=== PATIENT | male | born 2000 | race Caucasian/White ===

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

== ENCOUNTER 2019-10-01 19:43 | Emergency (ER) | payer OTHER ==
[2019-10-01 19:50] VITALS: TEMP 98.3
[2019-10-01] MEDS ORDERED: DIAZEPAM 5 MG/ML 2 ML INJ IM ONE (20:23)
--- NOTE | 2019-10-01 20:31 | ED ---
SOB HPI - General Chief Complaint: Shortness of Breath Stated Complaint: Chest pain Time Seen by Provider: 10/01/19 20:04 Source: patient Mode of arrival: ambulatory Limitations: no limitations - History of Present Illness Initial Comments: Patient is a 19-year-old male presenting to the emergency Department with complaints of right sided chest pain and shortness of breath 4 days. Patient states he was seen twice at [facility] in the past 2 days and was diagnosed with enlarged lymph nodes as well as anxiety. Patient states his pain has continued so he wanted to be seen here. Patient denies any history of trauma. He denies any drug use. He states he does have history of mild anxiety but nothing to this nature. He denies recent fever, chills, nausea, vomiting, diarrhea, abdominal pain. He has no other complaints at this time. Upon arrival to the ER, his vitals are stable. - Related Data Previous Rx's Medication Instructions Recorded Albuterol Inhaler (Mhu) [Ventolin 2 puff INHALATION RT-QID PRN puff 09/07/17 Hfa Inhaler (Mhu)] Budesonide-Formot 160-4.5 Mcg 2 puff INHALATION RT-BID puff 09/07/17 [Symbicort 160-4.5 Mcg Inhaler] [place] Carbonate 600 mg PO DAILY cap 09/07/17 [place] Carbonate 900 mg PO HS cap 09/07/17 Lurasidone [Latuda] 100 mg PO DAILY tab 09/07/17 Ketorolac [Toradol] 10 mg PO Q8HR #10 tab 10/01/19 Allergies Allergy/AdvReac Type Severity Reaction Status Date / Time No Known Allergies Allergy Verified 10/01/19 19:49 Review of Systems ROS Statement: Those systems with pertinent positive or pertinent negative responses have been documented in the HPI. ROS Other: All systems not noted in ROS Statement are negative. Past Medical History Past Medical History: Asthma History of Any Multi-Drug Resistant Organisms: None Reported Past Surgical History: No Surgical Hx Reported Past Anesthesia/Blood Transfusion Reactions: No Reported Reaction Past Psychological History: Anxiety, Depression Smoking Status: Current every day smoker Past Alcohol Use History: Daily Past Drug Use History: Cocaine, Marijuana General Exam - General Exam Comments Initial Comments: GENERAL: Patient is very anxious, holding the right side of his chest. Painful to take in a deep breath, in mild distress. HEAD: Atraumatic, normocephalic. EYES: Pupils equal round and reactive to light, extraocular movements intact, sclera anicteric, conjunctiva are normal. ENT: TMs normal, nares patent, oropharynx clear without exudates. Moist mucous membranes. NECK: Normal range of motion, supple without lymphadenopathy or JVD. LUNGS: Breath sounds clear to auscultation bilaterally and equal. No wheezes rales or rhonchi. HEART: Regular rate and rhythm without murmurs, rubs or gallops. ABDOMEN: Soft, nontender, normoactive bowel sounds. No guarding, no rebound. No masses appreciated. : Deferred EXTREMITIES: Normal range of motion, no pitting or edema. No clubbing or cyanosis. NEUROLOGICAL: Normal speech, normal gait. PSYCH: Anxious SKIN: Warm, Dry, normal turgor, no rashes or lesions noted. Limitations: no limitations Course Vital Signs 10/01/19 10/01/19 19:47 22:11 Temperature 98.3 F Pulse Rate 87 101 H Respiratory 20 18 Rate Blood Pressure 156/62 128/82 O2 Sat by Pulse 94 L 98 Oximetry Medical Decision Making - Medical Decision Making Patient is a 19-year-old male here for right-sided chest pain 4 days. Patient was seen recently at [facility]. Records were obtained and reviewed. Patient was actually admitted overnight and then came back the same day. Computed tomography scan of the chest was ordered to rule out PE and revealed significant lymph nodes the mediastinal area as as well as calcified spots in the spleen. Patient was started on steroids and was told to follow up with PCP. Patient presents today with continued pain in the right side of the chest. Vitals are stable. Exam is unremarkable. EKG shows no signs of ischemia, chest x-ray shows no acute changes. Patient was given Valium and Toradol in the ER. He states improvement in his symptoms. Patient will follow up with PCP. He is agreement with this plan of care. Return parameters were discussed with the patient, he verbalizes understanding. - EKG Data EKG Comments: Normal sinus rhythm, no signs of acute ischemia. Ventricular rate 96, MD interval 154, QTC 424. Disposition Clinical Impression: Anxiety, Atypical chest pain, Lymph nodes enlarged Disposition: HOME SELF-CARE Condition: Stable Instructions (If sedation given, give patient instructions): Anxiety (ED) Additional Instructions: Please return to the Emergency Department if symptoms worsen or any other concerns. Continue with already prescribed steroids. Follow up with PCP. Prescriptions: Ketorolac [Toradol] 10 mg PO Q8HR #10 tab Is patient prescribed a controlled substance at d/c from ED?: No Referrals: Ivan Whyte MD [Primary Care Provider] - 1-2 days
--- NOTE | 2019-10-01 20:57 | XR ---
EXAMINATION TYPE: XR chest 2V DATE OF EXAM: 10/01/2019 COMPARISON: 10/02/2009 TECHNIQUE: PA and lateral views submitted. HISTORY: Chest pain FINDINGS: Basilar infiltrate on the right with coarsened interstitial markings. Pleural thickening or tiny righ t effusion. Heart size stable. No pneumothorax. Curvature the spine could be positional correlate cli nically. IMPRESSION: 1. Right basilar subsegmental consolidation with coarsened interstitium. Correlate for interstitial o r viral pneumonitis with basilar infiltrate favored over venous congestion.
[2019-10-01] MEDS ORDERED: KETOROLAC 60 MG/2 ML VIAL IM STA (21:47)
[2019-10-01 22:12] VITALS: BP 128/82; PULSE 101; RESP 18
== END 2019-10-01 22:15 | disposition home or self-care (01) ==
LOC: EC 19:43
DX: R07.89 Other chest pain (principal); F41.9 Anxiety disorder, unspecified; R59.0 Localized enlarged lymph nodes; F17.200 Nicotine dependence, unspecified, uncomplicated
CPT/HCPCS: 99285; 96372 ×2; 93005; 71046; J3360; J1885

== ENCOUNTER 2019-10-04 03:20 | Inpatient (IN) | payer OTHER ==
[2019-10-04] MEDS ORDERED: HYDROmorphone 1 MG/ML 1 ML SYRINGE IVP STA (03:35)
[2019-10-04] MEDS ORDERED: LORazepam 2 MG/ML INJ IV STA (03:36)
[2019-10-04] MEDS ORDERED: SODIUM CHLORIDE 0.9% 1,000 ML IV STA ×3 (03:36→05:06)
[2019-10-04] MEDS ORDERED: SODIUM CHLORIDE 0.9% 500 ML 500 ML IV STA ×2 (03:36→05:06)
--- NOTE | 2019-10-04 03:36 | ED ---
Recheck HPI - General Chief Complaint: Chest Pain Stated Complaint: pain all over Time Seen by Provider: 10/04/19 03:30 Source: patient, family, RN notes reviewed, old records reviewed Mode of arrival: ambulatory Limitations: no limitations - History of Present Illness Initial Comments: This is a 19-year-old male DF for evaluation patient has no medical history occasionally does drugs and alcohol both cocaine and alcohol today. Marijuana. Patient is no witnesses she will surgical history recent medical history includes multiple ER visits this with inpatient hospitalization for chest pain. Patient is also admits to fevers over the last week or so. Symptoms of increasingly worse over the last 2 days. Patient has severe chest pain severe distress feels like his heart is racing he cannot breath he is not taking a deep breath he cannot inhale. Patient is also complaining some dull pain that to be worse when he does try to take a deep breath. He is having anterior chest pain began suddenly fever sweating in general does not feel well. Patient's been taking antibiotics as prescribed, he was given some pain medication but that is not helping MD Complaint: other (recheck chest pain) -: week(s) (1) Returns Today for: persistent/worsening pain related to initial visit (severe) Symptoms Since Prior Visit: worsening pain, fever Context: other (worsening pain) Associated Symptoms: fever, chills, chest pain, shortness of breath, abdominal pain Treatments Prior to Arrival: other medications (antibiotics), Given Pain Meds on - Related Data Home Medications Medication Instructions Recorded Confirmed Acetaminophen Tab [Tylenol] 650 mg PO Q6H PRN 10/04/19 10/04/19 Albuterol Inhaler [Ventolin Hfa 2 puff INHALATION RT-Q6H PRN 10/04/19 10/04/19 Inhaler] Albuterol Nebulized [Ventolin 2.5 mg INHALATION RT-Q6H PRN 10/04/19 10/04/19 Nebulized] Azithromycin [Zithromax Z-pack] See Taper PO DAILY 10/04/19 10/04/19 Cetirizine HCl 10 mg PO DAILY PRN 10/04/19 10/04/19 Ketorolac [Toradol] 10 mg PO Q8H PRN 10/04/19 10/04/19 methylPREDNISolone Dose Pack See Taper PO DAILY 10/04/19 10/04/19 [Medrol Dose Pack] Allergies Allergy/AdvReac Type Severity Reaction Status Date / Time No Known Allergies Allergy Verified 10/04/19 14:00 Review of Systems ROS Statement: Those systems with pertinent positive or pertinent negative responses have been documented in the HPI. ROS Other: All systems not noted in ROS Statement are negative. Past Medical History Past Medical History: Asthma History of Any Multi-Drug Resistant Organisms: None Reported Past Surgical History: No Surgical Hx Reported Past Anesthesia/Blood Transfusion Reactions: No Reported Reaction Past Psychological History: Anxiety, Depression Smoking Status: Current every day smoker Past Alcohol Use History: Daily Past Drug Use History: Cocaine, Marijuana - Past Family History Mother Additional Family Medical History / Comment(s): Vertigo Father History Unknown: Yes General Exam Limitations: no limitations General appearance: alert, anxious, in distress Head exam: Present: atraumatic, normocephalic, normal inspection Eye exam: Present: normal appearance, PERRL, EOMI. Absent: scleral icterus, conjunctival injection, periorbital swelling ENT exam: Present: normal exam, mucous membranes dry Neck exam: Present: normal inspection. Absent: tenderness, meningismus, lymphadenopathy Respiratory exam: Present: decreased breath sounds (Right). Absent: wheezes, rales, rhonchi, stridor Cardiovascular Exam: Present: normal rhythm, tachycardia, normal heart sounds. Absent: systolic murmur, diastolic murmur, rubs, gallop, clicks GI/Abdominal exam: Present: soft, normal bowel sounds. Absent: distended, tenderness, guarding, rebound, rigid Extremities exam: Present: normal inspection, full ROM, normal capillary refill. Absent: tenderness, pedal edema, joint swelling, calf tenderness Back exam: Present: normal inspection Neurological exam: Present: alert, oriented X3, CN II-XII intact Psychiatric exam: Present: normal affect, normal mood Skin exam: Present: warm, dry, intact, normal color. Absent: rash Course Vital Signs 10/04/19 10/04/19 10/04/19 03:22 03:40 05:05 Temperature 98.3 F Pulse Rate 133 H 118 H 120 H Respiratory 20 22 23 Rate Blood Pressure 124/70 117/72 104/88 O2 Sat by Pulse 95 96 95 Oximetry 10/04/19 10/04/19 10/04/19 05:36 06:00 06:30 Temperature 98.3 F Pulse Rate 114 H 113 H 116 H Respiratory 23 21 23 Rate Blood Pressure 101/71 112/60 100/63 O2 Sat by Pulse 97 96 96 Oximetry - Reevaluation(s) Reevaluation #1: 10/04/19 05:47 Medical records reviewed Patient's transfer records as well as inpatient hospitalist records from [facility] is reviewed as well as ER visit from earlier in the week Reevaluation #2: 10/04/19 05:48 Patient is having improved pain control still having severe pain feels like his heart is racing no active nausea vomiting and denies any recent history of nausea and vomiting does admit to fever which is taking Tylenol for Patient's blood pressures improved with IV hydration, pain is improved - Consultations Consultation #1: Spoke with Dr. Montalvo CVT does recommend Gastrografin and barium swallow, aware patient Spoke with interventional radiology will be able to do both procedures this morning Spoke with Dr. Whyte who is okay for admission Spoke with Dr. Rosenberg except ICU admission Medical Decision Making - Medical Decision Making 19 male DF for evaluation patient with us today for evaluation of chest pain shortness of breath recheck patient no something is wrong on arrival. Patient does have significant pneumomediastinum right-sided pleural effusion likely empyema with fever. Patient be admitted for interventional radiology drainage and evaluation of possible Boerhaave's esophagus, patient placed on broad- spectrum antibiotics pain control and IV resuscitation will be admitted to the ICU for telemetry and cardiopulmonary monitoring and resuscitation - Lab Data Result diagrams: 10/04/19 03:55 10/04/19 03:55 Lab Results 10/04/19 10/04/19 10/04/19 Range/Units 03:55 03:55 03:55 WBC 34.2 H (3.8-10.6) k/uL RBC 4.99 (4.30-5.90) m/uL Hgb 14.2 (13.0-17.5) gm/dL Hct 43.0 (39.0-53.0) % MCV 86.2 (80.0-100.0) fL MCH 28.4 (25.0-35.0) pg MCHC 32.9 (31.0-37.0) g/dL RDW 13.3 (11.5-15.5) % Plt Count 498 H (150-450) k/uL Neutrophils % (Manual) 88 % Band Neutrophils % 6 % Lymphocytes % (Manual) 3 % Monocytes % (Manual) 3 % Neutrophils # (Manual) 32.10 H (1.3-7.7) k/uL Lymphocytes # (Manual) 1.03 (1.0-4.8) k/uL Monocytes # (Manual) 1.03 H (0-1.0) k/uL Nucleated RBCs 0 (0-0) /100 WBC Manual Slide Review Performed Toxic Granulation Present ESR 80 H (0-15) mm/hr PT 10.5 (9.0-12.0) sec INR 1.0 (<1.2) APTT 26.6 (22.0-30.0) sec D-Dimer 3.17 H (<0.60) mg/L FEU Sodium 130 L (137-145) mmol/L Potassium 4.7 (3.5-5.1) mmol/L Chloride 95 L (98-107) mmol/L Carbon Dioxide 24 (22-30) mmol/L Anion Gap 11 mmol/L BUN 27 H (9-20) mg/dL Creatinine 1.14 (0.66-1.25) mg/dL Est GFR (CKD-EPI)AfAm >90 (>60 ml/min/1.73 sqM) Est GFR (CKD-EPI)NonAf >90 (>60 ml/min/1.73 sqM) Glucose 130 H (74-99) mg/dL Plasma Lactic Acid Rene (0.7-2.0) mmol/L Calcium 8.5 (8.4-10.2) mg/dL Phosphorus 4.8 H (2.5-4.5) mg/dL Magnesium 2.8 H (1.6-2.3) mg/dL Total Bilirubin 1.0 (0.2-1.3) mg/dL AST 32 (17-59) U/L ALT 36 (4-49) U/L Alkaline Phosphatase 92 (38-126) U/L Lactate Dehydrogenase 720 H (313-618) U/L Creatine Kinase 24 L (55-170) U/L CK-MB (CK-2) (0.0-2.4) ng/mL C-Reactive Protein 660.4 H (<10.0) mg/L Total Protein 6.1 L (6.3-8.2) g/dL Albumin 3.0 L (3.5-5.0) g/dL Coronavirus (PCR) (Not Detectd) 10/04/19 10/04/19 10/04/19 Range/Units 03:55 03:55 04:00 WBC (3.8-10.6) k/uL RBC (4.30-5.90) m/uL Hgb (13.0-17.5) gm/dL Hct (39.0-53.0) % MCV (80.0-100.0) fL MCH (25.0-35.0) pg MCHC (31.0-37.0) g/dL RDW (11.5-15.5) % Plt Count (150-450) k/uL Neutrophils % (Manual) % Band Neutrophils % % Lymphocytes % (Manual) % Monocytes % (Manual) % Neutrophils # (Manual) (1.3-7.7) k/uL Lymphocytes # (Manual) (1.0-4.8) k/uL Monocytes # (Manual) (0-1.0) k/uL Nucleated RBCs (0-0) /100 WBC Manual Slide Review Toxic Granulation ESR (0-15) mm/hr PT (9.0-12.0) sec INR (<1.2) APTT (22.0-30.0) sec D-Dimer (<0.60) mg/L FEU Sodium (137-145) mmol/L Potassium (3.5-5.1) mmol/L Chloride (98-107) mmol/L Carbon Dioxide (22-30) mmol/L Anion Gap mmol/L BUN (9-20) mg/dL Creatinine (0.66-1.25) mg/dL Est GFR (CKD-EPI)AfAm (>60 ml/min/1.73 sqM) Est GFR (CKD-EPI)NonAf (>60 ml/min/1.73 sqM) Glucose (74-99) mg/dL Plasma Lactic Acid Rene 1.7 (0.7-2.0) mmol/L Calcium (8.4-10.2) mg/dL Phosphorus (2.5-4.5) mg/dL Magnesium (1.6-2.3) mg/dL Total Bilirubin (0.2-1.3) mg/dL AST (17-59) U/L ALT (4-49) U/L Alkaline Phosphatase (38-126) U/L Lactate Dehydrogenase (313-618) U/L Creatine Kinase (55-170) U/L CK-MB (CK-2) <0.2 (0.0-2.4) ng/mL C-Reactive Protein (<10.0) mg/L Total Protein (6.3-8.2) g/dL Albumin (3.5-5.0) g/dL Coronavirus (PCR) Not Detected (Not Detectd) - EKG Data -: EKG Interpreted by Me (EKG shows sinus tachycardia of 119 NM 112 QRS 80 QTc [address]) - Radiology Data Radiology results: report reviewed (CT of the chest and pelvis does show significant mediastinitis normal mediastinum significant right-sided effusion li sona empyema), image reviewed Critical Care Time Critical Care Time: Yes Total Critical Care Time: 31 Disposition Clinical Impression: Mediastinitis, Pneumomediastinum, Pleural effusion, right, Empyema, right, Fever, Sepsis, Pneumonia Disposition: ADMITTED IP TO THIS HOSP Condition: Critical Is patient prescribed a controlled substance at d/c from ED?: No
[2019-10-04] MEDS ORDERED: KETOROLAC 30 MG/ML 1 ML VIAL IVP STA (03:38)
[2019-10-04 04:08] LABS: HGB 14.2 gm/dL (13.0-17.5); MCH 28.4 pg (25.0-35.0); MCHC 32.9 g/dL (31.0-37.0); MCV 86.2 fL (80.0-100.0); Mean Platelet Volume 7.5; Platelet Count 498 k/uL (150-450); RBC 4.99 m/uL (4.30-5.90); RDW 13.3 % (11.5-15.5); WBC 34.2 k/uL (3.8-10.6)
[2019-10-04 04:20] LABS: ALT 36 U/L (4-49); AST 32 U/L (17-59); African American GFR (CKD) >90 (>60 ml/min/1.73 sqM); Alkaline Phosphatase 92 U/L (38-126); Anion Gap 11 mmol/L; Blood Urea Nitrogen 27 mg/dL (9-20); Calcium 8.5 mg/dL (8.4-10.2); Carbon Dioxide 24 mmol/L (22-30); Chloride 95 mmol/L (98-107); Creatine Kinase 24 U/L (55-170); Glucose 130 mg/dL (74-99); LDH 720 U/L (313-618); Magnesium 2.8 mg/dL (1.6-2.3); Non-African American GFR(CKD) >90 (>60 ml/min/1.73 sqM); Phosphorus 4.8 mg/dL (2.5-4.5); Potassium 4.7 mmol/L (3.5-5.1); Sodium 130 mmol/L (137-145); Total Protein 6.1 g/dL (6.3-8.2)
[2019-10-04 04:26] LABS: Band Neutrophils % 6 %; Lymphocytes # (M) 1.03 k/uL (1.0-4.8); Monocytes # (M) 1.03 k/uL (0-1.0); Neutrophils % (M) 88 %; Nucleated Red Blood Cells 0 /100 WBC (0-0); Partial Thromboplastin Time 26.6 sec (22.0-30.0); Prothrombin Time 10.5 sec (9.0-12.0); Total Cells Counted 100
[2019-10-04 04:27] LABS: Toxic Granulation Present
[2019-10-04 04:28] LABS: D-Dimer 3.17 mg/L FEU (<0.60)
--- NOTE | 2019-10-04 05:00 | CT ---
EXAMINATION TYPE: CT angio chest DATE OF EXAM: 10/04/2019 COMPARISON: None HISTORY: JONES and chest pain CT DLP: 339.6 mGycm Automated exposure control for dose reduction was used. CONTRAST: Performed with IV Contrast, patient injected with 100mL mL of Isovue 370. There are 3-D post processed images. There is a large right pleural effusion. There is significant infiltrate and atelectasis in the right lower lobe and to a lesser extent the right upper lobe. Pleural fluid has low attenuation. There is pericardial effusion. The left lung is clear of consolidation. Thoracic aorta is intact and there is no aneurysm or dissection. I see no filling defects in the pulmonary arteries. There is pneumomediastinum. There is air extending in the retrosternal region and anterior to the hea rt in down to the diaphragm. The bony thorax is intact. Upper abdominal soft tissues are intact. IMPRESSION: No evidence of pulmonary embolism. There is appearance of the large right pleural effusion with right side pneumonic atelectasis and mild infiltrate that is a significant adverse change compared to rece nt chest x-ray 10/01/2019. There is pneumomediastinum and moderate pericardial effusion. I would consider possibilities of perforated esophagus with mediastinitis and empyema. Fluid in the p leural space has low attenuation and I do not suspect hemorrhage. The density is 8. Exam findings were discussed with Dr. Rosas, at 5:00 AM.
[2019-10-04 05:03] LABS: Erythrocyte Sedimentation Rate 80 mm/hr (0-15)
[2019-10-04] MEDS ORDERED: PIPERACILLIN-TAZOBACTAM 3.375 GM in SODIUM CHLORIDE 0.9% 100 ML IVPB STA (05:08)
--- NOTE | 2019-10-04 05:10 | CT ---
EXAMINATION TYPE: CT abdomen pelvis w con DATE OF EXAM: 10/04/2019 COMPARISON: None HISTORY: abdominal pain CT DLP: 778.2 mGycm Automated exposure control for dose reduction was used. CONTRAST: Performed with IV Contrast, patient injected with 100mL mL of Isovue 370. There is large right pleural effusion. There is small left pleural effusion. There is moderate perica rdial effusion. Liver shows no focal defect. There are multiple calcified splenic granulomata. Stomach appears intact . There is no evidence of pancreatic mass. Gallbladder appears normal. There is no adrenal mass. Kidneys show satisfactory contrast opacification. There is no hydronephrosi s. Ureters are not dilated. There is mild free fluid in the pelvis. Bladder distends smoothly. There is no inguinal hernia. There is no evidence of pelvic mass. There is no mesenteric edema. There is no sign of free air. There is no evidence of thickened appendix. There is no bowel obstruction. Lumbar spine is intact. Bony pelvis is intact. IMPRESSION: Large right pleural effusion and small left pleural effusion. Old granulomatous disease. Mild low den sity free fluid in the pelvis.
[2019-10-04 05:13] LABS: C Reactive Protein 660.4 mg/L (<10.0)
[2019-10-04] MEDS ORDERED: NALOXONE 0.4 MG/ML 1 ML VIAL IV PRN (05:34)
[2019-10-04] MEDS ORDERED: LEVOFLOXACIN 750MG-D5W PMX 750 MG in DEXTROSE/WATER 1 150ML.BAG IVPB STA (05:40)
[2019-10-04] MEDS ORDERED: DEXTROSE 5%-0.45% NACL 1,000 ML IV SCH (05:45)
[2019-10-04] MEDS ORDERED: PANTOPRAZOLE 40 MG/10 ML VIAL IVP STA (06:05)
[2019-10-04] MEDS ORDERED: ONDANSETRON 4 MG/2 ML VIAL IVP STA (06:05)
[2019-10-04] MEDS ORDERED: ONDANSETRON 4 MG/2 ML VIAL IVP PRN (06:05)
--- NOTE | 2019-10-04 06:10 | XR ---
EXAMINATION TYPE: XR chest 1V portable DATE OF EXAM: 10/04/2019 COMPARISON: 10/01/2019 HISTORY: Chest pain TECHNIQUE: Single view FINDINGS: There is large right pleural effusion. Left lung is fairly clear. There is no heart failure . Cardiac silhouette is enlarged and consistent with the pericardial effusion evident on the CT scan. There are chest leads. Mediastinum is slightly widened. IMPRESSION: Cardiomegaly consistent with pericardial effusion that is a change compared to recent exa m. Large right pleural effusion is a significant change compared to recent exam. The pneumomediastinu m evident on the CT scan is not demonstrated on this exam. Mediastinum is slightly widened.
[2019-10-04] MEDS: HYDROmorphone 1 MG/ML 1 ML SYRINGE IVP PRN ×5 (06:16→21:48)
[2019-10-04 07:02] LABS: Glucose,Whole Blood 135 mg/dL (75-99)
--- NOTE | 2019-10-04 07:24 | HP ---
HISTORY AND PHYSICAL A 19-year-old white male with chest pain all over, associated with fever, chills, chest pain, abdominal pain, worsening pain since admission. He was found to have a possible empyema on CAT scan of the chest at which time chest surgeon is consulted for possible drain, started on broad-spectrum antibiotics. He is going to be . ALLERGIES: Negative. Current everyday smoker. He does cocaine, marijuana. REVIEW OF SYSTEMS: Fourteen-point review of systems negative except for the diffuse chest pain and some fast heart beats. PHYSICAL EXAMINATION: He is thin, cachectic alert, anxious. Pupils equal, round, reactive. ENT: Normal. LUNGS: Decreased breath sounds on the right. Absent wheezes, rhonchi, stridor. CARDIAC: He is tachycardic. No murmurs, rubs, gallops. GI: Soft, normal bowel sounds. EXTREMITIES: No cyanosis, clubbing, edema. BACK: Within normal limits. NEUROLOGIC: Cranial nerves are intact. PSYCH: Anxious, nervous. SKIN: No rashes. VITAL SIGNS: Pulse rate 114, blood pressure 101/71, pulse was as high as 133 in the ER, respiratory rate 20 to 23. ASSESSMENT: Atypical chest pain for which CT scan of the chest has been ordered. He has severe leukocytosis of 34.2 secondary to empyema. BUN 27, creatinine 1.14 for acute renal insufficiency. He is going to get a Gastrografin barium swallow, Interventional Radiology possible drainage tube for the empyema. High C-reactive protein 660 which goes along with empyema. Mediastinitis, pneumomediastinum, pleural effusion, empyema, fever, sepsis secondary to unclear etiology. He is negative for coronavirus. MMODL / IJN: [id number] /
[2019-10-04] MEDS: IPRATROPIUM-ALBUTEROL 3 ML NEB INHALATION PRN ×3 (07:32→20:03)
[2019-10-04] MEDS: PANTOPRAZOLE 40 MG/10 ML VIAL IV SCH (10:39)
[2019-10-04] MEDS: COLCHICINE 0.6 MG EACH PO SCH ×2 (10:39→20:23)
--- NOTE | 2019-10-04 10:42 | P.CRDCN ---
History of Present Illness History of present illness: This is Shavon Nguyen PA-C dictating a consult on this patient The patient was interviewed and examined by me as well as by Dr. Rose Case discussed with Dr. Rose and he agrees with the plan of care HPI Patient is a 19-year-old male with history of asthma who presented with complaints of chest discomfort and shortness of breath. About a week ago he woke up in the middle of the night with severe sharp chest discomfort which sometimes radiated to the shoulders and sometimes radiated throughout his body, fevers and chills, and shortness of breath. He admits to smoking marijuana and states that sometimes after he smokes he does sometimes cough a few times but d enies any productive cough or severe coughing fits. He denies any nausea, vomiting, or retching. He states he has not been eating as much due to his severe discomfort but denies any difficulty swallowing or any problems with choking. He was apparently seen at [facility] [place] emergency d epartment 3 times for his symptoms. He was treated with antibiotics, pain medications and told he had anxiety. He presented to [facility] ER 3 days ago with the same symptoms and was treated with steroids and pain medications. He returned again for evaluation because his discomfort continued to progressively worsen. On arrival to the emergency department temperature 98.3F pulse 133, respirations 20, blood pressure 124/70, oxygen saturation 95% on room air. EKG shows sinus tachycardia with upsloping ST elevation in lead 1, 2, V2 through V6 with [place] depressions in the lateral leads. Chest CT showed no evidence of pulmonary embolism, large right pleural effusion with right side pneumonic atel ectasis and mild infiltrate, pneumomediastinum and moderate pericardial effusion. He has been started on IV antibiotics and admitted to the ICU. He is awaiting a barium swallow to assess for possible esophageal tear. Patient seen and examined in the ICU. Appears uncomfortable. Continues to have severe chest discomfort. ROS: Positive for fevers and chills no cough, phlegm or expectoration, no nausea, vomiting or diarrhea, no hematuria, dysuria, Positive for shoulder pain no strokes or seizures, no skin lesions. EXAMINATION: Patient is afebrile, pulse in the 110s, respirations 23, blood pressure 121/71, oxygen saturation 97% on 2 L nasal cannula Patient seen and examined in the ICU, sitting up in bed, appears uncomfortable, in mild distress Breath sounds are diminished on the right base posteriorly Heart is tachycardic, friction rub audible No JVD REVIEW OF LABS, ECG & MEDICAL DATA WBC 34.2, hemoglobin 14.2, platelets 498, potassium 4.7, BUN 27, creatinine 1.14 Coronavirus not detected Lactate dehydrogenase 720, creatinine kinase 24, CRP 660 Echocardiogram showed moderate predominantly posterior her cardial effusion without any clear-cut evidence of cardiac tamponade IMPRESSION / ASSESSMENT: #1 chest discomfort, shortness of breath, fevers secondary to empyema, media stinitis, pleural effusion, etiology unclear, awaiting barium swallow and drainage by interventional radiology #2 moderate pericardial effusion, no clear-cut evidence of tamponade on echocardiogram, blood pressure stable #3 history of asthma PLAN: Start colchicine Dr. Rose discussed the case with Fede Snowden NP from CT surgery Awaiting results barium swallow and pleurocentesis by interventional radiology, if the fluid is serous we will proceed with pericardiocentesis, if the fluid is purulent we would recommend a pericardial window Past Medical History Past Medical History: Asthma History of Any Multi-Drug Resistant Organisms: None Reported Past Surgical History: No Surgical Hx Reported Past Anesthesia/Blood Transfusion Reactions: No Reported Reaction Past Psychological History: Anxiety, Depression Smoking Status: Current every day smoker Past Alcohol Use History: Daily Past Drug Use History: Cocaine, Marijuana Medications and Allergies Home Medications Medication Instructions Recorded Confirmed Type Acetaminophen Tab [Tylenol] 650 mg PO Q6H PRN 10/04/19 10/04/19 History Albuterol Inhaler [Ventolin Hfa 2 puff INHALATION RT-Q6H PRN 10/04/19 10/04/19 History Inhaler] Albuterol Nebulized [Ventolin 2.5 mg INHALATION RT-Q6H PRN 10/04/19 10/04/19 History Nebulized] Azithromycin [Zithromax Z-pack] See Taper PO DAILY 10/04/19 10/04/19 History Cetirizine HCl 10 mg PO DAILY PRN 10/04/19 10/04/19 History Ketorolac [Toradol] 10 mg PO Q8H PRN 10/04/19 10/04/19 History methylPREDNISolone Dose Pack See Taper PO DAILY 10/04/19 10/04/19 History [Medrol Dose Pack] Allergies Allergy/AdvReac Type Severity Reaction Status Date / Time No Known Allergies Allergy Verified 10/04/19 08:04 Physical Exam Vitals: Vital Signs Temp Pulse Resp BP Pulse Ox 10/04/19 09:00 120 H 16 128/93 95 10/04/19 08:00 97.8 F 120 H 21 107/78 96 10/04/19 07:47 121 H 10/04/19 07:32 113 H 10/04/19 07:14 122 H 21 106/74 97 10/04/19 06:30 98.3 F 116 H 23 100/63 96 10/04/19 06:00 113 H 21 112/60 96 10/04/19 05:36 114 H 23 101/71 97 10/04/19 05:05 120 H 23 104/88 95 10/04/19 03:40 118 H 22 117/72 96 10/04/19 03:22 98.3 F 133 H 20 124/70 95 Intake and Output 10/03/19 10/04/19 10/04/19 22:59 06:59 14:59 Intake Total 255 Output Total 0 Balance 255 Intake: IV 255 Dextrose 5%-0.45% NaCl 1, 255 000 ml @ 85 mls/hr IV . [id number] [facility] Rx#:[id number] Output: Urine 0 Other: # Voids 0 Weight 75.75 kg Results 10/04/19 03:55 10/04/19 03:55 Cardiac Enzymes 10/04/19 10/04/19 Range/Units 03:55 03:55 AST 32 (17-59) U/L Lactate Dehydrogenase 720 H (313-618) U/L CK-MB (CK-2) <0.2 (0.0-2.4) ng/mL Coagulation 10/04/19 Range/Units 03:55 PT 10.5 (9.0-12.0) sec APTT 26.6 (22.0-30.0) sec CBC 10/04/19 Range/Units 03:55 WBC 34.2 H (3.8-10.6) k/uL RBC 4.99 (4.30-5.90) m/uL Hgb 14.2 (13.0-17.5) gm/dL Hct 43.0 (39.0-53.0) % Plt Count 498 H (150-450) k/uL Comprehensive Metabolic Panel 10/04/19 Range/Units 03:55 Sodium 130 L (137-145) mmol/L Potassium 4.7 (3.5-5.1) mmol/L Chloride 95 L (98-107) mmol/L Carbon Dioxide 24 (22-30) mmol/L BUN 27 H (9-20) mg/dL Creatinine 1.14 (0.66-1.25) mg/dL Glucose 130 H (74-99) mg/dL Calcium 8.5 (8.4-10.2) mg/dL AST 32 (17-59) U/L ALT 36 (4-49) U/L Alkaline Phosphatase 92 (38-126) U/L Total Protein 6.1 L (6.3-8.2) g/dL Albumin 3.0 L (3.5-5.0) g/dL Current Medications Generic Name Dose Route Start Last Admin Trade Name Freq PRN Reason Stop Dose Admin Albuterol/Ipratropium 3 ml 10/04/19 05:40 10/04/19 07:32 Duoneb 0.5 Mg-3 Mg/3 Ml Soln INHALATION 3 ml RT-Q4H PRN Administration Shortness Of Breath Or Wheezing Hydromorphone HCl 1 mg 10/04/19 05:40 10/04/19 06:16 Dilaudid IVP 1 mg Q2HR PRN Administration Pain Scale 6 to 7 Sodium Chloride 1,000 mls @ 130 mls/hr 10/04/19 03:36 10/04/19 05:07 Saline 0.9% IV 10/04/19 11:17 130 mls/hr .[id number] STA Administration Dextrose/Sodium Chloride 1,000 mls @ 85 mls/hr 10/04/19 05:45 10/04/19 06:22 Dextrose 5%-1/2ns Iv Soln IV 85 mls/hr .[id number] THEODORE Administration Piperacillin Sod/Tazobactam 100 mls @ 25 mls/hr 10/04/19 13:00 Sod 3.375 gm/ Sodium Chloride IVPB Q8H THEODORE Levofloxacin 750 mg/ IV 150 mls @ 100 mls/hr 10/05/19 05:45 Solution IVPB Q24H THEODORE Naloxone HCl 0.2 mg 10/04/19 05:34 Narcan IV Q2M PRN Opioid Reversal Ondansetron HCl 4 mg 10/04/19 06:05 Zofran IVP Q6HR PRN Nausea And Vomiting Pantoprazole Sodium 40 mg 10/04/19 09:00 Protonix IV DAILY THEODORE Intake and Output 10/03/19 10/04/19 10/04/19 22:59 06:59 14:59 Intake Total 255 Output Total 0 Balance 255 Intake: IV 255 Dextrose 5%-0.45% NaCl 1, 255 000 ml @ 85 mls/hr IV . [id number] [facility] Rx#:[id number] Output: Urine 0 Other: # Voids 0 Weight 75.75 kg 10/04/19 03:55 10/04/19 03:55
--- NOTE | 2019-10-04 10:51 | ECHOF ---
Referral Reason:pericardialEffusion MEASUREMENTS -------- HEIGHT: 172.7 cm WEIGHT: 75.8 kg BP: 100/63 RVIDd: 2.7 cm (< 3.3) IVSd: 1.2 cm (0.6 - 1.1) LVIDd: 4.2 cm (3.9 - 5.3) LVPWd: 1.3 cm (0.6 - 1.1) IVSs: 1.5 cm LVIDs: 3.0 cm LVPWs: 1.7 cm LAESV Index (A-L): 17.38 ml/m Ao Diam: 2.7 cm (2.0 - 3.7) AV Cusp: 2.2 cm (1.5 - 2.6) MV EXCURSION: 18.742 mm (> 18.000) MV EF SLOPE: 123 mm/s (70 - 150) EPSS: 0.7 cm RAP: 5.00 mmHg RVSP: 36.18 mmHg FINDINGS -------- Sinus rhythm. This was a technically good study. The left ventricular size is normal. There is mild concentric left ventricular hypertrophy. Overa ll left ventricular systolic function is mild-moderately impaired with, an EF between 40 - 45 %. The right ventricle is normal in size. Normal LA size by volume 22+/-6 ml/m2. The right atrial size is normal. Interatrial and interventricular septum intact. The aortic valve is trileaflet and appears structurally normal. There is no evidence of aortic regu rgitation. There is no evidence of aortic stenosis. There is trace mitral regurgitation. Mild tricuspid regurgitation present. There is mild pulmonary hypertension. The right ventricular systolic pressure, as measured by Doppler, is 36.18mmHg. Trace/mild (physiologic) pulmonic regurgitation. The aortic root size is normal. IVC Not well visulized. There is a large, generalized pericardial effusion present. CONCLUSIONS -------- 1. Sinus rhythm. 2. This was a technically good study. 3. The left ventricular size is normal. 4. There is mild concentric left ventricular hypertrophy. 5. Overall left ventricular systolic function is mild-moderately impaired with, an EF between 40 - 45 %. 6. The right ventricle is normal in size. 7. Normal LA size by volume 22+/-6 ml/m2. 8. The right atrial size is normal. 9. Interatrial and interventricular septum intact. 10. The aortic valve is trileaflet and appears structurally normal. 11. There is no evidence of aortic regurgitation. 12. There is no evidence of aortic stenosis. 13. There is trace mitral regurgitation. 14. Mild tricuspid regurgitation present. 15. There is mild pulmonary hypertension. 16. The right ventricular systolic pressure, as measured by Doppler, is 36.18mmHg. 17. Trace/mild (physiologic) pulmonic regurgitation. 18. The aortic root size is normal. 19. IVC Not well visulized. 20. There is a large, generalized pericardial effusion present. BOAT PULLER: Lyla Browne RDCS
--- NOTE | 2019-10-04 11:49 | P.CNPUL ---
History of Present Illness Consult date: 10/04/19 Requesting physician: Ivan Whyte Reason for consult: chest pain, abnormal CXR/CT Chief complaint: Chest pain, shortness of breath History of present illness: This is a very pleasant 19-year-old gentleman who follows with Dr. Whyte as his primary care provider. He has a history of mild intermittent chronic bronchial asthma, chronic and ongoing tobacco dependence, alcohol use, previous history of cocaine use, marijuana use. Previous incarceration secondary to aggravated assault back in he also has a history of depression and previous inpatient psychiatric stay for the same. He has been having increasing shortness of breath than chest discomfort along with fever for the past several days. He had been seen in the emergency room at [facility] discharge from the ER. He was also seen here on 10/01/2019 with similar symptoms was given Toradol and Valium and subsequently discharged. At that time his chest x-ray showed no acute changes. EKG showed no changes. Here he presented here to the emergency room earlier this morning with ongoing shortness of breath, chest pain. He has been having fevers on and off as well. Occasional phlegm mostly clear. No hemoptysis. White count elevated at 34.2. Hemoglobin 14.2. Platelet count 498. Neutrophils 32. ESR 80. D-dimer 3.17. Sodium 1:30. Potassium 4.7. Creatinine 1.14. LDH 720. C-reactive protein 660. Coronavirus not detected. EKG did reveal evidence of ST segment elevation. CT angiogram revealed no evidence of pulmonary embolism. There was however a large right pleural effusion with right-sided pneumonic atelectasis and mild infiltrate that was a significant change compared to chest x-ray on 10/01/2019. There is also pneumomediastinum and moderate pericardial effusion. Within the differential is perforated esophagus with mediastinitis and empyema. Computed tomography scan of the abdomen revealed no significant findings other than presented in the lung windows. Echocardiogram revealed mild to moderately impaired left ventricular systolic function with ejection fraction 40-45%. There is also a large generalized pericardial effusion present. The patient was admitted to the intensive care unit where consulted for the same. He is currently resting fairly comfortable in bed. He is still having ongoing issues with some chest discomfort and shortness of breath. He is afebrile. Maintaining O2 saturations in the mid 90s on 2 L/m per nasal cannula. He is tachycardic in the 120s. Blood pressure stable. Review of Systems REVIEW OF SYSTEMS: CONSTITUTIONAL: Denies any recent significant weight loss or weight gain. EYES: Denies change in vision. EARS, NOSE, MOUTH, THROAT: Denies headaches, denies sore throat. CARDIOVASCULAR: Positive for chest pain, palpitations no syncopal episodes. RESPIRATORY: Positive for shortness of breath, cough, congestion no hemoptysis. GASTROINTESTINAL: Denies change in appetite, denies abdominal pain GENITOURINARY: Denies hematuria, denies infections. MUSKULOSKELETAL: Denies pain, denies swelling. INTEGUMENTARY: Denies rash, denies eczema. NEUROLOGICAL: Denies recent memory loss, no recent seizure activity. PSYCHIATRIC: Positive for anxiety, denies depression. HEMATOLOGIC/LYMPHATIC: Denies anemia, denies enlarged lymph nodes. Past Medical History Past Medical History: Asthma History of Any Multi-Drug Resistant Organisms: None Reported Past Surgical History: No Surgical Hx Reported Past Anesthesia/Blood Transfusion Reactions: No Reported Reaction Past Psychological History: Anxiety, Depression Smoking Status: Current every day smoker Past Alcohol Use History: Daily Past Drug Use History: Cocaine, Marijuana Medications and Allergies Home Medications Medication Instructions Recorded Confirmed Type Acetaminophen Tab [Tylenol] 650 mg PO Q6H PRN 10/04/19 10/04/19 History Albuterol Inhaler [Ventolin Hfa 2 puff INHALATION RT-Q6H PRN 10/04/19 10/04/19 History Inhaler] Albuterol Nebulized [Ventolin 2.5 mg INHALATION RT-Q6H PRN 10/04/19 10/04/19 History Nebulized] Azithromycin [Zithromax Z-pack] See Taper PO DAILY 10/04/19 10/04/19 History Cetirizine HCl 10 mg PO DAILY PRN 10/04/19 10/04/19 History Ketorolac [Toradol] 10 mg PO Q8H PRN 10/04/19 10/04/19 History methylPREDNISolone Dose Pack See Taper PO DAILY 10/04/19 10/04/19 History [Medrol Dose Pack] Allergies Allergy/AdvReac Type Severity Reaction Status Date / Time No Known Allergies Allergy Verified 10/04/19 08:04 Physical Exam Vitals: Vital Signs Temp Pulse Resp BP Pulse Ox 10/04/19 11:00 121 H 22 118/77 96 10/04/19 10:00 113 H 23 121/71 97 10/04/19 09:00 120 H 16 128/93 95 10/04/19 08:00 97.8 F 120 H 21 107/78 96 10/04/19 07:47 121 H 10/04/19 07:32 113 H 10/04/19 07:14 122 H 21 106/74 97 10/04/19 06:30 98.3 F 116 H 23 100/63 96 10/04/19 06:00 113 H 21 112/60 96 10/04/19 05:36 114 H 23 101/71 97 10/04/19 05:05 120 H 23 104/88 95 10/04/19 03:40 118 H 22 117/72 96 10/04/19 03:22 98.3 F 133 H 20 124/70 95 Intake and Output 10/03/19 10/04/19 10/04/19 22:59 06:59 14:59 Intake Total 425 Output Total 0 Balance 425 Intake: IV 425 Dextrose 5%-0.45% NaCl 1, 425 000 ml @ 85 mls/hr IV . [id number] THEODORE Rx#:[id number] Output: Urine 0 Other: # Voids 0 Weight 75.75 kg GENERAL EXAM: Alert, pleasant 19-year-old male patient, on 2 L nasal cannula, fairly comfortable in no apparent distress. HEAD: Normocephalic. EYES: Normal reaction of pupils, equal size. NOSE: Clear with pink turbinates. THROAT: No erythema or exudates. NECK: No masses, no JVD. CHEST: No chest wall deformity. LUNGS: Equal air entry with crackles and diminished in the right lung. CVS: S1 and S2 normal with no audible murmur, positive pericardial rub, regular rhythm, tachycardic. ABDOMEN: No hepatosplenomegaly, normal bowel sounds, no guarding or rigidity. SPINE: No scoliosis or deformity SKIN: No rashes CENTRAL NERVOUS SYSTEM: No focal deficits, tone is normal in all 4 extremities. EXTREMITIES: There is no peripheral edema. No clubbing, no cyanosis. Peripheral pulses are intact. Results - Laboratory Findings CBC and BMP: 10/04/19 03:55 10/04/19 03:55 PT/INR, D-dimer PT 10.5 sec (9.0-12.0) 10/04/19 03:55 INR 1.0 (<1.2) 10/04/19 03:55 D-Dimer 3.17 mg/L FEU (<0.60) H 10/04/19 03:55 Abnormal lab findings: Abnormal Labs 10/04/19 10/04/19 10/04/19 03:55 03:55 03:55 WBC 34.2 H Plt Count 498 H Neutrophils # (Manual) 32.10 H Monocytes # (Manual) 1.03 H ESR 80 H D-Dimer 3.17 H Sodium 130 L Chloride 95 L BUN 27 H Glucose 130 H POC Glucose (mg/dL) Phosphorus 4.8 H Magnesium 2.8 H Lactate Dehydrogenase 720 H Creatine Kinase 24 L C-Reactive Protein 660.4 H Total Protein 6.1 L Albumin 3.0 L 10/04/19 07:00 WBC Plt Count Neutrophils # (Manual) Monocytes # (Manual) ESR D-Dimer Sodium Chloride BUN Glucose POC Glucose (mg/dL) 135 H Phosphorus Magnesium Lactate Dehydrogenase Creatine Kinase C-Reactive Protein Total Protein Albumin - Diagnostic Findings Chest x-ray: image reviewed CT scan - chest: image reviewed Assessment and Plan Assessment: Dyspnea secondary to a large right pleural effusion effusion with pneumomediastinum, suspected empyema, mediastinitis of unclear etiology. Possible perforated esophagus. Moderate pericardial effusion with no evidence of tamponade Leukocytosis secondary to above Elevated inflammatory markers secondary to above History of mild intermittent chronic bronchial asthma Chronic and ongoing tobacco dependence History of marijuana use History of previous cocaine use History of incarceration History of depression with previous inpatient treatment Plan: The patient was seen and evaluated by Dr. Velasco CAT scan and labs reviewed Esophagram pending Thoracentesis with possible pigtail placement pending Cardiology and CT services on the case Possible pericardiocentesis versus window Add Zosyn and Levaquin Continue to monitor closely in the intensive care unit We will continue to follow and make further recommendations based on his clinical status I, the cosigning physician, performed a history & physical examination of the patient. Lungs sounds with crackles and diminished in the right lung. Maintaining good O2 saturations in the 90s on 2 L/m per nasal cannula. I discussed the assessment and plan of care with my nurse practitioner, Pina Israel. I attest to the above consultation as dictated by her. Time with Patient: Greater than 30
[2019-10-04] MEDS ORDERED: COLCHICINE 0.6 MG EACH PO STA (12:40)
--- NOTE | 2019-10-04 12:54 | FL ---
EXAMINATION TYPE: FL barium swallow DATE OF EXAM: 10/04/2019 CLINICAL HISTORY: Recent abnormal CT. Chest pain. New right-sided pleural effusion and pneumomediastinum. Assess for esophageal perforation. TECHNIQUE: A single contrast esophagram is performed utilizing Isovue-370. A total of 47 seconds of fluoroscopic time was utilized during procedure. 58 spot images are saved. COMPARISON: CTA chest earlier today FINDINGS: Exam noted suboptimal as due to patient's pain and instability only semiupright supine and VAZQUEZ imaging can be performed. The esophagus shows satisfactory motility and emptying into the stomach . No evidence of fixed hiatal hernia or stricture noted. Extraluminal spread of contrast or focal di screte tear is not clearly identified. Partial visualization of known moderate to large right pleural fluid collection and associated compressive atelectasis during performance of study. IMPRESSION: Suboptimal study without focal esophageal tear appreciated.
[2019-10-04] MEDS: KETOROLAC 30 MG/ML 1 ML VIAL IVP SCH ×2 (13:14→18:11)
[2019-10-04] MEDS ORDERED: VANCOMYCIN IV PER PHARMACY 1 EACH MISC MISCELLANE PRN (13:15)
[2019-10-04] MEDS: PIPERACILLIN-TAZOBACTAM 3.375 GM in SODIUM CHLORIDE 0.9% 100 ML IVPB SCH ×2 (13:21→13:23)
[2019-10-04] MEDS ORDERED: METOCLOPRAMIDE 5 MG/ML 2 ML VIAL IVP STA (13:25)
--- NOTE | 2019-10-04 13:26 | XR ---
EXAMINATION TYPE: XR chest 1V portable DATE OF EXAM: 10/04/2019 COMPARISON: 10/04/2019 HISTORY: Follow-up for chest tube placement TECHNIQUE: Single frontal view of the chest is obtained. FINDINGS: There is a small right basilar pneumothorax status post insertion of a pigtail right pleur al catheter coiling along the right hemidiaphragm. There is marked improvement of the right pleural e ffusion with only trace residual fluid remaining and scattered areas of right-sided linear atelectasi s. Left lung remains well aerated. Cardiomediastinal silhouette is enlarged. IMPRESSION: Trace right hydropneumothorax, markedly improved degree of fluid status post insertion o f a right-sided pigtail thoracostomy tube.
[2019-10-04] MEDS: DEXTROSE 5%-0.9% NACL 1,000 ML IV SCH (13:34)
[2019-10-04] MEDS: CEFEPIME 2 GM in SODIUM CHLORIDE 0.9% 100 ML IVPB SCH (13:36)
--- NOTE | 2019-10-04 13:42 | CT ---
EXAMINATION TYPE: CT chest tube insertion DATE OF EXAM: 10/04/2019 COMPARISON: 10/04/2019 HISTORY: Right sided Chest Pigtail catheter placement for patient with chest pain and suspected empye ma CT DLP: 383 mGycm The procedure is discussed with the patient, the risks, complications, benefits and alternatives, wer e discussed and any questions were answered. Informed consent was obtained. The patient is placed p thierno on the CT table, prepped and draped in the usual sterile fashion. Utilizing a 22-gauge Chiba needle access into right pleural space was achieved and there is placement of an O.018 guidewire. There is conversion to an O.035 system and placement of an O.035 guidewire. S erial dilation 8 Austrian and placement of an 8 Austrian drainage catheter. Repeat imaging demonstrated i deal placement of the catheter. Approximately 700 cc of purulent material was hand aspirated. Sample sent to pathology for analysis. All elements of maximal barrier and sterile technique were utilized. The patient remained stable throughout the procedure with no immediate postprocedural complication. IMPRESSION: 1. Successful CT guided right chest tube insertion for empyema
--- NOTE | 2019-10-04 14:34 | P.GSCN ---
History of Present Illness Consult date: 10/04/19 Reason for Consult: Pneumomediastinum, right pleural effusion and pericardial effusion. Requesting physician: Korey Rosas History of present illness: This is a 19-year-old gentleman who is followed by Dr. Ivan Whyte on an outpatient basis. He has a past medical history significant for asthma, anxiety, chronic ongoing tobacco abuse and daily marijuana use. In his history, it reports a history of cocaine use although the patient is denying any cocaine use. He reports that he has been having symptoms of progressive shortness of breath with severe chest pain radiating across his upper chest and to his lower chest mainly on his right side for the past couple of weeks. He is sought medical attention at [facility] for the above-mentioned symptoms last week, and reports he was diagnosed with panic attacks and discharged with outpatient treatment of Z-Calos, steroids and pain medication. He also was seen in the emergency department here on Monday10/01/2019 in which he was treated with Valium and Toradol with improvement in his symptoms and was to follow-up with his primary care physician. The patient also reports that he had fever, chills and a productive cough with thick white sputum, frequent episodes of wheezing and occasional coughing fits. He denies any complaints of nausea, vomiting, constipation, diarrhea, difficulty swallowing, hemoptysis, or hematemesis. A chest x-ray was completed during his visit here on 10/01/2019 which demonstrated a right basilar subsegmental consolidation, which showed possible interstitial or viral pneumonitis with basilar infiltrate favored over venous congestion per the report. Subsequently due to the patient's complaints of progressive shortness of breath and chest discomfort he presented to the emergency department here at [facility] early this morning. A CT angio of his chest was completed which demonstrated no evidence of pulmonary embolus, but did show a large right pleural effusion, significant infiltrate and atelectasis in the right lower lobe, a moderate pericardial effusion and pneumomediastinum concerning for possibility of perforated esophagus. For further evaluation a computed tomography scan of his abdomen/pelvis with contrast was completed which redemonstrated a large right pleural effusion, a small left pleural effusion and mild low density free fluid in the pelvis. A 12-lead EKG was completed in the emergency department which showed sinus tachycardia with ST elevation in leads 1, 2, and V2 through V6 with a heart rate of 119 BPM. A 2-D echocardiogram was completed this morning which showed him to have an overall left ventricular systolic function to be mildly to moderately impaired with an ejection fraction between 40 and 45%, trace mitral valve regurgitation, mild tricuspid valve regurgitation, mild pulmonary hypertension, trace to mild to moderate valve regurgitation and a moderate predominantly posterior pericardial effusion. The initial laboratory results in the emergency department showed a WBC count 34.2, hemoglobin 14.2, hematocrit 43.0, platelets 498, began neutrophils 6, neutrophils 32.10, d-dimer 3.17, sodium 130, chloride 95, BUN 27, creatinine 1.14, lactic acid level I.7, C reactive protein 660, and his COVID 19 test showed not detected. Due to the patient's presenting symptoms, and findings on his computed tomography scan of his chest he was ad mitted for further evaluation and treatment. Currently he is sitting up in his bed in the intensive care unit and continues to complain of shortness of breath and some chest discomfort radiating to his upper chest and arms. Oxygen saturations are 96% on 2 L nasal cannula and he is currently hemodynamically stable on no inotropic or pressor support. Subsequently, due to the patient's findings of right pleural effusion, pericardial effusion and pneumomediastinum consult was placed to Dr. Marcelino Martínez from cardiothoracic surgery for further evaluation and treatment recommendations. Review of Systems A 14 point review of systems was negative except as mentioned in the HPI. Past Medical History Past Medical History: Asthma History of Any Multi-Drug Resistant Organisms: None Reported Past Surgical History: No Surgical Hx Reported Past Anesthesia/Blood Transfusion Reactions: No Reported Reaction Past Psychological History: Anxiety, Depression Smoking Status: Current every day smoker Past Alcohol Use History: None Reported Past Drug Use History: Cocaine, Marijuana - Past Family History Mother Additional Family Medical History / Comment(s): Vertigo Medications and Allergies Home Medications Medication Instructions Recorded Confirmed Type Acetaminophen Tab [Tylenol] 650 mg PO Q6H PRN 10/04/19 10/04/19 History Albuterol Inhaler [Ventolin Hfa 2 puff INHALATION RT-Q6H PRN 10/04/19 10/04/19 History Inhaler] Albuterol Nebulized [Ventolin 2.5 mg INHALATION RT-Q6H PRN 10/04/19 10/04/19 History Nebulized] Azithromycin [Zithromax Z-pack] See Taper PO DAILY 10/04/19 10/04/19 History Cetirizine HCl 10 mg PO DAILY PRN 10/04/19 10/04/19 History Ketorolac [Toradol] 10 mg PO Q8H PRN 10/04/19 10/04/19 History methylPREDNISolone Dose Pack See Taper PO DAILY 10/04/19 10/04/19 History [Medrol Dose Pack] Allergies Allergy/AdvReac Type Severity Reaction Status Date / Time No Known Allergies Allergy Verified 10/04/19 08:04 Surgical - Exam Vital Signs Temp Pulse Resp BP Pulse Ox 98.3 F 133 H 20 124/70 95 10/04/19 03:22 10/04/19 03:22 10/04/19 03:22 10/04/19 03:22 10/04/19 03:22 This is a pleasant 19-year-old patient who is currently laying in bed in the intensive care unit. He is alert, and oriented 3. He is in no acute distress. - General well developed, well nourished, moderate pain (To his upper chest) - Eyes PERRL, normal ocular movement - ENT normal pinna, normal nares, normal mucosa, no hearing loss, no congestion - Neck Neck is supple, positive JVD. no masses, no bruits, trachea midline, no lymphadectomy - Respiratory Lung sounds are essentially clear to his left lobes, diminished to his right lobes with few scattered crackles. Respirations are symmetrical and nonlabored. - Cardiovascular Regular rhythm with tachycardic rate. S1 and S2 present, negative for S3, gallop or murmur. Positive pericardial rub. - Abdomen Abdomen is soft, nontender and nondistended. Active bowel sounds present in all 4 abdominal quadrants. No guarding or rigidity. No organomegaly appreciated. - Genitourinary Deferred - Rectum Deferred - Integumentary Multiple tattoos no rash, no growths, no abnormal pigmentation - Neurologic normal coordination, normal sensation - Musculoskeletal Strength equal bilaterally - Psychiatric oriented to time, oriented to person, oriented to place, speech is normal, memory intact Results - Labs 10/04/19 03:55 10/04/19 03:55 Abnormal Lab Results - Last 24 Hours (Table) 10/04/19 10/04/19 10/04/19 Range/Units 03:55 03:55 03:55 WBC 34.2 H (3.8-10.6) k/uL Plt Count 498 H (150-450) k/uL Neutrophils # (Manual) 32.10 H (1.3-7.7) k/uL Monocytes # (Manual) 1.03 H (0-1.0) k/uL ESR 80 H (0-15) mm/hr D-Dimer 3.17 H (<0.60) mg/L FEU Sodium 130 L (137-145) mmol/L Chloride 95 L (98-107) mmol/L BUN 27 H (9-20) mg/dL Glucose 130 H (74-99) mg/dL POC Glucose (mg/dL) (75-99) mg/dL Phosphorus 4.8 H (2.5-4.5) mg/dL Magnesium 2.8 H (1.6-2.3) mg/dL Lactate Dehydrogenase 720 H (313-618) U/L Creatine Kinase 24 L (55-170) U/L C-Reactive Protein 660.4 H (<10.0) mg/L Total Protein 6.1 L (6.3-8.2) g/dL Albumin 3.0 L (3.5-5.0) g/dL 10/04/19 Range/Units 07:00 WBC (3.8-10.6) k/uL Plt Count (150-450) k/uL Neutrophils # (Manual) (1.3-7.7) k/uL Monocytes # (Manual) (0-1.0) k/uL ESR (0-15) mm/hr D-Dimer (<0.60) mg/L FEU Sodium (137-145) mmol/L Chloride (98-107) mmol/L BUN (9-20) mg/dL Glucose (74-99) mg/dL POC Glucose (mg/dL) 135 H (75-99) mg/dL Phosphorus (2.5-4.5) mg/dL Magnesium (1.6-2.3) mg/dL Lactate Dehydrogenase (313-618) U/L Creatine Kinase (55-170) U/L C-Reactive Protein (<10.0) mg/L Total Protein (6.3-8.2) g/dL Albumin (3.5-5.0) g/dL Diabetes panel 10/04/19 Range/Units 03:55 Sodium 130 L (137-145) mmol/L Potassium 4.7 (3.5-5.1) mmol/L Chloride 95 L (98-107) mmol/L Carbon Dioxide 24 (22-30) mmol/L BUN 27 H (9-20) mg/dL Creatinine 1.14 (0.66-1.25) mg/dL Glucose 130 H (74-99) mg/dL Calcium 8.5 (8.4-10.2) mg/dL AST 32 (17-59) U/L ALT 36 (4-49) U/L Alkaline Phosphatase 92 (38-126) U/L Total Protein 6.1 L (6.3-8.2) g/dL Albumin 3.0 L (3.5-5.0) g/dL Calcium panel 10/04/19 Range/Units 03:55 Calcium 8.5 (8.4-10.2) mg/dL Phosphorus 4.8 H (2.5-4.5) mg/dL Albumin 3.0 L (3.5-5.0) g/dL Pituitary panel 10/04/19 Range/Units 03:55 Sodium 130 L (137-145) mmol/L Potassium 4.7 (3.5-5.1) mmol/L Chloride 95 L (98-107) mmol/L Carbon Dioxide 24 (22-30) mmol/L BUN 27 H (9-20) mg/dL Creatinine 1.14 (0.66-1.25) mg/dL Glucose 130 H (74-99) mg/dL Calcium 8.5 (8.4-10.2) mg/dL Adrenal panel 10/04/19 Range/Units 03:55 Sodium 130 L (137-145) mmol/L Potassium 4.7 (3.5-5.1) mmol/L Chloride 95 L (98-107) mmol/L Carbon Dioxide 24 (22-30) mmol/L BUN 27 H (9-20) mg/dL Creatinine 1.14 (0.66-1.25) mg/dL Glucose 130 H (74-99) mg/dL Calcium 8.5 (8.4-10.2) mg/dL Total Bilirubin 1.0 (0.2-1.3) mg/dL AST 32 (17-59) U/L ALT 36 (4-49) U/L Alkaline Phosphatase 92 (38-126) U/L Total Protein 6.1 L (6.3-8.2) g/dL Albumin 3.0 L (3.5-5.0) g/dL - Imaging Chest x-ray: report reviewed, image reviewed CT scan - chest: report reviewed, image reviewed EKG: image reviewed Additional studies: 2-D echo reviewed by Dr. Marcelino Martínez. Assessment and Plan Assessment: 1. Dyspnea and chest discomfort secondary to right pleural effusion and pneumom ediastinum 2. Moderate pericardial effusion with no evidence of tamponade on her 2-D echocardiogram, currently hemodynamically stable 3. Leukocytosis, secondary to above 4. History of asthma 5. Chronic and ongoing tobacco dependence 6. History of daily marijuana use 7. History of cocaine use 8. History of anxiety Plan: The patient was seen and examined at his bedside in the intensive care unit with Dr. Marcelino Martínez. His chart diagnostics were reviewed. The computed tomography scan of his chest from [facility] was reviewed with Dr. Martínez and in conjunction with Dr. Dunlap from radiology. The findings were consistent with a density in the posterior mediastinum possible phlegmon or possible reactive lymph node. Barium swallow completed today was negative for esophageal tear, however can't rule out micro-perforation. He will be started on a clear liquid diet with color and monitor for right chest tube effluent for color change. Continue antibiotics which are being managed by infectious disease. 2-D echocardiogram results were reviewed and findings were discussed with Dr. Rose from cardiology. The 2-D echo demonstrated a moderate to large mostly posterior pericardial effusion. Since the patient's symptoms have improved since the right pigtail catheter was placed, we will hold off on a pericardial drain placement at this time. Continue to manage his pericardial effusion with colchicine and Toradol. We will repeat a 2-D echocardiogram on Monday to reevaluate the pericardial effusion. Encourage use of his incentive s pirometry 10 times every hour while awake. Cytology results of the pleural fluid are pending, we will a triglyceride level to the pleural fluid cytology to rule out infectious chylothorax. Pain control per current when necessary orders. Change IV fluids to D5 normal saline at 100 mL per hour. Give Reglan 10 mg IV 1 now. Keep right pleural pigtail catheter in place to low continuous wall suction -20 cm H2O. More recommendations to follow based on patient's clinical course. Thank you for this consult and we will look for to working with you in the care of this patient. Time with Patient: Greater than 30
[2019-10-04] MEDS: VANCOMYCIN 1,250 MG in SODIUM CHLORIDE 0.9% 250 ML IVPB SCH (16:12)
[2019-10-04 16:42] LABS: Color,BF Yellow
[2019-10-04 16:43] LABS: Appearance,BF Cloudy; Nucleated Cells, Body Fluid 15500 /uL; RBC, Body Fluid 500 /uL
[2019-10-04 17:03] LABS: Mononuclear WBC,Body Fluid 22 %; Polynuclear WBC,Body Fluid 78 %; Total Cells Counted,Body Fluid 100
--- NOTE | 2019-10-04 22:15 | XR ---
EXAMINATION TYPE: XR chest 1V portable DATE OF EXAM: 10/04/2019 COMPARISON: 10/04/2019 HISTORY: Chest pain TECHNIQUE: Single frontal view of the chest is obtained. FINDINGS: Right basilar pleural catheter redemonstrated. Previously noted right basilar pneumothorax is not timothy jennifer visualized. There is increasing right basilar pleural effusion and patchy infiltrate. The left l jamaal is clear. Cardiomediastinal structures are stable. IMPRESSION: 1. Previously noted right basilar pneumothorax is not clearly visualized. There is increasing right basilar pleural effusion/empyema and patchy infiltrate.
--- NOTE | 2019-10-04 22:46 | P.CONS ---
History of Present Illness - Reason for Consult Consult date: 10/04/19 sepsis/empyema Requesting physician: Ivan Whyte - Chief Complaint shortness of breath and cough x weeks - History of Present Illness Patient is a 19 male with a past medical significant for asthma/anxiety smoking presenting to the ER at [facility] with chief complaints of increasing shortness of breath on minimal exertion and chest pain radiating grossly right upper chest the symptom has been going on for a few weeks patient describing the pain to be sharp worse with taking a deep breath with intensity almost on the left and and radiation patient also have a cough with sputum production he is not clear about the color but no hemoptysis denies any URI symptom did have some chills and low-grade fever with the symptom the patient has been previously evaluated in the local area ER and has been treated with a steroid and Z-Calos without any improvement patient with worsening symptoms presented to the ER early this morning around 3 on presentation the hospital the patient was afebrile patient did have white count of 34,000: PCR was negative the patient did have a CT angiogram that did not show PE however did shows evidence of large right side pleural effusion with right-sided pneumonia and concern for pneumonia And moderate pericardial effusion CT of abdominal pelvis done as well as well esophagram did not show any esophageal tear subsequently the patient did have a chest tube placement by interventional radiology with removal of purulent pleural fluid patient was started on Zosyn Levaquin admitted hospital/ICU infectious was consulted for further recommendation about antibiotic therapy. Review of Systems Positive point has been mentioned in HPI rest of the systems are negative Past Medical History Past Medical History: Asthma History of Any Multi-Drug Resistant Organisms: None Reported Past Surgical History: No Surgical Hx Reported Past Anesthesia/Blood Transfusion Reactions: No Reported Reaction Past Psychological History: Anxiety, Depression Smoking Status: Current every day smoker Past Alcohol Use History: Daily Past Drug Use History: Cocaine, Marijuana - Past Family History Mother Additional Family Medical History / Comment(s): Vertigo Father History Unknown: Yes Medications and Allergies Home Medications Medication Instructions Recorded Confirmed Type Acetaminophen Tab [Tylenol] 650 mg PO Q6H PRN 10/04/19 10/04/19 History Albuterol Inhaler [Ventolin Hfa 2 puff INHALATION RT-Q6H PRN 10/04/19 10/04/19 History Inhaler] Albuterol Nebulized [Ventolin 2.5 mg INHALATION RT-Q6H PRN 10/04/19 10/04/19 History Nebulized] Azithromycin [Zithromax Z-pack] See Taper PO DAILY 10/04/19 10/04/19 History Cetirizine HCl 10 mg PO DAILY PRN 10/04/19 10/04/19 History Ketorolac [Toradol] 10 mg PO Q8H PRN 10/04/19 10/04/19 History methylPREDNISolone Dose Pack See Taper PO DAILY 10/04/19 10/04/19 History [Medrol Dose Pack] Allergies Allergy/AdvReac Type Severity Reaction Status Date / Time No Known Allergies Allergy Verified 10/04/19 14:00 Physical Exam Vitals: Vital Signs Temp Pulse Resp BP Pulse Ox 10/04/19 11:00 121 H 22 118/77 96 10/04/19 10:00 113 H 23 121/71 97 10/04/19 09:00 120 H 16 128/93 95 10/04/19 08:00 97.8 F 120 H 21 107/78 96 10/04/19 07:47 121 H 10/04/19 07:32 113 H 10/04/19 07:14 122 H 21 106/74 97 10/04/19 06:30 98.3 F 116 H 23 100/63 96 10/04/19 06:00 113 H 21 112/60 96 10/04/19 05:36 114 H 23 101/71 97 10/04/19 05:05 120 H 23 104/88 95 10/04/19 03:40 118 H 22 117/72 96 10/04/19 03:22 98.3 F 133 H 20 124/70 95 Intake and Output 10/03/19 10/04/19 10/04/19 22:59 06:59 14:59 Intake Total 425 Output Total 0 Balance 425 Intake: IV 425 Dextrose 5%-0.45% NaCl 1, 425 000 ml @ 85 mls/hr IV . [id number] [facility] Rx#:[id number] Output: Urine 0 Other: # Voids 0 Weight 75.75 kg GENERAL DESCRIPTION: Middle-aged male lying in bed, no distress. No tachypnea or accessory muscle of respiration use. HEENT: Shows Pallor , no scleral icterus. Oral mucous membrane is dry. NECK: Trachea central, no thyromegaly. LUNGS: Unlabored breathing. Decreased breath sound on the right side. No wheeze or crackle. HEART: S1, S2, regular rate and rhythm. ABDOMEN: Soft, no tenderness , guarding or rigidity EXTREMITIES: No edema of feet. SKIN: No rash, no masses palpable. NEUROLOGICAL: The patient is awake, alert, oriented x3, mood and affect normal. Results CBC & Chem 7: 10/04/19 03:55 10/04/19 03:55 Labs: Abnormal Lab Results - Last 24 Hours (Table) 10/04/19 10/04/19 10/04/19 Range/Units 03:55 03:55 03:55 WBC 34.2 H (3.8-10.6) k/uL Plt Count 498 H (150-450) k/uL Neutrophils # (Manual) 32.10 H (1.3-7.7) k/uL Monocytes # (Manual) 1.03 H (0-1.0) k/uL ESR 80 H (0-15) mm/hr D-Dimer 3.17 H (<0.60) mg/L FEU Sodium 130 L (137-145) mmol/L Chloride 95 L (98-107) mmol/L BUN 27 H (9-20) mg/dL Glucose 130 H (74-99) mg/dL POC Glucose (mg/dL) (75-99) mg/dL Phosphorus 4.8 H (2.5-4.5) mg/dL Magnesium 2.8 H (1.6-2.3) mg/dL Lactate Dehydrogenase 720 H (313-618) U/L Creatine Kinase 24 L (55-170) U/L C-Reactive Protein 660.4 H (<10.0) mg/L Total Protein 6.1 L (6.3-8.2) g/dL Albumin 3.0 L (3.5-5.0) g/dL 10/04/19 Range/Units 07:00 WBC (3.8-10.6) k/uL Plt Count (150-450) k/uL Neutrophils # (Manual) (1.3-7.7) k/uL Monocytes # (Manual) (0-1.0) k/uL ESR (0-15) mm/hr D-Dimer (<0.60) mg/L FEU Sodium (137-145) mmol/L Chloride (98-107) mmol/L BUN (9-20) mg/dL Glucose (74-99) mg/dL POC Glucose (mg/dL) 135 H (75-99) mg/dL Phosphorus (2.5-4.5) mg/dL Magnesium (1.6-2.3) mg/dL Lactate Dehydrogenase (313-618) U/L Creatine Kinase (55-170) U/L C-Reactive Protein (<10.0) mg/L Total Protein (6.3-8.2) g/dL Albumin (3.5-5.0) g/dL Assessment and Plan Assessment: patient presented to hospital with sepsis in this patient who did have a fever tachycardia elevated white count source is right sided pneumonia and empyema in this patient who is status post chest tube with significant amount of cloudy pleural fluid CT of the abdomen pelvis as well as esophagram did not show any e vidence of esophageal perforation and will need to cover for both community- acquired as well as resistant gram-positive and gram-negative pathogen (1) Pneumonia Current Visit: Yes Status: Acute Code(s): J18.9 - PNEUMONIA, UNSPECIFIED ORGANISM SNOMED Code(s): 400698602 (2) Empyema, right Current Visit: Yes Status: Acute Code(s): J86.9 - PYOTHORAX WITHOUT FISTULA SNOMED Code(s): 13139306 (3) Sepsis Current Visit: Yes Status: Acute Code(s): A41.9 - SEPSIS, UNSPECIFIED ORGANISM SNOMED Code(s): 62095196 Plan: 1-discontinue Zosyn Levaquin 2-cefepime 2 g every 12 hours 3-vancomycin pharmacy to dose her with a target trough of 15 while watching her kidney function and Vanco trough closely. 4-we will wait for the culture to finalize We will follow on clinical condition and cultures to further adjust medication if needed Thank you for this consultation we will follow the patient along with you Time with Patient: Greater than 30
[2019-10-04 23:55] LABS: Total Protein, Body Fluid 610 mg/dL
[2019-10-05 00:47] LABS: Amylase, Fluid Source Thoracentesis
[2019-10-05 01:08] LABS: Glucose, BF Source Pleural Fluid; Glucose, Body Fluid <4 mg/dL; LDH, Body Fluid Source Pleural Fluid
[2019-10-05] MEDS: HYDROmorphone 1 MG/ML 1 ML SYRINGE IVP PRN ×3 (01:21→08:39)
[2019-10-05] MEDS: DEXTROSE 5%-0.9% NACL 1,000 ML IV SCH (02:07)
[2019-10-05] MEDS: KETOROLAC 30 MG/ML 1 ML VIAL IVP SCH ×5 (02:08→23:11)
[2019-10-05] MEDS: CEFEPIME 2 GM in SODIUM CHLORIDE 0.9% 100 ML IVPB SCH ×2 (02:14→13:45)
[2019-10-05] MEDS: VANCOMYCIN 1,250 MG in SODIUM CHLORIDE 0.9% 250 ML IVPB SCH (02:20)
[2019-10-05] MEDS: ACETAMINOPHEN TAB 325 MG TAB PO PRN (03:10)
[2019-10-05 05:16] LABS: ALT 24 U/L (4-49); AST 26 U/L (17-59); African American GFR (CKD) >90 (>60 ml/min/1.73 sqM); Albumin 2.1 g/dL (3.5-5.0); Alkaline Phosphatase 65 U/L (38-126); Anion Gap 7 mmol/L; Blood Urea Nitrogen 20 mg/dL (9-20); Calcium 7.1 mg/dL (8.4-10.2); Carbon Dioxide 17 mmol/L (22-30); Chloride 106 mmol/L (98-107); Glucose 315 mg/dL (74-99); Magnesium 2.2 mg/dL (1.6-2.3); Non-African American GFR(CKD) >90 (>60 ml/min/1.73 sqM); Phosphorus 3.8 mg/dL (2.5-4.5); Potassium 4.1 mmol/L (3.5-5.1); Sodium 130 mmol/L (137-145); Total Bilirubin 0.9 mg/dL (0.2-1.3); Total Protein 4.6 g/dL (6.3-8.2)
[2019-10-05 05:17] LABS: Basophils # (A) 0.1 k/uL (0-0.2); Basophils % (A) 0 %; Eosinophils # (A) 0.2 k/uL (0-0.7); Eosinophils % (A) 1 %; HCT 36.5 % (39.0-53.0); HGB 11.5 gm/dL (13.0-17.5); Lymphocytes # (A) 1.5 k/uL (1.0-4.8); Lymphocytes % (A) 6 %; MCH 28.1 pg (25.0-35.0); MCHC 31.4 g/dL (31.0-37.0); MCV 89.5 fL (80.0-100.0); Mean Platelet Volume 7.5; Monocytes # (A) 1.2 k/uL (0-1.0); Monocytes % (A) 5 %; Neutrophils # (A) 22.7 k/uL (1.3-7.7); Neutrophils % (A) 87 %; Platelet Count 499 k/uL (150-450); RBC 4.08 m/uL (4.30-5.90); RDW 13.5 % (11.5-15.5); WBC 26.2 k/uL (3.8-10.6)
[2019-10-05] MEDS ORDERED: LEVOFLOXACIN 750MG-D5W PMX 750 MG in DEXTROSE/WATER 1 150ML.BAG IVPB SCH (05:45)
--- NOTE | 2019-10-05 06:07 | XR ---
EXAMINATION TYPE: XR chest 1V portable DATE OF EXAM: 10/05/2019 HISTORY: Right empyema. REFERENCE: Previous study dated 10/04/2019. FINDINGS: There is a right pleural drain in place. There is a right-sided effusion. There is right ba silar airspace disease. Left lung is clear. Heart size is partially obscured. IMPRESSION: PERHAPS SLIGHT WORSENING OF THE RIGHT BASILAR OPACITY REPRESENTING A COMBINATION OF PLEURAL FLUID AND AIRSPACE DISEASE.
[2019-10-05] MEDS: PANTOPRAZOLE 40 MG/10 ML VIAL IV SCH (08:32)
[2019-10-05] MEDS: SODIUM CHLORIDE 0.9% 1,000 ML IV SCH ×2 (08:32→18:15)
[2019-10-05] MEDS: COLCHICINE 0.6 MG EACH PO SCH ×3 (08:33→21:29)
[2019-10-05] MEDS ORDERED: ALTEPLASE 10 MG in SODIUM CHLORIDE 0.9% 100 ML IRRIGATION ONE (09:10)
--- NOTE | 2019-10-05 10:05 | PN ---
PROGRESS NOTE Mr. Moulton is a 19-year-old male who presented with symptoms of progressive dyspnea, cough and fever. He was found to have a large empyema on the right side as well as evidence of pericardial effusion. He had placement of a pigtail on the right side that drained large amount of pus looking secretion. The drainage is reduced now and has been evaluated. He had an echocardiogram performed yesterday that showed an ejection fraction of 40% to 45% with generalized pericardial effusion, large in size with no clear evidence of tamponade. His breathing is slightly better today. Hemodynamically, he is stable. His tachycardia is improved. He has chest discomfort, respirophasic. He is in sinus mechanism. There is no evidence of malignant arrhythmia. He is maintained on the antibiotics as well as colchicine. He has been seen by the cardiothoracic surgery team for possible drainage of his pericardium. PHYSICAL EXAMINATION: Blood pressure 101/50 with a heart rate in 90s. Lungs revealed decreased air exchange, more on the right side. HEART: Regular rate and rhythm S1, S2. No S3. No rub appreciated. ABDOMEN: Soft, nontender. Positive bowel sounds. No organomegaly. EXTREMITIES: No edema. LAB DATA: Lab data revealed a hemoglobin of 11.5, white blood cell 26.2, BUN and creatinine of 20 and 0.9. His chest x-ray shows mild worsening in the opacity on the right side. IMPRESSION: 1. Empyema with large right pleural effusion. Source unclear. 2. History of marijuana use. 3. Prior history of cocaine use. RECOMMENDATION: At this time, we will continue to observe him clinically. We will await the input of the cardiothoracic surgery team regarding possible window placement for his pericardial effusion. We will await the cultures of his fluid and depending on his progress, further recommendations will be made. The prognosis remains guarded. MMODL / IJN: [id number] /
--- NOTE | 2019-10-05 10:21 | P.PN ---
Subjective Progress Note Date: 10/05/19 Principal diagnosis: Pneumomediastinum, right pleural effusion and pericardial effusion. This is a 19-year-old gentleman who is followed by Dr. Ivan Whyte on an outpatient basis. He has a past medical history significant for asthma, anxiety, chronic ongoing tobacco abuse and daily marijuana use. In his history, it reports a history of cocaine use although the patient is denying any cocaine use. He reports that he has been having symptoms of progressive shortness of breath with severe chest pain radiating across his upper chest and to his lower chest mainly on his right side for the past couple of weeks. He is sought medical attention at [facility] for the above-mentioned symptoms last week, and reports he was diagnosed with panic attacks and discharged with outpatient treatment of Z-Calos, steroids and pain medication. He also was seen in the emergency department here on Monday10/01/2019 in which he was treated with Valium and Toradol with improvement in his symptoms and was to follow-up with his primary care physician. The patient also reports that he had fever, chills and a productive cough with thick white sputum, frequent episodes of wheezing and occasional coughing fits. He denies any complaints of nausea, vomiting, constipation, diarrhea, difficulty swallowing, hemoptysis, or hematemesis. A chest x-ray was completed during his visit here on 10/01/2019 which demonstrated a right basilar subsegmental consolidation, which showed possible interstitial or viral pneumonitis with basilar infiltrate favored over venous congestion per the report. Subsequently due to the patient's complaints of progressive shortness of breath and chest discomfort he presented to the emergency department here at [facility] early this morning. A CT angio of his chest was completed which demonstrated no evidence of pulmonary embolus, but did show a large right pleural effusion, significant infiltrate and atelectasis in the right lower lobe, a moderate pericardial effusion and pneumomediastinum concerning for possibility of perforated esophagus. For further evaluation a computed tomography scan of his abdomen/pelvis with contrast was completed which redemonstrated a large right pleural effusion, a small left pleural effusion and mild low density free fluid in the pelvis. A 12-lead EKG was completed in the emergency department which showed sinus tachycardia with ST elevation in leads 1, 2, and V2 through V6 with a heart rate of 119 BPM. A 2-D echocardiogram was completed this morning which showed him to have an overall left ventricular systolic function to be mildly to moderately impaired with an ejection fraction between 40 and 45%, trace mitral valve regurgitation, mild tricuspid valve regurgitation, mild pulmonary hypertension, trace to mild to moderate valve regurgitation and a moderate predominantly p osterior pericardial effusion. The initial laboratory results in the emergency department showed a WBC count 34.2, hemoglobin 14.2, hematocrit 43.0, platelets 498, began neutrophils 6, neutrophils 32.10, d-dimer 3.17, sodium 130, chloride 95, BUN 27, creatinine 1.14, lactic acid level I.7, C reactive protein 660, and his COVID 19 test showed not detected. Due to the patient's presenting symptoms , and findings on his computed tomography scan of his chest he was admitted for further evaluation and treatment. Currently he is sitting up in his bed in the intensive care unit and continues to complain of shortness of breath and some chest discomfort radiating to his upper chest and arms. Oxygen saturations are 96% on 2 L nasal cannula and he is currently hemodynamically stable on no inotropic or pressor support. Subsequently, due to the patient's findings of right pleural effusion, pericardial effusion and pneumomediastinum consult was placed to Dr. Marcelino Martínez from cardiothoracic surgery for further evaluation and treatment recommendations. POD #[address] guided right chest pigtail catheter insertion for empyema performed by interventional radiology. The patient was seen on 10/05/2019 in follow-up at his bedside in the intensive care unit. The patient is sitting up to the bedside edge and is alert, oriented 3 and is in no acute distress. He remains hemodynamically stable and is currently on no inotropic or pressor support. He is complaining of some pain to his pigtail insertion site to his right chest, although denies any complaints of shortness of breath at this time. Oxygen saturation are 96% on 2 L nasal cannula and he is achieving 1250 mL on his incentive spirometry. Bedside telemetry showing normal sinus rhythm heart rate 96. A chest x-ray was comp leted this morning which demonstrates a right pleural drain in place, right sided effusion with right basilar airspace disease. Laboratory results this morning show a WBC count 26.2, hemoglobin 11.5, hematocrit 36.5, platelets 499, sodium 1:30, potassium 4.1, CO2 17, BUN 20, and creatinine 0.90. The pleural fluid Gram stain is showing few polymorphonuclear leukocytes, few gram-negative bacilli and few gram-positive cocci. He is on cefepime and vancomycin for antibiotic coverage which is managed by infectious disease. His T-max temperature in the last 24 hours was 100.6F. A right pigtail chest tube remains in place to low continuous wall suction -20 cm H2O. No air leak is present. Draining purulent colored drainage with 1 L of output since the tube was placed yesterday. There is been no recorded output in the last 12 hours and his bedside nurse is reporting that she feels the pigtail catheter may be plugged. Objective - Vital Signs Vital signs: Vital Signs Temp 97.5 F L 10/05/19 08:00 Pulse 100 10/05/19 08:00 Resp 20 10/05/19 08:00 BP 130/75 10/05/19 08:00 Pulse Ox 95 10/05/19 08:00 Intake & Output 10/04/19 10/05/19 10/05/19 18:59 06:59 18:59 Intake Total 1275 2510 100 Output Total 2070 8 Balance -795 2502 100 Weight 75.75 kg 80.5 kg Intake: IV 1275 1550 100 Cefepime 2 gm In Sodium 100 100 Chloride 0.9% 100 ml @ 200 mls/hr IVPB Q12H [facility] Rx#:[id number] Dextrose 5%-0.45% NaCl 1, 425 000 ml @ 85 mls/hr IV . [id number] [facility] Rx#:[id number] Dextrose 5%-0.9% NaCl 1, 500 1200 100 000 ml @ 100 mls/hr IV . Q10H [facility] Rx#:[id number] Vancomycin 1,250 mg In 250 250 Sodium Chloride 0.9% 250 ml @ 125 mls/hr IVPB Q12H [facility] Rx#:[id number] Oral 960 Output: Chest Tube Drainage 1770 Pleural Catheter 1770 Urine 300 0 Stool 8 Other: Voiding Method Toilet Toilet # Voids 0 1 1 # Bowel Movements 1 - Exam This is a pleasant 19-year-old gentleman who is resting comfortably at his be dside edge in the intensive care unit. He is in no acute distress, he is alert and oriented 3. Hemodynamically stable and is currently on no inotropic or pressor support. Oxygen saturations are 96% on 2 L nasal cannula. - Constitutional General appearance: Present: average body habitus, cooperative, no acute distress - EENT Eyes: Present: PERRLA, normal appearance ENT: Present: hearing grossly normal, normal oropharynx - Neck Details: Neck is supple, no JVD. Neck: Absent: lymphadenopathy, thyromegaly - Respiratory Details: Lung sounds essentially clear throughout with some scattered expiratory wheezes. Diminished to his right lower lobe. Respirations are symmetrical and nonla bored. Oxygen saturation 96% on 2 L nasal cannula. Achieving 1250 mL on his incentive spirometry. Right chest pigtail catheter in place to low continuous wall suction -20 cm H2O. No air leak is present. 1 L of purulent drainage in the last 24 hours. - Cardiovascular Details: Regular rhythm and rate. S1 and S2 present, negative for S3, gallop or murmur. No rub present this morning. No edema present. Bedside telemetry showing normal sinus rhythm heart rate 96. - Gastrointestinal Gastrointestinal Comment(s): Abdomen is soft, nontender and nondistended. Active bowel sounds present in all 4 abdominal quadrants. No guarding or rigidity. Tolerating clear liquid diet. - Integumentary Integumentary Comment(s): Skin is warm and dry. No clubbing or cyanosis is present. Multiple tattoos. Dressing is clean, dry and in place to his right pigtail catheter insertion site. - Neurologic Neurologic: Present: CNII-XII intact - Musculoskeletal Musculoskeletal: Present: gait normal, strength equal bilaterally - Psychiatric Psychiatric: Present: A&O x's 3, appropriate affect, intact judgment & insight - Allied health notes Allied health notes reviewed: nursing - Labs CBC & Chem 7: 10/05/19 04:40 10/05/19 04:40 Labs: Abnormal Lab Results - Last 24 Hours (Table) 10/05/19 10/05/19 Range/Units 04:40 04:40 WBC 26.2 H (3.8-10.6) k/uL RBC 4.08 L (4.30-5.90) m/uL Hgb 11.5 L (13.0-17.5) gm/dL Hct 36.5 L (39.0-53.0) % Plt Count 499 H (150-450) k/uL Neutrophils # 22.7 H (1.3-7.7) k/uL Monocytes # 1.2 H (0-1.0) k/uL Sodium 130 L (137-145) mmol/L Carbon Dioxide 17 L (22-30) mmol/L Glucose 315 H (74-99) mg/dL Calcium 7.1 L (8.4-10.2) mg/dL Total Protein 4.6 L (6.3-8.2) g/dL Albumin 2.1 L (3.5-5.0) g/dL Microbiology - Last 24 Hours (Table) 10/04/19 03:55 Blood Culture - Preliminary Blood No Growth after 24 hours 10/04/19 12:51 Gram Stain - Preliminary Pleural Fluid Body Fluid Culture - Preliminary 10/04/19 12:51 Anaerobic Culture - Preliminary Pleural Fluid 10/04/19 12:51 Acid Fast Bacilli Culture - Preliminary Aspirate 10/04/19 12:51 Fungal Culture - Preliminary Aspirate - Imaging and Cardiology Chest x-ray: report reviewed, image reviewed Assessment and Plan Assessment: 1. Dyspnea and chest discomfort secondary to right pleural effusion and pneumomediastinum 2. Moderate pericardial effusion with no evidence of tamponade on her 2-D echocardiogram, currently hemodynamically stable 3. Leukocytosis, secondary to above 4. History of asthma 5. Chronic and ongoing tobacco dependence 6. History of daily marijuana use 7. History of cocaine use 8. History of anxiety Plan: 1. Continue right chest pigtail catheter to low continuous wall suction -20 cm H2O. We will instill pleural instillation of alteplase 10 mg/100 mL of normal saline to his pigtail catheter today. We will keep the pigtail catheter clamped for 1 hour, after the 1 we will unclamp the pigtail catheter and placed back to low continuous wall suction -20 cm H2O. 2. Encourage use of his incentive spirometry 10 times every hour while awake. 3. The importance of smoking cessation was discussed with the patient. 4. Continue colchicine as ordered. 5. Pain control per current when necessary orders. Discontinue Dilaudid and start [place] 5/325 mg by mouth every 6 hours when necessary pain. Continue Toradol. 6. Bronchodilator and oxygen management per pulmonary critical care service. 7. Pleural fluid cytology pending. 8. Antibiotic management per infectious disease recommendations. 9. GI and DVT prophylaxis. 10. Continue to monitor daily labs and chest x-rays. 11. Repeat 2-D echocardiogram to evaluate pericardial effusion on 10/07/2019. 12. More recommendations to follow based on patient's clinical course. Time with Patient: Greater than 30
[2019-10-05] MEDS: VANCOMYCIN 1,500 MG in SODIUM CHLORIDE 0.9% 250 ML IVPB SCH ×2 (10:29→18:43)
--- NOTE | 2019-10-05 11:42 | P.PN ---
Subjective Progress Note Date: 10/05/19 Principal diagnosis: Large right-sided pleural effusion with pneumomediastinum and empyema This is a very pleasant 19-year-old gentleman who follows with Dr. Whyte as his primary care provider. He has a history of mild intermittent chronic bronchial asthma, chronic and ongoing tobacco dependence, alcohol use, previous history of cocaine use, marijuana use. Previous incarceration secondary to aggravated assault back in he also has a history of depression and prev ious inpatient psychiatric stay for the same. He has been having increasing shortness of breath than chest discomfort along with fever for the past several days. He had been seen in the emergency room at [facility] discharge from the ER. He was also seen here on 10/01/2019 with similar symptoms was given Toradol and Valium and subsequently discharged. At that time his chest x-ray showed no acute changes. EKG showed no changes. Here he presented here to the emergency room earlier this morning with ongoing shortness of breath, chest pain. He has been having fevers on and off as well. Occasional phlegm mostly clear. No hemoptysis. White count elevated at 34.2. Hemoglobin 14.2. Platelet count 498. Neutrophils 32. ESR 80. D-dimer 3.17. Sodium 1:30. Potassium 4.7. Creatinine 1.14. LDH 720. C-reactive protein 660. Coronavirus not detected. EKG did reveal evidence of ST segment elevation. CT angiogram revealed no evidence of pulmonary embolism. There was however a large right pleural effusion with right-sided pneumonic atelectasis and mild infiltrate that was a significant change compared to chest x-ray on 10/01/2019. There is also pneumomediastinum and moderate pericardial effusion. Within the differential is perforated esophagus with mediastinitis and empyema. Computed tomography scan of the abdomen revealed no significant findings other than presented in the lung windows. Echocardiogram revealed mild to moderately impaired left ventricular systolic function with ejection fraction 40-45%. There is also a large generalized pericardial effusion present. The patient was admitted to the intensive care unit where consulted for the same. He is currently resting fairly comfortable in bed. He is still having ongoing issues with some chest discomfort and shortness of breath. He is afebrile. Maintaining O2 saturations in the mid 90s on 2 L/m per nasal cannula. He is tachycardic in the 120s. Blood pressure stable. The patient is seen today 10/05/2019 in follow-up in the intensive care unit. He is currently resting more comfortable in bed. Awake and alert in no acute distress. Maintaining O2 saturation in the 90s on 4 L/m per nasal cannula. He is status post right-sided pigtail placement yesterday. He had significant amou nt of pus continues to drain. A bit more serous today. Chest x-ray reveals worsening right-sided pleural effusion. The plan is for possible alteplase flush to clear the catheter. He is currently on vancomycin and cefepime. He remains on bronchodilators. Currently on colchicine. White count 26.2. Hemoglobin 11.5. Sodium 1:30. Potassium 4.1. Creatinine 0.90. Pleural fluid analysis is exudative. Objective - Vital Signs Vital signs: Vital Signs Temp 97.5 F L 10/05/19 08:00 Pulse 101 H 10/05/19 11:00 Resp 24 10/05/19 11:00 BP 126/73 10/05/19 11:00 Pulse Ox 99 10/05/19 11:00 Intake & Output 10/04/19 10/05/19 10/05/19 18:59 06:59 18:59 Intake Total 1275 2510 300 Output Total 2070 8 0 Balance -795 2502 300 Weight 75.75 kg 80.5 kg Intake: IV 1275 1550 300 Cefepime 2 gm In Sodium 100 100 Chloride 0.9% 100 ml @ 200 mls/hr IVPB Q12H [facility] Rx#:[id number] Dextrose 5%-0.45% NaCl 1, 425 000 ml @ 85 mls/hr IV . [id number] [facility] Rx#:[id number] Dextrose 5%-0.9% NaCl 1, 500 1200 100 000 ml @ 100 mls/hr IV . Q10H [facility] Rx#:[id number] Sodium Chloride 0.9% 1, 200 000 ml @ 100 mls/hr IV . Q10H [facility] Rx#:[id number] Vancomycin 1,250 mg In 250 250 Sodium Chloride 0.9% 250 ml @ 125 mls/hr IVPB Q12H [facility] Rx#:[id number] Oral 960 Output: Chest Tube Drainage 1770 Pleural Catheter 1770 Urine 300 0 0 Stool 8 Other: Voiding Method Toilet Toilet Toilet # Voids 0 1 0 # Bowel Movements 1 1 - Exam GENERAL EXAM: Alert, pleasant 19-year-old male patient, on 4 L nasal cannula, fairly comfortable in no apparent distress. HEAD: Normocephalic. EYES: Normal reaction of pupils, equal size. NOSE: Clear with pink turbinates. THROAT: No erythema or exudates. NECK: No masses, no JVD. CHEST: No chest wall deformity. Right-sided pigtail catheter in place. LUNGS: Equal air entry with crackles and diminished in the right lung. CVS: S1 and S2 normal with no audible murmur, positive pericardial rub, regular rhythm, tachycardic. ABDOMEN: No hepatosplenomegaly, normal bowel sounds, no guarding or rigidity. SPINE: No scoliosis or deformity SKIN: No rashes CENTRAL NERVOUS SYSTEM: No focal deficits, tone is normal in all 4 extremities. EXTREMITIES: There is no peripheral edema. No clubbing, no cyanosis. Peripheral pulses are intact. - Labs CBC & Chem 7: 10/05/19 04:40 10/05/19 04:40 Labs: Abnormal Lab Results - Last 24 Hours (Table) 10/05/19 10/05/19 Range/Units 04:40 04:40 WBC 26.2 H (3.8-10.6) k/uL RBC 4.08 L (4.30-5.90) m/uL Hgb 11.5 L (13.0-17.5) gm/dL Hct 36.5 L (39.0-53.0) % Plt Count 499 H (150-450) k/uL Neutrophils # 22.7 H (1.3-7.7) k/uL Monocytes # 1.2 H (0-1.0) k/uL Sodium 130 L (137-145) mmol/L Carbon Dioxide 17 L (22-30) mmol/L Glucose 315 H (74-99) mg/dL Calcium 7.1 L (8.4-10.2) mg/dL Total Protein 4.6 L (6.3-8.2) g/dL Albumin 2.1 L (3.5-5.0) g/dL Microbiology - Last 24 Hours (Table) 10/04/19 03:55 Blood Culture - Preliminary Blood No Growth after 24 hours 10/04/19 12:51 Gram Stain - Preliminary Pleural Fluid Body Fluid Culture - Preliminary 10/04/19 12:51 Anaerobic Culture - Preliminary Pleural Fluid 10/04/19 12:51 Acid Fast Bacilli Culture - Preliminary Aspirate 10/04/19 12:51 Fungal Culture - Preliminary Aspirate Assessment and Plan Assessment: Acute hypoxic respiratory failure secondary to a large right pleural effusion with pneumomediastinum, suspected empyema, mediastinitis of unclear etiology. Possible perforated esophagus. Moderate pericardial effusion with no evidence of tamponade Leukocytosis secondary to above Elevated inflammatory markers secondary to above History of mild intermittent chronic bronchial asthma Chronic and ongoing tobacco dependence History of marijuana use History of previous cocaine use History of incarceration History of depression with previous inpatient treatment Plan: The patient was seen and evaluated by Dr. Velasco Chest x-ray and labs reviewed To receive alteplase to the right pigtail catheter Cardiology and CT services having discussion regarding possible pericardial window Follow-up echocardiogram on 10/07/2019 Currently on vancomycin and cefepime. ID is on the case. Cultures pending Continue to monitor closely in the intensive care unit We will continue to follow and make further recommendations based on his clinical status I, the cosigning physician, performed a history & physical examination of the pa yue. Lungs sounds with crackles and diminished in the right lung. Maintaining good O2 saturations in the 90s on 4 L/m per nasal cannula. I discussed the assessment and plan of care with my nurse practitioner, Pina Israel. I attest to the above note as dictated by her.
[2019-10-05] MEDS: HYDROcodone/APAP 5-325MG 1 EACH TAB PO PRN ×2 (11:59→18:17)
[2019-10-05 12:07] LABS: Glucose,Whole Blood 85 mg/dL (75-99)
--- NOTE | 2019-10-05 17:14 | PN ---
PROGRESS NOTE DATE OF SERVICE: 10/05/2019 REASON FOR FOLLOWUP: Right-sided pneumonia and empyema. INTERVAL HISTORY: The patient did have a low-grade fever of 100.6 last night. The patient afebrile since then. The patient's pain is currently controlled. O2 is down to 2 L. Cough but no significant sputum or hemoptysis. No abdominal pain or any diarrhea reported. PHYSICAL EXAMINATION: Blood pressure 107/87 with a pulse of 108. Temperature 98.5. He is 95% on 2 L nasal cannula. General description is a young male up in the bed in no distress. Respiratory system: Unlabored breathing, decreased breath sounds at the right base. No wheeze. Heart S1, S2. Regular rate and rhythm. ABDOMEN: Soft, no tenderness. LABS: Hemoglobin 11.5, white count 6.2 with a BUN of 20, creatinine 0.90. Pleural fluid culture currently pending. Blood culture so far negative. DIAGNOSTIC IMPRESSION AND PLAN: Patient with right-sided pneumonia and empyema, status post chest tube placement. We will wait for the culture to finalize. Patient is covered with vancomycin and Cefepime to continue. Adjust antibiotic further based on culture report. Monitor clinical course closely. MMODL / IJN: [id number] /
--- NOTE | 2019-10-05 17:44 | PN ---
PROGRESS NOTE ICU NOTE: A 19-year-old white male with empyema. Remains on cefepime, Colcrys, vancomycin, Protonix. States he is feeling better. Does not want to move due to pain. Heart rate is 90 to 108, respiratory 17-23, blood pressure 107 to 114/60s to 70s. He is 95% on 2 L. He had an EGD which upper GI swallow, which showed no rupture of the esophagus from vomiting as well as CT scan of the abdomen showed similar findings. White count has diminished from 30s into the 20s. States he is feeling better than yesterday. He is in ICU, he is resting comfortably. He has pus draining from his tube. Chest x-ray shows worsening right pleural effusion. He is on vancomycin, cefepime, bronchodilators and colchicine. White count 26.2, hemoglobin 11.5, potassium 4.1, creatinine 0.9. Pleural effusion, exudative. EYES: Pupils equal, round, reactive. PSYCH: Fair mood and affect. NEUROLOGIC: Alert and oriented x3. Hemoglobin 11.5, platelets 499. Sodium 130, potassium 4.1, BUN 20, creatinine 0.9. ASSESSMENT: 1. Acute hypoxemic respiratory failure secondary to large right pleural effusion with secondary to empyema. 2. Moderate pericardial effusion. No tamponade, on Colcrys. 3. Leukocytosis secondary to above. 4. Inflammatory markers. 5. Nicotine addiction. 6. History of cocaine use. 7. History of incarceration. 8. Depression. Continue with IV antibiotics x2, vanco and cefepime, Colcrys and possible pericardial window if he does not improve. To continue current treatment. MMODL / IJN: [id number] /
[2019-10-05 18:26] LABS: Glucose,Whole Blood 105 mg/dL (75-99)
[2019-10-05] MEDS: IPRATROPIUM-ALBUTEROL 3 ML NEB INHALATION PRN (20:27)
[2019-10-05 21:47] LABS: Glucose,Whole Blood 96 mg/dL (75-99)
[2019-10-06] MEDS: HYDROcodone/APAP 5-325MG 1 EACH TAB PO PRN ×3 (00:20→16:34)
[2019-10-06] MEDS: CEFEPIME 2 GM in SODIUM CHLORIDE 0.9% 100 ML IVPB SCH ×2 (01:24→15:13)
[2019-10-06] MEDS: VANCOMYCIN 1,500 MG in SODIUM CHLORIDE 0.9% 250 ML IVPB SCH ×3 (02:02→18:30)
[2019-10-06] MEDS: SODIUM CHLORIDE 0.9% 1,000 ML IV SCH ×2 (05:05→15:18)
[2019-10-06 05:11] LABS: Basophils # (A) 0.2 k/uL (0-0.2); Basophils % (A) 1 %; Eosinophils # (A) 0.4 k/uL (0-0.7); Eosinophils % (A) 2 %; HCT 37.4 % (39.0-53.0); HGB 11.6 gm/dL (13.0-17.5); Lymphocytes # (A) 1.8 k/uL (1.0-4.8); Lymphocytes % (A) 7 %; MCH 28.1 pg (25.0-35.0); MCV 90.6 fL (80.0-100.0); Mean Platelet Volume 7.3; Monocytes # (A) 1.6 k/uL (0-1.0); Monocytes % (A) 6 %; Neutrophils # (A) 20.6 k/uL (1.3-7.7); Neutrophils % (A) 83 %; Platelet Count 478 k/uL (150-450); RBC 4.13 m/uL (4.30-5.90); RDW 13.6 % (11.5-15.5)
[2019-10-06 05:24] LABS: ALT 30 U/L (4-49); AST 38 U/L (17-59); African American GFR (CKD) >90 (>60 ml/min/1.73 sqM); Albumin 2.3 g/dL (3.5-5.0); Alkaline Phosphatase 80 U/L (38-126); Anion Gap 8 mmol/L; Blood Urea Nitrogen 21 mg/dL (9-20); Calcium 7.8 mg/dL (8.4-10.2); Carbon Dioxide 17 mmol/L (22-30); Chloride 104 mmol/L (98-107); Glucose 96 mg/dL (74-99); Non-African American GFR(CKD) >90 (>60 ml/min/1.73 sqM); Sodium 129 mmol/L (137-145); Total Bilirubin 1.3 mg/dL (0.2-1.3); Total Protein 5.2 g/dL (6.3-8.2)
--- NOTE | 2019-10-06 05:44 | XR ---
EXAMINATION TYPE: XR chest 1V portable DATE OF EXAM: 10/06/2019 HISTORY: Right empyema. REFERENCE: Previous study dated 10/05/2019. FINDINGS: Right pleural drain remains in place. There continues to be a right-sided effusion. Part of this is loculated. There is underlying airspace disease. The heart is enlarged. The left lung is clear. IMPRESSION: NO SIGNIFICANT CHANGE IN THE APPEARANCE OF THE CHEST.
[2019-10-06] MEDS: KETOROLAC 30 MG/ML 1 ML VIAL IVP SCH ×4 (06:07→23:51)
[2019-10-06 06:57] LABS: Glucose,Whole Blood 95 mg/dL (75-99)
[2019-10-06] MEDS ORDERED: ALTEPLASE 10 MG in SODIUM CHLORIDE 0.9% 100 ML IRRIGATION ONE (08:00)
--- NOTE | 2019-10-06 08:21 | PN ---
PROGRESS NOTE Mr. Moulton is a 19-year-old male who presented with progressive dyspnea and chest discomfort, was found to have large empyema on the right chest and evidence of pericardial effusion. He had a drainage catheter placed in the right chest. He is feeling better overall. He still has some dyspnea on exertion. His heart rate is stable at rest. He has mild discomfort in the chest. He denies any dizziness or palpitation. His blood pressure is stable. He denies any nausea. He continues to be on his antibiotics and Protonix. PHYSICAL EXAMINATION: Blood pressure running in the 100s with a heart rate in the 90s. Lungs with decreased breath sounds at the right base. Heart irregular rate and rhythm, S1, S2. No S3. No clear rub. ABDOMEN: Soft. Mild tenderness. Positive bowel sounds. EXTREMITIES: No edema. LAB DATA: [place] [address], hemoglobin of 11.6, BUN and creatinine 21 and 0.85. IMPRESSION: 1. Empyema on the right chest, could be related to a perforated esophagus. The drainage has slowed down. 2. Moderate pericardial effusion with no clear evidence of tamponade. 3. Prior history of smoking and marijuana use. RECOMMENDATIONS: From the cardiac standpoint, I will obtain a repeat echocardiogram tomorrow to re- evaluate the pericardial effusion. If this is an infectious pericardial effusion with empyema, most likely he would require drainage to reduce the risk of adhesive pericarditis. In the meantime, we will continue present therapy and depending on his progress, further recommendations will be made. MMODL / IJN: [id number] /
[2019-10-06] MEDS ORDERED: VANCOMYCIN TROUGH DUE 1 EACH MISC MISCELLANE ONE (09:00)
--- NOTE | 2019-10-06 09:30 | P.PN ---
Subjective Progress Note Date: 10/06/19 Principal diagnosis: Pneumomediastinum, right pleural effusion and pericardial effusion. This is a 19-year-old gentleman who is followed by Dr. Ivan Whyte on an outpatient basis. He has a past medical history significant for asthma, anxiety, chronic ongoing tobacco abuse and daily marijuana use. In his history, it reports a history of cocaine use although the patient is denying any cocaine use. He reports that he has been having symptoms of progressive shortness of breath with severe chest pain radiating across his upper chest and to his lower chest mainly on his right side for the past couple of weeks. He is sought medical attention at [facility] for the above-mentioned symptoms last week, and reports he was diagnosed with panic attacks and discharged with outpatient treatment of Z-Calos, steroids and pain medication. He also was seen in the emergency department here on Monday10/01/2019 in which he was treated with Valium and Toradol with improvement in his symptoms and was to follow-up with his primary care physician. The patient also reports that he had fever, chills and a productive cough with thick white sputum, frequent episodes of wheezing and occasional coughing fits. He denies any complaints of nausea, vomiting, constipation, diarrhea, difficulty swallowing, hemoptysis, or hematemesis. A chest x-ray was completed during his visit here on 10/01/2019 which demonstrated a right basilar subsegmental consolidation, which showed possible interstitial or viral pneumonitis with basilar infiltrate favored over venous congestion per the report. Subsequently due to the patient's complaints of progressive shortness of breath and chest discomfort he presented to the emergency department here at [facility] early this morning. A CT angio of his chest was completed which demonstrated no evidence of pulmonary embolus, but did show a large right pleural effusion, significant infiltrate and atelectasis in the right lower lobe, a moderate pericardial effusion and pneumomediastinum concerning for possibility of perforated esophagus. For further evaluation a computed tomography scan of his abdomen/pelvis with contrast was completed which redemonstrated a large right pleural effusion, a small left pleural effusion and mild low density free fluid in the pelvis. A 12-lead EKG was completed in the emergency department which showed sinus tachycardia with ST elevation in leads 1, 2, and V2 through V6 with a heart rate of 119 BPM. A 2-D echocardiogram was completed this morning which showed him to have an overall left ventricular systolic function to be mildly to moderately impaired with an ejection fraction between 40 and 45%, trace mitral valve regurgitation, mild tricuspid valve regurgitation, mild pulmonary hypertension, trace to mild to moderate valve regurgitation and a moderate predominantly p osterior pericardial effusion. The initial laboratory results in the emergency department showed a WBC count 34.2, hemoglobin 14.2, hematocrit 43.0, platelets 498, began neutrophils 6, neutrophils 32.10, d-dimer 3.17, sodium 130, chloride 95, BUN 27, creatinine 1.14, lactic acid level I.7, C reactive protein 660, and his COVID 19 test showed not detected. Due to the patient's presenting symptoms , and findings on his computed tomography scan of his chest he was admitted for further evaluation and treatment. Currently he is sitting up in his bed in the intensive care unit and continues to complain of shortness of breath and some chest discomfort radiating to his upper chest and arms. Oxygen saturations are 96% on 2 L nasal cannula and he is currently hemodynamically stable on no inotropic or pressor support. Subsequently, due to the patient's findings of right pleural effusion, pericardial effusion and pneumomediastinum consult was placed to Dr. Mracelino Martínez from cardiothoracic surgery for further evaluation and treatment recommendations. POD #[address] guided right chest pigtail catheter insertion for empyema performed by interventional radiology. The patient was seen on 10/06/2019 in follow-up at his bedside in the intensive care unit. The patient is resting comfortably in the his bed, is alert and oriented 3. He is in no acute distress, is hemodynamically stable and is on no inotropic or pressor support. At this time he denies any complaints of pain or shortness of breath while resting in bed. He reports once he ambulates he does get a little short winded and he also reports that he has been having episodes of diarrhea. A stool for C. diff was sent yesterday and resulted negative. Oxygen saturation are 96% on 2 L nasal cannula and he is achieving 1000 mL on his incentive spirometry. Bedside telemetry showing normal sinus rhythm heart rate 86. Pleural fluid Gram stain is showing a few polymorphonuclear leukocytes, few gram-negative bacilli and few gram-positive cocci. The pleural fluid culture results remain pending and he remains on vancomycin and cefepime for antibiotic coverage. Right pleural pigtail catheter remains in place to low continuous wall suction -20 cm H2O. No air leak is present. He did receive a dose of alteplase 10 mg/100 mL of normal saline for pleural instillation yesterday with 1.3 L of purulent serosanguineous drainage recorded. He has been tolerating a clear liquid diet with blue and purple coloring with no blue or purple coloring noted to the pleural drainage. The patient does report after eating he does feel a little bit of abdominal discomfort but denies any complaints of nausea or vomiting. Objective - Vital Signs Vital signs: Vital Signs Temp 97.8 F 10/06/19 04:00 Pulse 98 10/06/19 07:00 Resp 18 10/06/19 07:00 BP 95/78 10/06/19 07:00 Pulse Ox 96 10/06/19 07:00 Intake & Output 10/05/19 10/06/19 10/06/19 18:59 06:59 18:59 Intake Total 2350 1450 100 Output Total 1790 463 Balance 560 987 100 Weight 81.2 kg Intake: IV 1350 1450 100 Cefepime 2 gm In Sodium 100 Chloride 0.9% 100 ml @ 200 mls/hr IVPB Q12H [facility] Rx#:[id number] Dextrose 5%-0.9% NaCl 1, 100 000 ml @ 100 mls/hr IV . Q10H [facility] Rx#:[id number] Sodium Chloride 0.9% 1, 900 1200 100 000 ml @ 100 mls/hr IV . Q10H [facility] Rx#:[id number] Vancomycin 1,250 mg In 250 250 Sodium Chloride 0.9% 250 ml @ 125 mls/hr IVPB Q12H [facility] Rx#:[id number] Other 1000 Output: Chest Tube Drainage 1190 10 Pleural Catheter 1190 10 Urine 600 450 Stool 3 Other: Voiding Method Toilet Toilet # Voids 0 1 # Bowel Movements 1 1 - Exam This is a pleasant 19-year-old gentleman who is resting comfortably at his bedside edge in the intensive care unit. He is in no acute distress, he is alert and oriented 3. Hemodynamically stable and is currently on no inotropic or pressor support. Oxygen saturations are 96% on 2 L nasal cannula. - Constitutional General appearance: Present: average body habitus, cooperative, no acute distress - EENT Eyes: Present: PERRLA, normal appearance. Absent: scleral icterus ENT: Present: hearing grossly normal, normal oropharynx - Neck Details: Neck is supple, positive JVD. Neck: Absent: lymphadenopathy, stridor - Respiratory Details: Lungs sounds essentially clear throughout, diminished to his right lower lobe. Respirations are symmetrical and nonlabored. Oxygen saturation is 96% on 2 L nasal cannula. Achieving 1000 mL on his incentive spirometry. Right pleural detail catheter remains in place to low continuous wall suction -20 cm H2O. No air leak is present. Draining thin purulent serosanguineous drainage. - Cardiovascular Details: Regular rhythm and rate. S1 and S2 present, negative for S3, gallop or murmur. Positive intermittent pericardial rub - Gastrointestinal Gastrointestinal Comment(s): Abdomen is soft, nontender and nondistended. Active bowel sounds present in all 4 abdominal quadrants. No guarding or rigidity. No organomegaly appreciated. Tolerating oral intake. - Integumentary Integumentary Comment(s): Skin is warm and dry. No clubbing or cyanosis is present. No edema. Multiple tattoos. Dressing to his right pleural pigtail catheter site is clean, dry and in place. - Neurologic Neurologic: Present: CNII-XII intact - Musculoskeletal Musculoskeletal: Present: gait normal, strength equal bilaterally - Psychiatric Psychiatric: Present: A&O x's 3, appropriate affect, intact judgment & insight - Allied health notes Allied health notes reviewed: nursing - Labs CBC & Chem 7: 10/06/19 04:54 10/06/19 04:54 Labs: Abnormal Lab Results - Last 24 Hours (Table) 10/05/19 10/06/19 10/06/19 Range/Units 18:23 04:54 04:54 WBC 25.0 H (3.8-10.6) k/uL RBC 4.13 L (4.30-5.90) m/uL Hgb 11.6 L (13.0-17.5) gm/dL Hct 37.4 L (39.0-53.0) % Plt Count 478 H (150-450) k/uL Neutrophils # 20.6 H (1.3-7.7) k/uL Monocytes # 1.6 H (0-1.0) k/uL Sodium 129 L (137-145) mmol/L Carbon Dioxide 17 L (22-30) mmol/L BUN 21 H (9-20) mg/dL POC Glucose (mg/dL) 105 H (75-99) mg/dL Calcium 7.8 L (8.4-10.2) mg/dL Total Protein 5.2 L (6.3-8.2) g/dL Albumin 2.3 L (3.5-5.0) g/dL Microbiology - Last 24 Hours (Table) 10/04/19 03:55 Blood Culture - Preliminary Blood No Growth after 48 hours 10/04/19 12:51 Acid Fast Bacilli Smear - Final Aspirate Acid Fast Bacilli Culture - Preliminary - Imaging and Cardiology Chest x-ray: report reviewed, image reviewed Assessment and Plan Assessment: 1. Dyspnea and chest discomfort secondary to right pleural effusion and pneumomediastinum 2. Moderate pericardial effusion with no evidence of tamponade on her 2-D echocardiogram, currently hemodynamically stable 3. Leukocytosis, secondary to above 4. History of asthma 5. Chronic and ongoing tobacco dependence 6. History of daily marijuana use 7. History of cocaine use 8. History of anxiety Plan: 1. Continue right chest pigtail catheter to low continuous wall suction -20 cm H2O. We will instill pleural instillation of alteplase 10 mg/100 mL of normal saline to his pigtail catheter today. We will keep the pigtail catheter clamped for 1 hour, after the 1 we will unclamp the pigtail catheter and placed back to low continuous wall suction -20 cm H2O. This will be his second dose of altep lase. 2. Encourage use of his incentive spirometry 10 times every hour while awake. 3. The importance of smoking cessation was discussed with the patient. 4. Continue colchicine as ordered. 5. Pain control per current when necessary orders. 6. Bronchodilator and oxygen management per pulmonary critical care service. 7. Pleural fluid cytology pending. Pleural fluid culture results remain pe nding. 8. Antibiotic management per infectious disease recommendations. Currently on vancomycin and cefepime. Stool for C. diff was negative. 9. GI and DVT prophylaxis. 10. Continue to monitor daily labs and chest x-rays. 11. Repeat 2-D echocardiogram to evaluate pericardial effusion tomorrow 10/07/2019. 12. More recommendations to follow based on patient's clinical course. Time with Patient: Greater than 30
[2019-10-06] MEDS: COLCHICINE 0.6 MG EACH PO SCH (10:21)
[2019-10-06] MEDS: PANTOPRAZOLE 40 MG/10 ML VIAL IV SCH (10:24)
[2019-10-06] MEDS: IPRATROPIUM-ALBUTEROL 3 ML NEB INHALATION PRN (10:55)
--- NOTE | 2019-10-06 11:10 | P.PN ---
Subjective Progress Note Date: 10/06/19 Principal diagnosis: Large right-sided pleural effusion with pneumomediastinum and empyema This is a very pleasant 19-year-old gentleman who follows with Dr. Whyte as his primary care provider. He has a history of mild intermittent chronic bronchial asthma, chronic and ongoing tobacco dependence, alcohol use, previous history of cocaine use, marijuana use. Previous incarceration secondary to aggravated assault back in he also has a history of depression and prev ious inpatient psychiatric stay for the same. He has been having increasing shortness of breath than chest discomfort along with fever for the past several days. He had been seen in the emergency room at [facility] discharge from the ER. He was also seen here on 10/01/2019 with similar symptoms was given Toradol and Valium and subsequently discharged. At that time his chest x-ray showed no acute changes. EKG showed no changes. Here he presented here to the emergency room earlier this morning with ongoing shortness of breath, chest pain. He has been having fevers on and off as well. Occasional phlegm mostly clear. No hemoptysis. White count elevated at 34.2. Hemoglobin 14.2. Platelet count 498. Neutrophils 32. ESR 80. D-dimer 3.17. Sodium 1:30. Potassium 4.7. Creatinine 1.14. LDH 720. C-reactive protein 660. Coronavirus not detected. EKG did reveal evidence of ST segment elevation. CT angiogram revealed no evidence of pulmonary embolism. There was however a large right pleural effusion with right-sided pneumonic atelectasis and mild infiltrate that was a significant change compared to chest x-ray on 10/01/2019. There is also pneumomediastinum and moderate pericardial effusion. Within the differential is perforated esophagus with mediastinitis and empyema. Computed tomography scan of the abdomen revealed no significant findings other than presented in the lung windows. Echocardiogram revealed mild to moderately impaired left ventricular systolic function with ejection fraction 40-45%. There is also a large generalized pericardial effusion present. The patient was admitted to the intensive care unit where consulted for the same. He is currently resting fairly comfortable in bed. He is still having ongoing issues with some chest discomfort and shortness of breath. He is afebrile. Maintaining O2 saturations in the mid 90s on 2 L/m per nasal cannula. He is tachycardic in the 120s. Blood pressure stable. The patient is seen today 10/05/2019 in follow-up in the intensive care unit. He is currently resting more comfortable in bed. Awake and alert in no acute distress. Maintaining O2 saturation in the 90s on 4 L/m per nasal cannula. He is status post right-sided pigtail placement yesterday. He had significant amou nt of pus continues to drain. A bit more serous today. Chest x-ray reveals worsening right-sided pleural effusion. The plan is for possible alteplase flush to clear the catheter. He is currently on vancomycin and cefepime. He remains on bronchodilators. Currently on colchicine. White count 26.2. Hemoglobin 11.5. Sodium 1:30. Potassium 4.1. Creatinine 0.90. Pleural fluid analysis is exudative. The patient is seen today 10/06/2019 in follow-up in the intensive care unit. He is currently awake and alert. Still having some midsternal chest discomfort. Chest x-ray continues to show right-sided effusion some of which is loculated with underlying airspace disease. The heart is enlarged. Left lung is clear. Right-sided pigtail catheter remains in place. He is maintaining good O2 saturations in the 90s on 2 L/m per nasal cannula. He is currently afebrile. Hemodynamically stable. Pleural fluid cultures are pending. Blood culture reveals no growth. White count 25.0. Hemoglobin 11.6. Sodium 129. Potassium 5.0. Bicarb 17. Creatinine 0.85. Vancomycin trough 17.2. He remains on vancomycin and cefepime. He has been having issues with diarrhea. C. difficile screen was negative. Colchicine is on hold. Objective - Vital Signs Vital signs: Vital Signs Temp 98.7 F 10/06/19 08:00 Pulse 98 10/06/19 10:56 Resp 18 10/06/19 10:00 BP 117/87 10/06/19 10:00 Pulse Ox 96 10/06/19 10:00 Intake & Output 10/05/19 10/06/19 10/06/19 18:59 06:59 18:59 Intake Total 2350 1450 400 Output Total 1790 463 Balance 560 987 400 Weight 81.2 kg Intake: IV 1350 1450 400 Cefepime 2 gm In Sodium 100 Chloride 0.9% 100 ml @ 200 mls/hr IVPB Q12H COUNT INCLUDES [facility] Rx#:[id number] Dextrose 5%-0.9% NaCl 1, 100 000 ml @ 100 mls/hr IV . Q10H [facility] Rx#:[id number] Sodium Chloride 0.9% 1, 900 1200 400 000 ml @ 100 mls/hr IV . Q10H [facility] Rx#:[id number] Vancomycin 1,250 mg In 250 250 Sodium Chloride 0.9% 250 ml @ 125 mls/hr IVPB Q12H [facility] Rx#:[id number] Other 1000 Output: Chest Tube Drainage 1190 10 Pleural Catheter 1190 10 Urine 600 450 Stool 3 Other: Voiding Method Toilet Toilet # Voids 0 1 # Bowel Movements 1 1 - Exam GENERAL EXAM: Alert, pleasant 19-year-old male patient, on 2 L nasal cannula, fairly comfortable in no apparent distress. HEAD: Normocephalic. EYES: Normal reaction of pupils, equal size. NOSE: Clear with pink turbinates. THROAT: No erythema or exudates. NECK: No masses, no JVD. CHEST: No chest wall deformity. Right-sided pigtail catheter in place to continuous wall suction -20 cm of water.. LUNGS: Equal air entry with crackles and diminished in the right lung. CVS: S1 and S2 normal with no audible murmur, positive pericardial rub, regular rhythm, tachycardic. ABDOMEN: No hepatosplenomegaly, normal bowel sounds, no guarding or rigidity. SPINE: No scoliosis or deformity SKIN: No rashes CENTRAL NERVOUS SYSTEM: No focal deficits, tone is normal in all 4 extremities. EXTREMITIES: There is no peripheral edema. No clubbing, no cyanosis. Peripheral pulses are intact. - Labs CBC & Chem 7: 10/06/19 04:54 10/06/19 04:54 Labs: Abnormal Lab Results - Last 24 Hours (Table) 10/05/19 10/06/19 10/06/19 Range/Units 18:23 04:54 04:54 WBC 25.0 H (3.8-10.6) k/uL RBC 4.13 L (4.30-5.90) m/uL Hgb 11.6 L (13.0-17.5) gm/dL Hct 37.4 L (39.0-53.0) % Plt Count 478 H (150-450) k/uL Neutrophils # 20.6 H (1.3-7.7) k/uL Monocytes # 1.6 H (0-1.0) k/uL Sodium 129 L (137-145) mmol/L Carbon Dioxide 17 L (22-30) mmol/L BUN 21 H (9-20) mg/dL POC Glucose (mg/dL) 105 H (75-99) mg/dL Calcium 7.8 L (8.4-10.2) mg/dL Total Protein 5.2 L (6.3-8.2) g/dL Albumin 2.3 L (3.5-5.0) g/dL Microbiology - Last 24 Hours (Table) 10/04/19 03:55 Blood Culture - Preliminary Blood No Growth after 48 hours 10/04/19 12:51 Acid Fast Bacilli Smear - Final Aspirate Acid Fast Bacilli Culture - Preliminary Assessment and Plan Assessment: Acute hypoxic respiratory failure secondary to a large right pleural effusion with pneumomediastinum, suspected empyema, mediastinitis of unclear etiology. Possible perforated esophagus. Status post right-sided pigtail catheter in place to low continuous wall suction at -20 cm of water. He has received alte plase. Moderate pericardial effusion with no evidence of tamponade Leukocytosis secondary to above Elevated inflammatory markers secondary to above History of mild intermittent chronic bronchial asthma Chronic and ongoing tobacco dependence History of marijuana use History of previous cocaine use History of incarceration History of depression with previous inpatient treatment Plan: The patient was seen and evaluated by Dr. Velasco Chest x-ray and labs reviewed To receive alteplase again today to the right pigtail catheter CT services are planning surgical intervention today Currently on vancomycin and cefepime. ID is on the case. Cultures pending Continue to monitor closely in the intensive care unit Continue to encourage increased use the incentive spirometer and cough and deep breathing We will continue to follow and make further recommendations based on his clinical status I, the cosigning physician, performed a history & physical examination of the patient. Lungs sounds with crackles and diminished in the right lung. Maintaining good O2 saturations in the 90s on 2 L/m per nasal cannula. I discussed the assessment and plan of care with my nurse practitioner, Pina Israel. I attest to the above note as dictated by her.
[2019-10-06] MEDS ORDERED: ROCURONIUM BROMIDE 10 MG/ML 5 ML VIAL IV ONE (11:53)
[2019-10-06] MEDS ORDERED: LIDOCAINE 1% INJ 10MG/ML (20 ML MDV) ONE (11:53)
[2019-10-06] MEDS ORDERED: MIDAZOLAM 2 MG/2 ML VIAL ONE (11:53)
[2019-10-06] MEDS ORDERED: PROPOFOL 10 MG/ML 20 ML VIAL IV ONE (11:53)
[2019-10-06] MEDS ORDERED: NEOSTIGMINE 1 MG/ML 10 ML VIAL ONE (11:53)
[2019-10-06] MEDS ORDERED: fentaNYL (PF) 50 MCG/ML 2 ML AMP ONE (11:53)
[2019-10-06] MEDS ORDERED: GLYCOPYRROLATE 0.2 MG/ML 2 ML VIAL ONE (11:53)
[2019-10-06] MEDS ORDERED: ETOMIDATE 2 MG/ML 10 ML VIAL ONE (11:53)
[2019-10-06] MEDS ORDERED: SUCCINYLCHOLINE CHLORIDE VIAL 200 MG/10 ML VIAL IV ONE (11:53)
[2019-10-06] MEDS ORDERED: KETOROLAC 30 MG/ML 1 ML VIAL ONE (11:53)
[2019-10-06 12:27] LABS: ABG Base Excess -7.5 mmol/L; ABG Glucose Whole Blood 97 mg/dL (75-99); ABG HCO3 18 mmol/L (21-25); ABG Hematocrit 33 % (34.0-46.0); ABG Ionized Calcium 4.5 mg/dL (4.5-5.3); ABG Lactic Acid Whole Blood 1.5 mmol/L (0.5-1.6); ABG Oxygen Saturation 99.1 % (94-97); ABG PCO2 35 mmHg (35-45); ABG PH 7.31 (7.35-7.45); ABG PO2 196 mmHg (83-108); ABG Potassium Whole Blood 4.3 mmol/L (3.4-4.5); ABG Sodium Whole Blood 130 mmol/L (135-146); ABG TCO2 19 mmol/L (19-24)
[2019-10-06] MEDS ORDERED: LACTATED RINGERS 1,000 ML IV ONE ×2 (12:46→13:40)
--- NOTE | 2019-10-06 13:36 | PN ---
PROGRESS NOTE This white male states he is a little bit improved. He has had 1200 mL out of his chest tube over the last day. Remains on DuoNeb for shortness of breath, cefepime and vancomycin per Infectious Disease for empyema. He was taken off his pericardial effusion medications due to diarrhea. Methotrexate is negative for C diff. Discussed with nurse practitioner for the cardiac surgeon. Pulse rate is 74-98, respiratory rate is 14 to 20, blood pressure 102 to 119 over 82 to 90, O2 is 99% on 1 L. CARDIOVASCULAR S1-S2. LUNGS rales at the bases. HEMATOLOGY negative Homans. PSYCH: Poor mood and affect. NEUROLOGIC: Alert, oriented times three. He went to surgery today with a right VATS and pericardial window this morning due to positive pericardial rub, he still has on physical exam. Continue with broad-spectrum antibiotics. Prognosis guarded. His white count continues to improve slowly. The patient feels better. Prognosis extremely guarded. ICU time 20 minutes. MMODL / IJN: [id number] /
--- NOTE | 2019-10-06 13:51 | OP ---
OPERATIVE REPORT DATE OF THE OPERATION: 10/06/2019. ATTENDING SURGEON: Dr. Kishan Lombardo. ASSIST: Fede Snowden NP. PREOPERATIVE DIAGNOSES: Large parapneumonic empyema/effusion, large pericardial effusion, pericardial tamponade. POSTOPERATIVE DIAGNOSES: Large parapneumonic empyema/effusion, large pericardial effusion, pericardial tamponade. PROCEDURE PERFORMED: Subxiphoid pericardial window and the right video-assisted thoracoscopy with decortication and drainage of fluid. ANESTHESIA: General. BLOOD LOSS: 50 mL. SUMMARY: Patient brought to the operating room, placed in supine position. From insertion of a general endotracheal anesthetic, placement of arterial line adequate IV access. The chest was prepped and draped in normal sterile fashion using chlorhexidine paint and sterile towels. A 3 cm incision was made just over the xiphoid vertically. The linea alba was divided. The subxiphoid region was then carefully dissected free. The pericardium was identified and opened. The pericardium was entered, there was a serous to murky type serous fluid that drained out of the of the pericardial space. Approximately almost 600 mL of fluid was removed. Fluid was sent to pathology for culture, cell count, and cytology. At this point, a piece of pericardium was also excised and sent to pathology for full studies. At this point, a right anterior lateral 2 cm incision was made. An entrance was then made into the right pleural space. There was some purulent fluid removed. At this point, the video-assisted torque thoracoscope was placed through a 10 mm port intrapleural. This was used to break up some of the loculated collections. Next, the laparoscopic suction workers compensation legal secretary was used to instill approximately 1300 mL of fluid was instilled and then suctioned out until it was serousang. At this point, the 32-[place] chest tube was placed near the apex and brought out through the same incision and secured to the skin. A #36-[place] chest tube was placed intrapericardial and brought out through a separate stab incision and the pericardial incision of the window incision was closed in 3 layers. There were no complications. Patient tolerated procedure well and was extubated in the operating room and taken to the recovery room in stable condition. MMODL / IJN: [id number] /
[2019-10-06] MEDS ORDERED: CLEVIDIPINE BUTYRATE 25 MG in EMPTY BAG 1 BAG IV SCH (13:54)
[2019-10-06 14:54] LABS: Basophils % (A) 0 %; Eosinophils # (A) 0.2 k/uL (0-0.7); Eosinophils % (A) 1 %; HCT 34.9 % (39.0-53.0); HGB 11.2 gm/dL (13.0-17.5); Lymphocytes # (A) 1.1 k/uL (1.0-4.8); Lymphocytes % (A) 5 %; MCH 28.4 pg (25.0-35.0); MCHC 32.1 g/dL (31.0-37.0); MCV 88.5 fL (80.0-100.0); Mean Platelet Volume 7.5; Monocytes # (A) 1.4 k/uL (0-1.0); Monocytes % (A) 6 %; Neutrophils # (A) 18.6 k/uL (1.3-7.7); Neutrophils % (A) 86 %; Platelet Count 537 k/uL (150-450); RBC 3.94 m/uL (4.30-5.90); RDW 13.6 % (11.5-15.5); WBC 21.6 k/uL (3.8-10.6)
--- NOTE | 2019-10-06 14:56 | XR ---
EXAMINATION TYPE: XR chest 1V portable DATE OF EXAM: 10/06/2019 COMPARISON: Prior chest 10/06/2019 HISTORY: Status post pericardial window, VATS TECHNIQUE: Single frontal view of the chest is obtained. FINDINGS: There has been interval placement of a right-sided chest tube, midline drain. There is no pneumothorax. Heart remains enlarged. There are overlying cardiac leads. There is some subcutaneous e mphysema at the chest tube insertion site on the right. Pigtail catheter is again noted overlying the lower right chest. Pleural thickening persists, some interval improved aeration present in the right lung base laterally. IMPRESSION: Satisfactory postoperative chest x-ray findings as described.
[2019-10-06 15:03] LABS: ALT 24 U/L (4-49); AST 27 U/L (17-59); African American GFR (CKD) >90 (>60 ml/min/1.73 sqM); Albumin 1.9 g/dL (3.5-5.0); Alkaline Phosphatase 68 U/L (38-126); Anion Gap 8 mmol/L; Blood Urea Nitrogen 20 mg/dL (9-20); Calcium 7.3 mg/dL (8.4-10.2); Carbon Dioxide 17 mmol/L (22-30); Chloride 105 mmol/L (98-107); Glucose 97 mg/dL (74-99); Magnesium 2.3 mg/dL (1.6-2.3); Non-African American GFR(CKD) >90 (>60 ml/min/1.73 sqM); Potassium 4.7 mmol/L (3.5-5.1); Sodium 130 mmol/L (137-145); Total Bilirubin 1.3 mg/dL (0.2-1.3); Total Protein 4.4 g/dL (6.3-8.2)
[2019-10-06] MEDS: LACTATED RINGERS 1,000 ML IV SCH (15:17)
[2019-10-06] MEDS: HEPARIN SODIUM,PORCINE 5,000 UNIT/ML 1 ML VIAL SQ SCH ×2 (20:11→23:51)
[2019-10-06 21:38] LABS: Glucose,Whole Blood 80 mg/dL (75-99)
--- NOTE | 2019-10-06 23:20 | PN ---
PROGRESS NOTE DATE OF SERVICE: 10/06/2019 REASON FOR FOLLOWUP: Right-sided empyema and pericardial effusion. INTERVAL HISTORY: The patient was taken to the OR this morning. The patient is status post pericardial window and right video-assisted thoracoscopy with decortication and drainage of the fluid. The patient is currently in the ICU. He is hemodynamically stable. Pain is currently controlled. No nausea, no vomiting. No abdominal pain or diarrhea. PHYSICAL EXAMINATION: Blood pressure 137/59 with pulse of 87, temperature 98.7. He is 98% on 6 L nasal cannula. General description is a young male lying in bed in no distress. RESPIRATORY SYSTEM: Unlabored breathing, decreased breath sounds. No wheeze. HEART: S1, S2. Regular rate and rhythm. ABDOMEN: Soft, no tenderness. EXTREMITIES: No edema of feet. LABS: Hemoglobin 11.2, white count 21.6, BUN of 20, creatinine 0.85. Culture so far pending. DIAGNOSTIC IMPRESSION AND PLAN: Patient with right-sided empyema, now with evidence of pericardial effusion. The patient is status post initial chest tube and now is status post right-sided thoracotomy and pericardial window. Cultures are currently pending. Patient is broadly covered with cefepime and vancomycin to continue. Adjusting it further based on culture report and monitor his clinical course closely. MMODL / IJN: [id number] /
[2019-10-07] MEDS: HYDROcodone/APAP 5-325MG 1 EACH TAB PO PRN ×4 (00:22→21:47)
[2019-10-07] MEDS: IPRATROPIUM-ALBUTEROL 3 ML NEB INHALATION PRN ×3 (00:30→20:29)
[2019-10-07] MEDS: CEFEPIME 2 GM in SODIUM CHLORIDE 0.9% 100 ML IVPB SCH (01:09)
[2019-10-07] MEDS: VANCOMYCIN 1,500 MG in SODIUM CHLORIDE 0.9% 250 ML IVPB SCH ×2 (03:24→08:52)
[2019-10-07 04:56] LABS: Basophils % (A) 0 %; Eosinophils # (A) 0.3 k/uL (0-0.7); Eosinophils % (A) 2 %; HCT 33.6 % (39.0-53.0); HGB 10.6 gm/dL (13.0-17.5); Lymphocytes # (A) 1.3 k/uL (1.0-4.8); Lymphocytes % (A) 6 %; MCH 27.9 pg (25.0-35.0); MCHC 31.5 g/dL (31.0-37.0); MCV 88.5 fL (80.0-100.0); Monocytes # (A) 1.5 k/uL (0-1.0); Monocytes % (A) 7 %; Neutrophils # (A) 17.2 k/uL (1.3-7.7); Neutrophils % (A) 84 %; Platelet Count 478 k/uL (150-450); RDW 13.5 % (11.5-15.5); WBC 20.4 k/uL (3.8-10.6)
[2019-10-07 05:05] LABS: ALT 45 U/L (4-49); AST 57 U/L (17-59); African American GFR (CKD) >90 (>60 ml/min/1.73 sqM); Alkaline Phosphatase 92 U/L (38-126); Anion Gap 7 mmol/L; Blood Urea Nitrogen 17 mg/dL (9-20); Calcium 7.5 mg/dL (8.4-10.2); Carbon Dioxide 19 mmol/L (22-30); Chloride 104 mmol/L (98-107); Glucose 94 mg/dL (74-99); Magnesium 2.3 mg/dL (1.6-2.3); Non-African American GFR(CKD) >90 (>60 ml/min/1.73 sqM); Potassium 4.7 mmol/L (3.5-5.1); Sodium 130 mmol/L (137-145); Total Bilirubin 2.7 mg/dL (0.2-1.3); Total Protein 4.8 g/dL (6.3-8.2)
[2019-10-07] MEDS: KETOROLAC 30 MG/ML 1 ML VIAL IVP SCH ×4 (05:58→23:31)
--- NOTE | 2019-10-07 07:30 | XR ---
EXAMINATION TYPE: XR chest 1V portable DATE OF EXAM: 10/07/2019 COMPARISON: 10/06/2019 HISTORY: Post Operative Pericardial window/VATS TECHNIQUE: Single frontal view of the chest is obtained. FINDINGS: Right-sided chest tube unchanged in position. Right basilar pleural catheter also noted. Small amount of subcutaneous emphysema seen. Right midlung zone and right lower lobe infiltrate with underlying e ffusion. IMPRESSION: 1. Stable chest.
[2019-10-07] MEDS: PANTOPRAZOLE 40 MG/10 ML VIAL IV SCH (08:51)
[2019-10-07] MEDS: HEPARIN SODIUM,PORCINE 5,000 UNIT/ML 1 ML VIAL SQ SCH ×3 (08:51→23:31)
[2019-10-07] MEDS ORDERED: ALTEPLASE 10 MG in SODIUM CHLORIDE 0.9% 100 ML IRRIGATION ONE (08:58)
--- NOTE | 2019-10-07 09:27 | P.PN ---
Subjective Progress Note Date: 10/07/19 Principal diagnosis: Pneumomediastinum, right pleural effusion and pericardial effusion. This is a 19-year-old gentleman who is followed by Dr. Ivan Whyte on an outpatient basis. He has a past medical history significant for asthma, anxiety, chronic ongoing tobacco abuse and daily marijuana use. In his history, it reports a history of cocaine use although the patient is denying any cocaine use. He reports that he has been having symptoms of progressive shortness of breath with severe chest pain radiating across his upper chest and to his lower chest mainly on his right side for the past couple of weeks. He is sought medical attention at [facility] for the above-mentioned symptoms last week, and reports he was diagnosed with panic attacks and discharged with outpatient treatment of Z-Calos, steroids and pain medication. He also was seen in the emergency department here on Monday10/01/2019 in which he was treated with Valium and Toradol with improvement in his symptoms and was to follow-up with his primary care physician. The patient also reports that he had fever, chills and a productive cough with thick white sputum, frequent episodes of wheezing and occasional coughing fits. He denies any complaints of nausea, vomiting, constipation, diarrhea, difficulty swallowing, hemoptysis, or hematemesis. A chest x-ray was completed during his visit here on 10/01/2019 which demonstrated a right basilar subsegmental consolidation, which showed possible interstitial or viral pneumonitis with basilar infiltrate favored over venous congestion per the report. Subsequently due to the patient's complaints of progressive shortness of breath and chest discomfort he presented to the emergency department here at [facility] early this morning. A CT angio of his chest was completed which demonstrated no evidence of pulmonary embolus, but did show a large right pleural effusion, significant infiltrate and atelectasis in the right lower lobe, a moderate pericardial effusion and pneumomediastinum concerning for possibility of perforated esophagus. For further evaluation a computed tomography scan of his abdomen/pelvis with contrast was completed which redemonstrated a large right pleural effusion, a small left pleural effusion and mild low density free fluid in the pelvis. A 12-lead EKG was completed in the emergency department which showed sinus tachycardia with ST elevation in leads 1, 2, and V2 through V6 with a heart rate of 119 BPM. A 2-D echocardiogram was completed this morning which showed him to have an overall left ventricular systolic function to be mildly to moderately impaired with an ejection fraction between 40 and 45%, trace mitral valve regurgitation, mild tricuspid valve regurgitation, mild pulmonary hypertension, trace to mild to moderate valve regurgitation and a moderate predominantly p osterior pericardial effusion. The initial laboratory results in the emergency department showed a WBC count 34.2, hemoglobin 14.2, hematocrit 43.0, platelets 498, began neutrophils 6, neutrophils 32.10, d-dimer 3.17, sodium 130, chloride 95, BUN 27, creatinine 1.14, lactic acid level I.7, C reactive protein 660, and his COVID 19 test showed not detected. Due to the patient's presenting symptoms , and findings on his computed tomography scan of his chest he was admitted for further evaluation and treatment. Currently he is sitting up in his bed in the intensive care unit and continues to complain of shortness of breath and some chest discomfort radiating to his upper chest and arms. Oxygen saturations are 96% on 2 L nasal cannula and he is currently hemodynamically stable on no inotropic or pressor support. Subsequently, due to the patient's findings of right pleural effusion, pericardial effusion and pneumomediastinum consult was placed to Dr. Marcelino Martínez from cardiothoracic surgery for further evaluation and treatment recommendations. POD #[address] guided right chest pigtail catheter insertion for empyema performed by interventional radiology. POD #1 subxiphoid pericardial window and right video-assisted thoracoscopic with decortication and drainage of fluid. The patient was seen on 10/07/2019 in follow-up at his bedside in the intensive care unit. The patient is sitting up to the bedside chair and he is in no acute distress. He is awake, alert and oriented 3. He is hemodynamically stable and is currently on no inotropic or pressor support and has been afebrile the last 24 hours. IV fluids infusing lactated Ringer's at 50 mL per hour. Oxygen saturation are 97% on 2 L nasal cannula and he is achieving 1000 mL on his incentive spirometry. He reports his pain is well controlled on his current pain medication regimen and denies any complaints of shortness of breath. He does report he is a little short winded when ambulating up to the bathroom and some complaints of generalized postoperative weakness. Right pleural pigtail catheter, right pleural chest tube and mediastinal chest tube remain in place to low continuous wall suction at -20 cm H2O. No air leak is present. Draining thin serosanguineous drainage. The right pigtail catheter drained 40 mL output in the last 24 hours, mediastinal chest tube drained 80 mL output in the last 8 hours and 150 mL output since surgery and his right pleural chest tube drained 700 mL output in the last 24 hours and 260 mL output in the last 8 hours. Bedside telemetry showing normal sinus rhythm heart rate 89 and his blood pressure is currently 95/48 mmHg. A chest x-ray was completed this morning which demonstrates a right mid lung and right lower lobe infiltrate with underlying effusion. Laboratory results this morning show WBC count 20.4, hemoglobin 10.6, hematocrit 33.6, platelets 478, sodium 130, CO2 19, BUN 17, creatinine 0.71, total bilirubin 2.7 and calcium 7.5. Pleural fluid culture results show alpha hemolytic streptococcus, he is currently on cefepime and vancomycin for antibiotic coverage which is followed closely and managed by infectious disease. Objective - Vital Signs Vital signs: Vital Signs Temp 98.3 F 10/07/19 03:30 Pulse 96 10/07/19 08:56 Resp 16 10/07/19 07:00 BP 99/58 10/07/19 07:00 Pulse Ox 96 10/07/19 07:00 Intake & Output 10/06/19 10/07/19 10/07/19 18:59 06:59 18:59 Intake Total 2665 933 53 Output Total 1226 833 50 Balance 1439 100 3 Weight 85.1 kg Intake: IV 2665 933 53 Cefepime 2 gm In Sodium 100 100 Chloride 0.9% 100 ml @ 200 mls/hr IVPB Q12H [facility] Rx#:[id number] LR 250 550 50 Sodium Chloride 0.9% 1, 500 000 ml @ 100 mls/hr IV . Q10H [facility] Rx#:[id number] pressure bag 15 33 3 vancomycin 500 250 Output: Chest Tube Drainage 475 353 50 Pleural Catheter 40 0 Right Pleural 380 230 40 mediastinal 55 123 10 Urine 700 480 Stool 1 Estimated Blood Loss 50 Other: Voiding Method Toilet Urinal ABP, PAP, CO, CI - Last Documented Arterial Blood Pressure 116/46 - Exam This is a pleasant 19-year-old gentleman who is resting comfortably in the bedside chair in the intensive care unit. He is in no acute distress, he is alert and oriented 3. Hemodynamically stable and is currently on no inotropic or pressor support. Oxygen saturations are 97% on 2 L nasal cannula. - Constitutional General appearance: Present: average body habitus, cooperative, no acute distress - EENT Eyes: Present: PERRLA, normal appearance. Absent: scleral icterus ENT: Present: hearing grossly normal, normal oropharynx. Absent: thrush - Neck Details: Neck is supple, no JVD. Neck: Absent: lymphadenopathy, thyromegaly - Respiratory Details: Lung sounds are essentially clear throughout, diminished to his right lower lobe. Respirations are symmetrical and nonlabored. Oxygen saturation is 97% on 2 L nasal cannula and he is achieving 1000 L on his incentive spirometry. Right pleural pigtail catheter, right pleural chest tube and mediastinal chest tube in place to low continuous wall suction -20 cm H2O. No air leak is present. Draining thin serosanguineous drainage. - Cardiovascular Details: Regular rhythm and rate. S1 and S2 present, negative for S3, gallop or murmur. Bedside telemetry showing normal sinus rhythm heart rate 89. Sequential compression devices in place to his bilateral lower extremities. - Gastrointestinal Gastrointestinal Comment(s): Abdomen is soft, nontender and nondistended. Active bowel sounds present in all 4 abdominal quadrants. No guarding or rigidity. No organomegaly appreciated. Tolerating a clear liquid diet. - Genitourinary Genitourinary Comment(s): Voiding clear Larissa urine. - Integumentary Integumentary Comment(s): Skin is warm and dry. No clubbing or cyanosis is present. No rash or abnormal pigmentation is present. Multiple tattoos. Subxiphoid incision is clean, dry with a silver impregnated dressing in place. - Neurologic Neurologic: Present: CNII-XII intact - Musculoskeletal Musculoskeletal: Present: gait normal, generalized weakness, strength equal bilaterally - Psychiatric Psychiatric: Present: A&O x's 3, appropriate affect, intact judgment & insight - Allied health notes Allied health notes reviewed: nursing - Labs CBC & Chem 7: 10/07/19 04:50 10/07/19 04:50 Labs: Abnormal Lab Results - Last 24 Hours (Table) 10/06/19 10/06/19 10/06/19 Range/Units 11:04 12:29 14:43 WBC 21.6 H (3.8-10.6) k/uL RBC 3.94 L (4.30-5.90) m/uL Hgb 11.2 L (13.0-17.5) gm/dL Hct 34.9 L (39.0-53.0) % Plt Count 537 H (150-450) k/uL Neutrophils # 18.6 H (1.3-7.7) k/uL Monocytes # 1.4 H (0-1.0) k/uL ABG pH 7.31 L (7.35-7.45) ABG pO2 196 H (83-108) mmHg ABG HCO3 18 L (21-25) mmol/L ABG O2 Saturation 99.1 H (94-97) % ABG Hematocrit 33 L (34.0-46.0) % ABG Sodium 130 L (135-146) mmol/L Hemoglobin 10.7 L (13.0-17.5) gm/dL Sodium (137-145) mmol/L Carbon Dioxide (22-30) mmol/L Calcium (8.4-10.2) mg/dL Total Bilirubin (0.2-1.3) mg/dL Total Protein (6.3-8.2) g/dL Albumin (3.5-5.0) g/dL Crossmatch See Detail 10/06/19 10/07/19 10/07/19 Range/Units 14:43 04:50 04:50 WBC 20.4 H (3.8-10.6) k/uL RBC 3.80 L (4.30-5.90) m/uL Hgb 10.6 L (13.0-17.5) gm/dL Hct 33.6 L (39.0-53.0) % Plt Count 478 H (150-450) k/uL Neutrophils # 17.2 H (1.3-7.7) k/uL Monocytes # 1.5 H (0-1.0) k/uL ABG pH (7.35-7.45) ABG pO2 (83-108) mmHg ABG HCO3 (21-25) mmol/L ABG O2 Saturation (94-97) % ABG Hematocrit (34.0-46.0) % ABG Sodium (135-146) mmol/L Hemoglobin (13.0-17.5) gm/dL Sodium 130 L 130 L (137-145) mmol/L Carbon Dioxide 17 L 19 L (22-30) mmol/L Calcium 7.3 L 7.5 L (8.4-10.2) mg/dL Total Bilirubin 2.7 H (0.2-1.3) mg/dL Total Protein 4.4 L 4.8 L (6.3-8.2) g/dL Albumin 1.9 L 2.0 L (3.5-5.0) g/dL Crossmatch Microbiology - Last 24 Hours (Table) 10/06/19 13:26 Gram Stain - Preliminary Other - Other Wound Culture - Preliminary 10/04/19 03:55 Blood Culture - Preliminary Blood No Growth after 72 hours 10/06/19 13:26 Gram Stain - Preliminary Other - Other Tissue Culture - Preliminary 10/06/19 13:26 Anaerobic Culture - Preliminary Other - Other 10/06/19 13:26 Anaerobic Culture - Preliminary Other - Other 10/06/19 13:26 Fungal Culture - Preliminary Other - Other 10/06/19 13:26 Fungal Culture - Preliminary Other - Other 10/04/19 12:51 Gram Stain - Preliminary Pleural Fluid Body Fluid Culture - Preliminary Alpha Hemolytic Streptococcus - Imaging and Cardiology Chest x-ray: report reviewed, image reviewed Assessment and Plan Assessment: 1. Dyspnea and chest discomfort secondary to right pleural effusion and pneumomediastinum, status post right video-assisted thoracoscopic with decortication and drainage of fluid 2. Moderate pericardial effusion, currently hemodynamically stable, status post subxiphoid pericardial window 3. Leukocytosis, secondary to above, pleural fluid culture positive for alpha hemolytic streptococcus 4. History of asthma 5. Chronic and ongoing tobacco dependence 6. History of daily marijuana use 7. History of cocaine use 8. History of anxiety Plan: 1. Continue right chest pigtail catheter, right pleural and mediastinal chest tubes to low continuous wall suction -20 cm H2O. We will instill pleural instillation of alteplase 10 mg/100 mL of normal saline to his pigtail catheter today. We will keep the pigtail catheter and his right pleural chest tube clamped for 1 hour, after the 1 hour we will unclamp the pigtail catheter, right pleural chest tube and placed back to low continuous wall suction -20 cm H2O. This will be his second dose of alteplase. The chest tubes may be taken off suction for the patient to ambulate in the intensive care unit. 2. Encourage use of his incentive spirometry 10 times every hour while awake. 3. The importance of smoking cessation was discussed and reinforced with the patient. 4. Colchicine has been discontinued due bouts of diarrhea. Stool for C. diff was negative. 5. Pain control per current when necessary orders. 6. Bronchodilator and oxygen management per pulmonary critical care service. 7. Pleural fluid cytology pending. Pleural fluid culture showed alpha hemolytic streptococcus, he is currently on vancomycin and cefepime managed by infectious disease. The vancomycin will be discontinued per Dr. Lama from infectious disease and another antibiotic will be initiated for coverage. 8. GI and DVT prophylaxis. 9. Continue to monitor daily labs and chest x-rays. 10. Discontinue right radial arterial line. 11. Increase activity as tolerated, physical and occupational therapy consulted. 12. More recommendations to follow based on patient's clinical course. Time with Patient: Greater than 30
--- NOTE | 2019-10-07 11:35 | P.PN ---
Subjective Progress Note Date: 10/07/19 This is a very pleasant 19-year-old gentleman who follows with Dr. Whyte as his primary care provider. He has a history of mild intermittent chronic bronchial asthma, chronic and ongoing tobacco dependence, alcohol use, previous history of cocaine use, marijuana use. Previous incarceration secondary to aggravated assault back in he also has a history of depression and previous inpatient psychiatric stay for the same. He has been having increasing shortness of breath than chest discomfort along with fever for the past several days. He had been seen in the emergency room at [facility] discharge from the ER. He was also seen here on 10/01/2019 with similar symptoms was given Toradol and Valium and subsequently discharged. At that time his chest x-ray showed no acute changes. EKG showed no changes. Here he presented here to the emergency room earlier this morning with ongoing shortness of breath, chest pain. He has been having fevers on and off as well. Occas ional phlegm mostly clear. No hemoptysis. White count elevated at 34.2. Hemoglobin 14.2. Platelet count 498. Neutrophils 32. ESR 80. D-dimer 3.17. Sodium 130. Potassium 4.7. Creatinine 1.14. LDH 720. C-reactive protein 660. Coronavirus not detected. EKG did reveal evidence of ST segment elevation. CT angiogram revealed no evidence of pulmonary embolism. There was however a large right pleural effusion with right-sided pneumonic atelectasis and mild infiltrate that was a significant change compared to chest x-ray on 10/01/2019. There is also pneumomediastinum and moderate pericardial effusion. Within the differential is perforated esophagus with mediastinitis and empyema. Computed tomography scan of the abdomen revealed no significant findings other than presented in the lung windows. Echocardiogram revealed mild to moderately impaired left ventricular systolic function with ejection fraction 40-45%. There is also a large generalized pericardial effusion present. The patient was admitted to the intensive care unit , treated with broad-spectrum antibiotics including a combination of vancomycin and cefepime. He was also given on colchicine. was given a pigtail catheter by interventional radiology and the patient had a total of 700 mL of purulent material drained and aspirated from the right lung. The cultures are still pending for now. Nevertheless, the f luid is consistent with pus based on the data noted with a white cell count of 15,500. A barium swallow was done and there was no evidence of any focal esophageal tear. Surgery was consulted and the patient was taken to the operating room yesterday on 10/06/2019 and the patient underwent a pericardial window drainage nd the fluid in the pericardium was in the order of 600 mL and it was serous rather than purulent and analysis was sent from the pericardial fluid and right video-assisted thoracoscopy with decortication and placement of a drainage tube. At 32-[place] chest tube was inserted into the right hemithorax. All of the cultures are still pending for now. The patient was brought back to the intensive care unit. The white cell count is gradually improving. He remains on same antibiotic coverage for now. He is postop chest x-ray shows that the right-sided chest tube is in a good location. There is no evidence of any pneumothorax. There was some subcutaneous emphysema along the right chest area. The patient still has a right-sided pigtail catheter in place. istory volume loss along theright lung along with persistent right lung infiltration. On today's evaluation of 10/07/2019, the patient is awake and alert and has no specific complaints. The chest tube on the right has drained approximately 700 mL over the past 24 hours, the pigtail catheter on the right has drained approximately 40 mL over the past 24 hours and furthermore he was given TPA into the right pleural space and the subxiphoid chest tube has drained 150 mL over the past 24 hours and this is the pericardial tube. The patient is afebrile. The patient is currently on IV cefepime. Vancomycin will be discontinued. Following the alteplase administration, the patient produce approximately 400 to cc of pleural fluid. The chest x-ray still showing significant opacification of the right lung. All of the chest tubes are in place. The microbiology has shown Alphahemolytic except for colchicine the body fluid from the pleural space that was obtained on 10/04/2019. The pericardial fluid shows no growth thus far. Objective - Vital Signs Vital signs: Vital Signs Temp 98.4 F 10/07/19 08:00 Pulse 95 10/07/19 09:07 Resp 18 10/07/19 09:00 BP 110/54 10/07/19 09:00 Pulse Ox 96 10/07/19 09:00 Intake & Output 10/06/19 10/07/19 10/07/19 18:59 06:59 18:59 Intake Total 2665 933 769 Output Total 1226 833 850 Balance 1439 100 -81 Weight 85.1 kg 85.1 kg Intake: IV 2665 933 409 Cefepime 2 gm In Sodium 100 100 Chloride 0.9% 100 ml @ 200 mls/hr IVPB Q12H [facility] Rx#:[id number] LR 250 550 150 Sodium Chloride 0.9% 1, 500 000 ml @ 100 mls/hr IV . Q10H [facility] Rx#:[id number] pressure bag 15 33 9 vancomycin 500 250 250 Oral 360 Output: Chest Tube Drainage 475 353 50 Pleural Catheter 40 0 Right Pleural 380 230 40 mediastinal 55 123 10 Urine 700 480 800 Stool 1 Estimated Blood Loss 50 Other: Voiding Method Toilet Urinal Urinal ABP, PAP, CO, CI - Last Documented Arterial Blood Pressure 102/46 - Exam GENERAL EXAM: Alert, pleasant 19-year-old male patient, on 2 L nasal cannula, fairly comfortable in no apparent distress. HEAD: Normocephalic. EYES: Normal reaction of pupils, equal size. NOSE: Clear with pink turbinates. THROAT: No erythema or exudates. NECK: No masses, no JVD. CHEST: No chest wall deformity. Right-sided pigtail catheter in place to continuous wall suction -20 cm of water..the patient also has a right-sided chest tube and a pericardial tube in place LUNGS: Equal air entry with crackles and diminished in the right lung. CVS: S1 and S2 normal with no audible murmur, positive pericardial rub, regular rhythm, tachycardic. ABDOMEN: No hepatosplenomegaly, normal bowel sounds, no guarding or rigidity. SPINE: No scoliosis or deformity SKIN: No rashes CENTRAL NERVOUS SYSTEM: No focal deficits, tone is normal in all 4 extremities. EXTREMITIES: There is no peripheral edema. No clubbing, no cyanosis. Peripheral pulses are intact. - Labs CBC & Chem 7: 10/07/19 04:50 10/07/19 04:50 Labs: Abnormal Lab Results - Last 24 Hours (Table) 10/06/19 10/06/19 10/06/19 Range/Units 11:04 12:29 14:43 WBC 21.6 H (3.8-10.6) k/uL RBC 3.94 L (4.30-5.90) m/uL Hgb 11.2 L (13.0-17.5) gm/dL Hct 34.9 L (39.0-53.0) % Plt Count 537 H (150-450) k/uL Neutrophils # 18.6 H (1.3-7.7) k/uL Monocytes # 1.4 H (0-1.0) k/uL ABG pH 7.31 L (7.35-7.45) ABG pO2 196 H (83-108) mmHg ABG HCO3 18 L (21-25) mmol/L ABG O2 Saturation 99.1 H (94-97) % ABG Hematocrit 33 L (34.0-46.0) % ABG Sodium 130 L (135-146) mmol/L Hemoglobin 10.7 L (13.0-17.5) gm/dL Sodium (137-145) mmol/L Carbon Dioxide (22-30) mmol/L Calcium (8.4-10.2) mg/dL Total Bilirubin (0.2-1.3) mg/dL Total Protein (6.3-8.2) g/dL Albumin (3.5-5.0) g/dL Crossmatch See Detail 10/06/19 10/07/19 10/07/19 Range/Units 14:43 04:50 04:50 WBC 20.4 H (3.8-10.6) k/uL RBC 3.80 L (4.30-5.90) m/uL Hgb 10.6 L (13.0-17.5) gm/dL Hct 33.6 L (39.0-53.0) % Plt Count 478 H (150-450) k/uL Neutrophils # 17.2 H (1.3-7.7) k/uL Monocytes # 1.5 H (0-1.0) k/uL ABG pH (7.35-7.45) ABG pO2 (83-108) mmHg ABG HCO3 (21-25) mmol/L ABG O2 Saturation (94-97) % ABG Hematocrit (34.0-46.0) % ABG Sodium (135-146) mmol/L Hemoglobin (13.0-17.5) gm/dL Sodium 130 L 130 L (137-145) mmol/L Carbon Dioxide 17 L 19 L (22-30) mmol/L Calcium 7.3 L 7.5 L (8.4-10.2) mg/dL Total Bilirubin 2.7 H (0.2-1.3) mg/dL Total Protein 4.4 L 4.8 L (6.3-8.2) g/dL Albumin 1.9 L 2.0 L (3.5-5.0) g/dL Crossmatch Microbiology - Last 24 Hours (Table) 10/06/19 13:26 Gram Stain - Preliminary Other - Other Wound Culture - Preliminary 10/04/19 03:55 Blood Culture - Preliminary Blood No Growth after 72 hours 10/06/19 13:26 Gram Stain - Preliminary Other - Other Tissue Culture - Preliminary 10/06/19 13:26 Anaerobic Culture - Preliminary Other - Other 10/06/19 13:26 Anaerobic Culture - Preliminary Other - Other 10/06/19 13:26 Fungal Culture - Preliminary Other - Other 10/06/19 13:26 Fungal Culture - Preliminary Other - Other 10/04/19 12:51 Gram Stain - Preliminary Pleural Fluid Body Fluid Culture - Preliminary Alpha Hemolytic Streptococcus Assessment and Plan Plan: 1 Acute hypoxic respiratory failure secondary to a large right lung empyema, post pigtail catheter drainage of purulent material, post video-assisted thoracoscopy and limited decortication of the right lung and the patient is postop day #1 and the patient has a chest tube in place and addition to the pigtail catheter in place. The patient also had a TPA administration through the pigtail catheter on the right with another 400 mL the pleural fluid draining successfully. Chest x-ray are being monitored. All of the chest tube will be kept in place including the right-sided chest tube, right-sided pigtail catheter and the pericardial tube. The cultures are showing of hemolytic strep from the pleural space on the right. 2 right lung pneumonia with right lung empyema formation 3 Moderate pericardial effusion with no evidence of tamponade, post pericardial window and the fluid was essentially serious, post pericardial window and the pericardial tube is in place 4 Leukocytosis secondary to above 5 History of mild intermittent chronic bronchial asthma 6 Chronic and ongoing tobacco dependence 7 History of marijuana use 8 History of previous cocaine use 9 History of incarceration 10 History of depression with previous inpatient treatment plan Monitor the output from the chest tube Monitor the output from the pericardial tube Keep the cefepime and consider the addition of clindamycin and discontinue the vancomycin pending cultures from the pleural fluid in the pericardial fluid incentive spirometer monitor white count CT surgery is to follow Check HIV status Check total IgG level Incentive spirometer Daily chest x-ray TPA was already administered to the right chest pigtail we'll continue to follow , this is a critical care evaluation was done more than 30 minutes. Time with Patient: Greater than 30
--- NOTE | 2019-10-07 11:57 | ECHOF ---
Referral Reason:pericardial effusion MEASUREMENTS -------- HEIGHT: 172.7 cm WEIGHT: 84.8 kg BP: 111/51 RVIDd: 2.2 cm (< 3.3) IVSd: 0.9 cm (0.6 - 1.1) LVIDd: 4.4 cm (3.9 - 5.3) LVPWd: 1.1 cm (0.6 - 1.1) IVSs: 1.3 cm LVIDs: 2.8 cm LVPWs: 1.6 cm FINDINGS -------- Sinus rhythm. Limited Study for pericardial effusion. The left ventricular size is normal. Left ventricular wall thickness is normal. Overall left vent ricular systolic function is normal with, an EF between 55 - 60 %. There is a small to moderate, generalized pericardial effusion present. There is no evidence of card iac tamponade. CONCLUSIONS -------- 1. Sinus rhythm. 2. Limited Study for pericardial effusion. 3. The left ventricular size is normal. 4. Left ventricular wall thickness is normal. 5. Overall left ventricular systolic function is normal with, an EF between 55 - 60 %. 6. There is no evidence of cardiac tamponade. GARAGE DOOR SERVICE TECHNICIAN: Shannon Tiwari, [facility]
[2019-10-07 12:01] LABS: Glucose,Whole Blood 98 mg/dL (75-99)
[2019-10-07 13:07] LABS: Appearance,BF Cloudy; Nucleated Cells, Body Fluid 705 /uL; RBC, Body Fluid 2610 /uL
[2019-10-07 13:20] LABS: Mononuclear WBC,Body Fluid 14 %; Polynuclear WBC,Body Fluid 86 %; Total Cells Counted,Body Fluid 100
--- NOTE | 2019-10-07 15:44 | PN ---
PROGRESS NOTE This is a 19-year-old gentleman who is admitted to hospital with pneumothorax and empyema, underwent pericardial window and chest tube placement. This morning he is feeling much better, ambulating and does not seem particularly short of breath. Patient had an echo done today and we are awaiting results at this time. PHYSICAL EXAM: Heart rate is 90 beats per minute, blood pressure is 110/54, respiratory rate is 18, O2 saturation is 96%. There is no jugular venous distention. Chest exam reveals diminished air entry at the bases. Heart exam reveals first and second heart sounds. No gallop. No murmur. No rub. Abdomen is soft, nontender. Extremities did not reveal any edema. Peripheral pulses are felt. LABS: Show that the white cell count is 20. Platelet count is 478, potassium is 4.7, creatinine is 0.7. ASSESSMENT: Pneumomediastinum with right pleural effusion and pericardial effusion. Patient is status post thoracoscopy with decortication and subxiphoid pericardial window. PLAN: I will follow the echo results. Patient is hemodynamically stable and does not clinically look to be in tamponade. MMODL / IJN: [id number] /
[2019-10-07] MEDS: CLINDAMYCIN 600 MG in DEXTROSE 5% IN WATER 50 ML IVPB SCH ×4 (16:18→23:31)
[2019-10-07 17:14] LABS: Glucose,Whole Blood 78 mg/dL (75-99)
--- NOTE | 2019-10-07 18:03 | PN ---
PROGRESS NOTE DATE OF SERVICE: 10/07/2019 REASON FOR FOLLOWUP: Empyema and pericardial effusion. INTERVAL HISTORY: The patient is currently afebrile. The patient is breathing comfortably. The patient's chest pain is currently controlled with pain medication. Minimal cough. No sputum. No abdominal pain or diarrhea. PHYSICAL EXAMINATION: Blood pressure 98/51 with a pulse of 98, temperature 97.4. He is 94% on room air. General description is a middle-aged male lying in bed in no distress. RESPIRATORY SYSTEM: Unlabored breathing. Clear to auscultation anteriorly. HEART: S1, S2. Regular rate and rhythm. ABDOMEN: Soft. No tenderness. LABS: Hemoglobin is 10.6, white count 20,000. BUN of 17, creatinine 0.71. Pleural fluid culture with alpha-hemolytic Streptococcus. DIAGNOSTIC IMPRESSION AND PLAN: Patient with right-sided empyema and pericardial effusion, status post chest tube and pericardial window. The patient's antibiotic was adjusted to cefazolin and clindamycin. With his diarrhea, will add Questran for symptomatic relief and monitor his clinical course closely. MMODL / IJN: [id number] /
[2019-10-07] MEDS: CHOLESTYRAMINE (WITH SUGAR) 4 GM PACKET PO SCH (18:05)
[2019-10-07] MEDS: ACETAMINOPHEN TAB 325 MG TAB PO PRN (18:22)
[2019-10-07] MEDS: LACTATED RINGERS 1,000 ML IV SCH (18:45)
[2019-10-07 20:20] LABS: Glucose,Whole Blood 108 mg/dL (75-99)
[2019-10-07] MEDS: ZOLPIDEM 5 MG TAB PO PRN (21:48)
[2019-10-08 04:35] LABS: Basophils # (A) 0.1 k/uL (0-0.2); Basophils % (A) 0 %; Eosinophils # (A) 0.3 k/uL (0-0.7); Eosinophils % (A) 1 %; HCT 36.1 % (39.0-53.0); HGB 11.2 gm/dL (13.0-17.5); Hypochromasia Marked; Lymphocytes # (A) 1.4 k/uL (1.0-4.8); Lymphocytes % (A) 7 %; MCHC 31.2 g/dL (31.0-37.0); Mean Platelet Volume 7.1; Monocytes # (A) 0.9 k/uL (0-1.0); Monocytes % (A) 4 %; Neutrophils # (A) 18.3 k/uL (1.3-7.7); Neutrophils % (A) 86 %; Platelet Count 576 k/uL (150-450); RBC 3.88 m/uL (4.30-5.90); RDW 13.5 % (11.5-15.5); WBC 21.2 k/uL (3.8-10.6)
[2019-10-08 04:37] LABS: ALT 52 U/L (4-49); AST 47 U/L (17-59); African American GFR (CKD) >90 (>60 ml/min/1.73 sqM); Albumin 2.2 g/dL (3.5-5.0); Alkaline Phosphatase 118 U/L (38-126); Anion Gap 8 mmol/L; Blood Urea Nitrogen 12 mg/dL (9-20); Calcium 7.7 mg/dL (8.4-10.2); Carbon Dioxide 19 mmol/L (22-30); Chloride 103 mmol/L (98-107); Glucose 100 mg/dL (74-99); Non-African American GFR(CKD) >90 (>60 ml/min/1.73 sqM); Potassium 4.6 mmol/L (3.5-5.1); Sodium 130 mmol/L (137-145); Total Bilirubin 1.7 mg/dL (0.2-1.3); Total Protein 5.3 g/dL (6.3-8.2)
[2019-10-08 05:05] LABS: Toxic Granulation Present
[2019-10-08] MEDS: ACETAMINOPHEN TAB 325 MG TAB PO PRN ×2 (06:16→20:18)
[2019-10-08] MEDS: KETOROLAC 30 MG/ML 1 ML VIAL IVP SCH ×3 (06:16→22:26)
[2019-10-08] MEDS: LACTATED RINGERS 1,000 ML IV SCH ×2 (06:26→23:53)
--- NOTE | 2019-10-08 07:35 | XR ---
EXAMINATION TYPE: XR chest 1V portable DATE OF EXAM: 10/08/2019 COMPARISON: 10/07/2019 INDICATION: Postoperative pericardial window, right VATS TECHNIQUE: Single frontal view of the chest is obtained. FINDINGS: The heart size is normal. The pulmonary vasculature is normal. Infiltrate is scattered through the right mid and lower lung field may be some underlying atelectasis . Small amount fluid may be present. There is a right basilar chest tube and a right-sided chest tube present. Minimal fluid may be along the pleural margin near the apex on the right. Mediastinal tube is present in the midline. IMPRESSION: 1. Lines and catheters discussed above. 2. No air-filled pneumothorax evident. Some minimal fluid may be near the right pleural margin near t he apex, present previously and stable. 3. Improving right mid and lower lung field infiltrate.
[2019-10-08] MEDS: HYDROcodone/APAP 5-325MG 1 EACH TAB PO PRN ×5 (08:29→23:35)
[2019-10-08] MEDS: HEPARIN SODIUM,PORCINE 5,000 UNIT/ML 1 ML VIAL SQ SCH ×3 (08:33→23:52)
[2019-10-08] MEDS: PANTOPRAZOLE 40 MG/10 ML VIAL IV SCH (08:33)
[2019-10-08] MEDS: CLINDAMYCIN 600 MG in DEXTROSE 5% IN WATER 50 ML IVPB SCH ×4 (08:34→16:02)
[2019-10-08] MEDS: CHOLESTYRAMINE (WITH SUGAR) 4 GM PACKET PO SCH ×2 (08:34→17:02)
[2019-10-08] MEDS ORDERED: ALTEPLASE 10 MG in SODIUM CHLORIDE 0.9% 100 ML IRRIGATION ONE (09:00)
--- NOTE | 2019-10-08 09:49 | PN ---
PROGRESS NOTE DATE OF SERVICE: 10/07/2019 A 19-year-old who was admitted with pneumothorax, empyema, pericardial window and chest tube placement this morning, feels much better. Echo is pending. Remains in ICU. Heart rates are 90s, blood pressure 110/54, respiratory 16 to 18, O2 saturation 96. CHEST: Diminished air entry at the lung bases. HEART: S1, S2. No murmurs, rubs, gallops. ABDOMEN: Soft, nontender. EXTREMITIES: No edema. Peripheral pulses are felt. White count is 20, platelets 478, potassium 4 7, creatinine 0.7. ASSESSMENT: Pneumomediastinum, right pleural effusion, pericardial effusion status post thoracostomy decortication, subxiphoid pericardial window. Patient's echo is pending from today. He has does not look to be in cardiac tamponade. His white count is decreasing, remains on broad-spectrum antibiotics. Patient is progressively improving. ICU TIME: 20 minutes. MMODL / IJN: [id number] /
[2019-10-08 10:13] LABS: Appearance,Urine Clear (Clear); Bilirubin,Urine Negative (Negative); Blood,Urine Negative (Negative); Color,Urine Yellow; Glucose,Urine (UA) Negative (Negative); Ketones,Urine Negative (Negative); Leukocyte Esterase,Urine Negative (Negative); Nitrite,Urine Negative (Negative); PH, Urine 6.5 (5.0-8.0); Protein,Urine Negative (Negative); Specific Gravity,Urine 1.005 (1.001-1.035); Urobilinogen,Urine <2.0 mg/dL (<2.0)
--- NOTE | 2019-10-08 10:25 | P.PN ---
Subjective Progress Note Date: 10/08/19 Principal diagnosis: Pneumomediastinum, right pleural effusion and pericardial effusion. This is a 19-year-old gentleman who is followed by Dr. Ivan Whyte on an outpatient basis. He has a past medical history significant for asthma, anxiety, chronic ongoing tobacco abuse and daily marijuana use. In his history, it reports a history of cocaine use although the patient is denying any cocaine use. He reports that he has been having symptoms of progressive shortness of breath with severe chest pain radiating across his upper chest and to his lower chest mainly on his right side for the past couple of weeks. He is sought medical attention at [facility] for the above-mentioned symptoms last week, and reports he was diagnosed with panic attacks and discharged with outpatient treatment of Z-Calos, steroids and pain medication. He also was seen in the emergency department here on Monday10/01/2019 in which he was treated with Valium and Toradol with improvement in his symptoms and was to follow-up with his primary care physician. The patient also reports that he had fever, chills and a productive cough with thick white sputum, frequent episodes of wheezing and occasional coughing fits. He denies any complaints of nausea, vomiting, constipation, diarrhea, difficulty swallowing, hemoptysis, or hematemesis. A chest x-ray was completed during his visit here on 10/01/2019 which demonstrated a right basilar subsegmental consolidation, which showed possible interstitial or viral pneumonitis with basilar infiltrate favored over venous congestion per the report. Subsequently due to the patient's complaints of progressive shortness of breath and chest discomfort he presented to the emergency department here at [facility] early this morning. A CT angio of his chest was completed which demonstrated no evidence of pulmonary embolus, but did show a large right pleural effusion, significant infiltrate and atelectasis in the right lower lobe, a moderate pericardial effusion and pneumomediastinum concerning for possibility of perforated esophagus. For further evaluation a computed tomography scan of his abdomen/pelvis with contrast was completed which redemonstrated a large right pleural effusion, a small left pleural effusion and mild low density free fluid in the pelvis. A 12-lead EKG was completed in the emergency department which showed sinus tachycardia with ST elevation in leads 1, 2, and V2 through V6 with a heart rate of 119 BPM. A 2-D echocardiogram was completed this morning which showed him to have an overall left ventricular systolic function to be mildly to moderately impaired with an ejection fraction between 40 and 45%, trace mitral valve regurgitation, mild tricuspid valve regurgitation, mild pulmonary hypertension, trace to mild to moderate valve regurgitation and a moderate predominantly p osterior pericardial effusion. The initial laboratory results in the emergency department showed a WBC count 34.2, hemoglobin 14.2, hematocrit 43.0, platelets 498, began neutrophils 6, neutrophils 32.10, d-dimer 3.17, sodium 130, chloride 95, BUN 27, creatinine 1.14, lactic acid level I.7, C reactive protein 660, and his COVID 19 test showed not detected. Due to the patient's presenting symptoms , and findings on his computed tomography scan of his chest he was admitted for further evaluation and treatment. Currently he is sitting up in his bed in the intensive care unit and continues to complain of shortness of breath and some chest discomfort radiating to his upper chest and arms. Oxygen saturations are 96% on 2 L nasal cannula and he is currently hemodynamically stable on no inotropic or pressor support. Subsequently, due to the patient's findings of right pleural effusion, pericardial effusion and pneumomediastinum consult was placed to Dr. Marcelino Martínez from cardiothoracic surgery for further evaluation and treatment recommendations. POD #[address] guided right chest pigtail catheter insertion for empyema performed by interventional radiology. POD #2 subxiphoid pericardial window and right video-assisted thoracoscopic with decortication and drainage of fluid. The patient was seen on 10/08/2019 in follow-up at his bedside in the intensive care unit. The patient is sitting up to the bedside chair and is in no acute distress. He is awake, alert and oriented 3, remains hemodynamically stable and is not on any inotropic or pressor support. Oxygen saturations are 95% on room air, he is achieving 1500 mL on his incentive spirometry with encouragement and his T-max temperature was 103F in the last 24 hours. He denies any complaints of pain or shortness of breath at this time, although reports that he does continue to be slightly short winded with activity. He does have a productive cough today with tenacious white sputum. The patient also reports t hat he is still having some occasional episodes of diarrhea, although he reported yesterday morning that his diarrhea had resolved. Right pleural, subxiphoid and right pigtail catheter remain in place to low continuous wall suction -20 cm H2O. No air leak is present. Right pleural chest tube draining purulent/serosanguineous drainage with 900 mL output in the last 24 hours, 70 mL output in the last 8 hours, subxiphoid chest tube drained 150 mL output in the last 24 hours of thin serous drainage and 70 mL output in the last 8 hours, and his right pleural pigtail catheter drained 130 mL output in the last 24 hours of purulent/serosanguineous drainage. A dose of alteplase 10 mg/100 mL of normal saline was instilled through his right chest pigtail catheter yesterday, clamped for an hour and placed back to low continuous wall suction. He remains on cefepime and clindamycin for antibiotic coverage as his pleural fluid from 10/04/2019 showed alpha hemolytic streptococcus, his antibiotic management recommendations are per infectious disease. The pleural fluid anaerobic culture from 10/04/2019 shows a preliminary report of anaerobic gram-negative bacilli. The patient was ambulating in the intensive care unit hallway yesterday 10/07/2019 with minimal assistance from nursing staff, physical and occupational therapy. He reports he tolerated walking the area of the intensive care unit around 4 or 5 times chest today. A chest x-ray was completed this morning which demonstrates improvements to his right and mid lung lower lung field infiltrates. Laboratory results today show a WBC count 21.2, hemoglobin 11.2, hematocrit 36.1, platelets 576, sodium 130, CO2 19, BUN 12, creatinine 0.76, total bilirubin on 0.7, ALT 52 and glucose 100. A limited 2-D echocardiogram was completed yesterday which shows him to have an overall left ventricular systolic function to be normal with an ejection fraction between 55 and 60%, a small to moderate generalized pericardial effusion and no evidence of cardiac tamponade. Objective - Vital Signs Vital signs: Vital Signs Temp 99.3 F 10/08/19 00:00 Pulse 131 H 10/08/19 07:00 Resp 13 10/08/19 07:00 BP 117/78 10/08/19 07:00 Pulse Ox 90 L 10/08/19 06:00 Intake & Output 10/07/19 10/08/19 10/08/19 18:59 06:59 18:59 Intake Total 2107 1030 50 Output Total 1652 1647 600 Balance 455 618 -550 Weight 85.1 kg Intake: IV 927 550 50 LR 650 550 50 pressure bag 27 vancomycin 250 Intake, IV Titration 100 Amount Clindamycin 600 mg In 50 Dextrose 5% in Water 50 ml @ 50 mls/hr IVPB Q8HR [facility] Rx#:[id number] ceFAZolin 2 gm In Sodium 50 Chloride 0.9% 50 ml @ 100 mls/hr IVPB Q8HR [facility] Rx# :[id number] Oral 1080 480 Output: Chest Tube Drainage 850 220 50 Pleural Catheter 100 20 Right Pleural 740 170 50 mediastinal 10 30 Urine 800 1425 550 Stool 2 2 Other: Voiding Method Urinal Urinal # Voids 1 # Bowel Movements 1 1 ABP, PAP, CO, CI - Last Documented Arterial Blood Pressure 112/44 - Exam This is a pleasant 19-year-old gentleman who is resting comfortably in the bedside chair in the intensive care unit. He is in no acute distress, he is alert and oriented 3. Hemodynamically stable and is currently on no inotropic or pressor support. Oxygen saturations are 95% on room air. - Constitutional General appearance: Present: average body habitus, cooperative, no acute distress - EENT Eyes: Present: PERRLA, normal appearance. Absent: scleral icterus ENT: Present: hearing grossly normal, normal oropharynx - Neck Details: Neck supple, no JVD. Neck: Absent: lymphadenopathy, thyromegaly - Respiratory Details: Lungs sounds essentially clear to his bilateral upper lobes, diminished to his bilateral bases with few scattered crackles to his right lower lobe. Respirations are symmetrical and nonlabored. Oxygen saturation is 95% on room air and he is achieving 1500 mL on his incentive spirometry. Right pleural, subxiphoid chest tubes and right pigtail catheter remain in place to low continuous wall suction -20 cm H2O. No air leak is present. Right pleural and right pigtail catheter chest tubes draining purulent/serosanguineous drainage. Subxiphoid chest tube draining thin serous drainage. - Cardiovascular Details: Regular rhythm and tachycardic rate. S1 and S2 present, negative for S3, gallop or murmur. No friction rub. Bedside telemetry showing sinus tachycardia heart rate 106. Knee-high sequential compression devices in place to his bilateral lower extremities. - Gastrointestinal Gastrointestinal Comment(s): Abdomen is soft, nontender and nondistended. Active bowel sounds present in all 4 abdominal quadrants. No guarding or rigidity. No organomegaly appreciated. - Genitourinary Genitourinary Comment(s): Voiding clear [place] urine. - Integumentary Integumentary Comment(s): Skin is warm and dry. No clubbing or cyanosis is present. No rash or abnormal pigmentation is present. Subxiphoid incision with silver impregnated dressing clean dry and intact. - Neurologic Neurologic: Present: CNII-XII intact - Musculoskeletal Musculoskeletal: Present: gait normal, generalized weakness, strength equal bilaterally - Psychiatric Psychiatric: Present: A&O x's 3, appropriate affect, intact judgment & insight - Allied health notes Allied health notes reviewed: nursing - Labs CBC & Chem 7: 10/08/19 04:13 10/08/19 04:13 Labs: Abnormal Lab Results - Last 24 Hours (Table) 10/06/19 10/07/19 10/08/19 Range/Units 11:04 20:19 04:13 WBC 21.2 H (3.8-10.6) k/uL RBC 3.88 L (4.30-5.90) m/uL Hgb 11.2 L (13.0-17.5) gm/dL Hct 36.1 L (39.0-53.0) % Plt Count 576 H (150-450) k/uL Neutrophils # 18.3 H (1.3-7.7) k/uL Sodium (137-145) mmol/L Carbon Dioxide (22-30) mmol/L Glucose (74-99) mg/dL POC Glucose (mg/dL) 108 H (75-99) mg/dL Calcium (8.4-10.2) mg/dL Total Bilirubin (0.2-1.3) mg/dL ALT (4-49) U/L Total Protein (6.3-8.2) g/dL Albumin (3.5-5.0) g/dL Crossmatch See Detail 10/08/19 Range/Units 04:13 WBC (3.8-10.6) k/uL RBC (4.30-5.90) m/uL Hgb (13.0-17.5) gm/dL Hct (39.0-53.0) % Plt Count (150-450) k/uL Neutrophils # (1.3-7.7) k/uL Sodium 130 L (137-145) mmol/L Carbon Dioxide 19 L (22-30) mmol/L Glucose 100 H (74-99) mg/dL POC Glucose (mg/dL) (75-99) mg/dL Calcium 7.7 L (8.4-10.2) mg/dL Total Bilirubin 1.7 H (0.2-1.3) mg/dL ALT 52 H (4-49) U/L Total Protein 5.3 L (6.3-8.2) g/dL Albumin 2.2 L (3.5-5.0) g/dL Crossmatch Microbiology - Last 24 Hours (Table) 10/04/19 03:55 Blood Culture - Preliminary Blood No Growth after 96 hours 10/06/19 13:26 Anaerobic Culture - Preliminary Other - Other 10/06/19 13:26 Anaerobic Culture - Preliminary Other - Other 10/04/19 12:51 Anaerobic Culture - Final Pleural Fluid Anaerobic Gm Negative Bacilli 10/06/19 13:26 Gram Stain - Preliminary Other - Other Tissue Culture - Preliminary 10/06/19 13:26 Gram Stain - Preliminary Other - Other Wound Culture - Preliminary 10/04/19 12:51 Gram Stain - Final Pleural Fluid Body Fluid Culture - Final Alpha Hemolytic Streptococcus - Imaging and Cardiology Chest x-ray: report reviewed, image reviewed 2-D echocardiogram results reviewed. Assessment and Plan Assessment: 1. Dyspnea and chest discomfort secondary to right pleural effusion and pneumomediastinum, status post right video-assisted thoracoscopic with decortication and drainage of fluid 2. Moderate pericardial effusion, currently hemodynamically stable, status post subxiphoid pericardial window 3. Right lung pneumonia with right lung empyema formation, status post right video-assisted thoracoscopic surgery with decortication and drainage of fluid. 4. Leukocytosis, secondary to above, pleural fluid culture positive for alpha hemolytic streptococcus 5. History of asthma 6. Chronic and ongoing tobacco dependence 7. History of daily marijuana use 8. History of cocaine use 9. History of anxiety Plan: 1. Continue right chest pigtail catheter, right pleural and mediastinal chest tubes to low continuous wall suction -20 cm H2O. We will instill pleural instillation of alteplase 10 mg/100 mL of normal saline to his pigtail catheter today. We will keep the pigtail catheter and his right pleural chest tube clamped for 1 hour, after the 1 hour we will unclamp the pigtail catheter, right pleural chest tube and placed back to low continuous wall suction -20 cm H2O. This will be his third dose of alteplase. The chest tubes may be taken off suction for the patient to ambulate in the intensive care unit. 2. Encourage use of his incentive spirometry 10 times every hour while awake. 3. The importance of smoking cessation was discussed and reinforced with the patient. 4. Continue Questran for continued complaints of episodes of diarrhea. Stool for C. diff was negative. 5. Pain control per current when necessary orders. 6. Bronchodilator and oxygen management per pulmonary critical care service. 7. Pleural fluid/pericardial cytology results pending. Pleural fluid culture showed alpha hemolytic streptococcus, he is currently on clindamycin and cefepime managed by infectious disease. 8. GI and DVT prophylaxis. 9. Continue to monitor daily labs and chest x-rays. 10. Due to the patient's fever of 103F we will panculture him today with blood cultures, sputum culture, urine culture and reculture of his pleural fluid from his right chest tube. 11. Increase activity as tolerated, physical and occupational therapy following. 12. Increased to full liquid diet. Continue no red colored foods. 13. More recommendations to follow based on patient's clinical course. Time with Patient: Greater than 30
[2019-10-08 11:48] LABS: Glucose,Whole Blood 106 mg/dL (75-99)
--- NOTE | 2019-10-08 13:43 | P.PN ---
Subjective Progress Note Date: 10/08/19 This is a very pleasant 19-year-old gentleman who follows with Dr. Whyte as his primary care provider. He has a history of mild intermittent chronic bronchial asthma, chronic and ongoing tobacco dependence, alcohol use, previous history of cocaine use, marijuana use. Previous incarceration secondary to aggravated assault back in he also has a history of depression and previous inpatient psychiatric stay for the same. He has been having increasing shortness of breath than chest discomfort along with fever for the past several days. He had been seen in the emergency room at [facility] discharge from the ER. He was also seen here on 10/01/2019 with similar symptoms was given Toradol and Valium and subsequently discharged. At that time his chest x-ray showed no acute changes. EKG showed no changes. Here he presented here to the emergency room earlier this morning with ongoing shortness of breath, chest pain. He has been having fevers on and off as well. Occas ional phlegm mostly clear. No hemoptysis. White count elevated at 34.2. Hemoglobin 14.2. Platelet count 498. Neutrophils 32. ESR 80. D-dimer 3.17. Sodium 130. Potassium 4.7. Creatinine 1.14. LDH 720. C-reactive protein 660. Coronavirus not detected. EKG did reveal evidence of ST segment elevation. CT angiogram revealed no evidence of pulmonary embolism. There was however a large right pleural effusion with right-sided pneumonic atelectasis and mild infiltrate that was a significant change compared to chest x-ray on 10/01/2019. There is also pneumomediastinum and moderate pericardial effusion. Within the differential is perforated esophagus with mediastinitis and empyema. Computed tomography scan of the abdomen revealed no significant findings other than presented in the lung windows. Echocardiogram revealed mild to moderately impaired left ventricular systolic function with ejection fraction 40-45%. There is also a large generalized pericardial effusion present. The patient was admitted to the intensive care unit , treated with broad-spectrum antibiotics including a combination of vancomycin and cefepime. He was also given on colchicine. was given a pigtail catheter by interventional radiology and the patient had a total of 700 mL of purulent material drained and aspirated from the right lung. The cultures are still pending for now. Nevertheless, the f luid is consistent with pus based on the data noted with a white cell count of 15,500. A barium swallow was done and there was no evidence of any focal esophageal tear. Surgery was consulted and the patient was taken to the operating room yesterday on 10/06/2019 and the patient underwent a pericardial window drainage nd the fluid in the pericardium was in the order of 600 mL and it was serous rather than purulent and analysis was sent from the pericardial fluid and right video-assisted thoracoscopy with decortication and placement of a drainage tube. At 32-Burmese chest tube was inserted into the right hemithorax. All of the cultures are still pending for now. The patient was brought back to the intensive care unit. The white cell count is gradually improving. He remains on same antibiotic coverage for now. He is postop chest x-ray shows that the right-sided chest tube is in a good location. There is no evidence of any pneumothorax. There was some subcutaneous emphysema along the right chest area. The patient still has a right-sided pigtail catheter in place. istory volume loss along theright lung along with persistent right lung infiltration. On today's evaluation of 10/07/2019, the patient is awake and alert and has no specific complaints. The chest tube on the right has drained approximately 700 mL over the past 24 hours, the pigtail catheter on the right has drained approximately 40 mL over the past 24 hours and furthermore he was given TPA into the right pleural space and the subxiphoid chest tube has drained 150 mL over the past 24 hours and this is the pericardial tube. The patient is afebrile. The patient is currently on IV cefepime. Vancomycin will be discontinued. Following the alteplase administration, the patient produce approximately 400 to cc of pleural fluid. The chest x-ray still showing significant opacification of the right lung. All of the chest tubes are in place. The microbiology has shown Alphahemolytic except for colchicine the body fluid from the pleural space that was obtained on 10/04/2019. The pericardial fluid shows no growth thus far. On today's evaluation of 10/08/2019, the patient is doing well and his awake and alert and is postop day #2. Noted the patient has a pigtail catheter the chest tube on the right side and a pericardial tube in the sub-xiphoid location. Note that he also received a TPA administration to the right hemithorax with a pigtail catheter yesterday. This resulted in to improvement in the right-sided drainage and there was a total of 150 mL of drainage via his PEG tube catheter and another 700 mL from his chest tube. The subxiphoid chest tube has drained approximately 70 mL over the past 8 hours. Note that the pleural fluid is showing alphahemolytic streptococcus and the pericardial fluid cultures still negative for now. Nevertheless, the pericardial fluid analysis showed an inflammatory fluid then and empyema. He is having a low-grade fever. He is hemodynamically stable. White cell count remains elevated at 21.2. The patient on 3 L of oxygen by nasal cannula. His emanating. No significant cough sputum production chest that is so wheezing. Surgical wound sites are all dry clean and intact. No altered mentation. I also noted that there is a gram-negative bacillus growth in the pleural fluid anaerobic culture that was taken on 10/04/2019. Infectious disease on the case and the patient was given examination of cefazolin and clindamycin for now. He is on DuoNeb nebulized treatments around the clock. He is tolerating his diet. He is producing adequate amount of urine output. Objective - Vital Signs Vital signs: Vital Signs Temp 98.1 F 10/08/19 09:00 Pulse 96 10/08/19 12:00 Resp 19 10/08/19 12:00 BP 96/50 10/08/19 12:00 Pulse Ox 98 10/08/19 12:00 Intake & Output 10/07/19 10/08/19 10/08/19 18:59 06:59 18:59 Intake Total 2107 1030 650 Output Total 1652 1647 1550 Balance 455 -617 -900 Weight 85.1 kg Intake: IV 927 550 450 Cefepime 2 gm In Sodium 100 Chloride 0.9% 100 ml @ 200 mls/hr IVPB Q12H [facility] Rx#:[id number] LR 650 550 350 pressure bag 27 vancomycin 250 Intake, IV Titration 100 Amount Clindamycin 600 mg In 50 Dextrose 5% in Water 50 ml @ 50 mls/hr IVPB Q8HR [facility] Rx#:[id number] ceFAZolin 2 gm In Sodium 50 Chloride 0.9% 50 ml @ 100 mls/hr IVPB Q8HR [facility] Rx# :[id number] Oral 1080 480 200 Output: Chest Tube Drainage 850 220 400 Pleural Catheter 100 20 50 Right Pleural 740 170 350 mediastinal 10 30 Urine 800 1425 1150 Stool 2 2 Other: Voiding Method Urinal Urinal Urinal # Voids 1 # Bowel Movements 1 1 ABP, PAP, CO, CI - Last Documented Arterial Blood Pressure 112/44 - Exam This is a pleasant 19-year-old gentleman who is resting comfortably in the bedside chair in the intensive care unit. He is in no acute distress, he is alert and oriented 3. Hemodynamically stable and is currently on no inotropic or pressor support. Oxygen saturations are 95% on room air. - Constitutional General appearance: Present: average body habitus, cooperative, no acute distress - EENT Eyes: Present: PERRLA, normal appearance. Absent: scleral icterus ENT: Present: hearing grossly normal, normal oropharynx - Neck Details: Neck supple, no JVD. Neck: Absent: lymphadenopathy, thyromegaly - Respiratory Details: Lungs sounds essentially clear to his bilateral upper lobes, diminished to his bilateral bases with few scattered crackles to his right lower lobe. Respirations are symmetrical and nonlabored. Oxygen saturation is 95% on room air and he is achieving 1500 mL on his incentive spirometry. Right pleural, s ubxiphoid chest tubes and right pigtail catheter remain in place to low continuous wall suction -20 cm H2O. No air leak is present. Right pleural and right pigtail catheter chest tubes draining purulent/serosanguineous drainage. Subxiphoid chest tube draining thin serous drainage. - Cardiovascular Details: Regular rhythm and tachycardic rate. S1 and S2 present, negative for S3, gallop or murmur. No friction rub. Bedside telemetry showing sinus tachycardia heart rate 106. Knee-high sequential compression devices in place to his bilateral lower extremities. - Gastrointestinal Gastrointestinal Comment(s): Abdomen is soft, nontender and nondistended. Active bowel sounds present in all 4 abdominal quadrants. No guarding or rigidity. No organomegaly appreciated. - Genitourinary Genitourinary Comment(s): Voiding clear [place] urine. - Integumentary Integumentary Comment(s): Skin is warm and dry. No clubbing or cyanosis is present. No rash or abnormal pigmentation is present. Subxiphoid incision with silver impregnated dressing clean dry and intact. - Neurologic Neurologic: Present: CNII-XII intact - Musculoskeletal Musculoskeletal: Present: gait normal, generalized weakness, strength equal bilaterally - Psychiatric Psychiatric: Present: A&O x's 3, appropriate affect, intact judgment & insight - Labs CBC & Chem 7: 10/08/19 04:13 10/08/19 04:13 Labs: Abnormal Lab Results - Last 24 Hours (Table) 10/06/19 10/07/19 10/08/19 Range/Units 11:04 20:19 04:13 WBC 21.2 H (3.8-10.6) k/uL RBC 3.88 L (4.30-5.90) m/uL Hgb 11.2 L (13.0-17.5) gm/dL Hct 36.1 L (39.0-53.0) % Plt Count 576 H (150-450) k/uL Neutrophils # 18.3 H (1.3-7.7) k/uL Sodium (137-145) mmol/L Carbon Dioxide (22-30) mmol/L Glucose (74-99) mg/dL POC Glucose (mg/dL) 108 H (75-99) mg/dL Calcium (8.4-10.2) mg/dL Total Bilirubin (0.2-1.3) mg/dL ALT (4-49) U/L Total Protein (6.3-8.2) g/dL Albumin (3.5-5.0) g/dL Crossmatch See Detail 10/08/19 10/08/19 Range/Units 04:13 11:46 WBC (3.8-10.6) k/uL RBC (4.30-5.90) m/uL Hgb (13.0-17.5) gm/dL Hct (39.0-53.0) % Plt Count (150-450) k/uL Neutrophils # (1.3-7.7) k/uL Sodium 130 L (137-145) mmol/L Carbon Dioxide 19 L (22-30) mmol/L Glucose 100 H (74-99) mg/dL POC Glucose (mg/dL) 106 H (75-99) mg/dL Calcium 7.7 L (8.4-10.2) mg/dL Total Bilirubin 1.7 H (0.2-1.3) mg/dL ALT 52 H (4-49) U/L Total Protein 5.3 L (6.3-8.2) g/dL Albumin 2.2 L (3.5-5.0) g/dL Crossmatch Microbiology - Last 24 Hours (Table) 10/04/19 03:55 Blood Culture - Preliminary Blood No Growth after 96 hours 10/06/19 13:26 Anaerobic Culture - Preliminary Other - Other 10/06/19 13:26 Anaerobic Culture - Preliminary Other - Other 10/04/19 12:51 Anaerobic Culture - Final Pleural Fluid Anaerobic Gm Negative Bacilli 10/06/19 13:26 Gram Stain - Preliminary Other - Other Tissue Culture - Preliminary 10/06/19 13:26 Gram Stain - Preliminary Other - Other Wound Culture - Preliminary 10/04/19 12:51 Gram Stain - Final Pleural Fluid Body Fluid Culture - Final Alpha Hemolytic Streptococcus Assessment and Plan Plan: 1 Acute hypoxic respiratory failure secondary to a large right lung empyema, post pigtail catheter drainage of purulent material, post video-assisted thoracoscopy and limited decortication of the right lung and the patient is postop day #2 and the patient has a chest tube in place and addition to the pigtail catheter in place. The patient also had a TPA administration through the pigtail catheter yesterday and a second dose was given today. This improved output from the chest tubes on the right. The fluid from the pleural cultures have shown gram-negative bacillus and alphahemolytic strep. The pericardial fluid is inflammatory and noninfected at this point in time and the cultures are negative. The patient currently has the chest tubes in place. The patient is on a combination of cefazolin and clindamycin. White cell count remains elevated at 21. The patient is still running a low-grade fever. Chest x-ray shows improvement in the volume status and aeration of the right lung. All of the chest tube and the foreign catheter in place. 2 right lung pneumonia with right lung empyema formation 3 Moderate pericardial effusion with no evidence of tamponade, post pericardial window and the fluid was essentially serious, post pericardial window and the pericardial tube is in place 4 Leukocytosis secondary to above 5 History of mild intermittent chronic bronchial asthma 6 Chronic and ongoing tobacco dependence 7 History of marijuana use 8 History of previous cocaine use 9 History of incarceration 10 History of depression with previous inpatient treatment Plan Monitor fever pattern monitor white cell count Continue using incentive spirometer Pain control Awaiting final cultures from the pleural fluid analysis that showed alphahemolytic strep and gram-negative bacillus and the patient is currently on a combination of cefazolin and clindamycin Give a second dose of TPA through the pigtail catheter and monitor the output. Alteplase was given for a second dose. The pigtail catheter into the right hemithorax and that she was comfortable total of 1 hour and after that the she will be unclamped and output will be monitored. Encourage ambulation and activity The patient will be kept in ICU for another 24 hours. There is a critically care evaluation that was done more than 30 minutes. Time with Patient: Greater than 30
--- NOTE | 2019-10-08 13:54 | CDI ---
Documentation Clarification Form Date: 10/08/2019 01:44:34 PM From: Kristine Hernandes RN, CCDS Admit Date: 10/04/2019 05:34:00 AM Patient Name: Torsten Moulton Visit Number: [id number] ATTENTION: The Clinical Documentation Specialists (CDI) and [facility] Coding Staff appreciate your assistance in clarifying documentation. Please respond to the clarification below the line at the bottom and electronically sign. The CDI & [facility] Coding staff will review the response and follow-up if needed. Please note: Queries are made part of the Legal Health Record. If you have any questions, please contact the author of this message via ITS. Dr. Ivan Whyte Please render your opinion on the clinical significance of the patients declining hemoglobin/hematocrit levels. History/Risk Factors: Empyema, large pericardial effusion with tamponade, Hx of cocaine, marijuana use, tobacco dependence Clinical indicators: 10/03-10/07 Hgb: 14.2/11.5/11.6/11.2/10.6/11.2 10/03-10/07 Hct: 43/36.5/37.4/34.9/33.6/36.1 10/05 Op Note: 50 ml blood loss Treatment: CBC Q 12 hrs 10/03 3L 0.9% NS IVF Bolus In order to capture the severity of condition, please clarify if the labs/clinical indicators signify: Acute blood loss anemia Acute on chronic blood loss anemia Iron deficiency anemia Drug induced anemia Nutritional anemia Anemia of chronic disease Unable to determine Other, please specify (Last Form Revision: July 2019) MTDD
--- NOTE | 2019-10-08 15:01 | PN ---
PROGRESS NOTE This is a 19-year-old gentleman who is admitted to hospital with empyema and pneumothorax pericardial effusion. He underwent chest tube placement and pericardial window. He is doing much better, ambulating without any problems. Echocardiogram yesterday showed [id number] generalized pericardial effusion without any tamponade. PHYSICAL EXAM: Comfortable at rest, heart rate is 67, blood pressure is 96/50, respiratory rate is 18, O2 saturation is 98% on room air. Chest exam reveals good air entry. Heart exam reveals first and second, no gallop. Exam of the extremities showing no swelling or edema. LABS: Show a hemoglobin of 11.2, potassium is 4.6, creatinine 0.76. ASSESSMENT: 1. Pericardial effusion. 2. Empyema. PLAN: The pericardial effusion has improved. He is on IV antibiotic, which will be continued. ION / ÁNGELN: [id number] /
--- NOTE | 2019-10-08 16:36 | PN ---
PROGRESS NOTE DATE OF SERVICE: 10/08/2019 REASON FOR FOLLOWUP: Empyema and pericarditis purulent. INTERVAL HISTORY: The patient is currently afebrile. Patient is breathing slightly comfortably. Chest pain is currently controlled. Minimal cough. No nausea, vomiting. No abdominal pain. Some diarrhea. PHYSICAL EXAMINATION: Blood pressure is 109/63 with a pulse of 111, temperature is 98.1, she is 94% on room air. General description is a middle-aged young male up in the chair, in no distress. RESPIRATORY SYSTEM: Unlabored breathing, coarse breath sounds. No wheeze. HEART: S1, S2. Regular rate and rhythm. ABDOMEN: Soft, no tenderness. LABS: Hemoglobin is 9.1, white count is 1.2 with a BUN of 12, creatinine 0.76. UA has been negative. Also showing anaerobic Gram-negative bacilli. DIAGNOSTIC IMPRESSION AND PLAN: Patient with empyema with evidence of pericarditis pericardial effusion, status post chest tube as well as pericardial window. Culture now showing strep and anaerobes. Antibiotic adjusted to Unasyn 3 grams q.6 hours and will monitor clinical course closely. Continue supportive care. MMODL / IJN: [id number] /
[2019-10-08] MEDS: AMPICILLIN-SULBACTAM 3 GM in SODIUM CHLORIDE 0.9% 100 ML IVPB SCH ×2 (17:04→23:53)
--- NOTE | 2019-10-08 23:13 | XR ---
EXAMINATION TYPE: XR chest 1V portable DATE OF EXAM: 10/08/2019 COMPARISON: Today HISTORY: Chest pain TECHNIQUE: FINDINGS: There is a right-sided chest tube. Heart is enlarged. There is infiltrate and atelectasis i n the right lung with elevated right diaphragm. There is no heart failure. Left lung is fairly clear. IMPRESSION: Infiltrate and atelectasis in the right lung unchanged. There is clearing of some atelect asis left lower lobe compared to exam this morning. No pneumothorax.
[2019-10-08] MEDS: ZOLPIDEM 5 MG TAB PO PRN (23:35)
[2019-10-08] MEDS: IPRATROPIUM-ALBUTEROL 3 ML NEB INHALATION PRN (23:56)
[2019-10-09] MEDS: ACETAMINOPHEN TAB 325 MG TAB PO PRN ×3 (04:24→21:03)
[2019-10-09] MEDS: KETOROLAC 30 MG/ML 1 ML VIAL IVP SCH ×3 (04:49→17:15)
[2019-10-09 04:54] LABS: HCT 27.3 % (39.0-53.0); MCHC 32.8 g/dL (31.0-37.0); MCV 88.3 fL (80.0-100.0); Platelet Count 526 k/uL (150-450); RBC 3.09 m/uL (4.30-5.90); RDW 14.1 % (11.5-15.5); WBC 15.2 k/uL (3.8-10.6)
[2019-10-09 05:12] LABS: Band Neutrophils % 6 %; Lymphocytes # (M) 1.67 k/uL (1.0-4.8); Monocytes # (M) 0.91 k/uL (0-1.0); Neutrophils % (M) 75 %; Nucleated Red Blood Cells 0 /100 WBC (0-0); Total Cells Counted 100
[2019-10-09 05:13] LABS: ALT 25 U/L (4-49); AST 28 U/L (17-59); African American GFR (CKD) >90 (>60 ml/min/1.73 sqM); Albumin 1.9 g/dL (3.5-5.0); Alkaline Phosphatase 87 U/L (38-126); Anion Gap 5 mmol/L; Blood Urea Nitrogen 8 mg/dL (9-20); Calcium 7.4 mg/dL (8.4-10.2); Carbon Dioxide 24 mmol/L (22-30); Chloride 103 mmol/L (98-107); Glucose 102 mg/dL (74-99); Non-African American GFR(CKD) >90 (>60 ml/min/1.73 sqM); Potassium 4.8 mmol/L (3.5-5.1); Sodium 132 mmol/L (137-145); Total Bilirubin 1.1 mg/dL (0.2-1.3); Total Protein 4.6 g/dL (6.3-8.2)
[2019-10-09] MEDS: AMPICILLIN-SULBACTAM 3 GM in SODIUM CHLORIDE 0.9% 100 ML IVPB SCH ×3 (06:27→17:15)
--- NOTE | 2019-10-09 07:08 | XR ---
EXAMINATION TYPE: XR chest 1V portable DATE OF EXAM: 10/09/2019 COMPARISON: 10/08/2019 HISTORY: Chest pain TECHNIQUE: Single frontal view of the chest is obtained. FINDINGS: Persistent right-sided chest tube and right basilar pleural catheter. No sizable pneumothorax. Persis tent airspace disease right lower lobe perihilar region. The left lung is clear. The cardiac silhouette size is within normal limits. The osseous structures are intact. IMPRESSION: Stable chest.
[2019-10-09] MEDS: HEPARIN SODIUM,PORCINE 5,000 UNIT/ML 1 ML VIAL SQ SCH ×2 (07:59→17:16)
[2019-10-09] MEDS: PANTOPRAZOLE 40 MG/10 ML VIAL IV SCH (08:00)
[2019-10-09] MEDS ORDERED: ALBUMIN HUMAN 5% 500 ML in EMPTY BAG 1 BAG IVPB STA (09:19)
--- NOTE | 2019-10-09 09:54 | P.PN ---
Subjective Progress Note Date: 10/09/19 Principal diagnosis: Pneumomediastinum, right pleural effusion and pericardial effusion. This is a 19-year-old gentleman who is followed by Dr. Ivan Whyte on an outpatient basis. He has a past medical history significant for asthma, anxiety, chronic ongoing tobacco abuse and daily marijuana use. In his history, it reports a history of cocaine use although the patient is denying any cocaine use. He reports that he has been having symptoms of progressive shortness of breath with severe chest pain radiating across his upper chest and to his lower chest mainly on his right side for the past couple of weeks. He is sought medical attention at [facility] for the above-mentioned symptoms last week, and reports he was diagnosed with panic attacks and discharged with outpatient treatment of Z-Calos, steroids and pain medication. He also was seen in the emergency department here on Monday10/01/2019 in which he was treated with Valium and Toradol with improvement in his symptoms and was to follow-up with his primary care physician. The patient also reports that he had fever, chills and a productive cough with thick white sputum, frequent episodes of wheezing and occasional coughing fits. He denies any complaints of nausea, vomiting, constipation, diarrhea, difficulty swallowing, hemoptysis, or hematemesis. A chest x-ray was completed during his visit here on 10/01/2019 which demonstrated a right basilar subsegmental consolidation, which showed possible interstitial or viral pneumonitis with basilar infiltrate favored over venous congestion per the report. Subsequently due to the patient's complaints of progressive shortness of breath and chest discomfort he presented to the emergency department here at [facility] early this morning. A CT angio of his chest was completed which demonstrated no evidence of pulmonary embolus, but did show a large right pleural effusion, significant infiltrate and atelectasis in the right lower lobe, a moderate pericardial effusion and pneumomediastinum concerning for possibility of perforated esophagus. For further evaluation a computed tomography scan of his abdomen/pelvis with contrast was completed which redemonstrated a large right pleural effusion, a small left pleural effusion and mild low density free fluid in the pelvis. A 12-lead EKG was completed in the emergency department which showed sinus tachycardia with ST elevation in leads 1, 2, and V2 through V6 with a heart rate of 119 BPM. A 2-D echocardiogram was completed this morning which showed him to have an overall left ventricular systolic function to be mildly to moderately impaired with an ejection fraction between 40 and 45%, trace mitral valve regurgitation, mild tricuspid valve regurgitation, mild pulmonary hypertension, trace to mild to moderate valve regurgitation and a moderate predominantly p osterior pericardial effusion. The initial laboratory results in the emergency department showed a WBC count 34.2, hemoglobin 14.2, hematocrit 43.0, platelets 498, began neutrophils 6, neutrophils 32.10, d-dimer 3.17, sodium 130, chloride 95, BUN 27, creatinine 1.14, lactic acid level I.7, C reactive protein 660, and his COVID 19 test showed not detected. Due to the patient's presenting symptoms , and findings on his computed tomography scan of his chest he was admitted for further evaluation and treatment. Currently he is sitting up in his bed in the intensive care unit and continues to complain of shortness of breath and some chest discomfort radiating to his upper chest and arms. Oxygen saturations are 96% on 2 L nasal cannula and he is currently hemodynamically stable on no inotropic or pressor support. Subsequently, due to the patient's findings of right pleural effusion, pericardial effusion and pneumomediastinum consult was placed to Dr. Marcelino Martínez from cardiothoracic surgery for further evaluation and treatment recommendations. POD #[address] guided right chest pigtail catheter insertion for empyema performed by interventional radiology. POD #3 subxiphoid pericardial window and right video-assisted thoracoscopic with decortication and drainage of fluid. The patient was seen on 10/08/2019 in follow-up at his bedside in the intensive care unit. The patient is sitting up to the bedside chair, he is in no acute distress. He is awake, alert and oriented 3. Denies any complaints of pain or shortness of breath at this time, although reports that he does get some shortness of breath with activity. He remains hemodynamically stable and is currently on no inotropic or pressor support and his T-max temperature in the last 24 hours has been 102.3F. Bedside telemetry showing sinus tachycardia heart rate 115 BPM. He just returned from the bathroom and reports he has had 2 episodes of loose bowel movements this morning. Oxygen saturations are 95% on room air and he is achieving 1252 1500 mL on his incentive spirometry. Right pigtail pleural catheter, right pleural and subxiphoid chest tube remained in place to low continuous wall suction -20 cm H2O. No air leak is present. Subxiphoid chest tube drained 10 mL of thin serous drainage in the last 8 hours and 130 mL output in the last 24 hours. He did receive a dose of alteplase 10 mg/100 mL normal saline pleural instillation yesterday with his right pleural chest tube draining 2 L of serosanguineous/purulent drainage in the last 24 hours and 20 mL output in the last 8 hours. This morning the right pleural chest tube drainage is more thick and purulent in color. The right pleural pi gtail catheter drained 70 mL of thin serosanguineous drainage in the last 24 hours. The patient has been up ambulating in the intensive care unit in all way yesterday 3-4 times with minimal assistance from nursing staff and physical/occupational therapy. Culture results from the pleural fluid show alphahemolytic streptococcus and the anaerobic pleural fluid culture showed gram-negative bacilli. He has been switched to Unasyn for antibiotic coverage which is managed by infectious disease. The cytology results from the pleural fluid showed polymicrobial serous exudate with only scattered inflammatory cells and the pericardial fluid/tissue specimen cytology showed supprative pericarditis. His WBC count is trending down today at 15.2. A chest x-ray was completed this morning which demonstrated no sizable pneumothorax and persistent airspace disease right lower lobe perihilar region. Due to the patient's fever yesterday of 103F he was pancultured with sputum Gram stain results showing few polymorphonuclear leukocytes, rare epithelial cells, moderate gram positive cocci, rare gram-negative bacilli and few yeast. Objective - Vital Signs Vital signs: Vital Signs Temp 98.7 F 10/09/19 08:00 Pulse 101 H 10/09/19 08:00 Resp 22 10/09/19 08:00 BP 106/40 10/09/19 08:00 Pulse Ox 93 L 10/09/19 06:00 Intake & Output 10/08/19 10/09/19 10/09/19 18:59 06:59 18:59 Intake Total 800 1350 100 Output Total 3700 3006 251 Balance -2900 -1656 -151 Intake: IV 600 550 100 Cefepime 2 gm In Sodium 100 Chloride 0.9% 100 ml @ 200 mls/hr IVPB Q12H [facility] Rx#:[id number] LR 500 550 100 Oral 200 800 Output: Chest Tube Drainage 1000 405 Pleural Catheter 50 50 Right Pleural 950 320 mediastinal 35 Urine 2700 2600 250 Stool 1 1 Other: Voiding Method Urinal Urinal # Voids 1 ABP, PAP, CO, CI - Last Documented Arterial Blood Pressure 112/44 - Exam This is a pleasant 19-year-old gentleman who is resting comfortably in the bedside chair in the intensive care unit. He is in no acute distress, he is alert and oriented 3. Hemodynamically stable and is currently on no inotropic or pressor support. Oxygen saturations are 95% on room air. - Constitutional General appearance: Present: average body habitus, cooperative, no acute distress - EENT Eyes: Present: PERRLA, normal appearance. Absent: scleral icterus ENT: Present: hearing grossly normal (Dr. Martínez), normal oropharynx. Absent: thrush - Neck Details: Neck is supple, no JVD. Neck: Absent: lymphadenopathy, thyromegaly - Respiratory Details: Lung sounds essentially clear to his bilateral upper lobes, diminished to his bilateral bases right greater than left, few scattered crackles to his right lower lobe. Respirations are symmetrical and nonlabored. Oxygen saturation 95% on room air. Achieving 1250 mL to 1500 mL on his incentive spirometry. - Cardiovascular Details: Regular rhythm and rate. S1 and S2 present, negative for S3, gallop or murmur. Positive friction rub. Bedside telemetry showing normal sinus tachycardia heart rate 115 BPM. No edema present. Knee-high sequential compression devices in place was bilateral lower extremities. - Gastrointestinal Gastrointestinal Comment(s): Abdomen is soft, nontender and nondistended. Active bowel sounds present in all 4 abdominal quadrants. No guarding or rigidity. No organomegaly appreciated. Tolerating oral intake. - Genitourinary Genitourinary Comment(s): Voiding clear [place] urine. - Integumentary Integumentary Comment(s): Skin is warm and dry. No clubbing or cyanosis is present. Subxiphoid incision with silver impregnated dressing clean, dry and in place. - Neurologic Neurologic: Present: CNII-XII intact - Musculoskeletal Musculoskeletal: Present: gait normal, strength equal bilaterally - Psychiatric Psychiatric: Present: A&O x's 3, appropriate affect, intact judgment & insight - Allied health notes Allied health notes reviewed: nursing - Labs CBC & Chem 7: 10/09/19 04:22 10/09/19 04:25 Labs: Abnormal Lab Results - Last 24 Hours (Table) 10/08/19 10/09/19 10/09/19 Range/Units 11:46 04:22 04:25 WBC 15.2 H (3.8-10.6) k/uL RBC 3.09 L (4.30-5.90) m/uL Hgb 9.0 L D (13.0-17.5) gm/dL Hct 27.3 L (39.0-53.0) % Plt Count 526 H (150-450) k/uL Neutrophils # (Manual) 12.30 H (1.3-7.7) k/uL Sodium 132 L (137-145) mmol/L BUN 8 L (9-20) mg/dL Glucose 102 H (74-99) mg/dL POC Glucose (mg/dL) 106 H (75-99) mg/dL Calcium 7.4 L (8.4-10.2) mg/dL Total Protein 4.6 L (6.3-8.2) g/dL Albumin 1.9 L (3.5-5.0) g/dL Microbiology - Last 24 Hours (Table) 10/08/19 16:00 Gram Stain - Preliminary Sputum Sputum Culture - Preliminary 10/04/19 03:55 Blood Culture - Preliminary Blood No Growth after 120 hours 10/08/19 09:25 Gram Stain - Preliminary Pleural Fluid Body Fluid Culture - Preliminary 10/06/19 13:26 Gram Stain - Final Other - Other Tissue Culture - Final 10/06/19 13:26 Gram Stain - Final Other - Other Wound Culture - Final - Imaging and Cardiology Chest x-ray: report reviewed, image reviewed Assessment and Plan Assessment: 1. Dyspnea and chest discomfort secondary to right pleural effusion and pneumomediastinum, status post right video-assisted thoracoscopic with decortication and drainage of fluid 2. Moderate pericardial effusion, currently hemodynamically stable, status post subxiphoid pericardial window, pericardial fluid/tissue specimen cytology showed supprative pericarditis 3. Right lung pneumonia with right lung empyema formation, status post right video-assisted thoracoscopic surgery with decortication and drainage of fluid. 4. Leukocytosis, secondary to above, pleural fluid culture positive for alpha hemolytic streptococcus 5. History of asthma 6. Chronic and ongoing tobacco dependence 7. History of daily marijuana use 8. History of cocaine use 9. History of anxiety 10. History of depression with previous inpatient treatment Plan: 1. Continue right chest pigtail catheter, right pleural and mediastinal chest tubes to low continuous wall suction -20 cm H2O. We will instill pleural instillation of alteplase 10 mg/100 mL of normal saline to his pigtail catheter today. We will keep the pigtail catheter and his right pleural chest tube clamped for 1 hour, after the 1 hour we will unclamp the pigtail catheter, right pleural chest tube and placed back to low continuous wall suction -20 cm H2O. This will be his fourth dose of alteplase. The chest tubes may be taken off suction for the patient to ambulate in the intensive care unit. 2. Encourage use of his incentive spirometry 10 times every hour while awake. 3. The importance of smoking cessation was discussed and reinforced with the patient. 4. Continue Questran for continued complaints of episodes of diarrhea. Stool for C. diff was negative. 5. Pain control per current when necessary orders. 6. Bronchodilator and oxygen management per pulmonary critical care service. 7. Pleural fluid culture showed alpha hemolytic streptococcus, and his pleural fluid anaerobic culture showed anaerobic gram-negative bacilli, he is currently on Unasyn for antibiotic coverage managed by infectious disease. 8. GI and DVT prophylaxis. 9. Continue to monitor daily labs and chest x-rays. 10. We will increase his diet to a soft diet. Discontinue his IV fluids at 4 PM today. 11. Increase activity as tolerated, physical and occupational therapy following. 12. Albumin 5% 500 mL IV piggyback 1 now. 13. Pleural fluid triglyceride level to rule out infectious chylothorax remains pending. We will continue to follow result. 14. More recommendations to follow based on patient's clinical course. Time with Patient: Greater than 30
[2019-10-09] MEDS: CHOLESTYRAMINE (WITH SUGAR) 4 GM PACKET PO SCH ×2 (09:58→17:16)
[2019-10-09] MEDS ORDERED: ALTEPLASE 10 MG in SODIUM CHLORIDE 0.9% 100 ML IRRIGATION ONE (10:00)
--- NOTE | 2019-10-09 12:53 | P.PN ---
Subjective This is a pleasant 19-year-old male being treated for empyema and pneumothorax pericardial effusion. He underwent pericardial window and chest tube placement. He is seen and examined sitting up in the chair. He has been coughing and is complaining of pain at the chest tube site. His breathing is stable. No significant shortness of breath, dizziness or palpitations. Blood pressure 113/66 heart rate 97 afebrile and maintaining oxygen saturation on room air. Laboratory data reviewed, to be VC 15.2, hemoglobin 9, platelets 526, sodium 132, potassium 4.8, creatinine 0.7 to and albumin 1.9. Chest x-ray this morning reveals persistent right-sided chest tube and right basilar pleural catheter with no sizable pneumothorax, persistent air space disease of the right lower lobe, left lung is clear. Chest tube drainage amounts remain stable with a slight increase in the right pleural drainage. GENERAL: Well-appearing, well-nourished and in no acute distress. NECK: Supple without JVD or thyromegaly. LUNGS: Faint fine rales. Scattered rhonchi no wheezes. Respiration equal and unlabored. HEART: Regular rate and rhythm, tachycardic without murmurs or gallops, friction rub auscultated most prominent at the base. S1 and S2 heard. EXTREMITIES: Normal range of motion, trace bilateral lower extremity nonpitting edema. No clubbing or cyanosis. Peripheral pulses intact. ASSESSMENT Pericardial effusion Empyema Leukocytosis Chronic nicotine dependence PLAN Continue current medical regimen. Encouraged incentive spirometer use regularly. Advised splinting his abdomen and chest with a pillow for coughing. Nurse Practitioner note has been reviewed, I agree with a documented findings and plan of care. Patient was seen and examined. Objective - Vital Signs Vital signs: Vital Signs Temp 98.7 F 10/09/19 08:00 Pulse 97 10/09/19 09:00 Resp 26 H 10/09/19 09:00 BP 113/66 10/09/19 09:00 Pulse Ox 94 L 10/09/19 09:00 Intake & Output 10/08/19 10/09/19 10/09/19 18:59 06:59 18:59 Intake Total 800 1350 150 Output Total 3700 3006 502 Balance -2900 -1656 -352 Intake: IV 600 550 150 Cefepime 2 gm In Sodium 100 Chloride 0.9% 100 ml @ 200 mls/hr IVPB Q12H [facility] Rx#:[id number] LR 500 550 150 Oral 200 800 Output: Chest Tube Drainage 1000 405 Pleural Catheter 50 50 Right Pleural 950 320 mediastinal 35 Urine 2700 2600 500 Stool 1 2 Other: Voiding Method Urinal Urinal # Voids 1 ABP, PAP, CO, CI - Last Documented Arterial Blood Pressure 112/44 - Labs CBC & Chem 7: 10/09/19 04:22 10/09/19 04:25 Labs: Abnormal Lab Results - Last 24 Hours (Table) 10/09/19 10/09/19 Range/Units 04:22 04:25 WBC 15.2 H (3.8-10.6) k/uL RBC 3.09 L (4.30-5.90) m/uL Hgb 9.0 L D (13.0-17.5) gm/dL Hct 27.3 L (39.0-53.0) % Plt Count 526 H (150-450) k/uL Neutrophils # (Manual) 12.30 H (1.3-7.7) k/uL Sodium 132 L (137-145) mmol/L BUN 8 L (9-20) mg/dL Glucose 102 H (74-99) mg/dL Calcium 7.4 L (8.4-10.2) mg/dL Total Protein 4.6 L (6.3-8.2) g/dL Albumin 1.9 L (3.5-5.0) g/dL Microbiology - Last 24 Hours (Table) 10/08/19 08:40 Blood Culture - Preliminary Blood No Growth after 24 hours 10/08/19 16:00 Gram Stain - Preliminary Sputum Sputum Culture - Preliminary 10/04/19 03:55 Blood Culture - Preliminary Blood No Growth after 120 hours 10/08/19 09:25 Gram Stain - Preliminary Pleural Fluid Body Fluid Culture - Preliminary 10/06/19 13:26 Gram Stain - Final Other - Other Tissue Culture - Final 10/06/19 13:26 Gram Stain - Final Other - Other Wound Culture - Final
--- NOTE | 2019-10-09 12:59 | P.PN ---
Subjective Progress Note Date: 10/09/19 This is a very pleasant 19-year-old gentleman who follows with Dr. Whyte as his primary care provider. He has a history of mild intermittent chronic bronchial asthma, chronic and ongoing tobacco dependence, alcohol use, previous history of cocaine use, marijuana use. Previous incarceration secondary to aggravated assault back in he also has a history of depression and previous inpatient psychiatric stay for the same. He has been having increasing shortness of breath than chest discomfort along with fever for the past several days. He had been seen in the emergency room at [facility] discharge from the ER. He was also seen here on 10/01/2019 with similar symptoms was given Toradol and Valium and subsequently discharged. At that time his chest x-ray showed no acute changes. EKG showed no changes. Here he presented here to the emergency room earlier this morning with ongoing shortness of breath, chest pain. He has been having fevers on and off as well. Occas ional phlegm mostly clear. No hemoptysis. White count elevated at 34.2. Hemoglobin 14.2. Platelet count 498. Neutrophils 32. ESR 80. D-dimer 3.17. Sodium 130. Potassium 4.7. Creatinine 1.14. LDH 720. C-reactive protein 660. Coronavirus not detected. EKG did reveal evidence of ST segment elevation. CT angiogram revealed no evidence of pulmonary embolism. There was however a large right pleural effusion with right-sided pneumonic atelectasis and mild infiltrate that was a significant change compared to chest x-ray on 10/01/2019. There is also pneumomediastinum and moderate pericardial effusion. Within the differential is perforated esophagus with mediastinitis and empyema. Computed tomography scan of the abdomen revealed no significant findings other than presented in the lung windows. Echocardiogram revealed mild to moderately impaired left ventricular systolic function with ejection fraction 40-45%. There is also a large generalized pericardial effusion present. The patient was admitted to the intensive care unit , treated with broad-spectrum antibiotics including a combination of vancomycin and cefepime. He was also given on colchicine. was given a pigtail catheter by interventional radiology and the patient had a total of 700 mL of purulent material drained and aspirated from the right lung. The cultures are still pending for now. Nevertheless, the f luid is consistent with pus based on the data noted with a white cell count of 15,500. A barium swallow was done and there was no evidence of any focal esophageal tear. Surgery was consulted and the patient was taken to the operating room yesterday on 10/06/2019 and the patient underwent a pericardial window drainage nd the fluid in the pericardium was in the order of 600 mL and it was serous rather than purulent and analysis was sent from the pericardial fluid and right video-assisted thoracoscopy with decortication and placement of a drainage tube. At 32-Anguillan chest tube was inserted into the right hemithorax. All of the cultures are still pending for now. The patient was brought back to the intensive care unit. The white cell count is gradually improving. He remains on same antibiotic coverage for now. He is postop chest x-ray shows that the right-sided chest tube is in a good location. There is no evidence of any pneumothorax. There was some subcutaneous emphysema along the right chest area. The patient still has a right-sided pigtail catheter in place. istory volume loss along theright lung along with persistent right lung infiltration. On today's evaluation of 10/07/2019, the patient is awake and alert and has no specific complaints. The chest tube on the right has drained approximately 700 mL over the past 24 hours, the pigtail catheter on the right has drained approximately 40 mL over the past 24 hours and furthermore he was given TPA into the right pleural space and the subxiphoid chest tube has drained 150 mL over the past 24 hours and this is the pericardial tube. The patient is afebrile. The patient is currently on IV cefepime. Vancomycin will be discontinued. Following the alteplase administration, the patient produce approximately 400 to cc of pleural fluid. The chest x-ray still showing significant opacification of the right lung. All of the chest tubes are in place. The microbiology has shown Alphahemolytic except for colchicine the body fluid from the pleural space that was obtained on 10/04/2019. The pericardial fluid shows no growth thus far. On today's evaluation of 10/08/2019, the patient is doing well and his awake and alert and is postop day #2. Noted the patient has a pigtail catheter the chest tube on the right side and a pericardial tube in the sub-xiphoid location. Note that he also received a TPA administration to the right hemithorax with a pigtail catheter yesterday. This resulted in to improvement in the right-sided drainage and there was a total of 150 mL of drainage via his PEG tube catheter and another 700 mL from his chest tube. The subxiphoid chest tube has drained approximately 70 mL over the past 8 hours. Note that the pleural fluid is showing alphahemolytic streptococcus and the pericardial fluid cultures still negative for now. Nevertheless, the pericardial fluid analysis showed an inflammatory fluid then and empyema. He is having a low-grade fever. He is hemodynamically stable. White cell count remains elevated at 21.2. The patient on 3 L of oxygen by nasal cannula. His emanating. No significant cough sputum production chest that is so wheezing. Surgical wound sites are all dry clean and intact. No altered mentation. I also noted that there is a gram-negative bacillus growth in the pleural fluid anaerobic culture that was taken on 10/04/2019. Infectious disease on the case and the patient was given examination of cefazolin and clindamycin for now. He is on DuoNeb nebulized treatments around the clock. He is tolerating his diet. He is producing adequate amount of urine output. On 10/09/2019, the patient is postop day #3. The patient is hemodynamically stable. The white cell count is improving. He has improved in terms of his fever pattern is improved. The patient received his third dose of alteplase today. Overall he produce around 2000 mL of purulent material from the right lung yesterday and the pigtail catheter is also in place although the output from the particulars been more limited. As for the pericardial tube, the this is draining around 30 sees over the past 24 hours and this is essentially serous liquid. The patient is using incentive spirometer. He is pulling up to 1500. His cultures are resulted in to alphahemolytic streptococcus and anaerobic cultures also positive with gram-negative bacillus and the patient was switched to Unasyn per infectious disease. The patient has no difficulties in swallowing. No nausea. No vomiting. No emesis. His cardiac rhythm is sinus and he is less tachycardic compared to yesterday. The patient has no others complaints otherwise for now. A repeat chest x-ray was done today and the patient has persistent right-sided chest tubes and right basilar pleural catheter which is a pigtail catheter. There is no evidence of any pneumothorax. There is persistent airspace disease in the right lung and perihilar area although improved compared to yesterday. The left lung essentially clear. Objective - Vital Signs Vital signs: Vital Signs Temp 98.7 F 10/09/19 08:00 Pulse 97 10/09/19 09:00 Resp 26 H 10/09/19 09:00 BP 113/66 10/09/19 09:00 Pulse Ox 94 L 10/09/19 09:00 Intake & Output 10/08/19 10/09/19 10/09/19 18:59 06:59 18:59 Intake Total 800 1350 150 Output Total 3700 3006 502 Balance -6542 -1656 -070 Weight 85.1 kg Intake: IV 600 550 150 Cefepime 2 gm In Sodium 100 Chloride 0.9% 100 ml @ 200 mls/hr IVPB Q12H [facility] Rx#:[id number] LR 500 550 150 Oral 200 800 Output: Chest Tube Drainage 1000 405 Pleural Catheter 50 50 Right Pleural 950 320 mediastinal 35 Urine 2700 2600 500 Stool 1 2 Other: Voiding Method Urinal Urinal # Voids 1 ABP, PAP, CO, CI - Last Documented Arterial Blood Pressure 112/44 - Exam - Constitutional General appearance: Present: average body habitus, cooperative, no acute distre ss - EENT Eyes: Present: PERRLA, normal appearance. Absent: scleral icterus ENT: Present: hearing grossly normal normal oropharynx. Absent: thrush - Neck Details: Neck is supple, no JVD. Neck: Absent: lymphadenopathy, thyromegaly - Respiratory Details: Lung sounds essentially clear to his bilateral upper lobes, diminished to his bilateral bases right greater than left, few scattered crackles to his right lower lobe. Respirations are symmetrical and nonlabored. Oxygen saturation 95% on room air. Achieving 1250 mL to 1500 mL on his incentive spirometry. - Cardiovascular Details: Regular rhythm and rate. S1 and S2 present, negative for S3, gallop or murmur. Positive friction rub. Bedside telemetry showing normal sinus tachycardia heart rate 115 BPM. No edema present. Knee-high sequential compression devices in place was bilateral lower extremities. - Gastrointestinal Gastrointestinal Comment(s): Abdomen is soft, nontender and nondistended. Active bowel sounds present in all 4 abdominal quadrants. No guarding or rigidity. No organomegaly appreciated. Tolerating oral intake. - Genitourinary Genitourinary Comment(s): Voiding clear [place] urine. - Integumentary Integumentary Comment(s): Skin is warm and dry. No clubbing or cyanosis is present. Subxiphoid incision with silver impregnated dressing clean, dry and in place. - Neurologic Neurologic: Present: CNII-XII intact - Musculoskeletal Musculoskeletal: Present: gait normal, strength equal bilaterally - Labs CBC & Chem 7: 10/09/19 04:22 10/09/19 04:25 Labs: Abnormal Lab Results - Last 24 Hours (Table) 10/09/19 10/09/19 Range/Units 04:22 04:25 WBC 15.2 H (3.8-10.6) k/uL RBC 3.09 L (4.30-5.90) m/uL Hgb 9.0 L D (13.0-17.5) gm/dL Hct 27.3 L (39.0-53.0) % Plt Count 526 H (150-450) k/uL Neutrophils # (Manual) 12.30 H (1.3-7.7) k/uL Sodium 132 L (137-145) mmol/L BUN 8 L (9-20) mg/dL Glucose 102 H (74-99) mg/dL Calcium 7.4 L (8.4-10.2) mg/dL Total Protein 4.6 L (6.3-8.2) g/dL Albumin 1.9 L (3.5-5.0) g/dL Microbiology - Last 24 Hours (Table) 10/08/19 08:40 Blood Culture - Preliminary Blood No Growth after 24 hours 10/08/19 16:00 Gram Stain - Preliminary Sputum Sputum Culture - Preliminary 10/04/19 03:55 Blood Culture - Preliminary Blood No Growth after 120 hours 10/08/19 09:25 Gram Stain - Preliminary Pleural Fluid Body Fluid Culture - Preliminary 10/06/19 13:26 Gram Stain - Final Other - Other Tissue Culture - Final 10/06/19 13:26 Gram Stain - Final Other - Other Wound Culture - Final Assessment and Plan Plan: 1 Acute hypoxic respiratory failure secondary to a large right lung empyema, post pigtail catheter drainage of purulent material, post video-assisted thoracoscopy and limited decortication of the right lung and the patient is postop day #3 and the patient has a chest tube in place and addition to the pigtail catheter in place. The patient is also has received 3 alteplase treatments to his right lung through the pigtail catheter. Output is considerably high from the right-sided chest tube. As such, the right-sided chest will be kept in place and it'll be attached to wall suction and so is the pigtail catheter. The third alteplase treatment was given to him today. The cultures are positive for alphahemolytic strep and gram-negative bacillus, and it'll and the patient is being covered with broad-spectrum antibiotics and is currently on IV Unasyn. 2 right lung pneumonia with right lung empyema formation 3 Moderate pericardial effusion with no evidence of tamponade, post pericardial window and the fluid was essentially serious, post pericardial window and the pericardial tube is in place, output is diminished and the cultures from the pericardial tube is negative thus far. 4 Leukocytosis secondary to above, improving 5 History of mild intermittent chronic bronchial asthma 6 Chronic and ongoing tobacco dependence 7 History of marijuana use 8 History of previous cocaine use 9 History of incarceration 10 History of depression with previous inpatient treatment Plan Monitor fever pattern , this has already improved monitor white cell count, improving Continue using incentive spirometer Pain control Agree on IV Unasyn Continue alteplase treatment to the right chest and monitor the output Repeat chest x-ray in the morning IV fluids to KVO Monitor electrolytes Infectious disease on the case Stool for C. diff has been negative and the patient was given Questran for diarrhea Encourage ambulation and activity The patient will be kept in ICU for another 24 hours. There is a critically care evaluation that was done more than 30 minutes. Time with Patient: Greater than 30
[2019-10-09] MEDS: HYDROcodone/APAP 5-325MG 1 EACH TAB PO PRN ×2 (13:43→19:40)
--- NOTE | 2019-10-09 16:18 | PN ---
PROGRESS NOTE DATE OF SERVICE: 10/09/2019 REASON FOR FOLLOWUP: Empyema, pericardial effusion, infected. INTERVAL HISTORY: The patient is currently afebrile. The patient is breathing comfortably. The patient's chest pain is currently controlled. Minimal cough, occasional sputum. No nausea, vomiting. No abdominal pain or any worsening diarrhea. PHYSICAL EXAMINATION: Blood pressure 106/40 with a pulse of 101, temperature 98.7, 94% on room air. General description is a young male, up in the chair in no distress. RESPIRATORY SYSTEM: Unlabored breathing, clear to auscultation anteriorly. HEART: S1, S2. Regular rate and rhythm. ABDOMEN: Soft, no tenderness. LABS: Hemoglobin is 9, white count 15.2 with a BUN of 8, creatinine 0.74. DIAGNOSTIC IMPRESSION AND PLAN: Patient with empyema and pericardial effusion. Status post thoracotomy and pericardial window. Cultures with alpha and Streptococcus and anaerobic Gram-negative bacilli. Patient covered with Unasyn. White count showing a downward trend of 15 and monitor clinical course closely. Continue supportive care. MMODL / IJN: [id number] /
[2019-10-09] MEDS: ZOLPIDEM 5 MG TAB PO PRN (21:03)
[2019-10-09 21:21] LABS: HIV-1 RNA Not detected (Not detected)
--- NOTE | 2019-10-09 22:15 | PN ---
PROGRESS NOTE This patient remains on ampicillin sulbactam antibiotics, Questran, pain medications. He has chest tubes x2 placed as well as a pericardial tube. He is on broad-spectrum antibiotics. He is breathing better, sitting up in the chair. Vital signs are reviewed. CARDIOVASCULAR: S1, S2. LUNGS: Clear. HEMATOLOGY: Negative Homans. PSYCH: Fair mood and affect. ASSESSMENT: 1. Pericardial effusion, empyema. 2. Pericardial window. He is covered with Unasyn. Monitor. Chest tubes removed per Pulmonology and cardiac surgeon. MMODL / IJN: [id number] /
[2019-10-10] MEDS: IPRATROPIUM-ALBUTEROL 3 ML NEB INHALATION PRN ×2 (00:24→20:35)
[2019-10-10] MEDS: HYDROcodone/APAP 5-325MG 1 EACH TAB PO PRN ×4 (02:31→21:37)
[2019-10-10 05:37] LABS: Basophils % (A) 0 %; Eosinophils # (A) 0.3 k/uL (0-0.7); Eosinophils % (A) 2 %; Lymphocytes # (A) 1.3 k/uL (1.0-4.8); Lymphocytes % (A) 11 %; MCH 29.7 pg (25.0-35.0); MCHC 33.3 g/dL (31.0-37.0); MCV 89.1 fL (80.0-100.0); Mean Platelet Volume 7.1; Monocytes # (A) 0.5 k/uL (0-1.0); Monocytes % (A) 4 %; Neutrophils % (A) 81 %; Platelet Count 660 k/uL (150-450); RBC 2.69 m/uL (4.30-5.90); RDW 13.8 % (11.5-15.5); WBC 12.3 k/uL (3.8-10.6)
[2019-10-10] MEDS: AMPICILLIN-SULBACTAM 3 GM in SODIUM CHLORIDE 0.9% 100 ML IVPB SCH ×5 (05:47→18:02)
[2019-10-10] MEDS: KETOROLAC 30 MG/ML 1 ML VIAL IVP SCH ×4 (05:47→18:02)
[2019-10-10 06:25] LABS: ALT 24 U/L (4-49); AST 30 U/L (17-59); African American GFR (CKD) >90 (>60 ml/min/1.73 sqM); Albumin 2.1 g/dL (3.5-5.0); Alkaline Phosphatase 94 U/L (38-126); Anion Gap 7 mmol/L; Blood Urea Nitrogen 9 mg/dL (9-20); Calcium 7.4 mg/dL (8.4-10.2); Carbon Dioxide 24 mmol/L (22-30); Chloride 102 mmol/L (98-107); Glucose 99 mg/dL (74-99); Non-African American GFR(CKD) >90 (>60 ml/min/1.73 sqM); Potassium 4.6 mmol/L (3.5-5.1); Sodium 133 mmol/L (137-145); Total Bilirubin 0.8 mg/dL (0.2-1.3); Total Protein 4.8 g/dL (6.3-8.2)
--- NOTE | 2019-10-10 07:35 | XR ---
EXAMINATION TYPE: XR chest 1V portable DATE OF EXAM: 10/10/2019 COMPARISON: Prior chest x-ray 10/09/2019 HISTORY: Chest tubes TECHNIQUE: Single frontal view of the chest is obtained. FINDINGS: Right-sided chest tube, right-sided pigtail catheter, median sternal drain are all present and show similar appearance to prior exam. Pleural-parenchymal changes in the right hemithorax, subc utaneous emphysema again noted. No evident pneumothorax. Heart size is stable. IMPRESSION: There is no significant interval change in the appearance of the chest. Postprocedural c hanges, findings compatible with patient's history of VATS and pericardial window.
[2019-10-10] MEDS: HEPARIN SODIUM,PORCINE 5,000 UNIT/ML 1 ML VIAL SQ SCH ×3 (08:20→15:51)
[2019-10-10] MEDS: PANTOPRAZOLE 40 MG/10 ML VIAL IV SCH (09:49)
--- NOTE | 2019-10-10 10:12 | P.PN ---
Subjective Progress Note Date: 10/10/19 Principal diagnosis: Pneumomediastinum, right pleural effusion and pericardial effusion. This is a 19-year-old gentleman who is followed by Dr. Ivan Whyte on an outpatient basis. He has a past medical history significant for asthma, anxiety, chronic ongoing tobacco abuse and daily marijuana use. In his history, it reports a history of cocaine use although the patient is denying any cocaine use. He reports that he has been having symptoms of progressive shortness of breath with severe chest pain radiating across his upper chest and to his lower chest mainly on his right side for the past couple of weeks. He is sought medical attention at [facility] for the above-mentioned symptoms last week, and reports he was diagnosed with panic attacks and discharged with outpatient treatment of Z-Calos, steroids and pain medication. He also was seen in the emergency department here on Monday10/01/2019 in which he was treated with Valium and Toradol with improvement in his symptoms and was to follow-up with his primary care physician. The patient also reports that he had fever, chills and a productive cough with thick white sputum, frequent episodes of wheezing and occasional coughing fits. He denies any complaints of nausea, vomiting, constipation, diarrhea, difficulty swallowing, hemoptysis, or hematemesis. A chest x-ray was completed during his visit here on 10/01/2019 which demonstrated a right basilar subsegmental consolidation, which showed possible interstitial or viral pneumonitis with basilar infiltrate favored over venous congestion per the report. Subsequently due to the patient's complaints of progressive shortness of breath and chest discomfort he presented to the emergency department here at [facility] early this morning. A CT angio of his chest was completed which demonstrated no evidence of pulmonary embolus, but did show a large right pleural effusion, significant infiltrate and atelectasis in the right lower lobe, a moderate pericardial effusion and pneumomediastinum concerning for possibility of perforated esophagus. For further evaluation a computed tomography scan of his abdomen/pelvis with contrast was completed which redemonstrated a large right pleural effusion, a small left pleural effusion and mild low density free fluid in the pelvis. A 12-lead EKG was completed in the emergency department which showed sinus tachycardia with ST elevation in leads 1, 2, and V2 through V6 with a heart rate of 119 BPM. A 2-D echocardiogram was completed this morning which showed him to have an overall left ventricular systolic function to be mildly to moderately impaired with an ejection fraction between 40 and 45%, trace mitral valve regurgitation, mild tricuspid valve regurgitation, mild pulmonary hypertension, trace to mild to moderate valve regurgitation and a moderate predominantly p osterior pericardial effusion. The initial laboratory results in the emergency department showed a WBC count 34.2, hemoglobin 14.2, hematocrit 43.0, platelets 498, began neutrophils 6, neutrophils 32.10, d-dimer 3.17, sodium 130, chloride 95, BUN 27, creatinine 1.14, lactic acid level I.7, C reactive protein 660, and his COVID 19 test showed not detected. Due to the patient's presenting symptoms , and findings on his computed tomography scan of his chest he was admitted for further evaluation and treatment. Currently he is sitting up in his bed in the intensive care unit and continues to complain of shortness of breath and some chest discomfort radiating to his upper chest and arms. Oxygen saturations are 96% on 2 L nasal cannula and he is currently hemodynamically stable on no inotropic or pressor support. Subsequently, due to the patient's findings of right pleural effusion, pericardial effusion and pneumomediastinum consult was placed to Dr. Marcelino Martínez from cardiothoracic surgery for further evaluation and treatment recommendations. POD #[address] guided right chest pigtail catheter insertion for empyema performed by interventional radiology. POD #4 subxiphoid pericardial window and right video-assisted thoracoscopic with decortication and drainage of fluid. The patient was seen today 10/10/2019 and follow-up at his bedside in the intensive care unit. The patient is up to the bathroom cleaning himself up and is in no acute distress. He is awake, alert and oriented 3. He reports that he feels much improved today compared to the last couple of days. Currently denies any complaints of pain or shortness of breath. He continues to have episodes of hemoptysis. Laboratory results today show a WBC count trending down 12.3, hemoglobin 8.0, platelets 660, sodium 133, BUN 9 and creatinine 0.66. He remains hemodynamically stable and his T-max temperature in the last 24 hours was 101F. Oxygen saturation are 94% on room air and he is achieving 8495-3502 mL on his incentive spirometry. Right chest roll pigtail catheter, right pleural chest tube and subxiphoid chest tube remained in place to low continuous wall suction -20 cm H2O. No air leak is present. Subxiphoid chest tube draining thin serous drainage with 100 mL output in the last 24 hours. Right pleural chest tube draining serosanguineous drainage with 165 mL output the last 8 hours, and 415 mL output in the last 24 hours. The right pleural pigtail catheter drained 50 mL output of serosanguineous drainage in the last 24 hours. Bedside telemetry showing sinus tachycardia heart rate 106. Cultures showed alpha hemolytic streptococcal coccus and anaerobic gram-negative bacilli and is currently on Unasyn which is being managed by infectious disease. Denies any further episodes of diarrhea this morning. Objective - Vital Signs Vital signs: Vital Signs Temp 99.8 F H 10/10/19 04:00 Pulse 82 10/10/19 07:00 Resp 12 10/10/19 07:00 BP 98/44 10/10/19 07:00 Pulse Ox 94 L 10/10/19 07:00 Intake & Output 10/09/19 10/10/19 10/10/19 18:59 06:59 18:59 Intake Total 1000 1300 Output Total 1416 1865 0 Balance -416 -565 0 Weight 85.1 kg 85.4 kg Intake: IV 760 100 Ampicillin-Sulbactam 3 gm 200 100 In Sodium Chloride 0.9% 100 ml @ 200 mls/hr IVPB Q6HR COUNT INCLUDES THE [facility] Rx#:[id number] LR 560 Oral 240 1200 Output: Chest Tube Drainage 160 540 Pleural Catheter 20 100 Right Pleural 100 415 mediastinal 40 25 Urine 1250 1325 0 Stool 6 Other: Voiding Method Urinal # Voids 1 ABP, PAP, CO, CI - Last Documented Arterial Blood Pressure 112/44 - Exam This is a pleasant 19-year-old gentleman who is up to the bathroom washing himself up. He is in no acute distress, he is alert and oriented 3. Hemodynamically stable and is currently on no inotropic or pressor support. O xygen saturations are 94% on room air. - Constitutional General appearance: Present: average body habitus, cooperative, no acute distress - EENT Eyes: Present: PERRLA, normal appearance. Absent: scleral icterus ENT: Present: hearing grossly normal, normal oropharynx - Neck Details: Neck is supple, no JVD. Neck: Absent: lymphadenopathy, thyromegaly - Respiratory Details: Lung sounds are essentially clear to his bilateral upper lobes, diminished to his right lower lobe with few scattered crackles. Respirations are symmetrical and nonlabored. Oxygen saturation 94% on room air. Achieving 1250 mL to 1500 mL on his incentive spirometry. Right pleural pigtail, right pleural and subxi phoid chest tubes remain in place to low continuous wall suction -20 cm H2O. No air leak is present. Right pleural pigtail and right pleural chest tube draining thin serosanguineous drainage. Subxiphoid chest tube with thin serous drainage. - Cardiovascular Details: Regular rhythm and tachycardic rate. S1 and S2 present, negative for S3, gallop or murmur. No edema present. Knee-high sequential compression devices in place to his bilateral lower extremities. - Gastrointestinal Gastrointestinal Comment(s): Abdomen soft, nontender and nondistended. Active bowel sounds present all 4 abdominal quadrants. No guarding or rigidity. No organomegaly appreciated. - Genitourinary Genitourinary Comment(s): Voiding clear [place] urine. - Integumentary Integumentary Comment(s): Skin is warm and dry. No clubbing or cyanosis is present. Subxiphoid incision is clean, dry and approximated. No drainage or redness is present. - Neurologic Neurologic: Present: CNII-XII intact - Musculoskeletal Musculoskeletal: Present: gait normal, strength equal bilaterally - Psychiatric Psychiatric: Present: A&O x's 3, appropriate affect, intact judgment & insight - Allied health notes Allied health notes reviewed: nursing - Labs CBC & Chem 7: 10/10/19 04:39 10/10/19 04:39 Labs: Abnormal Lab Results - Last 24 Hours (Table) 10/10/19 10/10/19 Range/Units 04:39 04:39 WBC 12.3 H (3.8-10.6) k/uL RBC 2.69 L (4.30-5.90) m/uL Hgb 8.0 L (13.0-17.5) gm/dL Hct 24.0 L (39.0-53.0) % Plt Count 660 H (150-450) k/uL Neutrophils # 10.0 H (1.3-7.7) k/uL Sodium 133 L (137-145) mmol/L Calcium 7.4 L (8.4-10.2) mg/dL Total Protein 4.8 L (6.3-8.2) g/dL Albumin 2.1 L (3.5-5.0) g/dL Microbiology - Last 24 Hours (Table) 10/04/19 03:55 Blood Culture - Final Blood No Growth after 144 hours 10/06/19 13:26 Gram Stain - Final Other - Other Tissue Culture - Preliminary 10/08/19 08:40 Blood Culture - Preliminary Blood No Growth after 24 hours 10/08/19 16:00 Gram Stain - Preliminary Sputum Sputum Culture - Preliminary - Imaging and Cardiology Chest x-ray: report reviewed, image reviewed Assessment and Plan Assessment: 1. Dyspnea and chest discomfort secondary to right pleural effusion and pneumomediastinum, status post right video-assisted thoracoscopic with decortication and drainage of fluid 2. Moderate pericardial effusion, currently hemodynamically stable, status post subxiphoid pericardial window, pericardial fluid/tissue specimen cytology showed supprative pericarditis 3. Right lung pneumonia with right lung empyema formation, status post right video-assisted thoracoscopic surgery with decortication and drainage of fluid. 4. Leukocytosis, secondary to above, pleural fluid culture positive for alpha hemolytic streptococcus 5. History of asthma 6. Chronic and ongoing tobacco dependence 7. History of daily marijuana use 8. History of cocaine use 9. History of anxiety 10. History of depression with previous inpatient treatment Plan: 1. Keep right pleural chest tube in place and disconnected from wall suction. May keep to waterseal. His right pigtail catheter and subxiphoid chest tube were removed without incident. 4 x 4 gauze with Vaseline impregnated gauze to c over and secured with tape. 2. Encourage use of his incentive spirometry 10 times every hour while awake. 3. The importance of smoking cessation was discussed and reinforced with the patient. 4. Pain control per current when necessary orders. 5. Bronchodilator and oxygen management per pulmonary critical care service. 6. May transfer to the third floor cardiac stepdown unit when okay by primary care service and other consultants. 7. Pleural fluid culture showed alpha hemolytic streptococcus, and his pleural fluid anaerobic culture showed anaerobic gram-negative bacilli, he is currently on Unasyn for antibiotic coverage managed by infectious disease. 8. GI and DVT prophylaxis. 9. Continue to monitor daily labs and chest x-rays. 10. Continue soft diet. 11. Increase activity as tolerated, physical and occupational therapy following. 12. Pleural fluid triglyceride level to rule out infectious chylothorax remains pending. We will continue to follow result. 13. More recommendations to follow based on patient's clinical course. Time with Patient: Greater than 30
[2019-10-10] MEDS: CHOLESTYRAMINE (WITH SUGAR) 4 GM PACKET PO SCH ×2 (10:23→18:03)
--- NOTE | 2019-10-10 11:57 | P.PN ---
Subjective Progress Note Date: 10/10/19 This is a very pleasant 19-year-old gentleman who follows with Dr. Whyte as his primary care provider. He has a history of mild intermittent chronic bronchial asthma, chronic and ongoing tobacco dependence, alcohol use, previous history of cocaine use, marijuana use. Previous incarceration secondary to aggravated assault back in he also has a history of depression and previous inpatient psychiatric stay for the same. He has been having increasing shortness of breath than chest discomfort along with fever for the past several days. He had been seen in the emergency room at [facility] discharge from the ER. He was also seen here on 10/01/2019 with similar symptoms was given Toradol and Valium and subsequently discharged. At that time his chest x-ray showed no acute changes. EKG showed no changes. Here he presented here to the emergency room earlier this morning with ongoing shortness of breath, chest pain. He has been having fevers on and off as well. Occas ional phlegm mostly clear. No hemoptysis. White count elevated at 34.2. Hemoglobin 14.2. Platelet count 498. Neutrophils 32. ESR 80. D-dimer 3.17. Sodium 130. Potassium 4.7. Creatinine 1.14. LDH 720. C-reactive protein 660. Coronavirus not detected. EKG did reveal evidence of ST segment elevation. CT angiogram revealed no evidence of pulmonary embolism. There was however a large right pleural effusion with right-sided pneumonic atelectasis and mild infiltrate that was a significant change compared to chest x-ray on 10/01/2019. There is also pneumomediastinum and moderate pericardial effusion. Within the differential is perforated esophagus with mediastinitis and empyema. Computed tomography scan of the abdomen revealed no significant findings other than presented in the lung windows. Echocardiogram revealed mild to moderately impaired left ventricular systolic function with ejection fraction 40-45%. There is also a large generalized pericardial effusion present. The patient was admitted to the intensive care unit , treated with broad-spectrum antibiotics including a combination of vancomycin and cefepime. He was also given on colchicine. was given a pigtail catheter by interventional radiology and the patient had a total of 700 mL of purulent material drained and aspirated from the right lung. The cultures are still pending for now. Nevertheless, the f luid is consistent with pus based on the data noted with a white cell count of 15,500. A barium swallow was done and there was no evidence of any focal esophageal tear. Surgery was consulted and the patient was taken to the operating room yesterday on 10/06/2019 and the patient underwent a pericardial window drainage nd the fluid in the pericardium was in the order of 600 mL and it was serous rather than purulent and analysis was sent from the pericardial fluid and right video-assisted thoracoscopy with decortication and placement of a drainage tube. At 32-[place] chest tube was inserted into the right hemithorax. All of the cultures are still pending for now. The patient was brought back to the intensive care unit. The white cell count is gradually improving. He remains on same antibiotic coverage for now. He is postop chest x-ray shows that the right-sided chest tube is in a good location. There is no evidence of any pneumothorax. There was some subcutaneous emphysema along the right chest area. The patient still has a right-sided pigtail catheter in place. istory volume loss along theright lung along with persistent right lung infiltration. On today's evaluation of 10/07/2019, the patient is awake and alert and has no specific complaints. The chest tube on the right has drained approximately 700 mL over the past 24 hours, the pigtail catheter on the right has drained approximately 40 mL over the past 24 hours and furthermore he was given TPA into the right pleural space and the subxiphoid chest tube has drained 150 mL over the past 24 hours and this is the pericardial tube. The patient is afebrile. The patient is currently on IV cefepime. Vancomycin will be discontinued. Following the alteplase administration, the patient produce approximately 400 to cc of pleural fluid. The chest x-ray still showing significant opacification of the right lung. All of the chest tubes are in place. The microbiology has shown Alphahemolytic except for colchicine the body fluid from the pleural space that was obtained on 10/04/2019. The pericardial fluid shows no growth thus far. On today's evaluation of 10/08/2019, the patient is doing well and his awake and alert and is postop day #2. Noted the patient has a pigtail catheter the chest tube on the right side and a pericardial tube in the sub-xiphoid location. Note that he also received a TPA administration to the right hemithorax with a pigtail catheter yesterday. This resulted in to improvement in the right-sided drainage and there was a total of 150 mL of drainage via his PEG tube catheter and another 700 mL from his chest tube. The subxiphoid chest tube has drained approximately 70 mL over the past 8 hours. Note that the pleural fluid is showing alphahemolytic streptococcus and the pericardial fluid cultures still negative for now. Nevertheless, the pericardial fluid analysis showed an inflammatory fluid then and empyema. He is having a low-grade fever. He is hemodynamically stable. White cell count remains elevated at 21.2. The patient on 3 L of oxygen by nasal cannula. His emanating. No significant cough sputum production chest that is so wheezing. Surgical wound sites are all dry clean and intact. No altered mentation. I also noted that there is a gram-negative bacillus growth in the pleural fluid anaerobic culture that was taken on 10/04/2019. Infectious disease on the case and the patient was given examination of cefazolin and clindamycin for now. He is on DuoNeb nebulized treatments around the clock. He is tolerating his diet. He is producing adequate amount of urine output. On 10/09/2019, the patient is postop day #3. The patient is hemodynamically stable. The white cell count is improving. He has improved in terms of his fever pattern is improved. The patient received his third dose of alteplase today. Overall he produce around 2000 mL of purulent material from the right lung yesterday and the pigtail catheter is also in place although the output from the particulars been more limited. As for the pericardial tube, the this is draining around 30 sees over the past 24 hours and this is essentially serous liquid. The patient is using incentive spirometer. He is pulling up to 1500. His cultures are resulted in to alphahemolytic streptococcus and anaerobic cultures also positive with gram-negative bacillus and the patient was switched to Unasyn per infectious disease. The patient has no difficulties in swallowing. No nausea. No vomiting. No emesis. His cardiac rhythm is sinus and he is less tachycardic compared to yesterday. The patient has no others complaints otherwise for now. A repeat chest x-ray was done today and the patient has persistent right-sided chest tubes and right basilar pleural catheter which is a pigtail catheter. There is no evidence of any pneumothorax. There is persistent airspace disease in the right lung and perihilar area although improved compared to yesterday. The left lung essentially clear. On 10/10/2019 the patient is postop day #4. Doing well. He is currently on room air oxygen. Chest x-ray still showing consolidation of the right lung. All of the right-sided chest tubes are in place. The patient is pulse oxing 94% on room air oxygen. He is pulling approximately 1500 on incentive spirometer. Right-sided pigtail catheter and the right-sided chest tube and the subxiphoid pericardial tube are all in place for now. No evidence of any air leak. The sulci 4 chest tube has drained approximately 100 mL over the past 24 hours, the right-sided chest tube is draining serosanguineous fluid and it has drained approximately 1 50 mL over the past 24 hours. As for the pancreas, it has drained approximately 50 mL over the past 24 hours. The patient's white cell count is improving. Cultures are essentially the same. The patient remains on IV Unasyn. No hemoptysis. No further episodes of diarrhea for now. No other significant events. Altered mentation. No fever this morning and the patient has Been having episodic fever throughout the day yesterday. No other new complaints otherwise for now. Objective - Vital Signs Vital signs: Vital Signs Temp 98.7 F 10/10/19 08:00 Pulse 97 10/10/19 11:00 Resp 22 10/10/19 11:23 BP 120/59 10/10/19 11:00 Pulse Ox 94 L 10/10/19 11:00 Intake & Output 10/09/19 10/10/19 10/10/19 18:59 06:59 18:59 Intake Total 1000 1300 520 Output Total 1416 1865 840 Balance -416 -565 -320 Weight 85.1 kg 85.4 kg Intake: IV 760 100 40 Ampicillin-Sulbactam 3 gm 200 100 In Sodium Chloride 0.9% 100 ml @ 200 mls/hr IVPB Q6HR [facility] Rx#:[id number] LR 560 40 Oral 240 1200 480 Output: Chest Tube Drainage 160 540 90 Pleural Catheter 20 100 50 Right Pleural 100 415 35 mediastinal 40 25 5 Urine 1250 1325 750 Stool 6 Other: Voiding Method Urinal # Voids 1 ABP, PAP, CO, CI - Last Documented Arterial Blood Pressure 112/44 - Exam This is a pleasant 19-year-old gentleman who is up to the bathroom washing himself up. He is in no acute distress, he is alert and oriented 3. Hemodynamically stable and is currently on no inotropic or pressor support. Oxygen saturations are 94% on room air. - Constitutional General appearance: Present: average body habitus, cooperative, no acute distress - EENT Eyes: Present: PERRLA, normal appearance. Absent: scleral icterus ENT: Present: hearing grossly normal, normal oropharynx - Neck Details: Neck is supple, no JVD. Neck: Absent: lymphadenopathy, thyromegaly - Respiratory Details: Lung sounds are essentially clear to his bilateral upper lobes, diminished to his right lower lobe with few scattered crackles. Respirations are symmetrical and nonlabored. Oxygen saturation 94% on room air. Achieving 1250 mL to 1500 mL on his incentive spirometry. Right pleural pigtail, right pleural and subxiphoid chest tubes remain in place to low continuous wall suction -20 cm H2O. No air leak is present. Right pleural pigtail and right pleural chest tube draining thin serosanguineous drainage. Subxiphoid chest tube with thin serous drainage. - Cardiovascular Details: Regular rhythm and tachycardic rate. S1 and S2 present, negative for S3, gallop or murmur. No edema present. Knee-high sequential compression devices in place to his bilateral lower extremities. - Gastrointestinal Gastrointestinal Comment(s): Abdomen soft, nontender and nondistended. Active bowel sounds present all 4 abdominal quadrants. No guarding or rigidity. No organomegaly appreciated. - Genitourinary Genitourinary Comment(s): Voiding clear [place] urine. - Integumentary Integumentary Comment(s): Skin is warm and dry. No clubbing or cyanosis is present. Subxiphoid incision is clean, dry and approximated. No drainage or redness is present. - Neurologic Neurologic: Present: CNII-XII intact - Musculoskeletal Musculoskeletal: Present: gait normal, strength equal bilaterally - Psychiatric Psychiatric: Present: A&O x's 3, appropriate affect, intact judgment & insight - Labs CBC & Chem 7: 10/10/19 04:39 10/10/19 04:39 Labs: Abnormal Lab Results - Last 24 Hours (Table) 10/10/19 10/10/19 Range/Units 04:39 04:39 WBC 12.3 H (3.8-10.6) k/uL RBC 2.69 L (4.30-5.90) m/uL Hgb 8.0 L (13.0-17.5) gm/dL Hct 24.0 L (39.0-53.0) % Plt Count 660 H (150-450) k/uL Neutrophils # 10.0 H (1.3-7.7) k/uL Sodium 133 L (137-145) mmol/L Calcium 7.4 L (8.4-10.2) mg/dL Total Protein 4.8 L (6.3-8.2) g/dL Albumin 2.1 L (3.5-5.0) g/dL Microbiology - Last 24 Hours (Table) 10/08/19 08:40 Blood Culture - Preliminary Blood No Growth after 48 hours 10/04/19 03:55 Blood Culture - Final Blood No Growth after 144 hours 10/06/19 13:26 Gram Stain - Final Other - Other Tissue Culture - Preliminary 10/08/19 16:00 Gram Stain - Preliminary Sputum Sputum Culture - Preliminary Assessment and Plan Plan: 1 Acute hypoxic respiratory failure secondary to a large right lung empyema, post pigtail catheter drainage of purulent material, post video-assisted thoracoscopy and limited decortication of the right lung and the patient is postop day #4 and the patient has a chest tube in place and addition to the pigtail catheter in place. The patient is also has received 3 alteplase treatme nts to his right lung through the pigtail catheter. Output is considerably high from the right-sided chest tube. As such, the right-sided chest will be kept in place and it'll be attached to wall suction and so is the pigtail catheter. The third alteplase treatment was given yesterday. The cultures are positive for alpha hemolytic strep and gram-negative bacillus, and it'll and the patient is being covered with broad-spectrum antibiotics and is currently on IV Unasyn. The white cell count is improving. The chest x-ray still showing opacification of the right lung with some volume loss and some residual thickening along the pleural lining. All of the chest tubes are still in place and we are monitoring the drainage. Meanwhile, the patient is receiving IV antibiotics. Fever pattern is improving. White cell count is improving. 2 right lung pneumonia with right lung empyema formation 3 Moderate pericardial effusion with no evidence of tamponade, post pericardial window and the fluid was essentially serious, post pericardial window and the pericardial tube is in place, output is diminished and the cultures from the pericardial tube is negative thus far. 4 Leukocytosis secondary to above, improving 5 History of mild intermittent chronic bronchial asthma 6 Chronic and ongoing tobacco dependence 7 History of marijuana use 8 History of previous cocaine use 9 History of incarceration 10 History of depression with previous inpatient treatment Plan Monitor fever pattern , this has already improved monitor white cell count, improving Continue using incentive spirometer Pain control is improved Agree on IV Unasyn Encourage ambulation and activity The patient will be kept in ICU for another 24 hours.
--- NOTE | 2019-10-10 13:27 | PN ---
PROGRESS NOTE Torsten is a 19-year-old gentleman who was admitted to hospital with empyema and pericardial effusion and pneumomediastinum. He is feeling much better today. Heart rate is better controlled. His hemoptysis has improved. The pericardial drainage tube has been removed. Chest tube is still in place. Mediastinal tube had also been removed. On exam, patient is comfortable at rest. Vital signs are stable. Chest exam reveals diminished air entry at the bases. Heart exam reveals first and second heart sounds. No gallop. Exam of extremities did not reveal any edema. Peripheral pulses are palpable. LABS: Show a hemoglobin of 8, potassium is 4.6 creatinine is 0.6. ASSESSMENT: 1. Empyema of the thorax. 2. Pericardial effusion. PLAN: Patient will continue with current medications. I will repeat a 2D echo on him tomorrow to assess the pericardial effusion. MMLISAL / ÁNGELN: [id number] /
[2019-10-10] MEDS: NYSTATIN 100,000 UNIT/ML SUSP 500,000 UNIT/5 ML CUP PO SCH ×3 (14:05→20:54)
--- NOTE | 2019-10-10 17:03 | P.PN ---
Subjective Progress Note Date: 10/10/19 This is a 19-year-old gentleman admitted with pericardial effusion, empyema, status post pericardial window. Patient is status post 3 rounds of alteplase. Chest x-ray reporting no significant interval change in the appearance of the chest; pleural parenchymal changes in the right hemothorax, subcutaneous emphysema with no evident pneumothorax. Mediastinal and patient tell chest tubes discontinued this morning. Right pleural chest tube remains. Continues spitting up bloody sputum. Hemoglobin decreased to 8. Borderline hypotension. No tachycardia. T-max 101, WBC down to 12.3. Prior cultures reporting alpha and streptococcus with anaerobic gram-negative bacilli. Sputum, repeat pleural fluid cultures pending. Maintained on Unasyn as per infectious disease.Sodium 133. Incentive spirometer ranging from [id number]. Maintaining O2 sats in the 90s on room air. Telemetry sinus rhythm. Objective - Vital Signs Vital signs: Vital Signs Temp 99.8 F H 10/10/19 04:00 Pulse 82 10/10/19 07:00 Resp 12 10/10/19 07:00 BP 98/44 10/10/19 07:00 Pulse Ox 94 L 10/10/19 07:00 Intake & Output 10/09/19 10/10/19 10/10/19 18:59 06:59 18:59 Intake Total 1000 1300 Output Total 1416 1865 0 Balance -416 -565 0 Weight 85.1 kg 85.4 kg Intake: IV 760 100 Ampicillin-Sulbactam 3 gm 200 100 In Sodium Chloride 0.9% 100 ml @ 200 mls/hr IVPB Q6HR [facility] Rx#:[id number] LR 560 Oral 240 1200 Output: Chest Tube Drainage 160 540 Pleural Catheter 20 100 Right Pleural 100 415 mediastinal 40 25 Urine 1250 1325 0 Stool 6 Other: Voiding Method Urinal # Voids 1 ABP, PAP, CO, CI - Last Documented Arterial Blood Pressure 112/44 - Exam PHYSICAL EXAM: VITAL SIGNS: As above GENERAL: Sitting up in bed, no acute distress HEENT: Conjunctivae normal. eyes normal. NECK: No JVD. No thyroid enlargement. No LNs CARDIOVASCULAR: S1, S2 regular.. No murmur, positive rub RESPIRATION: Breath sounds diminished in the bases. Right pleural chest tube with purulent drainage. ABDOMEN: Soft, nontender . No guarding. no masses palpable. Bowel sounds heard. LEGS: No edema. no swelling PSYCHIATRY: Alert and oriented X3, mood and affect normal. NERVOUS SYSTEM: Cranial N 2-12 grossly normal. Moves all 4 limbs. No focal deficits. Strength and sensation grossly intact.. Skin: no rash - Labs CBC & Chem 7: 10/10/19 04:39 10/10/19 04:39 Labs: Abnormal Lab Results - Last 24 Hours (Table) 10/10/19 10/10/19 Range/Units 04:39 04:39 WBC 12.3 H (3.8-10.6) k/uL RBC 2.69 L (4.30-5.90) m/uL Hgb 8.0 L (13.0-17.5) gm/dL Hct 24.0 L (39.0-53.0) % Plt Count 660 H (150-450) k/uL Neutrophils # 10.0 H (1.3-7.7) k/uL Sodium 133 L (137-145) mmol/L Calcium 7.4 L (8.4-10.2) mg/dL Total Protein 4.8 L (6.3-8.2) g/dL Albumin 2.1 L (3.5-5.0) g/dL Microbiology - Last 24 Hours (Table) 10/04/19 03:55 Blood Culture - Final Blood No Growth after 144 hours 10/06/19 13:26 Gram Stain - Final Other - Other Tissue Culture - Preliminary 10/08/19 08:40 Blood Culture - Preliminary Blood No Growth after 24 hours 10/08/19 16:00 Gram Stain - Preliminary Sputum Sputum Culture - Preliminary Assessment and Plan Assessment: Moderate Pericardial effusion, empyema, status post thoracotomy and pericardial window. Cultures and Streptococcus , anaerobic gram-negative bacilli. Right lung pneumonia Leukocytosis secondary to the above Ongoing nicotine dependence Chronic bronchial asthma, intermittent History of marijuana use Prior cocaine use History of depression Plan: Continue on current medication regime ,monitoring and symptomatic treatment. Maintain IV antibiotics of Unasyn, aggressive pulmonary toileting with incentive sprout or reinforced. Increase ambulation as tolerated. Close monitoring in the ICU for another 24 hours as per net washer. Further recommendations to follow. The impression and plan of care has been dictated as directed. : I performed a history and examination of this patient, discussed the same with the dictator. I agree with the dictator's note ,documented as a scribe. Any additional findings or plans will be noted.
[2019-10-10] MEDS: ACETAMINOPHEN TAB 325 MG TAB PO PRN (20:53)
[2019-10-10] MEDS: ZOLPIDEM 5 MG TAB PO PRN (21:37)
--- NOTE | 2019-10-10 22:16 | PN ---
PROGRESS NOTE DATE OF SERVICE: 10/10/2019 REASON FOR FOLLOWUP: Empyema and purulent pericarditis. INTERVAL HISTORY: The patient did spike a fever of 101 degrees Fahrenheit around midnight. The patient has been afebrile since then. The patient has been breathing comfortably. Denies having any shortness of breath. His chest pain is currently controlled. He did have some cough with occasional blood-stained sputum. No nausea, no vomiting. No abdominal pain. Diarrhea has slowed down. PHYSICAL EXAMINATION: Blood pressure is 115/47 with a pulse of 101. T-max is 101. He is 93% on room air. General description is a young male up in the chair in no distress. RESPIRATORY SYSTEM: Unlabored breathing with decreased breath sounds at the base. No wheeze. HEART: S1, S2. Regular rate and rhythm. ABDOMEN: Soft. No tenderness. LABS: Hemoglobin is 8, white count 12.3, BUN of 9, creatinine 0.66. Cultures with alpha- hemolytic Streptococcus and anaerobic Gram-negative bacilli. DIAGNOSTIC IMPRESSION AND PLAN: Patient with empyema and purulent pericarditis, status post thoracotomy and a pericardial window. Cultures with Streptococcus and anaerobic Gram . Patient is covered with Unasyn. White count has shown a downward trend; it is down to 12,000. With a new fever, blood cultures will be repeated and clinical course will be monitored closely. Continue with supportive care. MMODL / IJN: [id number] /
[2019-10-11] MEDS: HEPARIN SODIUM,PORCINE 5,000 UNIT/ML 1 ML VIAL SQ SCH ×4 (00:14→23:09)
[2019-10-11] MEDS: KETOROLAC 30 MG/ML 1 ML VIAL IVP SCH ×5 (00:14→23:07)
[2019-10-11] MEDS: AMPICILLIN-SULBACTAM 3 GM in SODIUM CHLORIDE 0.9% 100 ML IVPB SCH ×5 (00:15→23:06)
[2019-10-11] MEDS: IPRATROPIUM-ALBUTEROL 3 ML NEB INHALATION PRN ×3 (05:54→19:29)
[2019-10-11 06:03] LABS: Basophils % (A) 0 %; Eosinophils # (A) 0.3 k/uL (0-0.7); Eosinophils % (A) 2 %; HCT 24.5 % (39.0-53.0); HGB 7.4 gm/dL (13.0-17.5); Hypochromasia Slight; Lymphocytes # (A) 1.4 k/uL (1.0-4.8); Lymphocytes % (A) 10 %; Mean Platelet Volume 7.1; Monocytes # (A) 0.6 k/uL (0-1.0); Monocytes % (A) 5 %; Neutrophils # (A) 10.7 k/uL (1.3-7.7); Neutrophils % (A) 81 %; Platelet Count 743 k/uL (150-450); RBC 2.73 m/uL (4.30-5.90); RDW 13.9 % (11.5-15.5); WBC 13.2 k/uL (3.8-10.6)
[2019-10-11 06:26] LABS: ALT 25 U/L (4-49); AST 32 U/L (17-59); African American GFR (CKD) >90 (>60 ml/min/1.73 sqM); Albumin 2.2 g/dL (3.5-5.0); Alkaline Phosphatase 130 U/L (38-126); Anion Gap 6 mmol/L; Blood Urea Nitrogen 7 mg/dL (9-20); Calcium 7.8 mg/dL (8.4-10.2); Carbon Dioxide 26 mmol/L (22-30); Chloride 103 mmol/L (98-107); Glucose 85 mg/dL (74-99); Non-African American GFR(CKD) >90 (>60 ml/min/1.73 sqM); Sodium 135 mmol/L (137-145); Total Bilirubin 0.8 mg/dL (0.2-1.3); Total Protein 5.2 g/dL (6.3-8.2)
--- NOTE | 2019-10-11 07:10 | XR ---
EXAMINATION TYPE: XR chest 1V portable DATE OF EXAM: 10/11/2019 COMPARISON: 10/10/2019 HISTORY: Right empyema TECHNIQUE: Single frontal view of the chest is obtained. FINDINGS: Right-sided chest tube, right-sided pigtail catheter appears to been removed, median neil al drain are all present and show similar appearance to prior exam. Pleural- parenchymal changes in t he right hemithorax, subcutaneous emphysema again noted. No evident pneumothorax. Heart size is stabl e. Small amount of pneumomediastinum stable. IMPRESSION: Stable right-sided consolidation and pleural effusion.
--- NOTE | 2019-10-11 07:42 | P.PN ---
Subjective Progress Note Date: 10/11/19 Principal diagnosis: Pneumomediastinum, right pleural effusion and pericardial effusion. This is a 19-year-old gentleman who is followed by Dr. Ivan Whyte on an outpatient basis. He has a past medical history significant for asthma, anxiety, chronic ongoing tobacco abuse and daily marijuana use. In his history, it reports a history of cocaine use although the patient is denying any cocaine use. He reports that he has been having symptoms of progressive shortness of breath with severe chest pain radiating across his upper chest and to his lower chest mainly on his right side for the past couple of weeks. He is sought medical attention at [facility] for the above-mentioned symptoms last week, and reports he was diagnosed with panic attacks and discharged with outpatient treatment of Z-Calos, steroids and pain medication. He also was seen in the emergency department here on Monday10/01/2019 in which he was treated with Valium and Toradol with improvement in his symptoms and was to follow-up with his primary care physician. The patient also reports that he had fever, chills and a productive cough with thick white sputum, frequent episodes of wheezing and occasional coughing fits. He denies any complaints of nausea, vomiting, constipation, diarrhea, difficulty swallowing, hemoptysis, or hematemesis. A chest x-ray was completed during his visit here on 10/01/2019 which demonstrated a right basilar subsegmental consolidation, which showed possible interstitial or viral pneumonitis with basilar infiltrate favored over venous congestion per the report. Subsequently due to the patient's complaints of progressive shortness of breath and chest discomfort he presented to the emergency department here at [facility] early this morning. A CT angio of his chest was completed which demonstrated no evidence of pulmonary embolus, but did show a large right pleural effusion, significant infiltrate and atelectasis in the right lower lobe, a moderate pericardial effusion and pneumomediastinum concerning for possibility of perforated esophagus. For further evaluation a computed tomography scan of his abdomen/pelvis with contrast was completed which redemonstrated a large right pleural effusion, a small left pleural effusion and mild low density free fluid in the pelvis. A 12-lead EKG was completed in the emergency department which showed sinus tachycardia with ST elevation in leads 1, 2, and V2 through V6 with a heart rate of 119 BPM. A 2-D echocardiogram was completed this morning which showed him to have an overall left ventricular systolic function to be mildly to moderately impaired with an ejection fraction between 40 and 45%, trace mitral valve regurgitation, mild tricuspid valve regurgitation, mild pulmonary hypertension, trace to mild to moderate valve regurgitation and a moderate predominantly p osterior pericardial effusion. The initial laboratory results in the emergency department showed a WBC count 34.2, hemoglobin 14.2, hematocrit 43.0, platelets 498, began neutrophils 6, neutrophils 32.10, d-dimer 3.17, sodium 130, chloride 95, BUN 27, creatinine 1.14, lactic acid level I.7, C reactive protein 660, and his COVID 19 test showed not detected. Due to the patient's presenting symptoms , and findings on his computed tomography scan of his chest he was admitted for further evaluation and treatment. Currently he is sitting up in his bed in the intensive care unit and continues to complain of shortness of breath and some chest discomfort radiating to his upper chest and arms. Oxygen saturations are 96% on 2 L nasal cannula and he is currently hemodynamically stable on no inotropic or pressor support. Subsequently, due to the patient's findings of right pleural effusion, pericardial effusion and pneumomediastinum consult was placed to Dr. Marcelino Martínez from cardiothoracic surgery for further evaluation and treatment recommendations. POD #[address] guided right chest pigtail catheter insertion for empyema performed by interventional radiology. POD #5 subxiphoid pericardial window and right video-assisted thoracoscopic with decortication and drainage of fluid. The patient was seen today 10/11/2019 and follow-up at his bedside in the intensive care unit. Patient is sitting up to the bedside chair and is in no acute distress. He is awake, alert and oriented 3. He is hemodynamically stable on no inotropic or pressor support, his T-max temperature in the last 24 hours is 101F. Since the subxiphoid chest tube in the right pleural pigtail catheter were removed yesterday, he reports his pain is much more controlled. Currently he denies any complaints of pain or shortness of breath, although reports he continues to have some blood-tinged sputum. Right pleural chest tube remains in place and is to waterseal. No air leak is present. Draining thin pu rulent/serosanguineous drainage with 250 mL output in the last 24 hours. Oxygen saturation is 94% on room air and he is achieving 1500 mL on his incentive spirometry. He is tolerating a soft diet, and reports that he is having some difficulty swallowing some of the food due to pain in his mouth from some thrush. He is receiving nystatin swish and swallows. He is on Unasyn for antibiotic coverage for positive alpha hemolytic streptococcus to his pleural fluid and an anaerobic gram-negative bacilli to his pleural anaerobic fluid. Blood culture showed no growth after 48 hours. The sputum culture sent from 10/08/2019 shows few polymorphonuclear leukocytes, rare epithelial cells, moderate gram-positive cocci, rare gram-negative bacilli and few yeast. Physical and occupational therapy are following the patient and she has been ambulating in the intensive care unit hallway with minimal assistance. Denies any further episodes of diarrhea. Objective - Vital Signs Vital signs: Vital Signs Temp 99.3 F 10/11/19 04:00 Pulse 93 10/11/19 07:00 Resp 13 10/11/19 07:00 BP 106/58 10/11/19 07:00 Pulse Ox 94 L 10/11/19 07:00 Intake & Output 10/10/19 10/11/19 10/11/19 18:59 06:59 18:59 Intake Total 1610 830 Output Total 2395 1260 Balance -785 -430 Weight 85.4 kg 84.096 kg Intake: IV 410 230 Ampicillin-Sulbactam 3 gm 300 100 In Sodium Chloride 0.9% 100 ml @ 200 mls/hr IVPB Q6HR [facility] Rx#:[id number] LR 110 130 Oral 1200 600 Output: Chest Tube Drainage 145 110 Pleural Catheter 50 Right Pleural 90 110 mediastinal 5 Urine 2250 1150 Other: Voiding Method Urinal # Voids 1 ABP, PAP, CO, CI - Last Documented Arterial Blood Pressure 112/44 - Exam This is a pleasant 19-year-old gentleman who is up to the bedside chair in the intensive care unit. He is in no acute distress, he is alert and oriented 3. Hemodynamically stable and is currently on no inotropic or pressor support. Oxygen saturations are 94% on room air. - Constitutional General appearance: Present: average body habitus, cooperative, no acute distress - EENT Eyes: Present: PERRLA, normal appearance. Absent: scleral icterus ENT: Present: hearing grossly normal, thrush - Neck Details: Neck is supple, no JVD. Neck: Absent: lymphadenopathy, thyromegaly - Respiratory Details: Lung sounds essentially clear to his bilateral upper lobes, diminished to his bilateral bases right greater than left. Few scattered crackles to his right lower lobe. Respirations are symmetrical and nonlabored. Oxygen saturation is 94% on room air and he is achieving 1500 mL on his incentive spirometry.right pleural chest tube remains in place to water seal. No air leak is present. Draining thin purulent/serosanguineous drainage with 250 mL output in the last 24 hours. - Cardiovascular Details: Regular rhythm and rate. S1 and S2 present, negative for S3, gallop or murmur. Intermittent friction rub. Bedside telemetry showing normal sinus rhythm heart rate 97. Knee-high sequential compression devices in place to his bilateral lower extremities. Trace pedal edema. - Gastrointestinal Gastrointestinal Comment(s): Abdomen soft, nontender and nondistended. Active bowel sounds present in all 4 abdominal quadrants. No guarding or rigidity. No organomegaly. Tolerating a soft diet. - Genitourinary Genitourinary Comment(s): Voiding clear [place] urine. - Integumentary Integumentary Comment(s): Skin is warm and dry. No clubbing or cyanosis is present. No rash or abnormal pigmentation is present. Subxiphoid incision is clean, dry and approximated. No drainage or redness is present. - Neurologic Neurologic: Present: CNII-XII intact - Musculoskeletal Musculoskeletal: Present: gait normal, strength equal bilaterally - Psychiatric Psychiatric: Present: A&O x's 3, appropriate affect, intact judgment & insight - Allied health notes Allied health notes reviewed: nursing - Labs CBC & Chem 7: 10/11/19 05:00 10/11/19 05:00 Labs: Abnormal Lab Results - Last 24 Hours (Table) 10/11/19 10/11/19 Range/Units 05:00 05:00 WBC 13.2 H (3.8-10.6) k/uL RBC 2.73 L (4.30-5.90) m/uL Hgb 7.4 L (13.0-17.5) gm/dL Hct 24.5 L (39.0-53.0) % MCHC 30.0 L (31.0-37.0) g/dL Plt Count 743 H (150-450) k/uL Neutrophils # 10.7 H (1.3-7.7) k/uL Sodium 135 L (137-145) mmol/L BUN 7 L (9-20) mg/dL Calcium 7.8 L (8.4-10.2) mg/dL Alkaline Phosphatase 130 H (38-126) U/L Total Protein 5.2 L (6.3-8.2) g/dL Albumin 2.2 L (3.5-5.0) g/dL Microbiology - Last 24 Hours (Table) 10/06/19 13:26 Anaerobic Culture - Final Other - Other 10/06/19 13:26 Anaerobic Culture - Final Other - Other 10/06/19 13:26 Gram Stain - Final Other - Other Tissue Culture - Final 10/08/19 09:25 Gram Stain - Preliminary Pleural Fluid Body Fluid Culture - Preliminary Alpha Hemolytic Streptococcus 10/08/19 08:40 Blood Culture - Preliminary Blood No Growth after 48 hours 10/04/19 03:55 Blood Culture - Final Blood No Growth after 144 hours - Imaging and Cardiology Chest x-ray: report reviewed, image reviewed Assessment and Plan Assessment: 1. Dyspnea and chest discomfort secondary to right pleural effusion and pneumomediastinum, status post right video-assisted thoracoscopic with decortication and drainage of fluid 2. Moderate pericardial effusion, currently hemodynamically stable, status post subxiphoid pericardial window, pericardial fluid/tissue specimen cytology showed supprative pericarditis, subxiphoid chest tube has been discontinued on 10/10/2019. 3. Right lung pneumonia with right lung empyema formation, status post right video-assisted thoracoscopic surgery with decortication and drainage of fluid. Right pericardial pigtail catheter has been removed on 10/10/2019. 4. Leukocytosis, secondary to above, pleural fluid culture positive for alpha hemolytic streptococcus, anaerobic culture showing gram negative bacilli. 5. History of asthma 6. Chronic and ongoing tobacco dependence 7. History of daily marijuana use 8. History of cocaine use 9. History of anxiety 10. History of depression with previous inpatient treatment 11. Oral thrush Plan: 1. Keep right pleural chest tube in place to water seal. Continue to record accurate I's and O's. 2. Encourage use of his incentive spirometry 10 times every hour while awake. 3. The importance of smoking cessation was discussed and reinforced with the patient. 4. Pain control per current when necessary orders. 5. Bronchodilator and oxygen management per pulmonary critical care service. 6. May transfer to the third floor cardiac stepdown unit when okay by primary care service and other consultants. 7. Pleural fluid culture showed alpha hemolytic streptococcus, and his pleural fluid anaerobic culture showed anaerobic gram-negative bacilli, continue on Unasyn for antibiotic coverage managed by infectious disease. 8. GI and DVT prophylaxis. 9. Continue to monitor daily labs and chest x-rays. 10. Continue soft diet. Continue nystatin swish and swallow for thrush. 11. Increase activity as tolerated, physical and occupational therapy following. 12. More recommendations to follow based on patient's clinical course. Time with Patient: Greater than 30
[2019-10-11] MEDS: PANTOPRAZOLE 40 MG/10 ML VIAL IV SCH (08:46)
[2019-10-11] MEDS: NYSTATIN 100,000 UNIT/ML SUSP 500,000 UNIT/5 ML CUP PO SCH ×4 (08:46→20:23)
[2019-10-11] MEDS: CHOLESTYRAMINE (WITH SUGAR) 4 GM PACKET PO SCH ×3 (08:48→18:30)
[2019-10-11] MEDS: HYDROcodone/APAP 5-325MG 1 EACH TAB PO PRN ×3 (09:04→21:47)
--- NOTE | 2019-10-11 10:19 | CT ---
EXAMINATION TYPE: CT chest wo con DATE OF EXAM: 10/11/2019 COMPARISON: 10/04/2019 HISTORY: Empyema CT DLP: 383.3 mGycm. Automated Exposure Control for Dose Reduction was Utilized. TECHNIQUE: CT scan of the thorax is performed without IV contrast. FINDINGS: Chest tube is seen and there is small hydropneumothorax. There is groundglass attenuation i n the left upper lobe and nodular density right lung apex measuring 1 cm. In amount pleural fluid rem ains markedly reduced relative the prior exam. Subcutaneous emphysema noted. More localized area of c onsolidation seen in the right midlung which may represent a component of fluid and empyema extending in the minor fissure with air-fluid level seen. There remains a small pericardial effusion with cardiomegaly and evidence of pneumopericardium. Pneum omediastinum again noted. No pneumothorax. Splenic granuloma are noted in the liver is enlarged. Calcified hilar and any sentinel lymph nodes no josef. Fullness are persistent within the posterior mediastinum particularly on the right adjacent to t he esophagus. Subcutaneous edema suggestive of anasarca. IMPRESSION: 1. There is interval reduction in amount of empyema with a small hydropneumothorax and small amount o f remaining air and fluid within the pleural space. Additionally there is a more masslike area of con solidation now seen in the right midlung which may represent a combination of consolidation and fluid and air within the minor fissure rather than pulmonary phlegmon, correlate clinically. 2. There is interval development of groundglass changes in both upper lobes correlate for pneumonitis . Nodular density in the right upper lobe measures 1 cm and could be followed with short-term basis b ut appears to be new from the prior exam. 3. Cardiomegaly with small pericardial effusion reduced in size from prior exam. Pneumopericardium an d pneumomediastinum persist. 4. Posterior mediastinal soft tissue mass or fullness persists to the right of the esophagus.
--- NOTE | 2019-10-11 11:26 | DS ---
DISCHARGE SUMMARY ADDENDUM: Acute blood loss anemia. MMODL / IJN: [id number] /
--- NOTE | 2019-10-11 11:31 | P.PN ---
Subjective Progress Note Date: 10/11/19 This is a very pleasant 19-year-old gentleman who follows with Dr. Whyte as his primary care provider. He has a history of mild intermittent chronic bronchial asthma, chronic and ongoing tobacco dependence, alcohol use, previous history of cocaine use, marijuana use. Previous incarceration secondary to aggravated assault back in he also has a history of depression and previous inpatient psychiatric stay for the same. He has been having increasing shortness of breath than chest discomfort along with fever for the past several days. He had been seen in the emergency room at [facility] discharge from the ER. He was also seen here on 10/01/2019 with similar symptoms was given Toradol and Valium and subsequently discharged. At that time his chest x-ray showed no acute changes. EKG showed no changes. Here he presented here to the emergency room earlier this morning with ongoing shortness of breath, chest pain. He has been having fevers on and off as well. Occas ional phlegm mostly clear. No hemoptysis. White count elevated at 34.2. Hemoglobin 14.2. Platelet count 498. Neutrophils 32. ESR 80. D-dimer 3.17. Sodium 130. Potassium 4.7. Creatinine 1.14. LDH 720. C-reactive protein 660. Coronavirus not detected. EKG did reveal evidence of ST segment elevation. CT angiogram revealed no evidence of pulmonary embolism. There was however a large right pleural effusion with right-sided pneumonic atelectasis and mild infiltrate that was a significant change compared to chest x-ray on 10/01/2019. There is also pneumomediastinum and moderate pericardial effusion. Within the differential is perforated esophagus with mediastinitis and empyema. Computed tomography scan of the abdomen revealed no significant findings other than presented in the lung windows. Echocardiogram revealed mild to moderately impaired left ventricular systolic function with ejection fraction 40-45%. There is also a large generalized pericardial effusion present. The patient was admitted to the intensive care unit , treated with broad-spectrum antibiotics including a combination of vancomycin and cefepime. He was also given on colchicine. was given a pigtail catheter by interventional radiology and the patient had a total of 700 mL of purulent material drained and aspirated from the right lung. The cultures are still pending for now. Nevertheless, the f luid is consistent with pus based on the data noted with a white cell count of 15,500. A barium swallow was done and there was no evidence of any focal esophageal tear. Surgery was consulted and the patient was taken to the operating room yesterday on 10/06/2019 and the patient underwent a pericardial window drainage nd the fluid in the pericardium was in the order of 600 mL and it was serous rather than purulent and analysis was sent from the pericardial fluid and right video-assisted thoracoscopy with decortication and placement of a drainage tube. At 32-Dominican chest tube was inserted into the right hemithorax. All of the cultures are still pending for now. The patient was brought back to the intensive care unit. The white cell count is gradually improving. He remains on same antibiotic coverage for now. He is postop chest x-ray shows that the right-sided chest tube is in a good location. There is no evidence of any pneumothorax. There was some subcutaneous emphysema along the right chest area. The patient still has a right-sided pigtail catheter in place. istory volume loss along theright lung along with persistent right lung infiltration. On today's evaluation of 10/07/2019, the patient is awake and alert and has no specific complaints. The chest tube on the right has drained approximately 700 mL over the past 24 hours, the pigtail catheter on the right has drained approximately 40 mL over the past 24 hours and furthermore he was given TPA into the right pleural space and the subxiphoid chest tube has drained 150 mL over the past 24 hours and this is the pericardial tube. The patient is afebrile. The patient is currently on IV cefepime. Vancomycin will be discontinued. Following the alteplase administration, the patient produce approximately 400 to cc of pleural fluid. The chest x-ray still showing significant opacification of the right lung. All of the chest tubes are in place. The microbiology has shown Alphahemolytic except for colchicine the body fluid from the pleural space that was obtained on 10/04/2019. The pericardial fluid shows no growth thus far. On today's evaluation of 10/08/2019, the patient is doing well and his awake and alert and is postop day #2. Noted the patient has a pigtail catheter the chest tube on the right side and a pericardial tube in the sub-xiphoid location. Note that he also received a TPA administration to the right hemithorax with a pigtail catheter yesterday. This resulted in to improvement in the right-sided drainage and there was a total of 150 mL of drainage via his PEG tube catheter and another 700 mL from his chest tube. The subxiphoid chest tube has drained approximately 70 mL over the past 8 hours. Note that the pleural fluid is showing alphahemolytic streptococcus and the pericardial fluid cultures still negative for now. Nevertheless, the pericardial fluid analysis showed an inflammatory fluid then and empyema. He is having a low-grade fever. He is hemodynamically stable. White cell count remains elevated at 21.2. The patient on 3 L of oxygen by nasal cannula. His emanating. No significant cough sputum production chest that is so wheezing. Surgical wound sites are all dry clean and intact. No altered mentation. I also noted that there is a gram-negative bacillus growth in the pleural fluid anaerobic culture that was taken on 10/04/2019. Infectious disease on the case and the patient was given examination of cefazolin and clindamycin for now. He is on DuoNeb nebulized treatments around the clock. He is tolerating his diet. He is producing adequate amount of urine output. On 10/09/2019, the patient is postop day #3. The patient is hemodynamically stable. The white cell count is improving. He has improved in terms of his fever pattern is improved. The patient received his third dose of alteplase today. Overall he produce around 2000 mL of purulent material from the right lung yesterday and the pigtail catheter is also in place although the output from the particulars been more limited. As for the pericardial tube, the this is draining around 30 sees over the past 24 hours and this is essentially serous liquid. The patient is using incentive spirometer. He is pulling up to 1500. His cultures are resulted in to alphahemolytic streptococcus and anaerobic cultures also positive with gram-negative bacillus and the patient was switched to Unasyn per infectious disease. The patient has no difficulties in swallowing. No nausea. No vomiting. No emesis. His cardiac rhythm is sinus and he is less tachycardic compared to yesterday. The patient has no others complaints otherwise for now. A repeat chest x-ray was done today and the patient has persistent right-sided chest tubes and right basilar pleural catheter which is a pigtail catheter. There is no evidence of any pneumothorax. There is persistent airspace disease in the right lung and perihilar area although improved compared to yesterday. The left lung essentially clear. On 10/10/2019 the patient is postop day #4. Doing well. He is currently on room air oxygen. Chest x-ray still showing consolidation of the right lung. All of the right-sided chest tubes are in place. The patient is pulse oxing 94% on room air oxygen. He is pulling approximately 1500 on incentive spirometer. Right-sided pigtail catheter and the right-sided chest tube and the subxiphoid pericardial tube are all in place for now. No evidence of any air leak. The sulci 4 chest tube has drained approximately 100 mL over the past 24 hours, the right-sided chest tube is draining serosanguineous fluid and it has drained approximately 1 50 mL over the past 24 hours. As for the pancreas, it has drained approximately 50 mL over the past 24 hours. The patient's white cell count is improving. Cultures are essentially the same. The patient remains on IV Unasyn. No hemoptysis. No further episodes of diarrhea for now. No other significant events. Altered mentation. No fever this morning and the patient has Been having episodic fever throughout the day yesterday. No other new complaints otherwise for now. On 10/11/2019 on seeing the patient for a follow-up. The patient is postop day #5. He does have some limited amount of hemoptysis and ice on this is related to his alteplase administration as the patient received a total of 4 doses of alteplase, 3 after the surgery. His output from the right-sided chest tube is in the order of 2 50 mL over the past 24 hours. The mediastinal chest tube/pericardial chest tube has been removed. History of the pigtail catheter in his right chest. The repeat fluid analysis came back negative for alphahemolytic strep. And the patient remains on IV Unasyn. The chest x-ray still showing volume loss and consolidation of the right lower lobe with possible right-sided pleural effusion. For that reason, a noncontrast CAT scan of the chest was ordered and the CAT scan showed interval reduction in the amount of empyema with a small hydropneumothorax and a small amount of remaining air and fluid within the right pleural space. Additionally, there was a masslike area of consolidation in the right midlung which represents a combination of consolidation/fluid and this is within the minor fissure. There is also interval development of groundglass changes in the upper lobes bilaterally possibly related to some pneumonitis. In any rate, the right-sided chest tube is still in a good location. The patient is having no fever today. His last temperature spike was 101 and this was yesterday evening. His white cell count is down to 13.2. He was stable at 7.4 slightly lower compared to yesterday. Platelet count remains elevated and this is related to reactive thrombocytosis in the setting of an underlying infection. Objective - Vital Signs Vital signs: Vital Signs Temp 98.9 F 10/11/19 08:00 Pulse 101 H 10/11/19 10:00 Resp 21 10/11/19 10:00 BP 127/75 10/11/19 10:00 Pulse Ox 94 L 10/11/19 09:00 Intake & Output 10/10/19 10/11/19 10/11/19 18:59 06:59 18:59 Intake Total 1610 830 Output Total 2395 1260 1 Balance -785 -430 -1 Weight 85.4 kg 84.096 kg Intake: IV 410 230 Ampicillin-Sulbactam 3 gm 300 100 In Sodium Chloride 0.9% 100 ml @ 200 mls/hr IVPB Q6HR [facility] Rx#:[id number] LR 110 130 Oral 1200 600 Output: Chest Tube Drainage 145 110 Pleural Catheter 50 Right Pleural 90 110 mediastinal 5 Urine 2250 1150 Stool 1 Other: Voiding Method Urinal # Voids 1 1 ABP, PAP, CO, CI - Last Documented Arterial Blood Pressure 112/44 - Exam This is a pleasant 19-year-old gentleman who is up to the bedside chair in the intensive care unit. He is in no acute distress, he is alert and oriented 3. Hemodynamically stable and is currently on no inotropic or pressor support. Oxygen saturations are 94% on room air. - Constitutional General appearance: Present: average body habitus, cooperative, no acute distress - EENT Eyes: Present: PERRLA, normal appearance. Absent: scleral icterus ENT: Present: hearing grossly normal, thrush - Neck Details: Neck is supple, no JVD. Neck: Absent: lymphadenopathy, thyromegaly - Respiratory Details: Lung sounds essentially clear to his bilateral upper lobes, diminished to his bilateral bases right greater than left. Few scattered crackles to his right lower lobe. Respirations are symmetrical and nonlabored. Oxygen saturation is 94% on room air and he is achieving 1500 mL on his incentive spirometry.right pleural chest tube remains in place to water seal. No air leak is present. Draining thin purulent/serosanguineous drainage with 250 mL output in the last 24 hours. - Cardiovascular Details: Regular rhythm and rate. S1 and S2 present, negative for S3, gallop or murmur. Intermittent friction rub. Bedside telemetry showing normal sinus rhythm heart rate 97. Knee-high sequential compression devices in place to his bilateral lower extremities. Trace pedal edema. - Gastrointestinal Gastrointestinal Comment(s): Abdomen soft, nontender and nondistended. Active bowel sounds present in all 4 abdominal quadrants. No guarding or rigidity. No organomegaly. Tolerating a soft diet. - Genitourinary Genitourinary Comment(s): Voiding clear [place] urine. - Integumentary Integumentary Comment(s): Skin is warm and dry. No clubbing or cyanosis is present. No rash or abnormal pigmentation is present. Subxiphoid incision is clean, dry and approximated. No drainage or redness is present. - Neurologic Neurologic: Present: CNII-XII intact - Labs CBC & Chem 7: 10/11/19 05:00 10/11/19 05:00 Labs: Abnormal Lab Results - Last 24 Hours (Table) 10/11/19 10/11/19 Range/Units 05:00 05:00 WBC 13.2 H (3.8-10.6) k/uL RBC 2.73 L (4.30-5.90) m/uL Hgb 7.4 L (13.0-17.5) gm/dL Hct 24.5 L (39.0-53.0) % MCHC 30.0 L (31.0-37.0) g/dL Plt Count 743 H (150-450) k/uL Neutrophils # 10.7 H (1.3-7.7) k/uL Sodium 135 L (137-145) mmol/L BUN 7 L (9-20) mg/dL Calcium 7.8 L (8.4-10.2) mg/dL Alkaline Phosphatase 130 H (38-126) U/L Total Protein 5.2 L (6.3-8.2) g/dL Albumin 2.2 L (3.5-5.0) g/dL Microbiology - Last 24 Hours (Table) 10/08/19 08:40 Blood Culture - Preliminary Blood No Growth after 72 hours 10/08/19 16:00 Gram Stain - Final Sputum Sputum Culture - Final 10/06/19 13:26 Anaerobic Culture - Final Other - Other 10/06/19 13:26 Anaerobic Culture - Final Other - Other 10/06/19 13:26 Gram Stain - Final Other - Other Tissue Culture - Final 10/08/19 09:25 Gram Stain - Preliminary Pleural Fluid Body Fluid Culture - Preliminary Alpha Hemolytic Streptococcus Assessment and Plan Plan: 1 Acute hypoxic respiratory failure secondary to a large right lung empyema, post pigtail catheter drainage of purulent material, post video-assisted thoracoscopy and limited decortication of the right lung and the patient is postop day #5 and the patient has a chest tube in place and addition to the pigtail catheter in place. The patient is also has received 3 alteplase treatments to his right lung through the pigtail catheter. The cultures of Streptococcus and the patient remains on IV Unasyn. Output is gradually improving from the right lung. The CAT scan of the chest was repeated and it shows improvement in the right-sided pleural effusion/empyema. There is a tiny hydropneumothorax on the right. There is also an area of consolidation in the minor fissure. Chest tube remains in a good location. Some scattered areas of pneumonitis bilaterally. 2 right lung pneumonia with right lung empyema formation, secondary to Streptococcus currently on Unasyn postsurgical drainage. 3 Moderate pericardial effusion with no evidence of tamponade, post pericardial window and the fluid was essentially serious, post pericardial window and the pericardial tube is in place, output is diminished and the cultures from the pericardial tube is negative thus far. 4 Leukocytosis secondary to above, improving 5 History of mild intermittent chronic bronchial asthma 6 Chronic and ongoing tobacco dependence 7 History of marijuana use 8 History of previous cocaine use 9 History of incarceration 10 History of depression with previous inpatient treatment 11 episodic hemoptysis is related to alteplase treatment Plan Monitor fever pattern , this has already improved monitor white cell count, improving Continue using incentive spirometer Pain control is improved Agree on IV Unasyn Encourage ambulation and activity CAT scan of the chest was noted. I do not see the need for another alteplase treatment. Continued antibiotic coverage. He will need long-term antibiotics and I'm hoping the right lung consolidation was gradually improved. No oral for any further drainage at this point in time as the area that's in the right midlung is consolidated insulin the minor fissure and the treatment is going to be aggressive pulmonary toileting and antibiotics. The patient will be kept in ICU for another 24 hours.
--- NOTE | 2019-10-11 11:55 | ECHOF ---
Referral Reason:post surgical MEASUREMENTS -------- HEIGHT: 172.7 cm WEIGHT: 85.7 kg BP: RVIDd: 2.7 cm (< 3.3) IVSd: 0.8 cm (0.6 - 1.1) LVIDd: 5.3 cm (3.9 - 5.3) LVPWd: 0.9 cm (0.6 - 1.1) IVSs: 1.4 cm LVIDs: 2.9 cm LVPWs: 1.8 cm FINDINGS -------- Sinus rhythm. Limited Study for pericardial effusion. The left ventricular size is normal. Left ventricular wall thickness is normal. Overall left vent ricular systolic function is normal with, an EF between 55 - 60 %. There is a small, generalized pericardial effusion present. Less effusion compared to last study. CONCLUSIONS -------- 1. Sinus rhythm. 2. Limited Study for pericardial effusion 3. The left ventricular size is normal. 4. Left ventricular wall thickness is normal. 5. Overall left ventricular systolic function is normal with, an EF between 55 - 60 %. 6. There is a small, generalized pericardial effusion present. Less compared to last study. 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
--- NOTE | 2019-10-11 14:56 | PN ---
PROGRESS NOTE 19-year-old patient admitted to ICU with empyema, pericardial effusion, pneumomediastinum that is doing much better now. His chest discomfort has improved. I am waiting for an echocardiogram this morning to reassess the pericardial effusion. On exam, afebrile. Heart rate is 68 beats a minute. Blood pressure is 101/50. Respirations 18. O2 sat is 98% on room air. There is no jugular venous distention. Chest exam reveals good air entry bilaterally. Heart exam reveals first and second heart sounds and a pericardial rub. Abdomen is soft. Exam pf the extremities did not reveal any edema. ASSESSMENT: 1. Empyema. 2. Pericardial effusion status post pericardial window. Patient is doing much better. Chest tube will come out. We should be able to take the chest tube out very soon. I will follow the echo results. BHANUL / ÁNGELN: [id number] /
--- NOTE | 2019-10-11 15:15 | P.PN ---
Subjective Progress Note Date: 10/11/19 This is a 19-year-old gentleman admitted with pericardial effusion, empyema, status post pericardial window. Patient is status post 3 rounds of alteplase. Chest x-ray reporting no significant interval change in the appearance of the chest; pleural parenchymal changes in the right hemothorax, subcutaneous emphysema with no evident pneumothorax. Mediastinal and patient tell chest tubes discontinued this morning. Right pleural chest tube remains. Continues spitting up bloody sputum. Hemoglobin decreased to 8. Borderline hypotension. No tachycardia. T-max 101, WBC down to 12.3. Prior cultures reporting alpha and streptococcus with anaerobic gram-negative bacilli. Sputum, repeat pleural fluid cultures pending. Maintained on Unasyn as per infectious disease.Sodium 133. Incentive spirometer ranging from [id number]. Maintaining O2 sats in the 90s on room air. Telemetry sinus rhythm. 10/11/2019 T-max 101, WBC up to 13.2. Repeat anaerobic pleural fluid reporting alpha hemolytic streptococcus,. Maintained on Unasyn. Hemoglobin trending down and currently 7.4, platelets 743. Alk phos up to 130. Scheduled for follow-up CT, echo this morning. Feeling better, reports pain better controlled. incentive spirometer up to 1999. Chest x-ray reporting stable right-sided consolidation and pleural effusion. Maintaining O2 sats in the 90s on room air. Telemetry sinus rhythm. Objective - Vital Signs Vital signs: Vital Signs Temp 98.9 F 10/11/19 13:00 Pulse 98 10/11/19 13:00 Resp 24 10/11/19 13:00 BP 110/51 10/11/19 13:00 Pulse Ox 94 L 10/11/19 13:00 Intake & Output 10/10/19 10/11/19 10/11/19 18:59 06:59 18:59 Intake Total 1610 830 100 Output Total 2395 1260 Balance -785 -430 100 Weight 85.4 kg 84.096 kg Intake: IV 410 230 100 Ampicillin-Sulbactam 3 gm 300 100 100 In Sodium Chloride 0.9% 100 ml @ 200 mls/hr IVPB Q6HR [facility] Rx#:[id number] LR 110 130 Oral 1200 600 Output: Chest Tube Drainage 145 110 Pleural Catheter 50 Right Pleural 90 110 mediastinal 5 Urine 2250 1150 Other: Voiding Method Urinal # Voids 1 1 # Bowel Movements 1 ABP, PAP, CO, CI - Last Documented Arterial Blood Pressure 112/44 - Exam PHYSICAL EXAM: VITAL SIGNS: As above GENERAL: Sitting up in chair, no acute distress HEENT: Conjunctivae normal. eyes normal. Oral thrush. NECK: No JVD. No thyroid enlargement. No LNs CARDIOVASCULAR: S1, S2 regular.. No murmur, positive rub RESPIRATION: Breath sounds diminished in the bases. Right pleural chest tube with purulent, serosanguineous drainage. ABDOMEN: Soft, nontender . No guarding. no masses palpable. Bowel sounds hea rd. LEGS: No edema. no swelling PSYCHIATRY: Alert and oriented X3, mood and affect normal. NERVOUS SYSTEM: Cranial N 2-12 grossly normal. Moves all 4 limbs. No focal deficits. Strength and sensation grossly intact.. Skin: no rash Microbiology 10/08/19 09:25 Pleural Fluid Gram Stain - Preliminary 10/08/19 09:25 Pleural Fluid Body Fluid Culture - Preliminary Alpha Hemolytic Streptococcus Yeast species 10/08/19 08:40 Blood Blood Culture - Preliminary No Growth after 72 hours 10/08/19 16:00 Sputum Gram Stain - Final 10/08/19 16:00 Sputum Sputum Culture - Final 10/06/19 13:26 Other - Other Anaerobic Culture - Final 10/06/19 13:26 Other - Other Anaerobic Culture - Final 10/06/19 13:26 Other - Other Gram Stain - Final 10/06/19 13:26 Other - Other Tissue Culture - Final 10/04/19 03:55 Blood Blood Culture - Final No Growth after 144 hours 10/06/19 13:26 Other - Other Gram Stain - Final 10/06/19 13:26 Other - Other Wound Culture - Final 10/04/19 12:51 Pleural Fluid Anaerobic Culture - Final Anaerobic Gm Negative Bacilli 10/04/19 12:51 Pleural Fluid Gram Stain - Final 10/04/19 12:51 Pleural Fluid Body Fluid Culture - Final Alpha Hemolytic Streptococcus 10/06/19 13:26 Other - Other Fungal Culture - Preliminary 10/06/19 13:26 Other - Other Fungal Culture - Preliminary 10/04/19 12:51 Aspirate Acid Fast Bacilli Smear - Final 10/04/19 12:51 Aspirate Acid Fast Bacilli Culture - Preliminary 10/04/19 12:51 Aspirate Fungal Culture - Preliminary - Labs CBC & Chem 7: 10/11/19 05:00 10/11/19 05:00 Labs: Abnormal Lab Results - Last 24 Hours (Table) 10/11/19 10/11/19 Range/Units 05:00 05:00 WBC 13.2 H (3.8-10.6) k/uL RBC 2.73 L (4.30-5.90) m/uL Hgb 7.4 L (13.0-17.5) gm/dL Hct 24.5 L (39.0-53.0) % MCHC 30.0 L (31.0-37.0) g/dL Plt Count 743 H (150-450) k/uL Neutrophils # 10.7 H (1.3-7.7) k/uL Sodium 135 L (137-145) mmol/L BUN 7 L (9-20) mg/dL Calcium 7.8 L (8.4-10.2) mg/dL Alkaline Phosphatase 130 H (38-126) U/L Total Protein 5.2 L (6.3-8.2) g/dL Albumin 2.2 L (3.5-5.0) g/dL Microbiology - Last 24 Hours (Table) 10/08/19 09:25 Gram Stain - Preliminary Pleural Fluid Body Fluid Culture - Preliminary Alpha Hemolytic Streptococcus Yeast species 10/08/19 08:40 Blood Culture - Preliminary Blood No Growth after 72 hours 10/08/19 16:00 Gram Stain - Final Sputum Sputum Culture - Final 10/06/19 13:26 Anaerobic Culture - Final Other - Other 10/06/19 13:26 Anaerobic Culture - Final Other - Other 10/06/19 13:26 Gram Stain - Final Other - Other Tissue Culture - Final Assessment and Plan Assessment: Moderate Pericardial effusion, empyema, status post thoracotomy and pericardial window. Repeat anaerobic pleural fluid reporting alpha hemolytic streptococcus Right lung pneumonia Leukocytosis secondary to the above Acute blood loss anemia Ongoing nicotine dependence Chronic bronchial asthma, intermittent History of marijuana use Prior cocaine use History of depression Oral candidasis Plan: Continue on current medication regime ,monitoring and symptomatic treatment. Follow-up CT/echo. Maintain IV antibiotics of Unasyn, aggressive pulmonary toileting with incentive sprout or reinforced. Increase ambulation as tolerated. Further recommendations to follow. The impression and plan of care has been dictated as directed. : I performed a history and examination of this patient, discussed the same with the dictator. I agree with the dictator's note ,documented as a scribe. Any additional findings or plans will be noted.
[2019-10-11] MEDS ORDERED: ANIDULAFUNGIN 200 MG in SODIUM CHLORIDE 0.9% 200 ML IVPB ONE (16:36)
--- NOTE | 2019-10-11 17:11 | PN ---
PROGRESS NOTE DATE OF SERVICE: 10/11/2019 REASON FOR FOLLOWUP: Empyema, pericarditis. INTERVAL HISTORY: The patient is currently afebrile. The patient is breathing comfortably on room air. Denies having any chest pain. Breathing has improved. Minimal cough. No nausea, vomiting, abdominal pain or diarrhea. PHYSICAL EXAMINATION: Blood pressure 121/54 with a pulse of 102, temperature 99.4. He is 99% on room air. General description is a young male up in the chair in no distress. RESPIRATORY SYSTEM: Unlabored breathing with decreased breath sounds at the base. HEART: S1, S2. Regular rate and rhythm. NAUSEA ABDOMEN: Soft. No tenderness. LABS/IMAGING: Hemoglobin is 7.4, white count 13.2 with a creatinine 0.69. CT did show overall improvement. The fluid culture is also showing yeast. DIAGNOSTIC IMPRESSION AND PLAN: Patient with empyema and pericarditis. Cultures with strep; now also showing yeast. We will add Eraxis, continue with Unasyn. Monitor his clinical course closely. MMODL / IJN: [id number] /
[2019-10-11] MEDS ORDERED: methylPREDNISolone SOD SUCCI 125 MG/2 ML VIAL IV STA (18:12)
--- NOTE | 2019-10-11 18:37 | XR ---
EXAMINATION TYPE: XR chest 1V portable DATE OF EXAM: 10/11/2019 COMPARISON: 10/11/2019 INDICATION: Shortness of breath TECHNIQUE: Single frontal view of the chest is obtained. FINDINGS: The heart size is normal. The pulmonary vasculature is normal. There is a consolidation within the right lower lobe. Right-sided chest tube is present. No pneumotho rax is evident. Findings are similar to prior exam. IMPRESSION: 1. Stable right lower lobe consolidation and right-sided chest tube. 2. No pneumothorax
[2019-10-11] MEDS: ZOLPIDEM 5 MG TAB PO PRN (21:48)
[2019-10-12] MEDS: AMPICILLIN-SULBACTAM 3 GM in SODIUM CHLORIDE 0.9% 100 ML IVPB SCH ×4 (05:29→23:52)
[2019-10-12] MEDS: KETOROLAC 30 MG/ML 1 ML VIAL IVP SCH ×3 (05:30→17:31)
[2019-10-12] MEDS: IPRATROPIUM-ALBUTEROL 3 ML NEB INHALATION PRN ×3 (05:55→21:54)
--- NOTE | 2019-10-12 06:25 | XR ---
EXAMINATION TYPE: XR chest 1V portable DATE OF EXAM: 10/12/2019 HISTORY: Postop pericardial window and right VATS. REFERENCE: Previous study dated 10/11/2019. FINDINGS: The right pleural drain remains in place. There continues to be airspace disease at the rig ht lung base as well as a right-sided pleural effusion. Heart size is mildly prominent. IMPRESSION: SLIGHTLY IMPROVED AERATION OF THE RIGHT LUNG.
[2019-10-12 06:36] LABS: Basophils % (A) 0 %; Eosinophils # (A) 0.1 k/uL (0-0.7); Eosinophils % (A) 1 %; HCT 28.1 % (39.0-53.0); HGB 8.7 gm/dL (13.0-17.5); Hypochromasia Slight; Lymphocytes # (A) 0.7 k/uL (1.0-4.8); Lymphocytes % (A) 6 %; MCH 27.9 pg (25.0-35.0); MCHC 30.8 g/dL (31.0-37.0); MCV 90.3 fL (80.0-100.0); Mean Platelet Volume 7.2; Monocytes # (A) 0.3 k/uL (0-1.0); Monocytes % (A) 2 %; Neutrophils # (A) 11.3 k/uL (1.3-7.7); Neutrophils % (A) 91 %; Platelet Count 871 k/uL (150-450); RBC 3.11 m/uL (4.30-5.90); RDW 13.9 % (11.5-15.5); WBC 12.5 k/uL (3.8-10.6)
[2019-10-12 06:42] LABS: ALT 39 U/L (4-49); AST 46 U/L (17-59); African American GFR (CKD) >90 (>60 ml/min/1.73 sqM); Albumin 2.5 g/dL (3.5-5.0); Alkaline Phosphatase 156 U/L (38-126); Anion Gap 10 mmol/L; Blood Urea Nitrogen 8 mg/dL (9-20); Calcium 8.2 mg/dL (8.4-10.2); Carbon Dioxide 22 mmol/L (22-30); Chloride 105 mmol/L (98-107); Glucose 153 mg/dL (74-99); Non-African American GFR(CKD) >90 (>60 ml/min/1.73 sqM); Potassium 4.7 mmol/L (3.5-5.1); Sodium 137 mmol/L (137-145); Total Bilirubin 0.8 mg/dL (0.2-1.3)
[2019-10-12] MEDS ORDERED: ANIDULAFUNGIN 100 MG in SODIUM CHLORIDE 0.9% 100 ML IVPB SCH (09:00)
--- NOTE | 2019-10-12 09:17 | P.PN ---
Subjective Progress Note Date: 10/12/19 Principal diagnosis: Pneumomediastinum, right pleural effusion and pericardial effusion. This is a 19-year-old gentleman who is followed by Dr. Ivan Whyte on an outpatient basis. He has a past medical history significant for asthma, anxiety, chronic ongoing tobacco abuse and daily marijuana use. In his history, it reports a history of cocaine use although the patient is denying any cocaine use. He reports that he has been having symptoms of progressive shortness of breath with severe chest pain radiating across his upper chest and to his lower chest mainly on his right side for the past couple of weeks. He is sought medical attention at [facility] for the above-mentioned symptoms last week, and reports he was diagnosed with panic attacks and discharged with outpatient treatment of Z-Calos, steroids and pain medication. He also was seen in the emergency department here on Monday10/01/2019 in which he was treated with Valium and Toradol with improvement in his symptoms and was to follow-up with his primary care physician. The patient also reports that he had fever, chills and a productive cough with thick white sputum, frequent episodes of wheezing and occasional coughing fits. He denies any complaints of nausea, vomiting, constipation, diarrhea, difficulty swallowing, hemoptysis, or hematemesis. A chest x-ray was completed during his visit here on 10/01/2019 which demonstrated a right basilar subsegmental consolidation, which showed possible interstitial or viral pneumonitis with basilar infiltrate favored over venous congestion per the report. Subsequently due to the patient's complaints of progressive shortness of breath and chest discomfort he presented to the emergency department here at [facility] early this morning. A CT angio of his chest was completed which demonstrated no evidence of pulmonary embolus, but did show a large right pleural effusion, significant infiltrate and atelectasis in the right lower lobe, a moderate pericardial effusion and pneumomediastinum concerning for possibility of perforated esophagus. For further evaluation a computed tomography scan of his abdomen/pelvis with contrast was completed which redemonstrated a large right pleural effusion, a small left pleural effusion and mild low density free fluid in the pelvis. A 12-lead EKG was completed in the emergency department which showed sinus tachycardia with ST elevation in leads 1, 2, and V2 through V6 with a heart rate of 119 BPM. A 2-D echocardiogram was completed this morning which showed him to have an overall left ventricular systolic function to be mildly to moderately impaired with an ejection fraction between 40 and 45%, trace mitral valve regurgitation, mild tricuspid valve regurgitation, mild pulmonary hypertension, trace to mild to moderate valve regurgitation and a moderate predominantly p osterior pericardial effusion. The initial laboratory results in the emergency department showed a WBC count 34.2, hemoglobin 14.2, hematocrit 43.0, platelets 498, began neutrophils 6, neutrophils 32.10, d-dimer 3.17, sodium 130, chloride 95, BUN 27, creatinine 1.14, lactic acid level I.7, C reactive protein 660, and his COVID 19 test showed not detected. Due to the patient's presenting symptoms , and findings on his computed tomography scan of his chest he was admitted for further evaluation and treatment. Currently he is sitting up in his bed in the intensive care unit and continues to complain of shortness of breath and some chest discomfort radiating to his upper chest and arms. Oxygen saturations are 96% on 2 L nasal cannula and he is currently hemodynamically stable on no inotropic or pressor support. Subsequently, due to the patient's findings of right pleural effusion, pericardial effusion and pneumomediastinum consult was placed to Dr. Marcelino Martínez from cardiothoracic surgery for further evaluation and treatment recommendations. POD #[address] guided right chest pigtail catheter insertion for empyema performed by interventional radiology. POD #6 subxiphoid pericardial window and right video-assisted thoracoscopic with decortication and drainage of fluid. On 10/12/2019 the patient was seen in follow-up at his bedside in the intensive care unit. Currently the patient is standing at his bedside walking in motion and is in no acute distress. He reports he feels much improved today, denies any complaints of shortness of breath or pain at this time. He is awake, alert and oriented 3, hemodynamically stable, currently on no inotropic or pressor support and has been afebrile the last 24 hours. The patient reports that yesterday he was receiving a new antibiotic treatment and once the treatment was starting to infuse he felt this had started to throb, and reports that it felt like his throat was closing off. Subsequently, he was given 1 dose of IV Solu- Medrol and the medication was stopped and discontinued. Once the medication was stopped and given the Solu-Medrol he reports that he felt much improved. Oxygen saturations are 94% on room air and he is achieving 2250 mL on his incentive spirometry. Right pleural chest tube remains in place to water seal. No air leak is present. Draining thin purulent serosanguineous drainage with 230 mL output in the last 24 hours. A computed tomography scan of his chest was completed yesterday which demonstrated a reduction in the amount of empyema with a small hydropneumothorax and a small amount of remaining air and fluid within the pleural space. It also showed a more masklike area of consolidation in the right mid lung which was thought to represent a combination of consolidation and fluid and air within the minor fissure rather than pulmonary phlegmon. It also demonstrated development of groundglass changes in the upper lobes bilaterally. He remains on Unasyn for antibiotic coverage managed by infectious disease. Objective - Vital Signs Vital signs: Vital Signs Temp 98.3 F 10/12/19 04:00 Pulse 89 10/12/19 07:00 Resp 16 10/12/19 07:00 BP 123/57 10/12/19 07:00 Pulse Ox 94 L 10/12/19 07:00 Intake & Output 10/11/19 10/12/19 10/12/19 18:59 06:59 18:59 Intake Total 200 1230 220 Output Total 50 2240 10 Balance 150 -1010 210 Weight 81.057 kg Intake: IV 200 200 Ampicillin-Sulbactam 3 gm 200 200 In Sodium Chloride 0.9% 100 ml @ 200 mls/hr IVPB Q6HR [facility] Rx#:[id number] Oral 1030 220 Output: Chest Tube Drainage 50 140 10 Right Pleural 50 140 10 Urine 2100 0 Other: Voiding Method Urinal # Voids 1 1 # Bowel Movements 1 ABP, PAP, CO, CI - Last Documented Arterial Blood Pressure 112/44 - Exam This is a pleasant 19-year-old gentleman who is standing up to his bedside, do ing bedside exercises. He is in no acute distress, he is alert and oriented 3. Hemodynamically stable and is currently on no inotropic or pressor support. Oxygen saturations are 94% on room air. - Constitutional General appearance: Present: average body habitus, cooperative, no acute distress - EENT Eyes: Present: PERRLA, normal appearance. Absent: scleral icterus ENT: Present: hearing grossly normal, normal oropharynx. Absent: thrush (No thrush seen today) - Neck Details: Neck is supple, no JVD. Neck: Absent: lymphadenopathy, thyromegaly - Respiratory Details: Lung sounds are essentially clear to his bilateral upper lobes, diminished to his right lower lobe. Respirations are symmetrical and nonlabored. No wheezes, rhonchi or crackles. Oxygen saturation is 94% on room air. Achieving 2250 mL on his incentive spirometry. Right pleural chest tube remains in place to rohit erseal. No air leak is present. Draining thin purulent/serosanguineous drainage. - Cardiovascular Details: Regular rhythm and tachycardic rate. S1 and S2 present, negative for S3, gallop or murmur. No edema present. Knee-high sequential compression devices in place was bilateral lower extremities. - Gastrointestinal Gastrointestinal Comment(s): Abdomen is soft, nontender and nondistended. Active bowel sounds present in all 4 abdominal quadrants. No guarding or rigidity. No organomegaly. Tolerating a soft diet. - Genitourinary Genitourinary Comment(s): Following clear [place] urine. - Integumentary Integumentary Comment(s): Skin is warm and dry. No clubbing or cyanosis is present. No rash. Subxiphoid incision is clean, dry and approximated. No drainage or redness is present. - Neurologic Neurologic: Present: CNII-XII intact - Musculoskeletal Musculoskeletal: Present: gait normal, strength equal bilaterally - Psychiatric Psychiatric: Present: A&O x's 3, appropriate affect, intact judgment & insight - Allied health notes Allied health notes reviewed: nursing - Labs CBC & Chem 7: 10/12/19 06:03 10/12/19 06:03 Labs: Abnormal Lab Results - Last 24 Hours (Table) 10/12/19 10/12/19 Range/Units 06:03 06:03 WBC 12.5 H (3.8-10.6) k/uL RBC 3.11 L (4.30-5.90) m/uL Hgb 8.7 L (13.0-17.5) gm/dL Hct 28.1 L (39.0-53.0) % MCHC 30.8 L (31.0-37.0) g/dL Plt Count 871 H (150-450) k/uL Neutrophils # 11.3 H (1.3-7.7) k/uL Lymphocytes # 0.7 L (1.0-4.8) k/uL BUN 8 L (9-20) mg/dL Creatinine 0.49 L (0.66-1.25) mg/dL Glucose 153 H (74-99) mg/dL Calcium 8.2 L (8.4-10.2) mg/dL Alkaline Phosphatase 156 H (38-126) U/L Total Protein 6.0 L (6.3-8.2) g/dL Albumin 2.5 L (3.5-5.0) g/dL Microbiology - Last 24 Hours (Table) 10/10/19 22:22 Blood Culture - Preliminary Blood No Growth after 24 hours 10/08/19 09:25 Gram Stain - Final Pleural Fluid Body Fluid Culture - Final Alpha Hemolytic Streptococcus Jerica albicans 10/08/19 08:40 Blood Culture - Preliminary Blood No Growth after 72 hours 10/08/19 16:00 Gram Stain - Final Sputum Sputum Culture - Final - Imaging and Cardiology Chest x-ray: report reviewed, image reviewed CT scan - chest: report reviewed, image reviewed Assessment and Plan Assessment: 1. Dyspnea and chest discomfort secondary to right pleural effusion and pneumomediastinum, status post right video-assisted thoracoscopic with decortication and drainage of fluid 2. Moderate pericardial effusion, currently hemodynamically stable, status post subxiphoid pericardial window, pericardial fluid/tissue specimen cytology showed supprative pericarditis, subxiphoid chest tube has been discontinued on 10/10/2019. 3. Right lung pneumonia with right lung empyema formation, status post right video-assisted thoracoscopic surgery with decortication and drainage of fluid. Right pericardial pigtail catheter has been removed on 10/10/2019. 4. Leukocytosis, secondary to above, pleural fluid culture positive for alpha hemolytic streptococcus, anaerobic culture showing gram negative bacilli. 5. History of asthma 6. Chronic and ongoing tobacco dependence 7. History of daily marijuana use 8. History of cocaine use 9. History of anxiety 10. History of depression with previous inpatient treatment 11. Oral thrush, resolved Plan: 1. Keep right pleural chest tube in place to water seal. Continue to record accurate I's and O's. 2. Encourage use of his incentive spirometry 10 times every hour while awake. 3. The importance of smoking cessation was discussed and reinforced with the patient. 4. Pain control per current when necessary orders. 5. Bronchodilator and oxygen management per pulmonary critical care service. 6. May transfer to the third floor cardiac stepdown unit when okay by primary care service and other consultants. 7. Pleural fluid culture showed alpha hemolytic streptococcus, and his pleural fluid anaerobic culture showed anaerobic gram-negative bacilli, continue on Unasyn for antibiotic coverage managed by infectious disease. 8. GI and DVT prophylaxis. 9. Continue to monitor daily labs and chest x-rays. 10. Continue soft diet. 11. Increase activity as tolerated, physical and occupational therapy following. 12. No further alteplase treatment at this time. 13. More recommendations to follow based on patient's clinical course. Time with Patient: Less than 30
[2019-10-12] MEDS: HEPARIN SODIUM,PORCINE 5,000 UNIT/ML 1 ML VIAL SQ SCH ×2 (09:42→16:50)
[2019-10-12] MEDS: PANTOPRAZOLE 40 MG/10 ML VIAL IV SCH (09:42)
[2019-10-12] MEDS: NYSTATIN 100,000 UNIT/ML SUSP 500,000 UNIT/5 ML CUP PO SCH ×4 (09:42→20:25)
[2019-10-12] MEDS: CHOLESTYRAMINE (WITH SUGAR) 4 GM PACKET PO SCH ×2 (09:43→17:32)
--- NOTE | 2019-10-12 10:41 | P.PN ---
Subjective Progress Note Date: 10/12/19 This is a very pleasant 19-year-old gentleman who follows with Dr. Whyte as his primary care provider. He has a history of mild intermittent chronic bronchial asthma, chronic and ongoing tobacco dependence, alcohol use, previous history of cocaine use, marijuana use. Previous incarceration secondary to aggravated assault back in he also has a history of depression and previous inpatient psychiatric stay for the same. He has been having increasing shortness of breath than chest discomfort along with fever for the past several days. He had been seen in the emergency room at [facility] discharge from the ER. He was also seen here on 10/01/2019 with similar symptoms was given Toradol and Valium and subsequently discharged. At that time his chest x-ray showed no acute changes. EKG showed no changes. Here he presented here to the emergency room earlier this morning with ongoing shortness of breath, chest pain. He has been having fevers on and off as well. Occas ional phlegm mostly clear. No hemoptysis. White count elevated at 34.2. Hemoglobin 14.2. Platelet count 498. Neutrophils 32. ESR 80. D-dimer 3.17. Sodium 130. Potassium 4.7. Creatinine 1.14. LDH 720. C-reactive protein 660. Coronavirus not detected. EKG did reveal evidence of ST segment elevation. CT angiogram revealed no evidence of pulmonary embolism. There was however a large right pleural effusion with right-sided pneumonic atelectasis and mild infiltrate that was a significant change compared to chest x-ray on 10/01/2019. There is also pneumomediastinum and moderate pericardial effusion. Within the differential is perforated esophagus with mediastinitis and empyema. Computed tomography scan of the abdomen revealed no significant findings other than presented in the lung windows. Echocardiogram revealed mild to moderately impaired left ventricular systolic function with ejection fraction 40-45%. There is also a large generalized pericardial effusion present. The patient was admitted to the intensive care unit , treated with broad-spectrum antibiotics including a combination of vancomycin and cefepime. He was also given on colchicine. was given a pigtail catheter by interventional radiology and the patient had a total of 700 mL of purulent material drained and aspirated from the right lung. The cultures are still pending for now. Nevertheless, the f luid is consistent with pus based on the data noted with a white cell count of 15,500. A barium swallow was done and there was no evidence of any focal esophageal tear. Surgery was consulted and the patient was taken to the operating room yesterday on 10/06/2019 and the patient underwent a pericardial window drainage nd the fluid in the pericardium was in the order of 600 mL and it was serous rather than purulent and analysis was sent from the pericardial fluid and right video-assisted thoracoscopy with decortication and placement of a drainage tube. At 32-Italian chest tube was inserted into the right hemithorax. All of the cultures are still pending for now. The patient was brought back to the intensive care unit. The white cell count is gradually improving. He remains on same antibiotic coverage for now. He is postop chest x-ray shows that the right-sided chest tube is in a good location. There is no evidence of any pneumothorax. There was some subcutaneous emphysema along the right chest area. The patient still has a right-sided pigtail catheter in place. istory volume loss along theright lung along with persistent right lung infiltration. On today's evaluation of 10/07/2019, the patient is awake and alert and has no specific complaints. The chest tube on the right has drained approximately 700 mL over the past 24 hours, the pigtail catheter on the right has drained approximately 40 mL over the past 24 hours and furthermore he was given TPA into the right pleural space and the subxiphoid chest tube has drained 150 mL over the past 24 hours and this is the pericardial tube. The patient is afebrile. The patient is currently on IV cefepime. Vancomycin will be discontinued. Following the alteplase administration, the patient produce approximately 400 to cc of pleural fluid. The chest x-ray still showing significant opacification of the right lung. All of the chest tubes are in place. The microbiology has shown Alphahemolytic except for colchicine the body fluid from the pleural space that was obtained on 10/04/2019. The pericardial fluid shows no growth thus far. On today's evaluation of 10/08/2019, the patient is doing well and his awake and alert and is postop day #2. Noted the patient has a pigtail catheter the chest tube on the right side and a pericardial tube in the sub-xiphoid location. Note that he also received a TPA administration to the right hemithorax with a pigtail catheter yesterday. This resulted in to improvement in the right-sided drainage and there was a total of 150 mL of drainage via his PEG tube catheter and another 700 mL from his chest tube. The subxiphoid chest tube has drained approximately 70 mL over the past 8 hours. Note that the pleural fluid is showing alphahemolytic streptococcus and the pericardial fluid cultures still negative for now. Nevertheless, the pericardial fluid analysis showed an inflammatory fluid then and empyema. He is having a low-grade fever. He is hemodynamically stable. White cell count remains elevated at 21.2. The patient on 3 L of oxygen by nasal cannula. His emanating. No significant cough sputum production chest that is so wheezing. Surgical wound sites are all dry clean and intact. No altered mentation. I also noted that there is a gram-negative bacillus growth in the pleural fluid anaerobic culture that was taken on 10/04/2019. Infectious disease on the case and the patient was given examination of cefazolin and clindamycin for now. He is on DuoNeb nebulized treatments around the clock. He is tolerating his diet. He is producing adequate amount of urine output. On 10/09/2019, the patient is postop day #3. The patient is hemodynamically stable. The white cell count is improving. He has improved in terms of his fever pattern is improved. The patient received his third dose of alteplase today. Overall he produce around 2000 mL of purulent material from the right lung yesterday and the pigtail catheter is also in place although the output from the particulars been more limited. As for the pericardial tube, the this is draining around 30 sees over the past 24 hours and this is essentially serous liquid. The patient is using incentive spirometer. He is pulling up to 1500. His cultures are resulted in to alphahemolytic streptococcus and anaerobic cultures also positive with gram-negative bacillus and the patient was switched to Unasyn per infectious disease. The patient has no difficulties in swallowing. No nausea. No vomiting. No emesis. His cardiac rhythm is sinus and he is less tachycardic compared to yesterday. The patient has no others complaints otherwise for now. A repeat chest x-ray was done today and the patient has persistent right-sided chest tubes and right basilar pleural catheter which is a pigtail catheter. There is no evidence of any pneumothorax. There is persistent airspace disease in the right lung and perihilar area although improved compared to yesterday. The left lung essentially clear. On 10/10/2019 the patient is postop day #4. Doing well. He is currently on room air oxygen. Chest x-ray still showing consolidation of the right lung. All of the right-sided chest tubes are in place. The patient is pulse oxing 94% on room air oxygen. He is pulling approximately 1500 on incentive spirometer. Right-sided pigtail catheter and the right-sided chest tube and the subxiphoid pericardial tube are all in place for now. No evidence of any air leak. The sulci 4 chest tube has drained approximately 100 mL over the past 24 hours, the right-sided chest tube is draining serosanguineous fluid and it has drained approximately 1 50 mL over the past 24 hours. As for the pancreas, it has drained approximately 50 mL over the past 24 hours. The patient's white cell count is improving. Cultures are essentially the same. The patient remains on IV Unasyn. No hemoptysis. No further episodes of diarrhea for now. No other significant events. Altered mentation. No fever this morning and the patient has Been having episodic fever throughout the day yesterday. No other new complaints otherwise for now. On 10/11/2019 on seeing the patient for a follow-up. The patient is postop day #5. He does have some limited amount of hemoptysis and ice on this is related to his alteplase administration as the patient received a total of 4 doses of alteplase, 3 after the surgery. His output from the right-sided chest tube is in the order of 2 50 mL over the past 24 hours. The mediastinal chest tube/pericardial chest tube has been removed. History of the pigtail catheter in his right chest. The repeat fluid analysis came back negative for alphahemolytic strep. And the patient remains on IV Unasyn. The chest x-ray still showing volume loss and consolidation of the right lower lobe with possible right-sided pleural effusion. For that reason, a noncontrast CAT scan of the chest was ordered and the CAT scan showed interval reduction in the amount of empyema with a small hydropneumothorax and a small amount of remaining air and fluid within the right pleural space. Additionally, there was a masslike area of consolidation in the right midlung which represents a combination of consolidation/fluid and this is within the minor fissure. There is also interval development of groundglass changes in the upper lobes bilaterally possibly related to some pneumonitis. In any rate, the right-sided chest tube is still in a good location. The patient is having no fever today. His last temperature spike was 101 and this was yesterday evening. His white cell count is down to 13.2. He was stable at 7.4 slightly lower compared to yesterday. Platelet count remains elevated and this is related to reactive thrombocytosis in the setting of an underlying infection. On today's evaluation of 10/12/2019, the patient is postop day #6. The patient had an initial yesterday with he was given Eraxis was given as the patient was suspected to have a co-infection with Jerica, and this was upon IDs recommendation the medication was given immediately the patient developed an acute reaction where he had a headache, became diaphoretic short of breath and had to be placed on high flow oxygen. Following that, he was given IV Solu- Medrol and the medication was discontinued. He gradually improved and is currently back to room air oxygen. On today's evaluation he is draining some purulent material from his right-sided chest tube. This is a change compared to yesterday. Overall, he has drained approximately 230 mL of output from the right-sided chest tube in the past 24 hours. The pigtail catheter has been removed. The pericardial tube was also removed. The patient has no fever for now. A repeat chest x-ray was doneand the chest x-ray shows that the right- sided chest tube in place. The airspace disease on the right is improved and the patient's pleural effusion also improved compared to yesterday's finding. I reviewed the CAT scan of the chest and I think the patient is diabetic consolidation noted loculated pseudotumor type of fluid in the right major fissure that needs to be monitored. On today's chest x-ray, this is improved. No nausea. No vomiting. No diarrhea. No abdominal pain. No altered mentation. The white cell count is at 4.5. Hemoglobin is at 8.7. He is ambulating. He is using incentive spirometer. Objective - Vital Signs Vital signs: Vital Signs Temp 98.9 F 10/12/19 08:00 Pulse 87 10/12/19 10:00 Resp 21 10/12/19 10:00 BP 121/60 10/12/19 10:00 Pulse Ox 94 L 10/12/19 10:00 Intake & Output 10/11/19 10/12/19 10/12/19 18:59 06:59 18:59 Intake Total 200 1230 460 Output Total 50 2240 490 Balance 150 -1010 -30 Weight 81.057 kg Intake: IV 200 200 Ampicillin-Sulbactam 3 gm 200 200 In Sodium Chloride 0.9% 100 ml @ 200 mls/hr IVPB Q6HR [facility] Rx#:[id number] Oral 1030 460 Output: Chest Tube Drainage 50 140 40 Right Pleural 50 140 40 Urine 2100 450 Other: Voiding Method Urinal # Voids 1 1 # Bowel Movements 1 ABP, PAP, CO, CI - Last Documented Arterial Blood Pressure 112/44 - Exam - Constitutional General appearance: Present: average body habitus, cooperative, no acute distress - EENT Eyes: Present: PERRLA, normal appearance. Absent: scleral icterus ENT: Present: hearing grossly normal, normal oropharynx. Absent: thrush (No thrush seen today) - Neck Details: Neck is supple, no JVD. Neck: Absent: lymphadenopathy, thyromegaly - Respiratory Details: Lung sounds are essentially clear to his bilateral upper lobes, diminished to his right lower lobe. Respirations are symmetrical and nonlabored. No wheezes, rhonchi or crackles. Oxygen saturation is 94% on room air. Achieving 2250 mL o n his incentive spirometry. Right pleural chest tube remains in place to waterseal. No air leak is present. Draining thin purulent/serosanguineous drainage. - Cardiovascular Details: Regular rhythm and tachycardic rate. S1 and S2 present, negative for S3, gallop or murmur. No edema present. Knee-high sequential compression devices in place was bilateral lower extremities. - Gastrointestinal Gastrointestinal Comment(s): Abdomen is soft, nontender and nondistended. Active bowel sounds present in all 4 abdominal quadrants. No guarding or rigidity. No organomegaly. Tolerating a soft diet. - Genitourinary Genitourinary Comment(s): Following clear [place] urine. - Integumentary Integumentary Comment(s): Skin is warm and dry. No clubbing or cyanosis is present. No rash. Subxiphoid incision is clean, dry and approximated. No drainage or redness is present. - Neurologic Neurologic: Present: CNII-XII intact - Musculoskeletal Musculoskeletal: Present: gait normal, strength equal bilaterally - Psychiatric Psychiatric: Present: A&O x's 3, appropriate affect, intact judgment & insight - Labs CBC & Chem 7: 10/12/19 06:03 10/12/19 06:03 Labs: Abnormal Lab Results - Last 24 Hours (Table) 10/12/19 10/12/19 Range/Units 06:03 06:03 WBC 12.5 H (3.8-10.6) k/uL RBC 3.11 L (4.30-5.90) m/uL Hgb 8.7 L (13.0-17.5) gm/dL Hct 28.1 L (39.0-53.0) % MCHC 30.8 L (31.0-37.0) g/dL Plt Count 871 H (150-450) k/uL Neutrophils # 11.3 H (1.3-7.7) k/uL Lymphocytes # 0.7 L (1.0-4.8) k/uL BUN 8 L (9-20) mg/dL Creatinine 0.49 L (0.66-1.25) mg/dL Glucose 153 H (74-99) mg/dL Calcium 8.2 L (8.4-10.2) mg/dL Alkaline Phosphatase 156 H (38-126) U/L Total Protein 6.0 L (6.3-8.2) g/dL Albumin 2.5 L (3.5-5.0) g/dL Microbiology - Last 24 Hours (Table) 10/10/19 22:22 Blood Culture - Preliminary Blood No Growth after 24 hours 10/08/19 09:25 Gram Stain - Final Pleural Fluid Body Fluid Culture - Final Alpha Hemolytic Streptococcus Jerica albicans 10/08/19 08:40 Blood Culture - Preliminary Blood No Growth after 72 hours 10/08/19 16:00 Gram Stain - Final Sputum Sputum Culture - Final Assessment and Plan Plan: 1 Acute hypoxic respiratory failure secondary to a large right lung empyema, post pigtail catheter drainage of purulent material, post video-assisted thoracoscopy and limited decortication of the right lung and the patient is postop day #6 and the patient has a chest tube in place. The cultures of Streptococcus and the patient remains on IV Unasyn. The Jerica the toes cultured is probably not it showed infection or corneal infection. This is likely a colonizer. The patient developed a reaction to Eraxis and the acute reaction was treated and the patient was taken off the antibiotic for now. For now the patient is drained around 230 sees upper material from the right chest. Chest x-ray shows improvement and I do not see this O2 medicine the right major fissure for now. 2 right lung pneumonia with right lung empyema formation, secondary to Streptococcus currently on Unasyn post-surgical drainage. 3 Moderate pericardial effusion with no evidence of tamponade, post pericardial window and the fluid was essentially serious, post pericardial window and the pericardial tube is in place, output is diminished and the cultures from the pericardial tube is negative thus far. 4 Leukocytosis secondary to above, improving 5 History of mild intermittent chronic bronchial asthma 6 Chronic and ongoing tobacco dependence 7 History of marijuana use 8 History of previous cocaine use 9 History of incarceration 10 History of depression with previous inpatient treatment 11 episodic hemoptysis is related to alteplase treatment Plan Monitor fever pattern , this has already improved monitor white cell count, improving Continue using incentive spirometer Pain control is improved Agree on IV Unasyn No need for Eraxis specially the patient had a significant reaction to that Encourage ambulation and activity Electrodes and a follow-up CAT scan in few days' time. Meanwhile, we'll related a chest x-ray. Continue using incentive spirometer. Continue the Unasyn. Monitor the output from the right-sided chest tube. The patient will be kept in ICU for another 24 hours.
--- NOTE | 2019-10-12 14:28 | PN ---
PROGRESS NOTE Mr. Torsten Moulton is admitted to the hospital with evidence of empyema, pericardial effusion, pneumomediastinum. The patient had a pericardial window. Repeat echocardiogram showed only minimal pericardial effusion. The patient had some reaction to the medication yesterday, but today seemed to be doing well. He is sitting up in a chair. Denies any chest pain or shortness of breath. His vital signs showed a blood pressure of 120/60. Pulse is 80, heart rate is 87, saturation 94%. Lab evaluation showed a white count of 12.4, hemoglobin is 8.7. Electrolytes are within normal limits. FINAL IMPRESSION: 1. Empyema. 2. Pericardial effusion status post pericardial. PLAN: We will continue current medical therapy. Increase his activity. May transfer to telemetry unit. ION / PALOMO: [id number] /
--- NOTE | 2019-10-12 15:51 | PN ---
PROGRESS NOTE DATE OF SERVICE: 10/12/2019 REASON FOR FOLLOWUP: Empyema and purulent pericarditis. INTERVAL HISTORY: The patient is currently afebrile. The patient is breathing comfortably. Denies having any chest pain or shortness of breath. Minimal cough. No abdominal pain and diarrhea has improved. The patient did have a problem with shortness of breath lasting after receiving Eraxis yesterday. Denies having any rash. PHYSICAL EXAMINATION: Blood pressure 115/54 with a pulse of 96, temperature 98.9. He is 94% on room air. General description is a young male up in the chair in no distress. Respiratory system: Unlabored breathing, clear to auscultation anteriorly. Heart S1, S2. Regular rate and rhythm. Abdomen soft, no tenderness. Extremities, no edema of the feet. LABS: Hemoglobin 8.7, white count 12.5, BUN of 8, creatinine 0.49. 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 Culture with alpha hemolytic Streptococcus, anaerobic gram-negative and Jerica albicans. He will continue with Unasyn. Diflucan will be added to cover for the Jerica. I will monitor clinical course closely. MMODL / IJN: [id number] /
[2019-10-12] MEDS: FLUCONAZOLE 100 MG TAB PO SCH (17:33)
[2019-10-12] MEDS: ACETAMINOPHEN TAB 325 MG TAB PO PRN (20:37)
[2019-10-13] MEDS: AMPICILLIN-SULBACTAM 3 GM in SODIUM CHLORIDE 0.9% 100 ML IVPB SCH ×4 (00:07→23:02)
[2019-10-13] MEDS: HYDROcodone/APAP 5-325MG 1 EACH TAB PO PRN ×4 (00:13→23:08)
[2019-10-13] MEDS: ZOLPIDEM 5 MG TAB PO PRN ×2 (00:13→23:08)
[2019-10-13] MEDS: HEPARIN SODIUM,PORCINE 5,000 UNIT/ML 1 ML VIAL SQ SCH ×4 (00:13→23:02)
[2019-10-13 05:24] LABS: Basophils % (A) 0 %; Eosinophils # (A) 0.1 k/uL (0-0.7); Eosinophils % (A) 1 %; HCT 23.7 % (39.0-53.0); Hypochromasia Moderate; Lymphocytes # (A) 1.9 k/uL (1.0-4.8); Lymphocytes % (A) 15 %; MCH 27.7 pg (25.0-35.0); MCHC 30.3 g/dL (31.0-37.0); MCV 91.3 fL (80.0-100.0); Monocytes # (A) 0.6 k/uL (0-1.0); Monocytes % (A) 5 %; Neutrophils # (A) 9.6 k/uL (1.3-7.7); Neutrophils % (A) 78 %; Platelet Count 866 k/uL (150-450); RBC 2.59 m/uL (4.30-5.90); RDW 13.5 % (11.5-15.5); WBC 12.4 k/uL (3.8-10.6)
[2019-10-13 05:57] LABS: HGB 7.2 gm/dL (13.0-17.5)
[2019-10-13 05:58] LABS: ALT 37 U/L (4-49); AST 41 U/L (17-59); African American GFR (CKD) >90 (>60 ml/min/1.73 sqM); Albumin 2.2 g/dL (3.5-5.0); Alkaline Phosphatase 126 U/L (38-126); Anion Gap 6 mmol/L; Blood Urea Nitrogen 17 mg/dL (9-20); Calcium 8.1 mg/dL (8.4-10.2); Carbon Dioxide 22 mmol/L (22-30); Chloride 107 mmol/L (98-107); Glucose 95 mg/dL (74-99); Non-African American GFR(CKD) >90 (>60 ml/min/1.73 sqM); Potassium 4.5 mmol/L (3.5-5.1); Sodium 135 mmol/L (137-145); Total Bilirubin 0.4 mg/dL (0.2-1.3); Total Protein 5.1 g/dL (6.3-8.2)
--- NOTE | 2019-10-13 06:33 | XR ---
EXAMINATION TYPE: XR chest 1V portable DATE OF EXAM: 10/13/2019 HISTORY: Postop pericardial window and right VATS. REFERENCE: Previous study dated 10/12/2019. FINDINGS: The heart is mildly enlarged. There continues to be right-sided airspace disease. There is a right-sided effusion. The overall appearance is very similar to previous. IMPRESSION: NO SIGNIFICANT INTERVAL CHANGE IN THE APPEARANCE OF THE CHEST.
--- NOTE | 2019-10-13 07:10 | PN ---
PROGRESS NOTE White male status empyema, pericardial effusion, pneumomediastinum. Repeat echo shows minimal pericardial effusion. Reaction to antifungal medicine with anaphylaxis. He has been in the ICU. He is going to probably be sent out of ICU today. His blood pressure is 120s/60s, pulse is 80, O2 93-94%. Cardiovascular S1-S2. Lungs are clear. GI soft. Hematology negative Homans. ASSESSMENT: 1. Empyema. 2. Pericardial effusion status post pericardial window. Chest tube in place. Continue medical therapy. IV antibiotics. Prognosis guarded, but improved. MMODL / IJN: [id number] /
--- NOTE | 2019-10-13 07:10 | PN ---
PROGRESS NOTE ( ) window. Normal pericardial effusion. He had reaction to antifungal medicine with anaphylactic shock. Sitting up in a chair. Denies any chest pain or shortness of breath. ( ) MMODL / IJN: [id number] /
[2019-10-13] MEDS: IPRATROPIUM-ALBUTEROL 3 ML NEB INHALATION PRN ×3 (07:16→18:50)
[2019-10-13] MEDS ORDERED: FUROSEMIDE 10 MG/ML 2 ML VIAL IV ONE (08:06)
[2019-10-13] MEDS: NYSTATIN 100,000 UNIT/ML SUSP 500,000 UNIT/5 ML CUP PO SCH ×4 (08:40→20:30)
[2019-10-13] MEDS: FLUCONAZOLE 100 MG TAB PO SCH (08:41)
[2019-10-13] MEDS: PANTOPRAZOLE 40 MG TABLET PO SCH (08:42)
[2019-10-13] MEDS: CHOLESTYRAMINE (WITH SUGAR) 4 GM PACKET PO SCH ×2 (08:43→18:47)
--- NOTE | 2019-10-13 08:46 | P.PN ---
Subjective Progress Note Date: 10/13/19 Principal diagnosis: Pneumomediastinum, right pleural effusion and pericardial effusion. This is a 19-year-old gentleman who is followed by Dr. Ivan Whyte on an outpatient basis. He has a past medical history significant for asthma, anxiety, chronic ongoing tobacco abuse and daily marijuana use. In his history, it reports a history of cocaine use although the patient is denying any cocaine use. He reports that he has been having symptoms of progressive shortness of breath with severe chest pain radiating across his upper chest and to his lower chest mainly on his right side for the past couple of weeks. He is sought medical attention at [facility] for the above-mentioned symptoms last week, and reports he was diagnosed with panic attacks and discharged with outpatient treatment of Z-Calos, steroids and pain medication. He also was seen in the emergency department here on Monday10/01/2019 in which he was treated with Valium and Toradol with improvement in his symptoms and was to follow-up with his primary care physician. The patient also reports that he had fever, chills and a productive cough with thick white sputum, frequent episodes of wheezing and occasional coughing fits. He denies any complaints of nausea, vomiting, constipation, diarrhea, difficulty swallowing, hemoptysis, or hematemesis. A chest x-ray was completed during his visit here on 10/01/2019 which demonstrated a right basilar subsegmental consolidation, which showed possible interstitial or viral pneumonitis with basilar infiltrate favored over venous congestion per the report. Subsequently due to the patient's complaints of progressive shortness of breath and chest discomfort he presented to the emergency department here at [facility] early this morning. A CT angio of his chest was completed which demonstrated no evidence of pulmonary embolus, but did show a large right pleural effusion, significant infiltrate and atelectasis in the right lower lobe, a moderate pericardial effusion and pneumomediastinum concerning for possibility of perforated esophagus. For further evaluation a computed tomography scan of his abdomen/pelvis with contrast was completed which redemonstrated a large right pleural effusion, a small left pleural effusion and mild low density free fluid in the pelvis. A 12-lead EKG was completed in the emergency department which showed sinus tachycardia with ST elevation in leads 1, 2, and V2 through V6 with a heart rate of 119 BPM. A 2-D echocardiogram was completed this morning which showed him to have an overall left ventricular systolic function to be mildly to moderately impaired with an ejection fraction between 40 and 45%, trace mitral valve regurgitation, mild tricuspid valve regurgitation, mild pulmonary hypertension, trace to mild to moderate valve regurgitation and a moderate predominantly p osterior pericardial effusion. The initial laboratory results in the emergency department showed a WBC count 34.2, hemoglobin 14.2, hematocrit 43.0, platelets 498, began neutrophils 6, neutrophils 32.10, d-dimer 3.17, sodium 130, chloride 95, BUN 27, creatinine 1.14, lactic acid level I.7, C reactive protein 660, and his COVID 19 test showed not detected. Due to the patient's presenting symptoms , and findings on his computed tomography scan of his chest he was admitted for further evaluation and treatment. Currently he is sitting up in his bed in the intensive care unit and continues to complain of shortness of breath and some chest discomfort radiating to his upper chest and arms. Oxygen saturations are 96% on 2 L nasal cannula and he is currently hemodynamically stable on no inotropic or pressor support. Subsequently, due to the patient's findings of right pleural effusion, pericardial effusion and pneumomediastinum consult was placed to Dr. Marcelino Martínez from cardiothoracic surgery for further evaluation and treatment recommendations. POD #[address] guided right chest pigtail catheter insertion for empyema performed by interventional radiology. POD #7 subxiphoid pericardial window and right video-assisted thoracoscopic with decortication and drainage of fluid. Patient was seen in follow-up today 10/13/2019 at his bedside in the intensive care unit. He is sitting up to the bedside chair eating his breakfast and is in no acute distress. He is awake, alert and oriented 3, he is hemodynamically stable and has been afebrile the last 24 hours. Today he reports he is feeling the best he has felt since being admitted, denies any complaints of pain although is complaining of some wheezing this morning. He reports that his diarrhea is pre-much resolved although he he is having occasional soft stool. Oxygen saturation are 97% on room air and he is achieving 2000 mL on his incentive spirometry. Right pleural chest tube remains in place to water seal. No air leak is present. Draining thin serosanguineous drainage with 50 mL output in the last 24 hours. He remains on Unasyn for antibiotic coverage and has been started on Diflucan 400 mg by mouth daily which is being managed by infectious disease. Laboratory results today show a WBC count 12.4, hemoglobin 7.2, hematocrit 23.7, platelets 866, BUN 17, and creatinine 0.64. Blood culture results continue to show no growth after 48 hours. The patient reports that he has been up ambulating in the intensive care unit hallway yesterday and did about 12 laps throughout the day. Objective - Vital Signs Vital signs: Vital Signs Temp 97.9 F 10/13/19 04:00 Pulse 93 10/13/19 07:28 Resp 19 10/13/19 07:00 BP 105/46 10/13/19 07:00 Pulse Ox 97 10/13/19 07:00 Intake & Output 10/12/19 10/13/19 10/13/19 18:59 06:59 18:59 Intake Total 1165 920 Output Total 2060 1070 Balance -895 -150 Weight 81 kg Intake: IV 225 120 Ampicillin-Sulbactam 3 gm 200 100 In Sodium Chloride 0.9% 100 ml @ 200 mls/hr IVPB Q6HR [facility] Rx#:[id number] LR 25 20 Oral 940 800 Output: Chest Tube Drainage 60 10 Right Pleural 60 10 Urine 2000 1060 Other: Voiding Method Urinal # Voids 1 # Bowel Movements 1 ABP, PAP, CO, CI - Last Documented Arterial Blood Pressure 112/44 - Exam This is a pleasant 19-year-old gentleman who is sitting up to the bedside chair and is eating his breakfast. He is in no acute distress, he is alert and oriented 3. Hemodynamically stable and is currently on no inotropic or pressor support. Oxygen saturations are 97% on room air. - Constitutional General appearance: Present: average body habitus, cooperative, no acute distress - EENT Eyes: Present: PERRLA, normal appearance. Absent: scleral icterus ENT: Present: hearing grossly normal, normal oropharynx - Neck Details: Neck is supple, no JVD. Neck: Absent: lymphadenopathy, stridor, thyromegaly - Respiratory Details: Lung sounds are essentially clear to his upper lobes with few scattered expiratory wheezes. Diminished to his right lower lobe. Respirations are symmetrical and nonlabored. Oxygen saturation 97% on room air. Achieving 2001 L on his incentive spirometry. Right pleural chest tube remains in place to water seal. No air leak is present. Draining thin serosanguineous drainage with 50 mL output in the last 24 hours. - Cardiovascular Details: Regular rhythm and rate. S1 and S2 present, negative for S3, gallop or murmur. Trace bilateral edema. - Gastrointestinal Gastrointestinal Comment(s): Abdomen is soft, nontender and nondistended. Active bowel sounds present in all 4 abdominal quadrants. No guarding or rigidity. No organomegaly appreciated. Tolerating oral intake. - Genitourinary Genitourinary Comment(s): Voiding clear [place] urine. - Integumentary Integumentary Comment(s): Skin is warm and dry. No clubbing or cyanosis is present. Subxiphoid incision is clean, dry and approximated. No drainage or redness is present. - Neurologic Neurologic: Present: CNII-XII intact - Musculoskeletal Musculoskeletal: Present: gait normal, strength equal bilaterally - Psychiatric Psychiatric: Present: A&O x's 3, appropriate affect, intact judgment & insight - Allied health notes Allied health notes reviewed: nursing - Labs CBC & Chem 7: 10/13/19 04:35 10/13/19 04:35 Labs: Abnormal Lab Results - Last 24 Hours (Table) 10/13/19 10/13/19 Range/Units 04:35 04:35 WBC 12.4 H (3.8-10.6) k/uL RBC 2.59 L (4.30-5.90) m/uL Hgb 7.2 L D (13.0-17.5) gm/dL Hct 23.7 L (39.0-53.0) % MCHC 30.3 L (31.0-37.0) g/dL Plt Count 866 H (150-450) k/uL Neutrophils # 9.6 H (1.3-7.7) k/uL Sodium 135 L (137-145) mmol/L Creatinine 0.64 L (0.66-1.25) mg/dL Calcium 8.1 L (8.4-10.2) mg/dL Total Protein 5.1 L (6.3-8.2) g/dL Albumin 2.2 L (3.5-5.0) g/dL Microbiology - Last 24 Hours (Table) 05/14/20 22:22 Blood Culture - Preliminary Blood No Growth after 48 hours 10/08/19 08:40 Blood Culture - Preliminary Blood No Growth after 96 hours - Imaging and Cardiology Chest x-ray: report reviewed, image reviewed Assessment and Plan Assessment: 1. Dyspnea and chest discomfort secondary to right pleural effusion and pneumomediastinum, status post right video-assisted thoracoscopic with decortication and drainage of fluid 2. Moderate pericardial effusion, currently hemodynamically stable, status post subxiphoid pericardial window, pericardial fluid/tissue specimen cytology showed supprative pericarditis, subxiphoid chest tube has been discontinued on 10/10/2019. 3. Right lung pneumonia with right lung empyema formation, status post right video-assisted thoracoscopic surgery with decortication and drainage of fluid. Right pericardial pigtail catheter has been removed on 10/10/2019. 4. Leukocytosis, secondary to above, pleural fluid culture positive for alpha hemolytic streptococcus, anaerobic culture showing gram negative bacilli. 5. History of asthma 6. Chronic and ongoing tobacco dependence 7. History of daily marijuana use 8. History of cocaine use 9. History of anxiety 10. History of depression with previous inpatient treatment 11. Oral thrush, resolved Plan: 1. Keep right pleural chest tube in place to water seal. Continue to record accurate I's and O's. 2. Encourage use of his incentive spirometry 10 times every hour while awake. 3. The importance of smoking cessation was discussed and reinforced with the patient. 4. Pain control per current when necessary orders. 5. Bronchodilator and oxygen management per pulmonary critical care service. 6. May transfer to the third floor cardiac stepdown unit when okay by primary care service and other consultants. 7. Pleural fluid culture showed alpha hemolytic streptococcus, and his pleural fluid anaerobic culture showed anaerobic gram-negative bacilli, continue on Unasyn for antibiotic coverage managed by infectious disease. He was started on Diflucan 4 mg by mouth daily yesterday per infectious disease. 8. GI and DVT prophylaxis. 9. Continue to monitor daily labs and chest x-rays. 10. Continue soft diet. 11. Increase activity as tolerated, physical and occupational therapy following. 12. More recommendations to follow based on patient's clinical course. Time with Patient: Less than 30
--- NOTE | 2019-10-13 11:21 | P.PN ---
Subjective Progress Note Date: 10/13/19 This is a very pleasant 19-year-old gentleman who follows with Dr. Whyte as his primary care provider. He has a history of mild intermittent chronic bronchial asthma, chronic and ongoing tobacco dependence, alcohol use, previous history of cocaine use, marijuana use. Previous incarceration secondary to aggravated assault back in he also has a history of depression and previous inpatient psychiatric stay for the same. He has been having increasing shortness of breath than chest discomfort along with fever for the past several days. He had been seen in the emergency room at [facility] discharge from the ER. He was also seen here on 10/01/2019 with similar symptoms was given Toradol and Valium and subsequently discharged. At that time his chest x-ray showed no acute changes. EKG showed no changes. Here he presented here to the emergency room earlier this morning with ongoing shortness of breath, chest pain. He has been having fevers on and off as well. Occas ional phlegm mostly clear. No hemoptysis. White count elevated at 34.2. Hemoglobin 14.2. Platelet count 498. Neutrophils 32. ESR 80. D-dimer 3.17. Sodium 130. Potassium 4.7. Creatinine 1.14. LDH 720. C-reactive protein 660. Coronavirus not detected. EKG did reveal evidence of ST segment elevation. CT angiogram revealed no evidence of pulmonary embolism. There was however a large right pleural effusion with right-sided pneumonic atelectasis and mild infiltrate that was a significant change compared to chest x-ray on 10/01/2019. There is also pneumomediastinum and moderate pericardial effusion. Within the differential is perforated esophagus with mediastinitis and empyema. Computed tomography scan of the abdomen revealed no significant findings other than presented in the lung windows. Echocardiogram revealed mild to moderately impaired left ventricular systolic function with ejection fraction 40-45%. There is also a large generalized pericardial effusion present. The patient was admitted to the intensive care unit , treated with broad-spectrum antibiotics including a combination of vancomycin and cefepime. He was also given on colchicine. was given a pigtail catheter by interventional radiology and the patient had a total of 700 mL of purulent material drained and aspirated from the right lung. The cultures are still pending for now. Nevertheless, the f luid is consistent with pus based on the data noted with a white cell count of 15,500. A barium swallow was done and there was no evidence of any focal esophageal tear. Surgery was consulted and the patient was taken to the operating room yesterday on 10/06/2019 and the patient underwent a pericardial window drainage nd the fluid in the pericardium was in the order of 600 mL and it was serous rather than purulent and analysis was sent from the pericardial fluid and right video-assisted thoracoscopy with decortication and placement of a drainage tube. At 32-Stateless chest tube was inserted into the right hemithorax. All of the cultures are still pending for now. The patient was brought back to the intensive care unit. The white cell count is gradually improving. He remains on same antibiotic coverage for now. He is postop chest x-ray shows that the right-sided chest tube is in a good location. There is no evidence of any pneumothorax. There was some subcutaneous emphysema along the right chest area. The patient still has a right-sided pigtail catheter in place. istory volume loss along theright lung along with persistent right lung infiltration. On today's evaluation of 10/07/2019, the patient is awake and alert and has no specific complaints. The chest tube on the right has drained approximately 700 mL over the past 24 hours, the pigtail catheter on the right has drained approximately 40 mL over the past 24 hours and furthermore he was given TPA into the right pleural space and the subxiphoid chest tube has drained 150 mL over the past 24 hours and this is the pericardial tube. The patient is afebrile. The patient is currently on IV cefepime. Vancomycin will be discontinued. Following the alteplase administration, the patient produce approximately 400 to cc of pleural fluid. The chest x-ray still showing significant opacification of the right lung. All of the chest tubes are in place. The microbiology has shown Alphahemolytic except for colchicine the body fluid from the pleural space that was obtained on 10/04/2019. The pericardial fluid shows no growth thus far. On today's evaluation of 10/08/2019, the patient is doing well and his awake and alert and is postop day #2. Noted the patient has a pigtail catheter the chest tube on the right side and a pericardial tube in the sub-xiphoid location. Note that he also received a TPA administration to the right hemithorax with a pigtail catheter yesterday. This resulted in to improvement in the right-sided drainage and there was a total of 150 mL of drainage via his PEG tube catheter and another 700 mL from his chest tube. The subxiphoid chest tube has drained approximately 70 mL over the past 8 hours. Note that the pleural fluid is showing alphahemolytic streptococcus and the pericardial fluid cultures still negative for now. Nevertheless, the pericardial fluid analysis showed an inflammatory fluid then and empyema. He is having a low-grade fever. He is hemodynamically stable. White cell count remains elevated at 21.2. The patient on 3 L of oxygen by nasal cannula. His emanating. No significant cough sputum production chest that is so wheezing. Surgical wound sites are all dry clean and intact. No altered mentation. I also noted that there is a gram-negative bacillus growth in the pleural fluid anaerobic culture that was taken on 10/04/2019. Infectious disease on the case and the patient was given examination of cefazolin and clindamycin for now. He is on DuoNeb nebulized treatments around the clock. He is tolerating his diet. He is producing adequate amount of urine output. On 10/09/2019, the patient is postop day #3. The patient is hemodynamically stable. The white cell count is improving. He has improved in terms of his fever pattern is improved. The patient received his third dose of alteplase today. Overall he produce around 2000 mL of purulent material from the right lung yesterday and the pigtail catheter is also in place although the output from the particulars been more limited. As for the pericardial tube, the this is draining around 30 sees over the past 24 hours and this is essentially serous liquid. The patient is using incentive spirometer. He is pulling up to 1500. His cultures are resulted in to alphahemolytic streptococcus and anaerobic cultures also positive with gram-negative bacillus and the patient was switched to Unasyn per infectious disease. The patient has no difficulties in swallowing. No nausea. No vomiting. No emesis. His cardiac rhythm is sinus and he is less tachycardic compared to yesterday. The patient has no others complaints otherwise for now. A repeat chest x-ray was done today and the patient has persistent right-sided chest tubes and right basilar pleural catheter which is a pigtail catheter. There is no evidence of any pneumothorax. There is persistent airspace disease in the right lung and perihilar area although improved compared to yesterday. The left lung essentially clear. On 10/10/2019 the patient is postop day #4. Doing well. He is currently on room air oxygen. Chest x-ray still showing consolidation of the right lung. All of the right-sided chest tubes are in place. The patient is pulse oxing 94% on room air oxygen. He is pulling approximately 1500 on incentive spirometer. Right-sided pigtail catheter and the right-sided chest tube and the subxiphoid pericardial tube are all in place for now. No evidence of any air leak. The sulci 4 chest tube has drained approximately 100 mL over the past 24 hours, the right-sided chest tube is draining serosanguineous fluid and it has drained approximately 1 50 mL over the past 24 hours. As for the pancreas, it has drained approximately 50 mL over the past 24 hours. The patient's white cell count is improving. Cultures are essentially the same. The patient remains on IV Unasyn. No hemoptysis. No further episodes of diarrhea for now. No other significant events. Altered mentation. No fever this morning and the patient has Been having episodic fever throughout the day yesterday. No other new complaints otherwise for now. On 10/11/2019 on seeing the patient for a follow-up. The patient is postop day #5. He does have some limited amount of hemoptysis and ice on this is related to his alteplase administration as the patient received a total of 4 doses of alteplase, 3 after the surgery. His output from the right-sided chest tube is in the order of 2 50 mL over the past 24 hours. The mediastinal chest tube/pericardial chest tube has been removed. History of the pigtail catheter in his right chest. The repeat fluid analysis came back negative for alphahemolytic strep. And the patient remains on IV Unasyn. The chest x-ray still showing volume loss and consolidation of the right lower lobe with possible right-sided pleural effusion. For that reason, a noncontrast CAT scan of the chest was ordered and the CAT scan showed interval reduction in the amount of empyema with a small hydropneumothorax and a small amount of remaining air and fluid within the right pleural space. Additionally, there was a masslike area of consolidation in the right midlung which represents a combination of consolidation/fluid and this is within the minor fissure. There is also interval development of groundglass changes in the upper lobes bilaterally possibly related to some pneumonitis. In any rate, the right-sided chest tube is still in a good location. The patient is having no fever today. His last temperature spike was 101 and this was yesterday evening. His white cell count is down to 13.2. He was stable at 7.4 slightly lower compared to yesterday. Platelet count remains elevated and this is related to reactive thrombocytosis in the setting of an underlying infection. On today's evaluation of 10/12/2019, the patient is postop day #6. The patient had an initial yesterday with he was given Eraxis was given as the patient was suspected to have a co-infection with Jerica, and this was upon IDs recommendation the medication was given immediately the patient developed an acute reaction where he had a headache, became diaphoretic short of breath and had to be placed on high flow oxygen. Following that, he was given IV Solu- Medrol and the medication was discontinued. He gradually improved and is currently back to room air oxygen. On today's evaluation he is draining some purulent material from his right-sided chest tube. This is a change compared to yesterday. Overall, he has drained approximately 230 mL of output from the right-sided chest tube in the past 24 hours. The pigtail catheter has been removed. The pericardial tube was also removed. The patient has no fever for now. A repeat chest x-ray was doneand the chest x-ray shows that the right- sided chest tube in place. The airspace disease on the right is improved and the patient's pleural effusion also improved compared to yesterday's finding. I reviewed the CAT scan of the chest and I think the patient is diabetic consolidation noted loculated pseudotumor type of fluid in the right major fissure that needs to be monitored. On today's chest x-ray, this is improved. No nausea. No vomiting. No diarrhea. No abdominal pain. No altered mentation. The white cell count is at 4.5. Hemoglobin is at 8.7. He is ambulating. He is using incentive spirometer. On today's evaluation of 10/13/2019 the patient is postop day #7. Doing well. No new complaints. Chest tube is in place on the right side. No evidence of any air leak. Drainage was slightly purulent still in the order of 50 mL over the past 24 hours. Output has chloride diminished. Chest x-ray findings are essentially unchanged. The patient remains on Unasyn. Diflucan was added by infectious disease. No fever. No chills. White cell count is at 4.4. Hemoglobin is at 7.2. Blood cultures have shown no growth and is at the last blood cultures that have shown no growth after 48 hours. He is ambulating. He is using incentive spirometer. Has no specific complaint otherwise for now. Objective - Vital Signs Vital signs: Vital Signs Temp 97.7 F 10/13/19 08:00 Pulse 60 10/13/19 11:00 Resp 13 10/13/19 11:00 BP 108/56 10/13/19 11:00 Pulse Ox 99 10/13/19 11:00 Intake & Output 10/12/19 10/13/19 10/13/19 18:59 06:59 18:59 Intake Total 6951 321 4684 Output Total 2060 1070 2390 Balance -895 -150 -1350 Weight 81 kg Intake: IV 225 120 0 Ampicillin-Sulbactam 3 gm 200 100 In Sodium Chloride 0.9% 100 ml @ 200 mls/hr IVPB Q6HR [facility] Rx#:[id number] LR 25 20 0 Oral 563 [id number] Output: Chest Tube Drainage 60 10 40 Right Pleural 60 10 40 Urine 2000 1060 2350 Other: Voiding Method Urinal # Voids 1 # Bowel Movements 1 ABP, PAP, CO, CI - Last Documented Arterial Blood Pressure 112/44 - Exam This is a pleasant 19-year-old gentleman who is sitting up to the bedside chair and is eating his breakfast. He is in no acute distress, he is alert and oriented 3. Hemodynamically stable and is currently on no inotropic or pressor support. Oxygen saturations are 97% on room air. - Constitutional General appearance: Present: average body habitus, cooperative, no acute distress - EENT Eyes: Present: PERRLA, normal appearance. Absent: scleral icterus ENT: Present: hearing grossly normal, normal oropharynx - Neck Details: Neck is supple, no JVD. Neck: Absent: lymphadenopathy, stridor, thyromegaly - Respiratory Details: Lung sounds are essentially clear to his upper lobes with few scattered expiratory wheezes. Diminished to his right lower lobe. Respirations are symmetrical and nonlabored. Oxygen saturation 97% on room air. Achieving 2001 L on his incentive spirometry. Right pleural chest tube remains in place to water seal. No air leak is present. Draining thin serosanguineous drainage with 50 mL output in the last 24 hours. - Cardiovascular Details: Regular rhythm and rate. S1 and S2 present, negative for S3, gallop or murmur. Trace bilateral edema. - Gastrointestinal Gastrointestinal Comment(s): Abdomen is soft, nontender and nondistended. Active bowel sounds present in all 4 abdominal quadrants. No guarding or rigidity. No organomegaly appreciated. Tolerating oral intake. - Genitourinary Genitourinary Comment(s): Voiding clear [place] urine. - Integumentary Integumentary Comment(s): Skin is warm and dry. No clubbing or cyanosis is present. Subxiphoid incision is clean, dry and approximated. No drainage or redness is present. - Neurologic Neurologic: Present: CNII-XII intact - Musculoskeletal Musculoskeletal: Present: gait normal, strength equal bilaterally - Psychiatric Psychiatric: Present: A&O x's 3, appropriate affect, intact judgment & insight - Labs CBC & Chem 7: 10/13/19 04:35 10/13/19 04:35 Labs: Abnormal Lab Results - Last 24 Hours (Table) 10/13/19 10/13/19 Range/Units 04:35 04:35 WBC 12.4 H (3.8-10.6) k/uL RBC 2.59 L (4.30-5.90) m/uL Hgb 7.2 L D (13.0-17.5) gm/dL Hct 23.7 L (39.0-53.0) % MCHC 30.3 L (31.0-37.0) g/dL Plt Count 866 H (150-450) k/uL Neutrophils # 9.6 H (1.3-7.7) k/uL Sodium 135 L (137-145) mmol/L Creatinine 0.64 L (0.66-1.25) mg/dL Calcium 8.1 L (8.4-10.2) mg/dL Total Protein 5.1 L (6.3-8.2) g/dL Albumin 2.2 L (3.5-5.0) g/dL Microbiology - Last 24 Hours (Table) 10/08/19 08:40 Blood Culture - Preliminary Blood No Growth after 120 hours 10/10/19 22:22 Blood Culture - Preliminary Blood No Growth after 48 hours Assessment and Plan Plan: 1 Acute hypoxic respiratory failure secondary to a large right lung empyema, post pigtail catheter drainage of purulent material, post video-assisted thoracoscopy and limited decortication of the right lung and the patient is postop day # 7 and the patient has a chest tube in place. The cultures of Streptococcus and the patient remains on IV Unasyn. The Jerica cultured is probably not it showed infection or corneal infection. This is likely a colonizer. On today's evaluation, the chest tube is in place, output is diminished on the right-sided chest tube and the chest x-ray findings are essentially stable with ongoing consolidation of the right lung. The rest of the tubes including the pigtail catheter and the pericardial tube have been removed. 2 right lung pneumonia with right lung empyema formation, secondary to Strepto coccus currently on Unasyn post-surgical drainage. 3 Moderate pericardial effusion with no evidence of tamponade, post pericardial window and the fluid was essentially serious, post pericardial window and the pericardial tube is in place, output is diminished and the cultures from the pericardial tube is negative thus far. The pericardial tube was removed. 4 Leukocytosis secondary to above, improving 5 History of mild intermittent chronic bronchial asthma 6 Chronic and ongoing tobacco dependence 7 History of marijuana use 8 History of previous cocaine use 9 History of incarceration 10 History of depression with previous inpatient treatment 11 episodic hemoptysis is related to alteplase treatment Plan Monitor fever pattern , this has already improved monitor white cell count, improving Continue using incentive spirometer Pain control is improved Agree on IV Unasyn Diflucan per ID Encourage ambulation and activity Suggest repeating CAT scan probably the next 24-48 hours to reevaluate the right lung consolidation especially that area and the right midlung involving the mi nor fissure with the patient may have a either a pseudotumor or located abscess or an area of consolidation. A repeat CAT scan may clarify this further. Keep the right-sided chest tube in place.
--- NOTE | 2019-10-13 14:29 | PN ---
PROGRESS NOTE This is a 19-year-old gentleman who was admitted to the hospital with empyema, pericardial effusion and pneumomediastinum. The patient had a pericardial window also. The patient seemed to be doing well. His vital signs are stable. He denies any chest pain. He still has a chest tube. Otherwise, patient is clinically stable. His blood pressure is running about 109/67, pulse is about 63, respirations 17, saturation 95%. Afebrile. Physical examination: Lungs appear to be clear. Heart is regular. No JVD or peripheral edema. LAB VALUES: Showed a white count of 12.4, hemoglobin is 7.2. His BUN is 17, creatinine is 0.64. The liver function tests are normal. Albumin level is low. IMPRESSION: Empyema and pericardial effusion, currently seem to be stable. This patient still has problems with anemia, hypoalbuminemia. From cardiac standpoint, patient seems to be stable. MMODL / IJN: [id number] /
--- NOTE | 2019-10-13 23:27 | PN ---
PROGRESS NOTE DATE OF SERVICE: 10/13/2019 REASON FOR FOLLOWUP: Empyema and purulent pericarditis. INTERVAL HISTORY: The patient is currently afebrile. Patient is breathing comfortably. Denies having any chest pain. Minimal cough. No nausea, no vomiting. No abdominal pain. His diarrhea has resolved. PHYSICAL EXAMINATION: Blood pressure is 108/61 with pulse of 96, temperature 98.3. He is 96% on room air. General description is a young male up in the chair in no distress. RESPIRATORY SYSTEM: Unlabored breathing, clear to auscultation anteriorly. HEART: S1, S2. Regular rate and rhythm. ABDOMEN: Soft, no tenderness. LABS: Hemoglobin is 7.2, white count 12.4, BUN of 17, creatinine 0.64. DIAGNOSTIC IMPRESSION AND PLAN: Patient with empyema and purulent pericarditis, status post thoracotomy, chest tube and pericardial window. The patient is covered with Unasyn and Diflucan. Will monitor his clinical course closely. Continue with supportive care. MMODL / IJN: [id number] /
[2019-10-14] MEDS: IPRATROPIUM-ALBUTEROL 3 ML NEB INHALATION PRN ×3 (01:38→12:06)
--- NOTE | 2019-10-14 01:48 | PN ---
PROGRESS NOTE This is a 19-year-old gentleman still in the ICU, broad-spectrum antibiotics, one chest tube on the right side of the chest still in place. Postop day 7, doing well. No new complaints. No air leak. Slightly purulent fluid out of the tube, 50 mL drained in the last 24 hours. Hemoptysis is resolved. Chest x-ray is unchanged. Remains on Unasyn and Diflucan. No fever or chills. White count 12.4, hemoglobin 7.2. Blood cultures no growth after 48 hour. Ambulating. Awaiting for discharge to telemetry, regular floor, out of the ICU. PHYSICAL EXAMINATION: Vital signs reviewed, . CARDIOVASCULAR: S1, S2. No rubs. LUNGS: Essentially clear. GI: Soft. HEMATOLOGY: Negative Homans. MUSCULOSKELETAL: Range of motion full. White count 12.4, hemoglobin 7.2, BUN 17, creatinine 0.64. ASSESSMENT: 1. Acute hypoxemic respiratory failure secondary to large right lung pneumonia with empyema. Remains on Unasyn. 2. Moderate pericardial effusion, improving. 3. Bronchial asthma. Monitor for fevers, white count. Continue antibiotics. Possible assess right lung consolidation with CAT scan in the next few days. Possible chest tube removal. Please see further orders. ICU TIME: 30 minutes. MMODL / IJN: [id number] /
[2019-10-14] MEDS: HYDROcodone/APAP 5-325MG 1 EACH TAB PO PRN ×4 (03:18→19:32)
[2019-10-14 04:29] LABS: Basophils % (A) 0 %; Eosinophils # (A) 0.3 k/uL (0-0.7); Eosinophils % (A) 2 %; HCT 25.4 % (39.0-53.0); Hypochromasia Slight; Lymphocytes # (A) 1.9 k/uL (1.0-4.8); Lymphocytes % (A) 15 %; MCH 28.4 pg (25.0-35.0); MCHC 31.3 g/dL (31.0-37.0); MCV 90.8 fL (80.0-100.0); Mean Platelet Volume 6.8; Monocytes # (A) 0.7 k/uL (0-1.0); Monocytes % (A) 6 %; Neutrophils # (A) 9.5 k/uL (1.3-7.7); Neutrophils % (A) 76 %; WBC 12.5 k/uL (3.8-10.6)
[2019-10-14 04:46] LABS: Platelet Count 1039 k/uL (150-450)
[2019-10-14 04:47] LABS: ALT 58 U/L (4-49); AST 49 U/L (17-59); African American GFR (CKD) >90 (>60 ml/min/1.73 sqM); Albumin 2.4 g/dL (3.5-5.0); Alkaline Phosphatase 154 U/L (38-126); Anion Gap 10 mmol/L; Blood Urea Nitrogen 9 mg/dL (9-20); Calcium 8.2 mg/dL (8.4-10.2); Carbon Dioxide 23 mmol/L (22-30); Chloride 100 mmol/L (98-107); Glucose 91 mg/dL (74-99); Non-African American GFR(CKD) >90 (>60 ml/min/1.73 sqM); Potassium 4.5 mmol/L (3.5-5.1); Sodium 133 mmol/L (137-145); Total Bilirubin 0.5 mg/dL (0.2-1.3); Total Protein 5.4 g/dL (6.3-8.2)
[2019-10-14] MEDS: AMPICILLIN-SULBACTAM 3 GM in SODIUM CHLORIDE 0.9% 100 ML IVPB SCH ×3 (05:26→19:25)
[2019-10-14] MEDS: HEPARIN SODIUM,PORCINE 5,000 UNIT/ML 1 ML VIAL SQ SCH ×2 (08:02→16:42)
--- NOTE | 2019-10-14 09:11 | XR ---
EXAMINATION TYPE: XR chest 1V portable DATE OF EXAM: 10/14/2019 COMPARISON: Prior chest x-ray 10/13/2019 HISTORY: Postop pericardial window, chest tube and empyema TECHNIQUE: Single frontal view of the chest is obtained. FINDINGS: Right-sided chest tube remains in place. Pleural parenchymal changes show a similar appear ance. Density in the right mid chest may be related to pseudotumor. No evident pneumothorax or interv al change in heart size. Heart size may be accentuated by rotation. There are overlying cardiac leads . IMPRESSION: Findings are similar to prior exam.
--- NOTE | 2019-10-14 09:30 | P.PN ---
Subjective Progress Note Date: 10/14/19 Principal diagnosis: Pneumomediastinum, right pleural effusion and pericardial effusion. This is a 19-year-old gentleman who is followed by Dr. Ivan Whyte on an outpatient basis. He has a past medical history significant for asthma, anxiety, chronic ongoing tobacco abuse and daily marijuana use. In his history, it reports a history of cocaine use although the patient is denying any cocaine use. He reports that he has been having symptoms of progressive shortness of breath with severe chest pain radiating across his upper chest and to his lower chest mainly on his right side for the past couple of weeks. He is sought medical attention at [facility] for the above-mentioned symptoms last week, and reports he was diagnosed with panic attacks and discharged with outpatient treatment of Z-Calos, steroids and pain medication. He also was seen in the emergency department here on Monday10/01/2019 in which he was treated with Valium and Toradol with improvement in his symptoms and was to follow-up with his primary care physician. The patient also reports that he had fever, chills and a productive cough with thick white sputum, frequent episodes of wheezing and occasional coughing fits. He denies any complaints of nausea, vomiting, constipation, diarrhea, difficulty swallowing, hemoptysis, or hematemesis. A chest x-ray was completed during his visit here on 10/01/2019 which demonstrated a right basilar subsegmental consolidation, which showed possible interstitial or viral pneumonitis with basilar infiltrate favored over venous congestion per the report. Subsequently due to the patient's complaints of progressive shortness of breath and chest discomfort he presented to the emergency department here at [facility] early this morning. A CT angio of his chest was completed which demonstrated no evidence of pulmonary embolus, but did show a large right pleural effusion, significant infiltrate and atelectasis in the right lower lobe, a moderate pericardial effusion and pneumomediastinum concerning for possibility of perforated esophagus. For further evaluation a computed tomography scan of his abdomen/pelvis with contrast was completed which redemonstrated a large right pleural effusion, a small left pleural effusion and mild low density free fluid in the pelvis. A 12-lead EKG was completed in the emergency department which showed sinus tachycardia with ST elevation in leads 1, 2, and V2 through V6 with a heart rate of 119 BPM. A 2-D echocardiogram was completed this morning which showed him to have an overall left ventricular systolic function to be mildly to moderately impaired with an ejection fraction between 40 and 45%, trace mitral valve regurgitation, mild tricuspid valve regurgitation, mild pulmonary hypertension, trace to mild to moderate valve regurgitation and a moderate predominantly p osterior pericardial effusion. The initial laboratory results in the emergency department showed a WBC count 34.2, hemoglobin 14.2, hematocrit 43.0, platelets 498, began neutrophils 6, neutrophils 32.10, d-dimer 3.17, sodium 130, chloride 95, BUN 27, creatinine 1.14, lactic acid level I.7, C reactive protein 660, and his COVID 19 test showed not detected. Due to the patient's presenting symptoms , and findings on his computed tomography scan of his chest he was admitted for further evaluation and treatment. Currently he is sitting up in his bed in the intensive care unit and continues to complain of shortness of breath and some chest discomfort radiating to his upper chest and arms. Oxygen saturations are 96% on 2 L nasal cannula and he is currently hemodynamically stable on no inotropic or pressor support. Subsequently, due to the patient's findings of right pleural effusion, pericardial effusion and pneumomediastinum consult was placed to Dr. Marcelino Martínez from cardiothoracic surgery for further evaluation and treatment recommendations. POD #[address] guided right chest pigtail catheter insertion for empyema performed by interventional radiology. POD #8 subxiphoid pericardial window and right video-assisted thoracoscopic with decortication and drainage of fluid. The patient was seen at his bedside in the intensive care unit on follow-up today 10/14/2019. He is sitting up to the bedside chair and is in no acute distress. He continues to report that he is feeling much better on a daily basis. Denies any surgical type pain at this time although is complaining of a slight headache, denies any complaints of shortness of breath. He remains hemodynamically stable and is currently on no inotropic or pressor support. Oxygen saturation are 98% on room air and he is achieving around 2000 mL on his incentive spirometry. Right pleural chest tube remains in place to water seal. No air leak is present. Draining thin serous drainage this morning with 60 mL o utput in the last 24 hours. He remains afebrile in the last 72 hours. Denies any further episodes of diarrhea, he continues on Unasyn and Diflucan which is managed by infectious disease. WBC count this morning is 12.5. He was given 1 dose of Lasix 20 mg IV 1 yesterday by pulmonary critical care with good response. He reports that he ambulated in the intensive care unit hallway 3 yesterday with minimal assistance from nursing staff. Objective - Vital Signs Vital signs: Vital Signs Temp 98.0 F 10/14/19 04:00 Pulse 102 H 10/14/19 08:33 Resp 18 10/14/19 08:00 BP 103/61 10/14/19 07:00 Pulse Ox 93 L 10/14/19 07:00 Intake & Output 10/13/19 10/14/19 10/14/19 18:59 06:59 18:59 Intake Total 2080 1020 100 Output Total 4040 1100 160 Balance -1960 -80 -60 Weight 78.4 kg Intake: IV 200 0 0 Ampicillin-Sulbactam 3 gm 200 In Sodium Chloride 0.9% 100 ml @ 200 mls/hr IVPB Q6HR [facility] Rx#:[id number] LR 0 0 0 Oral 1880 1020 100 Output: Chest Tube Drainage 40 Right Pleural 40 Urine 4000 1100 160 Other: Voiding Method Urinal Urinal Urinal # Voids 1 ABP, PAP, CO, CI - Last Documented Arterial Blood Pressure 112/44 - Exam This is a pleasant 19-year-old gentleman who is sitting up to the bedside chair in the intensive care unit. He is in no acute distress, he is alert and oriented 3. Hemodynamically stable and is currently on no inotropic or pressor support. Oxygen saturations are 98% on room air. - Constitutional General appearance: Present: average body habitus, cooperative, no acute distress - EENT Eyes: Present: PERRLA, dentition normal, normal appearance. Absent: scleral icterus ENT: Present: hearing grossly normal, normal oropharynx. Absent: thrush - Neck Details: Neck is supple, no JVD. Neck: Absent: lymphadenopathy - Respiratory Details: Lung sounds essentially clear to his bilateral upper lobes, diminished to his right lower lobe. Respirations are symmetrical and nonlabored. Oxygen saturation are 98% on room air. Achieving 2000 mL on his incentive spirometry. Right pleural chest tube remains in place to water seal. No air leak is present. Draining thin serous drainage with 60 mL output in the last 24 hours. - Cardiovascular Details: Regular rhythm and rate. S1 and S2 present, negative for S3, gallop or murmur. +1 pedal edema bilateral. Knee-high sequential compression devices in place to his bilateral lower extremities. - Gastrointestinal Gastrointestinal Comment(s): Abdomen is soft, nontender and nondistended. Active bowel sounds present all 4 abdominal quadrants. No guarding or rigidity. No organomegaly appreciated. Tolerating oral intake. - Genitourinary Genitourinary Comment(s): Voiding clear yellow urine. - Integumentary Integumentary Comment(s): Skin is warm and dry. No clubbing or cyanosis is present. Subxiphoid incision is clean, dry and approximated. No drainage or redness is present. - Neurologic Neurologic: Present: CNII-XII intact - Musculoskeletal Musculoskeletal: Present: gait normal, strength equal bilaterally - Psychiatric Psychiatric: Present: A&O x's 3, appropriate affect, intact judgment & insight - Allied health notes Allied health notes reviewed: nursing - Labs CBC & Chem 7: 10/14/19 03:37 10/14/19 03:37 Labs: Abnormal Lab Results - Last 24 Hours (Table) 10/14/19 10/14/19 Range/Units 03:37 03:37 WBC 12.5 H (3.8-10.6) k/uL RBC 2.80 L (4.30-5.90) m/uL Hgb 8.0 L (13.0-17.5) gm/dL Hct 25.4 L (39.0-53.0) % Plt Count 1039 H* (150-450) k/uL Neutrophils # 9.5 H (1.3-7.7) k/uL Sodium 133 L (137-145) mmol/L Creatinine 0.64 L (0.66-1.25) mg/dL Calcium 8.2 L (8.4-10.2) mg/dL ALT 58 H (4-49) U/L Alkaline Phosphatase 154 H (38-126) U/L Total Protein 5.4 L (6.3-8.2) g/dL Albumin 2.4 L (3.5-5.0) g/dL Microbiology - Last 24 Hours (Table) 10/10/19 22:22 Blood Culture - Preliminary Blood No Growth after 72 hours 10/08/19 08:40 Blood Culture - Preliminary Blood No Growth after 120 hours - Imaging and Cardiology Chest x-ray: report reviewed, image reviewed Assessment and Plan Assessment: 1. Dyspnea and chest discomfort secondary to right pleural effusion and pneumomediastinum, status post right video-assisted thoracoscopic with decortication and drainage of fluid 2. Moderate pericardial effusion, currently hemodynamically stable, status post subxiphoid pericardial window, pericardial fluid/tissue specimen cytology showed supprative pericarditis, subxiphoid chest tube has been discontinued on 10/10/2019. 3. Right lung pneumonia with right lung empyema formation, status post right video-assisted thoracoscopic surgery with decortication and drainage of fluid. Right pericardial pigtail catheter has been removed on 10/10/2019. 4. Leukocytosis, secondary to above, pleural fluid culture positive for alpha hemolytic streptococcus, anaerobic culture showing gram negative bacilli. 5. History of asthma 6. Chronic and ongoing tobacco dependence 7. History of daily marijuana use 8. History of cocaine use 9. History of anxiety 10. History of depression with previous inpatient treatment 11. Oral thrush, resolved Plan: 1. Keep right pleural chest tube in place to water seal. Continue to record accurate I's and O's. 2. Encourage use of his incentive spirometry 10 times every hour while awake. 3. The importance of smoking cessation was discussed and reinforced with the patient. 4. Pain control per current when necessary orders. 5. Bronchodilator and oxygen management per pulmonary critical care service. 6. May transfer to the third floor cardiac stepdown unit when okay by primary care service and other consultants. 7. Pleural fluid culture showed alpha hemolytic streptococcus, and his pleural fluid anaerobic culture showed anaerobic gram-negative bacilli, continue on Unasyn for antibiotic coverage managed by infectious disease. He was started on Diflucan 400 mg by mouth daily per infectious disease. 8. GI and DVT prophylaxis. 9. Continue to monitor daily labs and chest x-rays. Electrolyte replacement per protocol. 10. Increase diet to regular diet. 11. Increase activity as tolerated, physical and occupational therapy following. 12. May need a PICC line for outpatient antibiotic treatments. 13. More recommendations to follow based on patient's clinical course. Time with Patient: Less than 30
[2019-10-14] MEDS: FLUCONAZOLE 100 MG TAB PO SCH (09:36)
[2019-10-14] MEDS: PANTOPRAZOLE 40 MG TABLET PO SCH (09:36)
[2019-10-14] MEDS: NYSTATIN 100,000 UNIT/ML SUSP 500,000 UNIT/5 ML CUP PO SCH ×4 (09:37→21:01)
--- NOTE | 2019-10-14 12:49 | PN ---
PROGRESS NOTE Torsten is a 19-year-old gentleman who was admitted to hospital with empyema, pneumomediastinum and pericardial effusion. He is feeling much better. Denies chest pain, difficulty in breathing, palpitations. He still has the right chest tube in. PHYSICAL EXAM: Heart rate is 98 beats per minute, blood pressure is 103/60, respiratory rate is 18. Chest exam reveals diminished air entry at the right base. Heart exam reveals first and second heart sounds. No gallop. Abdomen is soft. Exam of the extremities did not reveal any edema. Peripheral pulses are palpable. Labs show a hemoglobin of 8, platelet count is elevated. Potassium is 4.5, creatinine is 0.6. His blood cultures have been negative. Fluid cultures have shown hemolytic Streptococcus and Jerica albicans. A repeat echocardiogram on him from Monday had shown a small pericardial effusion which has improved compared to the previous echo. ASSESSMENT: Pericardial effusion status post pericardial window, empyema and pneumomediastinum, status post chest tube placement. PLAN: Patient has improved significantly. Once the chest tube comes out, we should be able to discharge him home. MMODL / IJN: [id number] /
--- NOTE | 2019-10-14 14:09 | P.PN ---
Subjective Progress Note Date: 10/14/19 Principal diagnosis: Acute hypoxic respiratory failure secondary to right-sided empyema On today's evaluation of 10/13/2019 the patient is postop day #7. Doing well. No new complaints. Chest tube is in place on the right side. No evidence of any air leak. Drainage was slightly purulent still in the order of 50 mL over the past 24 hours. Output has chloride diminished. Chest x-ray findings are essentially unchanged. The patient remains on Unasyn. Diflucan was added by infectious disease. No fever. No chills. White cell count is at 4.4. Hemoglobin is at 7.2. Blood cultures have shown no growth and is at the last blood cultures that have shown no growth after 48 hours. He is ambulating. He is using incentive spirometer. Has no specific complaint otherwise for now. Patient was reevaluated today on 10/14/19, patient is on room air, sating at a bedside chair, O2 saturations 93%. Continues to have right-sided pleural chest to, drained about 40 mL in the last 24 hours. Patient remains on antibiotics as per infectious disease. He is in no distress, doing well with incentive spirometry, moving about 2000 mL easily. Patient is even ambulating in the ICU carrying his right sided pleural VAC without any discomfort. Labs were reviewed, WBC count is 12.5 hemoglobin is 8 lites are normal renal profile is normal platelets are on the rise reflecting a picture of reactive thrombocythemia Objective - Vital Signs Vital signs: Vital Signs Temp 98.0 F 10/14/19 04:00 Pulse 96 10/14/19 12:18 Resp 16 10/14/19 12:00 BP 112/60 10/14/19 12:00 Pulse Ox 98 10/14/19 12:00 Intake & Output 10/13/19 10/14/19 10/14/19 18:59 06:59 18:59 Intake Total 2080 1020 100 Output Total 4040 1100 160 Balance -1959 -80 -60 Weight 78.4 kg Intake: IV 200 0 0 Ampicillin-Sulbactam 3 gm 200 In Sodium Chloride 0.9% 100 ml @ 200 mls/hr IVPB Q6HR [facility] Rx#:[id number] LR 0 0 0 Oral 1880 1020 100 Output: Chest Tube Drainage 40 Right Pleural 40 Urine 4000 1100 160 Other: Voiding Method Urinal Urinal Urinal # Voids 1 ABP, PAP, CO, CI - Last Documented Arterial Blood Pressure 112/44 - Exam Physical Exam: Revealed a 19-year-old white male in no distress. Head: Atraumatic normocephalic. HEENT:[Neck is supple.] [No neck masses.] [No thyromegaly.] [No JVD.] Chest: [Symmetrical chest expansion, right-sided chest tube is noted connected to a Pleur-evac, minimal crackles at the right base. Left side is clear. Cardiac Exam: [Normal S1 and S2, no S3 gallop, no murmur.] Abdomen: [Soft, nontender, no megaly, no rebound, no guarding, normal bowel sounds.] Extremities: [No clubbing, no edema, no cyanosis.] Neurological Exam: [No focal neurologic deficit.] Alert and oriented 3. Skin: No rashes. Psychiatric: Normal mood affect and normal mental status examination. - Labs CBC & Chem 7: 10/14/19 03:37 10/14/19 03:37 Labs: Abnormal Lab Results - Last 24 Hours (Table) 10/14/19 10/14/19 Range/Units 03:37 03:37 WBC 12.5 H (3.8-10.6) k/uL RBC 2.80 L (4.30-5.90) m/uL Hgb 8.0 L (13.0-17.5) gm/dL Hct 25.4 L (39.0-53.0) % Plt Count 1039 H* (150-450) k/uL Neutrophils # 9.5 H (1.3-7.7) k/uL Sodium 133 L (137-145) mmol/L Creatinine 0.64 L (0.66-1.25) mg/dL Calcium 8.2 L (8.4-10.2) mg/dL ALT 58 H (4-49) U/L Alkaline Phosphatase 154 H (38-126) U/L Total Protein 5.4 L (6.3-8.2) g/dL Albumin 2.4 L (3.5-5.0) g/dL Microbiology - Last 24 Hours (Table) 10/06/19 13:26 Fungal Culture - Preliminary Other - Other 10/06/19 13:26 Fungal Culture - Preliminary Other - Other 10/04/19 12:51 Fungal Culture - Preliminary Aspirate 10/08/19 08:40 Blood Culture - Final Blood No Growth after 144 hours 10/10/19 22:22 Blood Culture - Preliminary Blood No Growth after 72 hours Assessment and Plan Assessment: Impression: Acute hypoxic respiratory failure secondary to right-sided empyema. Acute right lung pneumonia and empyema secondary to Streptococcus Moderate pericardial effusion without temporal not status post pericardial window History of mild intermittent asthma Chronic tobacco dependence syndrome History of previous cocaine abuse. History of depression Recommendation: Continue antibiotics. Patient is now on Unasyn and Diflucan as per ID. Continue chest tube Continue incentive spirometry. Continue bronchodilators. Continue ambulation and increase activity as tolerated. Transfer patient out of the ICU to a regular medical floor We will continue to follow. Time with Patient: Less than 30
[2019-10-14] MEDS: CHOLESTYRAMINE (WITH SUGAR) 4 GM PACKET PO SCH ×2 (16:37→16:42)
--- NOTE | 2019-10-14 17:38 | PN ---
PROGRESS NOTE DATE OF SERVICE: 10/14/2019. REASON FOR FOLLOWUP: Empyema and peritonitis. INTERVAL HISTORY: The patient is currently afebrile, patient is breathing comfortably. Patient denies having any chest pain, shortness of breath. Minimal cough. No nausea. No abdominal pain. Diarrhea has resolved. PHYSICAL EXAMINATION: Blood pressure 112/60 with a pulse of 86, temperature 98.6, saturation is 98% on room air. General description is an young male, up in the chair in no distress. RESPIRATORY SYSTEM: Unlabored breathing, clear to auscultation anteriorly. HEART: S1, S2. Regular rate and rhythm. ABDOMEN: Soft, no tenderness. LABS: Hemoglobin 8 with a white count 5.5. BUN of 9, creatinine 0.64. DIAGNOSTIC IMPRESSION AND PLAN: Patient with right-sided empyema and pericarditis, status post thoracotomy and pericardial window. Patient culture with alpha hemolytic streptococcus, anaerobes and Jerica. Patient is covered with Unasyn and Diflucan to continue with plan for outpatient IV antibiotic, continue with supportive care. MMODL / IJN: [id number] / MTDD
--- NOTE | 2019-10-14 17:51 | P.PN ---
Subjective Progress Note Date: 10/14/19 This is a 19-year-old gentleman admitted with pericardial effusion, empyema, status post pericardial window. Patient is status post 3 rounds of alteplase. Chest x-ray reporting no significant interval change in the appearance of the chest; pleural parenchymal changes in the right hemothorax, subcutaneous emphysema with no evident pneumothorax. Mediastinal and patient tell chest tubes discontinued this morning. Right pleural chest tube remains. Continues spitting up bloody sputum. Hemoglobin decreased to 8. Borderline hypotension. No tachycardia. T-max 101, WBC down to 12.3. Prior cultures reporting alpha and streptococcus with anaerobic gram-negative bacilli. Sputum, repeat pleural fluid cultures pending. Maintained on Unasyn as per infectious disease.Sodium 133. Incentive spirometer ranging from [id number]. Maintaining O2 sats in the 90s on room air. Telemetry sinus rhythm. 10/11/2019 T-max 101, WBC up to 13.2. Repeat anaerobic pleural fluid reporting alpha hemolytic streptococcus,. Maintained on Unasyn. Hemoglobin trending down and currently 7.4, platelets 743. Alk phos up to 130. Scheduled for follow-up CT, echo this morning. Feeling better, reports pain better controlled. incentive spirometer up to 1999. Chest x-ray reporting stable right-sided consolidation and pleural effusion. Maintaining O2 sats in the 90s on room air. Telemetry sinus rhythm. 10/14/2019 Right pleural chest tube remains with minimal drainage in the last 24 hours. Maintaining O2 sats in the 90s on room air. Incentive spirometer up to 1500 tp 1999. Chest x-ray reporting similar to prior. Ambulating, tolerating exertion well. Maintained on Unasyn, Diflucan as per infectious disease. Hemoglobin 8, platelets 1039, renal function normal, lytes normal. Afebrile, denies chest pain, palpitations or increased shortness of breath. No further diarrhea. Objective - Vital Signs Vital signs: Vital Signs Temp 98.0 F 10/14/19 04:00 Pulse 89 10/14/19 13:00 Resp 14 10/14/19 16:00 BP 112/60 10/14/19 13:00 Pulse Ox 96 10/14/19 13:00 Intake & Output 10/13/19 10/14/19 10/14/19 18:59 06:59 18:59 Intake Total 2080 1020 300 Output Total 4040 1100 660 Balance -195980 -360 Weight 78.4 kg Intake: IV 200 0 100 Ampicillin-Sulbactam 3 gm 200 100 In Sodium Chloride 0.9% 100 ml @ 200 mls/hr IVPB Q6HR [facility] Rx#:[id number] LR 0 0 0 Oral 1880 1020 200 Output: Chest Tube Drainage 40 Right Pleural 40 Urine 4000 1100 660 Other: Voiding Method Urinal Urinal Urinal # Voids 1 ABP, PAP, CO, CI - Last Documented Arterial Blood Pressure 112/44 - Exam PHYSICAL EXAM: VITAL SIGNS: As above GENERAL: Sitting up in chair, no acute distress HEENT: Conjunctivae normal. eyes normal. Oral thrush. NECK: No JVD. No thyroid enlargement. No LNs CARDIOVASCULAR: S1, S2 regular.. No murmur, positive rub RESPIRATION: Breath sounds diminished in the bases. Right pleural chest tube with minimal drainage. ABDOMEN: Soft, nontender . No guarding. no masses palpable. Bowel sounds heard. LEGS: No edema. no swelling PSYCHIATRY: Alert and oriented X3, mood and affect normal. NERVOUS SYSTEM: Cranial N 2-12 grossly normal. Moves all 4 limbs. No focal deficits. Strength and sensation grossly intact.. Skin: no rash Microbiology 10/06/19 13:26 Other - Other Fungal Culture - Preliminary 10/06/19 13:26 Other - Other Fungal Culture - Preliminary 10/04/19 12:51 Aspirate Fungal Culture - Preliminary 10/08/19 08:40 Blood Blood Culture - Final No Growth after 144 hours 10/10/19 22:22 Blood Blood Culture - Preliminary No Growth after 72 hours 10/08/19 09:25 Pleural Fluid Gram Stain - Final 10/08/19 09:25 Pleural Fluid Body Fluid Culture - Final Alpha Hemolytic Streptococcus Jerica albicans 10/08/19 16:00 Sputum Gram Stain - Final 10/08/19 16:00 Sputum Sputum Culture - Final 10/06/19 13:26 Other - Other Anaerobic Culture - Final 10/06/19 13:26 Other - Other Anaerobic Culture - Final 10/06/19 13:26 Other - Other Gram Stain - Final 10/06/19 13:26 Other - Other Tissue Culture - Final 10/04/19 03:55 Blood Blood Culture - Final No Growth after 144 hours 10/06/19 13:26 Other - Other Gram Stain - Final 10/06/19 13:26 Other - Other Wound Culture - Final 10/04/19 12:51 Pleural Fluid Anaerobic Culture - Final Anaerobic Gm Negative Bacilli 10/04/19 12:51 Pleural Fluid Gram Stain - Final 10/04/19 12:51 Pleural Fluid Body Fluid Culture - Final Alpha Hemolytic Streptococcus 10/04/19 12:51 Aspirate Acid Fast Bacilli Smear - Final 10/04/19 12:51 Aspirate Acid Fast Bacilli Culture - Preliminary - Labs CBC & Chem 7: 10/14/19 03:37 10/14/19 03:37 Labs: Abnormal Lab Results - Last 24 Hours (Table) 10/14/19 10/14/19 Range/Units 03:37 03:37 WBC 12.5 H (3.8-10.6) k/uL RBC 2.80 L (4.30-5.90) m/uL Hgb 8.0 L (13.0-17.5) gm/dL Hct 25.4 L (39.0-53.0) % Plt Count 1039 H* (150-450) k/uL Neutrophils # 9.5 H (1.3-7.7) k/uL Sodium 133 L (137-145) mmol/L Creatinine 0.64 L (0.66-1.25) mg/dL Calcium 8.2 L (8.4-10.2) mg/dL ALT 58 H (4-49) U/L Alkaline Phosphatase 154 H (38-126) U/L Total Protein 5.4 L (6.3-8.2) g/dL Albumin 2.4 L (3.5-5.0) g/dL Microbiology - Last 24 Hours (Table) 10/06/19 13:26 Fungal Culture - Preliminary Other - Other 10/06/19 13:26 Fungal Culture - Preliminary Other - Other 10/04/19 12:51 Fungal Culture - Preliminary Aspirate 10/08/19 08:40 Blood Culture - Final Blood No Growth after 144 hours 10/10/19 22:22 Blood Culture - Preliminary Blood No Growth after 72 hours Assessment and Plan Assessment: Moderate Pericardial effusion, right-sided empyema , pericarditis, status post thoracotomy and pericardial window. Repeat anaerobic pleural fluid reporting alpha hemolytic streptococcus and jerica Right lung pneumonia Leukocytosis secondary to the above Acute blood loss anemia Ongoing nicotine dependence Chronic bronchial asthma, intermittent History of marijuana use Prior cocaine use History of depression Plan: Continue on current medication regime ,monitoring and symptomatic treat ment. Maintain IV antibiotics,aggressive pulmonary toileting with incentive spirometer reinforced. Increase ambulation as tolerated. Patient has been cleared by desulfurizer operator for transfer out of ICU. Further recommendations to follow. The impression and plan of care has been dictated as directed. : I performed a history and examination of this patient, discussed the same with the dictator. I agree with the dictator's note ,documented as a scribe. Any additional findings or plans will be noted.
[2019-10-14] MEDS: ACETAMINOPHEN TAB 325 MG TAB PO PRN (22:20)
[2019-10-14] MEDS: ZOLPIDEM 5 MG TAB PO PRN (22:21)
[2019-10-15] MEDS: AMPICILLIN-SULBACTAM 3 GM in SODIUM CHLORIDE 0.9% 100 ML IVPB SCH ×3 (00:03→12:32)
[2019-10-15] MEDS: HEPARIN SODIUM,PORCINE 5,000 UNIT/ML 1 ML VIAL SQ SCH ×3 (00:04→16:28)
[2019-10-15] MEDS: HYDROcodone/APAP 5-325MG 1 EACH TAB PO PRN (01:44)
--- NOTE | 2019-10-15 07:24 | XR ---
EXAMINATION TYPE: XR chest 1V portable DATE OF EXAM: 10/15/2019 CLINICAL HISTORY: Difficulty breathing progress study. Status post VATS. TECHNIQUE: Single AP portable frontal view of the chest is obtained. COMPARISON: Chest x-ray from one day earlier and older studies. CT chest 4 days ago. FINDINGS: Persistent right lateral chest tube with continued resolution of adjacent subcutaneous emp hysema. Suspect stable small right basilar lateral pneumothorax along course of chest tube. Persisten t small right pleural fluid collection extending into fissure with associated right mid to lower lung atelectasis and/or infiltrate. Right sided rotation on current study. Left lung remains clear. Cardi ac silhouette size stable and upper limits of normal. Osseous structures are intact. IMPRESSION: Overall stable findings, right-sided chest tube with residual bilateral basilar tiny pn eumothorax. Persistent small right pleural fluid collection and associated right mid to lower lung ac jacquelyn infiltrate and/or atelectasis.
[2019-10-15] MEDS: IPRATROPIUM-ALBUTEROL 3 ML NEB INHALATION PRN (07:56)
[2019-10-15] MEDS: CHOLESTYRAMINE (WITH SUGAR) 4 GM PACKET PO SCH (09:26)
[2019-10-15] MEDS: FLUCONAZOLE 100 MG TAB PO SCH (09:26)
[2019-10-15] MEDS: PANTOPRAZOLE 40 MG TABLET PO SCH (09:26)
[2019-10-15] MEDS: NYSTATIN 100,000 UNIT/ML SUSP 500,000 UNIT/5 ML CUP PO SCH ×2 (09:27→12:32)
--- NOTE | 2019-10-15 09:35 | P.PN ---
Subjective Progress Note Date: 10/15/19 Principal diagnosis: Pneumomediastinum, right pleural effusion and pericardial effusion. This is a 19-year-old gentleman who is followed by Dr. Ivan Whyte on an outpatient basis. He has a past medical history significant for asthma, anxiety, chronic ongoing tobacco abuse and daily marijuana use. In his history, it reports a history of cocaine use although the patient is denying any cocaine use. He reports that he has been having symptoms of progressive shortness of breath with severe chest pain radiating across his upper chest and to his lower chest mainly on his right side for the past couple of weeks. He is sought medical attention at [facility] for the above-mentioned symptoms last week, and reports he was diagnosed with panic attacks and discharged with outpatient treatment of Z-Calos, steroids and pain medication. He also was seen in the emergency department here on Monday10/01/2019 in which he was treated with Valium and Toradol with improvement in his symptoms and was to follow-up with his primary care physician. The patient also reports that he had fever, chills and a productive cough with thick white sputum, frequent episodes of wheezing and occasional coughing fits. He denies any complaints of nausea, vomiting, constipation, diarrhea, difficulty swallowing, hemoptysis, or hematemesis. A chest x-ray was completed during his visit here on 10/01/2019 which demonstrated a right basilar subsegmental consolidation, which showed possible interstitial or viral pneumonitis with basilar infiltrate favored over venous congestion per the report. Subsequently due to the patient's complaints of progressive shortness of breath and chest discomfort he presented to the emergency department here at [facility] early this morning. A CT angio of his chest was completed which demonstrated no evidence of pulmonary embolus, but did show a large right pleural effusion, significant infiltrate and atelectasis in the right lower lobe, a moderate pericardial effusion and pneumomediastinum concerning for possibility of perforated esophagus. For further evaluation a computed tomography scan of his abdomen/pelvis with contrast was completed which redemonstrated a large right pleural effusion, a small left pleural effusion and mild low density free fluid in the pelvis. A 12-lead EKG was completed in the emergency department which showed sinus tachycardia with ST elevation in leads 1, 2, and V2 through V6 with a heart rate of 119 BPM. A 2-D echocardiogram was completed this morning which showed him to have an overall left ventricular systolic function to be mildly to moderately impaired with an ejection fraction between 40 and 45%, trace mitral valve regurgitation, mild tricuspid valve regurgitation, mild pulmonary hypertension, trace to mild to moderate valve regurgitation and a moderate predominantly p osterior pericardial effusion. The initial laboratory results in the emergency department showed a WBC count 34.2, hemoglobin 14.2, hematocrit 43.0, platelets 498, began neutrophils 6, neutrophils 32.10, d-dimer 3.17, sodium 130, chloride 95, BUN 27, creatinine 1.14, lactic acid level I.7, C reactive protein 660, and his COVID 19 test showed not detected. Due to the patient's presenting symptoms , and findings on his computed tomography scan of his chest he was admitted for further evaluation and treatment. Currently he is sitting up in his bed in the intensive care unit and continues to complain of shortness of breath and some chest discomfort radiating to his upper chest and arms. Oxygen saturations are 96% on 2 L nasal cannula and he is currently hemodynamically stable on no inotropic or pressor support. Subsequently, due to the patient's findings of right pleural effusion, pericardial effusion and pneumomediastinum consult was placed to Dr. Marcelino Martínez from cardiothoracic surgery for further evaluation and treatment recommendations. POD #[address] guided right chest pigtail catheter insertion for empyema performed by interventional radiology. POD #9 subxiphoid pericardial window and right video-assisted thoracoscopic with decortication and drainage of fluid. On 10/15/2019 the patient was seen in follow-up at his bedside in the intensive care unit. He is sitting up to the bedside chair and is in no acute distress. He is alert, oriented 3 and remains hemodynamically stable. He is complaining of left shoulder pain this morning and denies any complaints of shortness of breath. Denies any further episodes of hemoptysis. Oxygen saturation are 96% on room air and is achieving 1500 mL on his incentive spirometry. Right pleural chest tube remains in place to water seal. No air leak is present. Draining thin serous drainage with 60 mL output the last 24 hours. He remains on Unasyn and Diflucan for antibiotic coverage which is being managed by infectious disease. Bedside telemetry is showing normal sinus rhythm heart rate 98. He reports he has been ambulating several times in the intensive care unit hallway independently. Transfer orders were placed yesterday for cardiac stepdown unit, although due to lack of bed availability he remains in the intensive care unit. He has been afebrile the last 24 hours. Objective - Vital Signs Vital signs: Vital Signs Temp 98.1 F 10/15/19 05:59 Pulse 103 H 10/15/19 08:08 Resp 20 10/15/19 05:59 BP 98/63 10/15/19 05:59 Pulse Ox 94 L 10/15/19 05:59 Intake & Output 10/14/19 10/15/19 10/15/19 18:59 06:59 18:59 Intake Total 300 120 Output Total 660 830 Balance -360 -710 Intake: IV 100 120 Ampicillin-Sulbactam 3 gm 100 100 In Sodium Chloride 0.9% 100 ml @ 200 mls/hr IVPB Q6HR [facility] Rx#:[id number] LR 0 20 Oral 200 Output: Chest Tube Drainage 30 Right Pleural 30 Urine 660 800 Other: Voiding Method Urinal # Voids 3 ABP, PAP, CO, CI - Last Documented Arterial Blood Pressure 112/44 - Exam This is a pleasant 19-year-old gentleman who is sitting up to the bedside chair in the intensive care unit. He is in no acute distress, he is alert and oriented 3. Hemodynamically stable and is currently on no inotropic or pressor support. Oxygen saturations are 96% on room air. - Constitutional General appearance: Present: average body habitus, cooperative, no acute distress - EENT Eyes: Present: PERRLA, normal appearance. Absent: scleral icterus ENT: Present: hearing grossly normal, normal oropharynx. Absent: thrush - Neck Details: Neck is supple, no JVD. Neck: Absent: lymphadenopathy - Respiratory Details: Lung sounds with few scattered expiratory wheezes throughout. No crackles or rhonchi. Respirations are symmetrical and nonlabored. Oxygen saturation are 96% on room air. Right pleural chest tube remains in place to water seal. No air leak is present. Draining thin serous drainage with 60 mL output in the last 24 hours. Achieving 1500 mL on his incentive spirometry. - Cardiovascular Details: Regular rhythm and rate. S1 and S2 present, negative for S3, gallop or murmur. Knee-high sequential compression devices in place to his bilateral lower extremities. Bedside telemetry showing normal sinus rhythm heart rate 98. - Gastrointestinal Gastrointestinal Comment(s): Abdomen is soft, nontender and nondistended. Active bowel sounds present in all 4 abdominal quadrants. No guarding or rigidity. No organomegaly appreciated. Tolerating oral intake. - Genitourinary Genitourinary Comment(s): Voiding clear [place] urine. - Integumentary Integumentary Comment(s): Skin is warm and dry. No clubbing or cyanosis is present. No rash or abnormal pigmentation is present. Subxiphoid incision is clean, dry and approximated. No drainage or redness is present. - Neurologic Neurologic: Present: CNII-XII intact - Musculoskeletal Musculoskeletal: Present: gait normal, strength equal bilaterally - Psychiatric Psychiatric: Present: A&O x's 3, appropriate affect, intact judgment & insight - Allied health notes Allied health notes reviewed: nursing - Labs CBC & Chem 7: 10/14/19 03:37 10/14/19 03:37 Labs: Microbiology - Last 24 Hours (Table) 10/04/19 12:51 Acid Fast Bacilli Smear - Final Aspirate Acid Fast Bacilli Culture - Preliminary 10/10/19 22:22 Blood Culture - Preliminary Blood No Growth after 96 hours 10/06/19 13:26 Fungal Culture - Preliminary Other - Other 10/06/19 13:26 Fungal Culture - Preliminary Other - Other 10/04/19 12:51 Fungal Culture - Preliminary Aspirate 10/08/19 08:40 Blood Culture - Final Blood No Growth after 144 hours - Imaging and Cardiology Chest x-ray: report reviewed, image reviewed Assessment and Plan Assessment: 1. Dyspnea and chest discomfort secondary to right pleural effusion and pneumomediastinum, status post right video-assisted thoracoscopic with decortication and drainage of fluid 2. Moderate pericardial effusion, currently hemodynamically stable, status post subxiphoid pericardial window, pericardial fluid/tissue specimen cytology showed supprative pericarditis, subxiphoid chest tube has been discontinued on 10/10/2019. 3. Right lung pneumonia with right lung empyema formation, status post right video-assisted thoracoscopic surgery with decortication and drainage of fluid. Right pericardial pigtail catheter has been removed on 10/10/2019, right pleural chest tube was removed today 10/15/2019. 4. Leukocytosis, secondary to above, pleural fluid culture positive for alpha hemolytic streptococcus, anaerobic culture showing gram negative bacilli. 5. History of asthma 6. Chronic and ongoing tobacco dependence 7. History of daily marijuana use 8. History of cocaine use 9. History of anxiety 10. History of depression with previous inpatient treatment 11. Oral thrush, resolved Plan: 1. Right pleural chest tube removed without incident. 4 x 4 gauze with Vaseline impregnated gauze to cover and secured with tape. 2. Encourage use of his incentive spirometry 10 times every hour while awake. 3. The importance of smoking cessation was discussed and reinforced with the patient. 4. Pain control per current when necessary orders. 5. Bronchodilator and oxygen management per pulmonary critical care service. 6. May transfer to the third floor cardiac stepdown unit when okay by primary care service and other consultants. 7. Pleural fluid culture showed alpha hemolytic streptococcus, and his pleural fluid anaerobic culture showed anaerobic gram-negative bacilli, continue on Unasyn for antibiotic coverage managed by infectious disease. He was started on Diflucan 400 mg by mouth daily per infectious disease on 10/12/2019. 8. GI and DVT prophylaxis. 9. The patient can be discharged home when okay with primary care service and other consulting services per the cardiothoracic surgery standpoint. 10. Increase activity as tolerated, physical and occupational therapy following. 11. PICC line ordered for outpatient antibiotic treatments. 12. More recommendations to follow based on patient's clinical course. Time with Patient: Greater than 30
[2019-10-15 10:16] VITALS: BMI 26.2
[2019-10-15] MEDS: ACETAMINOPHEN TAB 325 MG TAB PO PRN (12:32)
--- NOTE | 2019-10-15 12:46 | P.PN ---
Subjective Progress Note Date: 10/15/19 Principal diagnosis: Acute hypoxic respiratory failure secondary to right-sided empyema On today's evaluation of 10/13/2019 the patient is postop day #7. Doing well. No new complaints. Chest tube is in place on the right side. No evidence of any air leak. Drainage was slightly purulent still in the order of 50 mL over the past 24 hours. Output has chloride diminished. Chest x-ray findings are essentially unchanged. The patient remains on Unasyn. Diflucan was added by infectious disease. No fever. No chills. White cell count is at 4.4. Hemoglobin is at 7.2. Blood cultures have shown no growth and is at the last blood cultures that have shown no growth after 48 hours. He is ambulating. He is using incentive spirometer. Has no specific complaint otherwise for now. Patient was reevaluated today on 10/14/19, patient is on room air, sating at a bedside chair, O2 saturations 93%. Continues to have right-sided pleural chest to, drained about 40 mL in the last 24 hours. Patient remains on antibiotics as per infectious disease. He is in no distress, doing well with incentive spirometry, moving about 2000 mL easily. Patient is even ambulating in the ICU carrying his right sided pleural VAC without any discomfort. Labs were reviewed, WBC count is 12.5 hemoglobin is 8 lites are normal renal profile is normal platelets are on the rise reflecting a picture of reactive thrombocythemia Reevaluated today on 10/15/19, patient remains in the ICU, he is basically an overflow. His chest x-ray is showing some improvement. However he has a small tiny loculated pneumothorax. Patient remains on Unasyn, and his right-sided chest tube was discontinued by thoracic surgery today. Clinically the patient is feeling great, and he could potentially be discharged home, however infectious disease on the case is recommending a PICC line and IV antibiotics on outpatient basis. WBC count today is 4.5 hemoglobin is 8 electrolytes are normal renal profile is normal patient is relatively asymptomatic. Objective - Vital Signs Vital signs: Vital Signs Temp 98.7 F 10/15/19 07:00 Pulse 103 H 10/15/19 08:08 Resp 16 10/15/19 08:00 BP 112/68 10/15/19 07:00 Pulse Ox 94 L 10/15/19 07:00 Intake & Output 10/14/19 10/15/19 10/15/19 18:59 06:59 18:59 Intake Total 300 120 Output Total 660 830 Balance -360 -710 Weight 75.575 kg 78.4 kg Intake: IV 100 120 Ampicillin-Sulbactam 3 gm 100 100 In Sodium Chloride 0.9% 100 ml @ 200 mls/hr IVPB Q6HR [facility] Rx#:[id number] LR 0 20 Oral 200 Output: Chest Tube Drainage 30 Right Pleural 30 Urine 660 800 Other: Voiding Method Urinal # Voids 3 ABP, PAP, CO, CI - Last Documented Arterial Blood Pressure 112/44 - Exam Physical Exam: Revealed a 19-year-old white male in no distress. Head: Atraumatic normocephalic. HEENT:[Neck is supple.] [No neck masses.] [No thyromegaly.] [No JVD.] Chest: [Symmetrical chest expansion, right-sided chest tube has been removed earlier today. Cardiac Exam: [Normal S1 and S2, no S3 gallop, no murmur.] Abdomen: [Soft, nontender, no megaly, no rebound, no guarding, normal bowel sounds.] Extremities: [No clubbing, no edema, no cyanosis.] Neurological Exam: [No focal neurologic deficit.] Alert and oriented 3. Skin: No rashes. Psychiatric: Normal mood affect and normal mental status examination. - Labs CBC & Chem 7: 10/14/19 03:37 10/14/19 03:37 Labs: Microbiology - Last 24 Hours (Table) 10/04/19 12:51 Acid Fast Bacilli Smear - Final Aspirate Acid Fast Bacilli Culture - Preliminary 10/10/19 22:22 Blood Culture - Preliminary Blood No Growth after 96 hours 10/06/19 13:26 Fungal Culture - Preliminary Other - Other 10/06/19 13:26 Fungal Culture - Preliminary Other - Other 10/04/19 12:51 Fungal Culture - Preliminary Aspirate 10/08/19 08:40 Blood Culture - Final Blood No Growth after 144 hours Assessment and Plan Assessment: Impression: Acute hypoxic respiratory failure secondary to right-sided empyema. Acute right lung pneumonia and empyema secondary to Streptococcus Moderate pericardial effusion without temporal not status post pericardial window History of mild intermittent asthma Chronic tobacco dependence syndrome History of previous cocaine abuse. History of depression Recommendation: Continue antibiotics. As per ID on the case, obviously infectious diseases recommending a PICC line. Discontinue chest tube. Continue incentive spirometry. Continue bronchodilators. Continue ambulation and increase activity as tolerated. Cleared from my perspective for discharge planning if cleared by other co nsultants including infectious disease on the case. Follow-up with Dr. Gonzales in 2 weeks postdischarge Time with Patient: Less than 30
--- NOTE | 2019-10-15 15:04 | PN ---
PROGRESS NOTE Torsten is a 19-year-old gentleman admitted to the hospital with empyema, pneumothorax and pericardial effusion. Chest tube is out. He is feeling much better, hopefully home later today or tomorrow. On exam, vital signs are stable. Chest exam reveals good air entry bilaterally. Heart exam reveals first and second heart sounds. No gallop. Exam of extremities did not reveal any edema. LABS: Show potassium is 4.5, creatinine is 0.6, hemoglobin is 8. ASSESSMENT: 1. Empyema. 2. Pericardial effusion. PLAN: Status post pericardial window, chest tube placement. Patient is doing well. He is stable for discharge. MMODL / IJN: [id number] /
--- NOTE | 2019-10-15 15:15 | P.DS ---
Providers Date of admission: 10/04/19 05:34 Expected date of discharge: 10/15/19 Attending physician: Ivan Whyte Consults: 10/04/19 05:34 Consult Physician Routine Consulting Provider: Cuaet Lama Consult Reason/Comments: empyema Do you want consulting provider notified?: Yes Consult Physician Urgent Consulting Provider: Weston Velasco Consult Reason/Comments: icu Do you want consulting provider notified?: Yes Consult Physician Urgent Consulting Provider: Tapan Montalvo Consult Reason/Comments: CVT Do you want consulting provider notified?: Yes 10/04/19 06:06 Consult Physician Urgent Consulting Provider: Anastasiia Quinn Consult Reason/Comments: pericardialEffusion Do you want consulting provider notified?: Yes [facility] Course: Final Diagnoses: Moderate Pericardial effusion, right-sided empyema , pericarditis, status post thoracotomy and pericardial window. Repeat anaerobic pleural fluid reporting alpha hemolytic streptococcus and yonny Right lung pneumonia Leukocytosis secondary to the above Acute blood loss anemia Ongoing nicotine dependence Chronic bronchial asthma, intermittent History of marijuana use Prior cocaine use History of depression Mild protein calorie malnutrition Hospital course:This is a 19-year-old gentleman admitted with pericardial effusion, empyema, status post pericardial window. Patient is status post 3 rounds of alteplase. Chest x-ray reporting no significant interval change in the appearance of the chest; pleural parenchymal changes in the right hemothorax, subcutaneous emphysema with no evident pneumothorax. Mediastinal and patient tell chest tubes discontinued this morning. Right pleural chest tube remains. Continues spitting up bloody sputum. Hemoglobin decreased to 8. Borderline hypotension. No tachycardia. T-max 101, WBC down to 12.3. Prior cultures reporting alpha and streptococcus with anaerobic gram-negative bacilli. Sputum, repeat pleural fluid cultures pending. Maintained on Unasyn as per infectious disease.Sodium 133. Incentive spirometer ranging from [id number]. Maintaining O2 sats in the 90s on room air. Telemetry sinus rhythm. 10/11/2019 T-max 101, WBC up to 13.2. Repeat anaerobic pleural fluid reporting alpha hemolytic streptococcus,. Maintained on Unasyn. Hemoglobin trending down and currently 7.4, platelets 743. Alk phos up to 130. Scheduled for follow-up CT, echo this morning. Feeling better, reports pain better controlled. incentive spirometer up to 1999. Chest x-ray reporting stable right-sided consolidation and pleural effusion. Maintaining O2 sats in the 90s on room air. Telemetry sinus rhythm. 10/14/2019 Right pleural chest tube remains with minimal drainage in the last 24 hours. Maintaining O2 sats in the 90s on room air. Incentive spirometer up to 1500 tp 1999. Chest x-ray reporting similar to prior. Ambulating, tolerating exertion well. Maintained on Unasyn, Diflucan as per infectious disease. Hemoglobin 8, platelets 1039, renal function normal, lytes normal. Afebrile, denies chest pain, palpitations or increased shortness of breath. No further diarrhea. Significant clinical improvement, cleared by infectious disease, pulmonary, cardiology. Patient will be discharged home in a stable condition with guarded prognosis pending final DC recommendations and clearance from cardiothoracic surgery. The impression and plan of care has been dictated as directed. : I performed a history and examination of this patient, discussed the same with the dictator. I agree with the dictator's note ,documented as a scribe. Any additional findings or plans will be noted. Patient Condition at Discharge: Stable Plan - Discharge Summary Discharge Rx Participant: Yes New Discharge Prescriptions: New Amoxicillin/Potassium Clav [Augmentin 875-125 Tablet] 1 tab PO Q12HR 14 Days #24 tab Fluconazole [Diflucan] 200 mg PO DAILY 12 Days #12 tab Pantoprazole [Protonix] 40 mg PO DAILY #30 tablet. Cholestyramine (with Sugar) [Questran Packet] 4 gm PO BID@1000,1800 #24 packet Continue Albuterol Inhaler [Ventolin Hfa Inhaler] 2 puff INHALATION RT-Q6H PRN PRN Reason: Shortness Of Breath Albuterol Nebulized [Ventolin Nebulized] 2.5 mg INHALATION RT-Q6H PRN PRN Reason: Shortness Of Breath Cetirizine HCl 10 mg PO DAILY PRN PRN Reason: Allergy Symptoms Acetaminophen Tab [Tylenol] 650 mg PO Q6H PRN PRN Reason: Pain Or Fever > 100.5 Discontinued methylPREDNISolone Dose Pack [Medrol Dose Pack] See Taper PO DAILY Ketorolac [Toradol] 10 mg PO Q8H PRN PRN Reason: Pain Discharge Medication List Acetaminophen Tab [Tylenol] 650 mg PO Q6H PRN 10/04/19 [History] Albuterol Inhaler [Ventolin Hfa Inhaler] 2 puff INHALATION RT-Q6H PRN 10/04/19 [History] Albuterol Nebulized [Ventolin Nebulized] 2.5 mg INHALATION RT-Q6H PRN 10/04/19 [History] Cetirizine HCl 10 mg PO DAILY PRN 10/04/19 [History] Amoxicillin/Potassium Clav [Augmentin 875-125 Tablet] 1 tab PO Q12HR 14 Days #24 tab 10/15/19 [Rx] Cholestyramine (with Sugar) [Questran Packet] 4 gm PO BID@1000,1800 #24 packet 10/15/19 [Rx] Fluconazole [Diflucan] 200 mg PO DAILY 12 Days #12 tab 10/15/19 [Rx] Pantoprazole [Protonix] 40 mg PO DAILY #30 tablet. 10/15/19 [Rx] Follow up Appointment(s)/Referral(s): Sameer Rose MD [STAFF PHYSICIAN] - 1 Week (Follow-up with Dr. Rose/Oswald Nguyen/Marta Stroud) Ivan Whyte MD [Primary Care Provider] - 3 Days Kishan Lombardo MD [STAFF PHYSICIAN] - 1 Week Brien Gonzales MD [STAFF PHYSICIAN] - 2 Weeks Activity/Diet/Wound Care/Special Instructions: Pending final DC recommendations and clearance from cardiothoracic surgery
--- NOTE | 2019-10-15 16:19 | XR ---
EXAMINATION TYPE: XR chest 1V portable DATE OF EXAM: 10/15/2019 COMPARISON: 10/15/2019 INDICATION: Pneumothorax post chest tube removal TECHNIQUE: Single frontal view of the chest is obtained. FINDINGS: The heart size is normal. The pulmonary vasculature is normal. There is a mild infiltrate at the right lower lobe. Some subtle loculated pneumothorax remains at the right base. No large pneumothorax is evident. No pneumothorax is evident. IMPRESSION: 1. Small right costophrenic angle loculated pneumothorax may remain present. This is minimal less petra n 5% post chest tube removal. 2. Mild infiltrate at the right base similar to prior exam.
[2019-10-15 17:52] VITALS: BP 108/62; PULSE 90; RESP 18; TEMP 98.8
--- NOTE | 2019-10-16 08:50 | CDI ---
Documentation Clarification Form Date: 10/16/19 From: Tanesha Ernst Phone: If you have a question about this query, please contact Lashell Das, Vice President & General Manager [employer] at [phone] between 8am and 5pm. Admit Date: 10/04/19 Discharge Date:10/15/19 Patient Name: Torsten Moulton Visit Number: [id number] ATTENTION: The Clinical Documentation Specialists (CDI) and [facility] Coding Staff appreciate your assistance in clarifying documentation. Please respond to the clarification below the line at the bottom and electronically sign. The CDI & [facility] Coding staff will review the response and follow-up if needed. Please note: Queries are made part of the Legal Health Record. If you have any questions, please contact the author of this message via ITS. Dear Dr. Whyte The diagnosis Sepsis was documented in the ED note, H&P and Dr. Lama's consult note , but is not noted in subsequent documentation. History/Risk Factors: Empyema, pneumonia, pleural effusion, pericardial effusion Clinical Indicators: Fever, tachycardia, elevated white count WBC: 34.2 Lactic Acid: 1.7 Blood Cultures: No growth Vital Signs on Admission: T. 98.3 then 100.6 later in the day, P. 133, R. 20, [place] [address] Treatment: Antibiotics: IV Cefepime, then IV Cefazolin & IV Clindamycin and IV Vancomycin IV Bolus: 2 L NS Please clarify if the Sepsis was Present/active this admission Treated and resolved this admission Ruled out Other, please specify Clinically unable to determine MTDD
--- NOTE | 2019-10-16 16:44 | P.PN ---
Progress Note - Text Progress Note Date: 10/15/19 REASON FOR FOLLOWUP: Empyema and peritonitis. INTERVAL HISTORY: The patient remains to be afebrile, patient is breathing comfortably. Patient denies having any chest pain, shortness of breath. Minimal dry cough. Patient denies nausea. No abdominal pain and no diarrhea. PHYSICAL EXAMINATION: Blood pressure 108/62 with a pulse of 90, temperature 98.8, saturation is 98% on room air. General description is an young male, up in the chair in no distress. RESPIRATORY SYSTEM: Unlabored breathing, clear to auscultation anteriorly. HEART: S1, S2. Regular rate and rhythm. ABDOMEN: Soft, no tenderness. LABS: Reviewed DIAGNOSTIC IMPRESSION AND PLAN: Patient with right-sided empyema and pericarditis, status post thoracotomy and pericardial window. Patient culture with alpha hemolytic streptococcus, anaerobes and Jerica. Patient Was advised PICC line and a short course of IV Unasyn and Diflucan the patient's currently refusing He is aware of the fact that oral antibiotic may fail and has to go through all this again, antibiotic for Discharge and Augmentin and Diflucan 2 week ago the patient follow-up
--- NOTE | 2019-10-18 09:20 | PN ---
PROGRESS NOTE ADDENDUM: Add to the discharge summary: Sepsis ruled in. MMODL / IJN: [id number] /
== END 2019-10-15 17:54 | disposition home or self-care (01) | DRG 853 ==
LOC: EC 03:20 → 2SICU 05:34
PROVIDERS: ADMIT Family Medicine; ATTEND Family Medicine
PROC: 0W9930Z Drainage of Right Pleural Cavity with Drainage Device, Percutaneous Approach (ICD-10-PCS; 2019-10-04)
PROC: 0W9940Z Drainage of Right Pleural Cavity with Drainage Device, Percutaneous Endoscopic Approach (ICD-10-PCS; principal; 2019-10-06 12:00)
PROC: 0W9D00Z Drainage of Pericardial Cavity with Drainage Device, Open Approach (ICD-10-PCS; principal; 2019-10-06 12:00)
DX: A41.9 Sepsis, unspecified organism (principal); J86.9 Pyothorax without fistula; J18.9 Pneumonia, unspecified organism; J96.01 Acute respiratory failure with hypoxia; J98.51 Mediastinitis; K22.3 Perforation of esophagus; J90 Pleural effusion, not elsewhere classified; B37.0 Candidal stomatitis; D62 Acute posthemorrhagic anemia; E44.1 Mild protein-calorie malnutrition; I31.3 Pericardial effusion (noninflammatory); J98.11 Atelectasis; J94.2 Hemothorax; T79.7XXA Traumatic subcutaneous emphysema, initial encounter; T88.6XXA Anaphylactic reaction due to adverse effect of correct drug or medicament properly administered, initial encounter; R04.2 Hemoptysis; D68.32 Hemorrhagic disorder due to extrinsic circulating anticoagulants; I27.20 Pulmonary hypertension, unspecified; J98.2 Interstitial emphysema; Z20.828 Contact with and (suspected) exposure to other viral communicable diseases; F17.200 Nicotine dependence, unspecified, uncomplicated; F32.9 Major depressive disorder, single episode, unspecified; F41.0 Panic disorder [episodic paroxysmal anxiety]; J45.20 Mild intermittent asthma, uncomplicated; T36.7X5A Adverse effect of antifungal antibiotics, systemically used, initial encounter; I07.1 Rheumatic tricuspid insufficiency; R19.7 Diarrhea, unspecified; T45.525A Adverse effect of antithrombotic drugs, initial encounter; Z79.899 Other long term (current) drug therapy
CPT/HCPCS: 32551; 36415; 71045; 71250; 71275; 74177; 74220; 80053; 80202; 81003; 82150; 82550; 82553; 82784; 82805; 82945; 83605; 83615; 83735; 84100; 84157; 84478; 85025; 85379; 85610; 85652; 85730; 86140; 86850; 86900; 86901; 86920; 87040; 87070; 87075; 87077; 87102; 87116; 87186; 87205; 87206; 87324; 87535; 87635; 88108; 88305; 89050; 93005; 93306; 93308; 94640; 96361; 96365; 96375; 96376; 99291

== ENCOUNTER → 2019-10-24 | Outpatient (CLI) | payer OTHER ==
--- NOTE | 2019-10-24 16:15 | XR ---
EXAMINATION TYPE: XR chest 2V DATE OF EXAM: 10/24/2019 COMPARISON: Prior chest x-ray 10/15/2019 HISTORY: Previous abnormal lung exam TECHNIQUE: Frontal and lateral views of the chest are obtained. FINDINGS: Pleural parenchymal changes are similar in the right hemithorax, there may be some improve ment in aeration. This persistent elevation of the right hemidiaphragm. No evident pneumothorax. Card iac mediastinal silhouette, pulmonary vascularity and vianca are stable. IMPRESSION: Postprocedural changes. No evident pneumothorax. A residual atelectatic change, difficul t to exclude small effusion.
== END | disposition home or self-care (01) ==
LOC: RADXRMAIN 13:55
PROVIDERS: ATTEND Thoracic Surgery (Cardiothoracic Vascular Surgery)
DX: J98.11 Atelectasis (principal); Z98.890 Other specified postprocedural states
CPT/HCPCS: 71046

== ENCOUNTER 2020-02-10 10:12 | Emergency (ER) | payer OTHER ==
[2020-02-10 10:19] VITALS: RESP 18
[2020-02-10] MEDS ORDERED: SODIUM CHLORIDE 0.9% 1,000 ML IV STA ×2 (10:37)
[2020-02-10] MEDS ORDERED: PANTOPRAZOLE 40 MG/10 ML VIAL IVP STA (10:37)
[2020-02-10] MEDS ORDERED: HYDROmorphone 0.5 MG/0.5 ML SYRINGE IVP STA (10:37)
[2020-02-10] MEDS ORDERED: ONDANSETRON 4 MG/2 ML VIAL IVP STA (10:37)
[2020-02-10] MEDS ORDERED: IPRATROPIUM-ALBUTEROL 3 ML NEB INHALATION STA (10:39)
--- NOTE | 2020-02-10 10:43 | ED ---
Abdominal Pain HPI - General Chief Complaint: Abdominal Pain Stated Complaint: abd pain Time Seen by Provider: 02/10/20 10:21 Source: patient, RN notes reviewed, old records reviewed Mode of arrival: ambulatory Limitations: no limitations - History of Present Illness Initial Comments: Patient's a 26-year-old female with extensive past medical history of empyema with cardiac effusion this past year. He reports that his hospitalized for extensive period of time and september and did receive chest tubes and had a cardiac window surgery. He presents to the ER today for concerns for her burning in his abdomen abdominal pain and some episodes of diarrhea and feeling ill. He states is also been somewhat short of breath and and fatigued. He states that he is a smoker. He states that his symptoms today feel similar to how he presented back in September. Patient states he's had no recorded fever at this time. - Related Data Home Medications Medication Instructions Recorded Confirmed Ipratropium/Albuterol Sulfate 2 puff INHALATION RT-Q4H 02/10/20 02/10/20 [Combivent Respimat Inhaler] Previous Rx's Medication Instructions Recorded Albuterol Inhaler [Ventolin Hfa 1 puff INHALATION TID #1 puff 02/10/20 Inhaler] Amoxicillin/Potassium Clav 1 tab PO Q12HR 10 Days #20 tab 02/10/20 [Augmentin 875-125 Tablet] predniSONE [Deltasone] 20 mg PO DIRECTED #12 tab 02/10/20 Allergies Allergy/AdvReac Type Severity Reaction Status Date / Time anidulafungin Allergy Dyspnea Verified 02/10/20 11:16 Review of Systems ROS Statement: Those systems with pertinent positive or pertinent negative responses have been documented in the HPI. ROS Other: All systems not noted in ROS Statement are negative. Past Medical History Past Medical History: Asthma Additional Past Medical History / Comment(s): Right lung emphyema 09/2019 History of Any Multi-Drug Resistant Organisms: None Reported Past Surgical History: No Surgical Hx Reported Additional Past Surgical History / Comment(s): Pt reports surgery on heart and lungs Past Anesthesia/Blood Transfusion Reactions: No Reported Reaction Past Psychological History: Anxiety, Depression Smoking Status: Current every day smoker Past Alcohol Use History: Occasional Past Drug Use History: Cocaine, Marijuana - Past Family History Mother Additional Family Medical History / Comment(s): Vertigo Father History Unknown: Yes General Exam - General Exam Comments Initial Comments: Alert and oriented 20-year-old male. No significant distress. Limitations: no limitations General appearance: alert, in no apparent distress Head exam: Present: atraumatic, normocephalic, normal inspection Eye exam: Present: normal appearance, PERRL, EOMI. Absent: scleral icterus, conjunctival injection, periorbital swelling ENT exam: Present: normal exam, mucous membranes moist Neck exam: Present: normal inspection. Absent: tenderness, meningismus, lymphadenopathy Respiratory exam: Present: normal lung sounds bilaterally. Absent: respiratory distress, wheezes, rales, rhonchi, stridor Cardiovascular Exam: Present: regular rate, normal rhythm, normal heart sounds. Absent: systolic murmur, diastolic murmur, rubs, gallop, clicks Course Vital Signs 02/10/20 02/10/20 02/10/20 10:14 10:55 11:06 Temperature 97.7 F Pulse Rate 88 82 82 Respiratory 18 Rate Blood Pressure 112/76 O2 Sat by Pulse 99 Oximetry Medical Decision Making - Lab Data Result diagrams: 02/10/20 10:48 02/10/20 10:48 Lab Results 02/10/20 02/10/20 02/10/20 Range/Units 10:48 10:48 10:48 WBC 7.2 (3.8-10.6) k/uL RBC 6.30 H (4.30-5.90) m/uL Hgb 16.4 (13.0-17.5) gm/dL Hct 49.7 (39.0-53.0) % MCV 78.9 L (80.0-100.0) fL MCH 26.1 (25.0-35.0) pg MCHC 33.1 (31.0-37.0) g/dL RDW 14.1 (11.5-15.5) % Plt Count 407 (150-450) k/uL Neutrophils % 67 % Lymphocytes % 20 % Monocytes % 7 % Eosinophils % 4 % Basophils % 1 % Neutrophils # 4.8 (1.3-7.7) k/uL Lymphocytes # 1.4 (1.0-4.8) k/uL Monocytes # 0.5 (0-1.0) k/uL Eosinophils # 0.3 (0-0.7) k/uL Basophils # 0.1 (0-0.2) k/uL PT 10.2 (9.0-12.0) sec INR 1.0 (<1.2) APTT 25.4 (22.0-30.0) sec Sodium (137-145) mmol/L Potassium (3.5-5.1) mmol/L Chloride (98-107) mmol/L Carbon Dioxide (22-30) mmol/L Anion Gap mmol/L BUN (9-20) mg/dL Creatinine (0.66-1.25) mg/dL Est GFR (CKD-EPI)AfAm (>60 ml/min/1.73 sqM) Est GFR (CKD-EPI)NonAf (>60 ml/min/1.73 sqM) Glucose (74-99) mg/dL Plasma Lactic Acid Rene (0.7-2.0) mmol/L Calcium (8.4-10.2) mg/dL Total Bilirubin (0.2-1.3) mg/dL AST (17-59) U/L ALT (4-49) U/L Alkaline Phosphatase (38-126) U/L Total Protein (6.3-8.2) g/dL Albumin (3.5-5.0) g/dL Amylase (30-110) U/L Lipase (23-300) U/L Urine Color Yellow Urine Appearance Clear (Clear) Urine pH 7.0 (5.0-8.0) Ur Specific [place] 1.019 (1.001-1.035) Urine Protein Negative (Negative) Urine Glucose (UA) Negative (Negative) Urine Ketones Negative (Negative) Urine Blood Negative (Negative) Urine Nitrite Negative (Negative) Urine Bilirubin Negative (Negative) Urine Urobilinogen <2.0 (<2.0) mg/dL Ur Leukocyte Esterase Negative (Negative) 02/10/20 02/10/20 Range/Units 10:48 10:48 WBC (3.8-10.6) k/uL RBC (4.30-5.90) m/uL Hgb (13.0-17.5) gm/dL Hct (39.0-53.0) % MCV (80.0-100.0) fL MCH (25.0-35.0) pg MCHC (31.0-37.0) g/dL RDW (11.5-15.5) % Plt Count (150-450) k/uL Neutrophils % % Lymphocytes % % Monocytes % % Eosinophils % % Basophils % % Neutrophils # (1.3-7.7) k/uL Lymphocytes # (1.0-4.8) k/uL Monocytes # (0-1.0) k/uL Eosinophils # (0-0.7) k/uL Basophils # (0-0.2) k/uL PT (9.0-12.0) sec INR (<1.2) APTT (22.0-30.0) sec Sodium 140 (137-145) mmol/L Potassium 4.4 (3.5-5.1) mmol/L Chloride 104 (98-107) mmol/L Carbon Dioxide 27 (22-30) mmol/L Anion Gap 9 mmol/L BUN 14 (9-20) mg/dL Creatinine 0.85 (0.66-1.25) mg/dL Est GFR (CKD-EPI)AfAm >90 (>60 ml/min/1.73 sqM) Est GFR (CKD-EPI)NonAf >90 (>60 ml/min/1.73 sqM) Glucose 107 H (74-99) mg/dL Plasma Lactic Acid Rene 0.8 (0.7-2.0) mmol/L Calcium 10.1 (8.4-10.2) mg/dL Total Bilirubin 0.5 (0.2-1.3) mg/dL AST 26 (17-59) U/L ALT 22 (4-49) U/L Alkaline Phosphatase 100 (38-126) U/L Total Protein 7.8 (6.3-8.2) g/dL Albumin 4.6 (3.5-5.0) g/dL Amylase 59 (30-110) U/L Lipase 37 (23-300) U/L Urine Color Urine Appearance (Clear) Urine pH (5.0-8.0) Ur Specific [place] (1.001-1.035) Urine Protein (Negative) Urine Glucose (UA) (Negative) Urine Ketones (Negative) Urine Blood (Negative) Urine Nitrite (Negative) Urine Bilirubin (Negative) Urine Urobilinogen (<2.0) mg/dL Ur Leukocyte Esterase (Negative) 02/10/20 12:11 EKG performed at 1058 shows sinus rhythm with sinus arrhythmia. Right superior axis deviation. Pulmonary disease pattern. Abnormal EKG. Ventricular rate of 77 beats were minute. Interval is 162 ms. QS duration is 80 ms. QT QTc is 360/470 ms. - Radiology Data Radiology results: report reviewed Small right-sided pleural effusion. Improved aeration on the right lower lobe to the prior study. Wall thickening involving the descending colon is nonspecific. There is also mild small bowel wall thickening with air-fluid levels. Correlate for enterocolitis. Correlate for cystitis. Chronic pleural parenchymal thickening of right lower lobe without evidence of recurrent infiltrate or empyema. Disposition Clinical Impression: Colitis, Wheezing, Smoker, Chronic pleural effusion Disposition: HOME SELF-CARE Condition: Good Instructions (If sedation given, give patient instructions): Pleural Effusion (ED), Colitis (ED) Additional Instructions: Patient has a close follow-up with primary care physician. Recommended using steroids and inhaler for difficulty breathing and wheezing. Patient should stop smoking. Have a bland diet. Return to the emergency department if any alarming signs or symptoms occur. Prescriptions: Amoxicillin/Potassium Clav [Augmentin 875-125 Tablet] 1 tab PO Q12HR 10 Days #20 tab predniSONE [Deltasone] 20 mg PO DIRECTED #12 tab Albuterol Inhaler [Ventolin Hfa Inhaler] 1 puff INHALATION TID #1 puff Is patient prescribed a controlled substance at d/c from ED?: No Referrals: Ivan Whyte MD [Primary Care Provider] - 1-2 days Brien Gonzales MD [STAFF PHYSICIAN] - 1-2 days Time of Disposition: 13:06
--- NOTE | 2020-02-10 11:24 | XR ---
EXAMINATION TYPE: XR chest 2V DATE OF EXAM: 02/10/2020 COMPARISON: 10/24/19 HISTORY: Chest pain TECHNIQUE: Frontal and lateral views of the chest are obtained. FINDINGS: Small right-sided pleural effusion. Improved aeration right lower lobe relative to the prior study. T he remainder of the lungs are clear. The cardiac silhouette size is within normal limits. The osseous structures are grossly intact. IMPRESSION: 1. Small right-sided pleural effusion. Improved aeration right lower lobe relative to the prior stud y.
[2020-02-10 11:31] LABS: Basophils # (A) 0.1 k/uL (0-0.2); Basophils % (A) 1 %; Eosinophils # (A) 0.3 k/uL (0-0.7); Eosinophils % (A) 4 %; HCT 49.7 % (39.0-53.0); HGB 16.4 gm/dL (13.0-17.5); Lymphocytes # (A) 1.4 k/uL (1.0-4.8); Lymphocytes % (A) 20 %; MCH 26.1 pg (25.0-35.0); MCHC 33.1 g/dL (31.0-37.0); MCV 78.9 fL (80.0-100.0); Mean Platelet Volume 7.4; Monocytes # (A) 0.5 k/uL (0-1.0); Monocytes % (A) 7 %; Neutrophils # (A) 4.8 k/uL (1.3-7.7); Neutrophils % (A) 67 %; Platelet Count 407 k/uL (150-450); RDW 14.1 % (11.5-15.5); WBC 7.2 k/uL (3.8-10.6)
[2020-02-10 11:33] LABS: Appearance,Urine Clear (Clear); Bilirubin,Urine Negative (Negative); Blood,Urine Negative (Negative); Color,Urine Yellow; Glucose,Urine (UA) Negative (Negative); Ketones,Urine Negative (Negative); Leukocyte Esterase,Urine Negative (Negative); Nitrite,Urine Negative (Negative); Protein,Urine Negative (Negative); Specific Gravity,Urine 1.019 (1.001-1.035); Urobilinogen,Urine <2.0 mg/dL (<2.0)
[2020-02-10 11:43] LABS: ALT 22 U/L (4-49); AST 26 U/L (17-59); African American GFR (CKD) >90 (>60 ml/min/1.73 sqM); Albumin 4.6 g/dL (3.5-5.0); Alkaline Phosphatase 100 U/L (38-126); Amylase 59 U/L (30-110); Anion Gap 9 mmol/L; Blood Urea Nitrogen 14 mg/dL (9-20); Calcium 10.1 mg/dL (8.4-10.2); Carbon Dioxide 27 mmol/L (22-30); Chloride 104 mmol/L (98-107); Glucose 107 mg/dL (74-99); Non-African American GFR(CKD) >90 (>60 ml/min/1.73 sqM); Potassium 4.4 mmol/L (3.5-5.1); Sodium 140 mmol/L (137-145); Total Bilirubin 0.5 mg/dL (0.2-1.3); Total Protein 7.8 g/dL (6.3-8.2)
[2020-02-10 11:48] LABS: Partial Thromboplastin Time 25.4 sec (22.0-30.0); Prothrombin Time 10.2 sec (9.0-12.0)
--- NOTE | 2020-02-10 11:57 | CT ---
EXAMINATION TYPE: CT ChestAbdPelvis w con DATE OF EXAM: 02/10/2020 COMPARISON: 10/11/2019 HISTORY: Chest and abd pain CT DLP: 841.1 mGycm CONTRAST: CT scan of the chest, abdomen and pelvis is performed without Oral Contrast and with IV Contrast, pat ient injected with 100 mL of Isovue 300. CT Chest: LUNGS: There is residual lateral parenchymal thickening right lower lobe however there is no evidence for recurrent empyema or infiltrate. Previously noted chest tube has been removed. No pulmonary nodu le or mass is detected. No pleural effusion or CT evidence of interstitial lung disease. MEDIASTINUM: Thoracic aorta is of normal caliber. The heart is not enlarged. There is residual rajiv opathy within the subcarinal region measuring 2.5 cm. Right paratracheal adenopathy measures 1.5 cm. Few small prevascular lymph nodes are noted as well. HILAR STRUCTURES: No evidence for mass. No hilar adenopathy is appreciated. OTHER: No significant abnormality. CONTRAST CT ABDOMEN AND PELVIS FINDINGS: LIVER/GB: No calcified gallstones. No space occupying hepatic lesion. Biliary tree is of normal ca liber. PANCREAS: No inflammation. No distinct mass. SPLEEN: No splenic enlargement. No lesion seen. Splenic granulomas noted. ADRENALS: No nodule. No thickening. KIDNEYS/BLADDER: No hydronephrosis. No nephrolithiasis. No distinct renal mass. There is wall thic kening of the urinary bladder which may reflect cystitis. BOWEL: Normal appendix. Wall thickening involving the descending colon is nonspecific. There is also mild small bowel wall thickening with air-fluid levels. Correlate for enterocolitis. GENITAL ORGANS: No gross abnormality. LYMPH NODES: No greater than 1cm abdominal or pelvic lymph nodes are appreciated. AORTA: No significant abnormality. OSSEOUS STRUCTURES: No significant abnormality is seen. OTHER: No significant additional abnormality is seen. IMPRESSION: 1. Wall thickening involving the descending colon is nonspecific. There is also mild small bowel wall thickening with air-fluid levels. Correlate for enterocolitis. 2. Correlate for cystitis. 3. Chronic pleural parenchymal thickening right lower lobe without evidence for recurrent infiltrate or empyema.
[2020-02-10 13:35] VITALS: BP 130/83; PULSE 69; TEMP 97
== END 2020-02-10 13:35 | disposition home or self-care (01) ==
LOC: EC 10:12
DX: K52.9 Noninfective gastroenteritis and colitis, unspecified (principal); J90 Pleural effusion, not elsewhere classified; J45.909 Unspecified asthma, uncomplicated; F17.200 Nicotine dependence, unspecified, uncomplicated; Z79.51 Long term (current) use of inhaled steroids; Z88.8 Allergy status to other drugs, medicaments and biological substances
CPT/HCPCS: 99285; 96374; 96375 ×2; 96361 ×2; 36415; 94640; 93005; 80053; 82150; 83605; 83690; 85025; 85610; 85730; 81003; 71046; 71260; 74177; J2405; C9113; J1170; Q9967

== ENCOUNTER 2021-01-27 11:13 | Emergency (ER) | payer OTHER ==
[2021-01-27 11:22] VITALS: RESP 18
[2021-01-27 12:02] LABS: Basophils % (A) 1 %; Eosinophils # (A) 0.3 k/uL (0-0.7); Eosinophils % (A) 6 %; HCT 44.4 % (39.0-53.0); Lymphocytes # (A) 1.5 k/uL (1.0-4.8); Lymphocytes % (A) 30 %; MCH 30.9 pg (25.0-35.0); MCHC 35.9 g/dL (31.0-37.0); MCV 86.1 fL (80.0-100.0); Mean Platelet Volume 7.5; Monocytes # (A) 0.3 k/uL (0-1.0); Monocytes % (A) 5 %; Neutrophils # (A) 2.8 k/uL (1.3-7.7); Neutrophils % (A) 56 %; Platelet Count 319 k/uL (150-450); RBC 5.16 m/uL (4.30-5.90); RDW 13.5 % (11.5-15.5)
--- NOTE | 2021-01-27 12:09 | ED ---
Chest Pain HPI - General Chief Complaint: Chest Pain Stated Complaint: chest discomfort Time Seen by Provider: 01/27/21 11:25 Source: patient, RN notes reviewed Mode of arrival: ambulatory Limitations: no limitations - History of Present Illness Initial Comments: 21-year-old male presents emergency from chief complaint of chest discomfort. Patient states she's been having some worsening symptoms. From his epigastric up his chest. Patient said that he's had small. Patient is concerned as he states that he was hospitalized in ICU last year for emphyema in which he always is worried about. Patient denies any fevers or chills no significant shortness breath states she's has mild chronic shortness breath is a daily smoker. Patient denies any night sweats abdominal nausea vomiting diarrhea constipation. - Related Data Home Medications Medication Instructions Recorded Confirmed Albuterol Inhaler [Ventolin Hfa 2 puff INHALATION RT-Q6H PRN 01/27/21 01/27/21 Inhaler] Previous Rx's Medication Instructions Recorded Omeprazole [PriLOSEC] 40 mg PO DAILY #14 cap 01/27/21 Allergies Allergy/AdvReac Type Severity Reaction Status Date / Time anidulafungin Allergy Dyspnea Verified 01/27/21 12:15 Review of Systems ROS Statement: Those systems with pertinent positive or pertinent negative responses have been documented in the HPI. ROS Other: All systems not noted in ROS Statement are negative. Past Medical History Past Medical History: Asthma Additional Past Medical History / Comment(s): Right lung emphyema 09/2019 History of Any Multi-Drug Resistant Organisms: None Reported Past Surgical History: No Surgical Hx Reported Additional Past Surgical History / Comment(s): Pt reports surgery on heart and lungs last September Past Anesthesia/Blood Transfusion Reactions: No Reported Reaction Past Psychological History: Anxiety, Depression Smoking Status: Current every day smoker Past Alcohol Use History: Occasional Past Drug Use History: Marijuana - Past Family History Mother Additional Family Medical History / Comment(s): Vertigo Father History Unknown: Yes General Exam Limitations: no limitations General appearance: alert, in no apparent distress Head exam: Present: atraumatic, normocephalic, normal inspection Eye exam: Present: normal appearance, PERRL, EOMI. Absent: scleral icterus, conjunctival injection, periorbital swelling ENT exam: Present: normal exam, normal oropharynx, mucous membranes moist Neck exam: Present: normal inspection, full ROM. Absent: tenderness, meningismus, lymphadenopathy Respiratory exam: Present: normal lung sounds bilaterally. Absent: respiratory distress, wheezes, rales, rhonchi, stridor Cardiovascular Exam: Present: regular rate, normal rhythm, normal heart sounds. Absent: systolic murmur, diastolic murmur, rubs, gallop, clicks GI/Abdominal exam: Present: soft, normal bowel sounds. Absent: distended, tenderness, guarding, rebound, rigid Course Vital Signs 01/27/21 01/27/21 11:17 12:06 Temperature 97.8 F Pulse Rate 63 Pulse Rate [ 64 Sitting Pulse Oximetery] Respiratory 18 Rate Blood Pressure 120/60 O2 Sat by Pulse 96 Oximetry Chest Pain MDM - MDM 21-year-old male presented for abdominal chest discomfort. Workup is negative this time does have chronic changes on x-ray from prior empyema. Patient lab work is unremarkable symptoms were felt related to reflux disorder and medication.I counseled the patient for smoking cessation for greater than 3 minutes return parameters discussed close follow-up was discussed Disposition Clinical Impression: GERD (gastroesophageal reflux disease), Chest pain Disposition: HOME SELF-CARE Condition: Stable Instructions (If sedation given, give patient instructions): Chest Pain (ED) Additional Instructions: Please return to the Emergency Department if symptoms worsen or any other concerns. Prescriptions: Omeprazole [PriLOSEC] 40 mg PO DAILY #14 cap Is patient prescribed a controlled substance at d/c from ED?: No Referrals: None,Stated [Primary Care Provider] - 1-2 days Time of Disposition: 13:13
[2021-01-27 12:17] LABS: ALT 17 U/L (4-49); AST 24 U/L (17-59); African American GFR (CKD) >90 (>60 ml/min/1.73 sqM); Albumin 4.6 g/dL (3.5-5.0); Alkaline Phosphatase 70 U/L (38-126); Anion Gap 9 mmol/L; Blood Urea Nitrogen 12 mg/dL (9-20); Calcium 9.9 mg/dL (8.4-10.2); Carbon Dioxide 24 mmol/L (22-30); Chloride 105 mmol/L (98-107); Glucose 96 mg/dL (74-99); Lipase 45 U/L (23-300); Non-African American GFR(CKD) >90 (>60 ml/min/1.73 sqM); Potassium 4.3 mmol/L (3.5-5.1); Sodium 138 mmol/L (137-145); Total Bilirubin 0.5 mg/dL (0.2-1.3); Total Protein 7.2 g/dL (6.3-8.2)
[2021-01-27 12:27] LABS: Partial Thromboplastin Time 24.9 sec (22.0-30.0); Prothrombin Time 10.4 sec (9.0-12.0)
--- NOTE | 2021-01-27 12:31 | XR ---
EXAMINATION TYPE: XR chest 2V DATE OF EXAM: 01/27/2021 COMPARISON: CT and chest x-ray 02/10/2020 HISTORY: chest pain TECHNIQUE: Frontal and lateral views of the chest are obtained. FINDINGS: There is persistent blunting of the right costophrenic angle. No evident pneumothorax. Car diomediastinal silhouette is stable. There is a nodular density between the posterior left eighth an d ninth ribs measuring approximately 1 cm, possibly related to nipple shadow, stable. IMPRESSION: Chronic pleural reaction right hemithorax. Consider repeat PA chest x-ray with nipple ma rker findings felt likely to be benign.
[2021-01-27 13:32] VITALS: BP 118/54; PULSE 61; TEMP 97.9
== END 2021-01-27 13:25 | disposition home or self-care (01) ==
LOC: EC 11:13
DX: K21.9 Gastro-esophageal reflux disease without esophagitis (principal); J45.909 Unspecified asthma, uncomplicated; F17.200 Nicotine dependence, unspecified, uncomplicated; F12.90 Cannabis use, unspecified, uncomplicated; Z79.899 Other long term (current) drug therapy
CPT/HCPCS: 36415; 71046; 80053; 83690; 83735; 84484; 85025; 85379; 85610; 85730; 99285

== ENCOUNTER 2021-03-28 00:47 | Emergency (ER) | payer OTHER ==
[2021-03-28 01:01] VITALS: RESP 18
[2021-03-28] MEDS ORDERED: MORPHINE SULFATE 4 MG/ML SYRINGE IVP STA (01:08)
[2021-03-28] MEDS ORDERED: LORazepam 1 MG TAB PO STA (01:08)
[2021-03-28] MEDS ORDERED: SODIUM CHLORIDE 0.9% 1,000 ML IV STA (01:08)
[2021-03-28] MEDS ORDERED: DIPH,PERTUS(ACELL)TETVAC-LF 0.5 ML VIAL IM ONE (01:08)
--- NOTE | 2021-03-28 01:09 | ED ---
Wound/Laceration HPI - General Chief Complaint: Extremity Injury, Upper Stated Complaint: Hand Laceration Time Seen by Provider: 03/28/21 00:59 Source: patient Mode of arrival: wheelchair - Related Data Home Medications Medication Instructions Recorded Confirmed Albuterol Inhaler [Ventolin Hfa 2 puff INHALATION RT-Q6H PRN 01/27/21 01/27/21 Inhaler] Previous Rx's Medication Instructions Recorded Omeprazole [PriLOSEC] 40 mg PO DAILY #14 cap 01/27/21 Allergies Allergy/AdvReac Type Severity Reaction Status Date / Time anidulafungin Allergy Dyspnea Verified 03/28/21 01:01 Review of Systems ROS Statement: Those systems with pertinent positive or pertinent negative responses have been documented in the HPI. ROS Other: All systems not noted in ROS Statement are negative. Past Medical History Past Medical History: Asthma Additional Past Medical History / Comment(s): Right lung emphyema 09/2019 History of Any Multi-Drug Resistant Organisms: None Reported Past Surgical History: No Surgical Hx Reported Additional Past Surgical History / Comment(s): Pt reports surgery on heart and lungs last September Past Anesthesia/Blood Transfusion Reactions: No Reported Reaction Past Psychological History: Anxiety, Depression Smoking Status: Current every day smoker Past Alcohol Use History: Occasional Past Drug Use History: Marijuana - Past Family History Mother Additional Family Medical History / Comment(s): Vertigo Father History Unknown: Yes Course Vital Signs 03/28/21 03/28/21 00:58 01:50 Temperature 98.0 F Pulse Rate 114 H 96 Respiratory 18 18 Rate Blood Pressure 118/71 129/59 O2 Sat by Pulse 98 96 Oximetry Medical Decision Making - Lab Data Result diagrams: 03/28/21 01:33 03/28/21 01:33 Lab Results 03/28/21 03/28/21 Range/Units 01:33 01:33 WBC 12.7 H (3.8-10.6) k/uL RBC 5.65 (4.30-5.90) m/uL Hgb 16.9 (13.0-17.5) gm/dL Hct 48.2 (39.0-53.0) % MCV 85.3 (80.0-100.0) fL MCH 30.0 (25.0-35.0) pg MCHC 35.1 (31.0-37.0) g/dL RDW 12.6 (11.5-15.5) % Plt Count 440 (150-450) k/uL MPV 7.4 Neutrophils % (Manual) 74 % Lymphocytes % (Manual) 16 % Monocytes % (Manual) 3 % Eosinophils % (Manual) 7 % Neutrophils # (Manual) 9.40 H (1.3-7.7) k/uL Lymphocytes # (Manual) 2.03 (1.0-4.8) k/uL Monocytes # (Manual) 0.38 (0-1.0) k/uL Eosinophils # (Manual) 0.89 H (0-0.7) k/uL Nucleated RBCs 0 (0-0) /100 WBC Manual Slide Review Performed Sodium 142 (137-145) mmol/L Potassium 4.4 (3.5-5.1) mmol/L Chloride 109 H (98-107) mmol/L Carbon Dioxide 18 L (22-30) mmol/L Anion Gap 15 mmol/L BUN 13 (9-20) mg/dL Creatinine 0.99 (0.66-1.25) mg/dL Est GFR (CKD-EPI)AfAm >90 (>60 ml/min/1.73 sqM) Est GFR (CKD-EPI)NonAf >90 (>60 ml/min/1.73 sqM) Glucose 100 H (74-99) mg/dL Calcium 10.0 (8.4-10.2) mg/dL Serum Alcohol 225 H* mg/dL Disposition Clinical Impression: Amputation of right little finger Disposition: HOME SELF-CARE Condition: Fair Instructions (If sedation given, give patient instructions): Finger Amputation (ED) Is patient prescribed a controlled substance at d/c from ED?: No Referrals: Erasmo Jones MD [STAFF PHYSICIAN] - 1-2 days
--- NOTE | 2021-03-28 01:34 | XR ---
EXAMINATION TYPE: XR hand complete RT DATE OF EXAM: 03/28/2021 COMPARISON: NONE HISTORY: Pain and swelling TECHNIQUE: 3 views FINDINGS: Metacarpals are intact. There is soft tissue swelling on the dorsum of the hand. There is w idening of the IP joint space of the the dip joint of the little finger consistent with ligamentous t ear. No fracture seen. IMPRESSION: Deformity of the DIP joint of the little finger right hand consistent with ligamentous te ar and separation. Soft tissue swelling.
[2021-03-28 01:41] LABS: HCT 48.2 % (39.0-53.0); HGB 16.9 gm/dL (13.0-17.5); MCHC 35.1 g/dL (31.0-37.0); MCV 85.3 fL (80.0-100.0); Mean Platelet Volume 7.4; Platelet Count 440 k/uL (150-450); RBC 5.65 m/uL (4.30-5.90); RDW 12.6 % (11.5-15.5); WBC 12.7 k/uL (3.8-10.6)
[2021-03-28 01:51] LABS: African American GFR (CKD) >90 (>60 ml/min/1.73 sqM); Anion Gap 15 mmol/L; Blood Urea Nitrogen 13 mg/dL (9-20); Carbon Dioxide 18 mmol/L (22-30); Chloride 109 mmol/L (98-107); Glucose 100 mg/dL (74-99); Non-African American GFR(CKD) >90 (>60 ml/min/1.73 sqM); Potassium 4.4 mmol/L (3.5-5.1); Sodium 142 mmol/L (137-145)
[2021-03-28 01:56] LABS: Alcohol 225 mg/dL
[2021-03-28 02:00] LABS: Eosinophils # (M) 0.89 k/uL (0-0.7); Lymphocytes # (M) 2.03 k/uL (1.0-4.8); Monocytes # (M) 0.38 k/uL (0-1.0); Neutrophils % (M) 74 %; Nucleated Red Blood Cells 0 /100 WBC (0-0); Total Cells Counted 100
[2021-03-28] MEDS ORDERED: CEPHALEXIN 500 MG CAP PO STA (02:21)
[2021-03-28] MEDS ORDERED: CEPHALEXIN 500MG STARTER PACK 4 CAP BTL PO STA (02:21)
[2021-03-28 02:49] VITALS: BP 121/83; PULSE 89; TEMP 98.2
== END 2021-03-28 02:58 | disposition home or self-care (01) ==
LOC: EC 00:47
DX: Z89.021 Acquired absence of right finger(s) (principal); J45.909 Unspecified asthma, uncomplicated; Z23 Encounter for immunization; F32.9 Major depressive disorder, single episode, unspecified; F41.9 Anxiety disorder, unspecified; F17.200 Nicotine dependence, unspecified, uncomplicated; F12.90 Cannabis use, unspecified, uncomplicated; Z72.89 Other problems related to lifestyle; Z79.51 Long term (current) use of inhaled steroids
CPT/HCPCS: 90471; 96365; 96375; 96361; 99283; 36415; 80048; 85025; 73130; 90715; G0480; J2270; J0690; 80320; 96372

== ENCOUNTER 2021-04-02 07:51 | Day surgery (SDC) | payer OTHER ==
[2021-04-01 11:50] VITALS: BMI 24.3
[~2021-04-02 07:51] MED LIST: DEXAMETHASONE SOD PHOSPHATE 4 MG/ML 1 ML VIAL IV ONE; HYDROmorphone 0.5 MG/0.5 ML SYRINGE IVP PRN; LACTATED RINGERS 1,000 ML IV SCH; LIDOCAINE 1% (10MG/ML) FOR IV START INTRADERMA PRN; ONDANSETRON 4 MG/2 ML VIAL IVP ONE; SCOPOLAMINE 1.5MG/72HR PATCH TRANSDERM ONE
[2021-04-02] MEDS ORDERED: ONDANSETRON 4 MG/2 ML VIAL IVP ONE (08:20)
[2021-04-02] MEDS ORDERED: LACTATED RINGERS 1,000 ML IV ONE (08:20)
[2021-04-02] MEDS ORDERED: DEXAMETHASONE SOD PHOSPHATE 4 MG/ML 1 ML VIAL IVP ONE (08:20)
--- NOTE | 2021-04-02 08:37 | P.HPOR ---
History of Present Illness H&P Date: 04/02/21 Chief Complaint: Right small finger extensor tendon laceration Subjective: This is a 21 year old male that presents today for initial evaluation regarding a right small finger injury that occurred on 03/27/21. Patient slammed a door shut on the distal aspect of his right small finger. He was seen in the ED where his wound was irrigated and sutured closed and placed in a splint. He states his finger was "hanging on" after the initial injury. He complains of some numbness at the tip of the finger and pain/throbbing and sensitivity around the area of the laceration. He was able to share pictures on his phone of the injury which reveal what appears to be a complete extensor tendon laceration and DIP joint arthrotomy. Physical Examination: RUE: AIN/PIN/Radial/Ulnar/Median motor intact. Radial/Ulnar/Median SILT. 2+/4 Radial/Ulnar pulses palpated. 2cm transverse incision overlying DIP joint of right small finger, 5-10 degree extensor lag. Physical exam limited due to pain. Able to fire FDP. No volar laceration or tenderness. Imaging: X-Rays of the right small finger demonstrate no acute fracture, small ossific density radial to DIP joint, possible ligamentous avulsion of radial collateral ligament at DIP joint. Impression: 1.) Right small finger extensor tendon laceration Plan: Diagnosis and treatment options were discussed with the patient. Due to the laceration present on the dorsal aspect of the right small finger there is concern for likely complete extensor tendon laceration at the level of the DIP joint. I recommend surgical exploration with possible extensor tendon repair with possible pinning of the DIP joint. Risks and benefits of surgery were discussed with the patient including bleeding, damage to surrounding tissue, infection, continued extensor lag, stiffness, and need for post operative immobilization and therapy. The patient was agreeable with this plan of action, we will tentatively schedule surgery and order basic labs the day of surgery. We will plan to do surgery under MAC anesthesia. -Eelazar Caceres DO Orthopedic Hand/Upper Extremity Surgeon Past Medical History Past Medical History: Asthma, GERD/Reflux Additional Past Medical History / Comment(s): Right lung emphysema 09/2019, History of Any Multi-Drug Resistant Organisms: None Reported Past Surgical History: No Surgical Hx Reported Additional Past Surgical History / Comment(s): Pt reports surgery on heart and lungs -( patient had sepsis and had surgery for the infection) Past Anesthesia/Blood Transfusion Reactions: No Reported Reaction Smoking Status: Current every day smoker - Past Family History Mother Additional Family Medical History / Comment(s): Vertigo Father History Unknown: Yes Medications and Allergies Home Medications Medication Instructions Recorded Confirmed Type Albuterol Inhaler [Ventolin Hfa 2 puff INHALATION RT-Q6H PRN 01/27/21 04/02/21 History Inhaler] Cephalexin [Keflex] 500 mg PO Q6HR #40 cap 03/28/21 04/02/21 Rx HYDROcodone/APAP 7.5-325MG [[place] 1 tab PO Q4H PRN 04/01/21 04/02/21 History 7.5-325] Allergies Allergy/AdvReac Type Severity Reaction Status Date / Time anidulafungin Allergy Dyspnea Verified 04/01/21 11:16 Physical Examination Osteopathic Statement: *. No significant issues noted on an osteopathic structural exam other than those noted in the History and Physical/Consult.
[2021-04-02] MEDS ORDERED: PROPOFOL 10 MG/ML 20 ML VIAL IV ONE (09:01)
[2021-04-02] MEDS ORDERED: KETAMINE 10 MG/ML 20 ML VIAL ONE (09:01)
[2021-04-02] MEDS ORDERED: MIDAZOLAM 2 MG/2 ML VIAL ONE (09:01)
[2021-04-02] MEDS ORDERED: fentaNYL (PF) 50 MCG/ML 2 ML AMP ONE (09:01)
[2021-04-02] MEDS ORDERED: HYDROmorphone (PF) 1 MG/ML ONE (09:01)
[2021-04-02] MEDS ORDERED: LIDOCAINE 1% INJ 10MG/ML (20 ML MDV) SQ ONE (09:19)
[2021-04-02] MEDS ORDERED: BUPIVACAINE (PF) 0.5% 30 ML VIAL SQ ONE (09:19)
[2021-04-02 10:52] VITALS: TEMP 97.1
[2021-04-02] MEDS ORDERED: KETOROLAC 15 MG/ML 1 ML VIAL ONE (10:53)
[2021-04-02] MEDS ORDERED: KETOROLAC 15 MG/ML 1 ML VIAL IVP ONE (10:53)
[2021-04-02 10:56] VITALS: RESP 16
[2021-04-02 11:56] VITALS: BP 123/65; PULSE 73
--- NOTE | 2021-04-02 21:45 | P.OP ---
Date of Procedure: 04/02/21 Preoperative Diagnosis: 1.) Right small finger traumatic partial amputation at level of distal interphalangeal joint 2.) Right small finger terminal extensor tendon laceration 3.) Right small finger flexor digitorum profundus laceration Postoperative Diagnosis: 1.) Right small finger traumatic partial amputation at level of distal interphalangeal joint 2.) Right small finger terminal extensor tendon laceration 3.) Right small finger flexor digitorum profundus laceration Procedure(s) Performed: 1.) Right small finger 3cm complex wound exploration/repair 2.) Right small finger extensor tendon repair 3.) Right small finger flexor digitorum profundus laceration repair 4.) Right small finger DIP joint dislocation closed reduction percutaneous pinning Implants: 0.045 K-Wire x 1 Anesthesia: MAC Surgeon: Eleazar Caceres Estimated Blood Loss (ml): 5 Pathology: none sent Condition: stable Disposition: PACU Description of Procedure: This is a 21 year old male who sustained a partial amputation of his right small finger after the finger was slammed in a door. Patients states when the initial injury occurred that the finger tip was hanging on only but a small volar piece of skin. He was initially seen in the emergency department after his injury where his wound edges were approximated and he was placed in a splint. He presented to the office with the inability to extend or flex the finger tip and presents today for further wound exploration with possible tendon repair and DIP joint pinning. Risks and benefits of surgery were discussed with the patient including bleeding, damage to surrounding tissue, infection, loss of digit, need for further surgery as well as risks of anesthesia including pulmonary embolism and even and the patient wished to proceed with surgical intervention. The patient was seen in the pre-operative area by myself. Consent and H&P were completed and updated. The correct extremity was marked in the pre-operative area by myself and all other questions were answered. Operative Narrative: The patient was brought to the operating room by the department of anesthesia. They remained on the portable stretcher and a rolling hand table was brought to the side of the operative extremity. Pre-operative time out was performed indicating the correct patient, procedure and laterality. All in the room agreed. Pre-operative antibiotics were given prior to skin incision. The patient was then drifted off to sleep by the department of anesthesia. A nonsterile tourniquet was then applied to the operative extremity and the right upper extremity was then prepped and draped in normal sterile fashion. The operative extremity was the exsanguinated with an esmarch bandage and the tourniquet was inflated to 250mmHg. Previously placed sutures by ED were removed along the dorsal and volar ulnar surfaces of the small finger at the level of the DIP joint. Blunt dissection was then performed with tenotomy scissors. The patients injury was found to extended dorsally and volarly and involved complete laceration/rupture of the terminal extensor tendon at the level of the DIP joint, as well as complete laceration/rupture of the FDP tendon to the right small finger at the level of the DIP joint, and rupture of the collateral ligaments of the DIP joint. The volar radial skin bridge appeared to be the only connection between the distal finger tip and proximal finger. The volar incision was extended slightly distal in a mid axial fashion. The proximal and distsal ends of the lacerated FDP tendon were identified, there appeared to be a sizeable portion of the distal tendon present therefore primary repair was performed. 4-0 ethibond suture was utilized to place a core stitch in a modified Hanna fashion both proximally and distally in the FDP tendon. The tendon edges were the approximated and suture limbs tied with appropriate tension. Attention was then brought to the complete terminal extensor tendon rupture. The thickness of the terminal tendon at the level of the DIP joint was very thin, however 2 figure of 8 sutures with 4-0 ethibond were able to be placed. The DIP joint was now reduced and confirmed on intra-operative fluoroscopy. To protect the unstable DIP joint and tendon repairs decision was made to proceed with DIP joint CRPP. A 0.045 K-Wire was inserted in a retrograde fashion in the center of the distal phalanx, crossing the distal interphalangeal joint which was held in 5 degrees of flexion. Intra- medullary k-wire placement was confirmed on AP and Lateral views. The dorsal skin edges were then sutured with several interrupted deep penetrating 4-0 nylon sutures incorporating the skin and extensor tendor to supplement repair. Pin edge was cut and a [place] pin ball cap was placed. A sterile dressing consisting of adaptic, 4x4s , cast padding and a plaster splint was then applied. The tourniquet was let down and the tip of the small finger had cap refill of approximately 4 seconds but appeared to be well perfused after close monitoring. The patient was then woken by the department of anesthesia and transferred to PACU in stable condition where right small finger capillary refill was confirmed to be brisk and less than 2 seconds at that time. Eleazar Caceres D.O. Orthopedic Hand/Upper Extremity Surgeon
== END 2021-04-02 12:20 | disposition home or self-care (01) ==
LOC: OR 07:51
PROVIDERS: ATTEND Orthopaedic Surgery Hand Surgery
DX: S68.126A Partial traumatic metacarpophalangeal amputation of right little finger, initial encounter (principal); W23.0XXA Caught, crushed, jammed, or pinched between moving objects, initial encounter; J45.909 Unspecified asthma, uncomplicated; K21.9 Gastro-esophageal reflux disease without esophagitis; F17.210 Nicotine dependence, cigarettes, uncomplicated; Z88.8 Allergy status to other drugs, medicaments and biological substances; I42.9 Cardiomyopathy, unspecified
CPT/HCPCS: 26370; 26356; 26776; C1713; J2250; J1100; J0690; J2405; J2001; J3010; J1170 ×2; J1885; J2704

== ENCOUNTER 2021-04-05 19:46 | Emergency (ER) | payer OTHER ==
[2021-04-05 20:50] VITALS: BP 127/61; TEMP 98.7
--- NOTE | 2021-04-05 22:20 | XR ---
EXAMINATION TYPE: XR finger RT DATE OF EXAM: 04/05/2021 COMPARISON: 03/28/2021 HISTORY: Surgery TECHNIQUE: 4 views FINDINGS: Detail obscured by the cast. There is a pain fixing the DIP joint of the little finger in a natomic position. IMPRESSION: Fixation pin in the DIP joint of the little finger. No complicating process seen.
[2021-04-05] MEDS ORDERED: KETOROLAC 15 MG/ML 1 ML VIAL IM STA (23:19)
--- NOTE | 2021-04-05 23:24 | ED ---
General Adult HPI - General Chief complaint: Extremity Injury, Upper Stated complaint: Post op R Finger Bleeding Time Seen by Provider: 04/05/21 23:07 Source: patient, family Mode of arrival: ambulatory Limitations: no limitations - History of Present Illness Initial comments: 21-year-old male presents to the emergency room for a chief complaint of right fifth digit pain. Patient states that he had a pin placed in the right fifth digit 3 days ago. He states that this morning when he was waking up he moved his hand and pushed the pain. States that it started bleeding a little bit. Patient states he has been having discomfort. Patient denies fevers. Denies chills. Denies constitutional symptoms.Patient has no other complaints at this time including shortness of breath, chest pain, abdominal pain, nausea or vomiting, headache, or visual changes. - Related Data Home Medications Medication Instructions Recorded Confirmed Albuterol Inhaler [Ventolin Hfa 2 puff INHALATION RT-Q6H PRN 01/27/21 04/02/21 Inhaler] HYDROcodone/APAP 7.5-325MG [[place] 1 tab PO Q4H PRN 04/01/21 04/02/21 7.5-325] Previous Rx's Medication Instructions Recorded Cephalexin [Keflex] 500 mg PO Q6HR #40 cap 03/28/21 HYDROcodone/APAP 5-325MG [[place] 1 tab PO Q6HR PRN 3 Days #12 tab 04/02/21 5-325] Allergies Allergy/AdvReac Type Severity Reaction Status Date / Time anidulafungin Allergy Dyspnea Verified 04/05/21 20:50 Review of Systems ROS Statement: Those systems with pertinent positive or pertinent negative responses have been documented in the HPI. ROS Other: All systems not noted in ROS Statement are negative. Past Medical History Past Medical History: Asthma, GERD/Reflux Additional Past Medical History / Comment(s): Right lung emphysema 09/2019, History of Any Multi-Drug Resistant Organisms: None Reported Past Surgical History: No Surgical Hx Reported Additional Past Surgical History / Comment(s): Pt reports surgery on heart and lungs -( patient had sepsis and had surgery for the infection) Past Anesthesia/Blood Transfusion Reactions: No Reported Reaction Past Psychological History: Anxiety Smoking Status: Current every day smoker Past Alcohol Use History: None Reported Past Drug Use History: Marijuana - Past Family History Mother Additional Family Medical History / Comment(s): Vertigo Father History Unknown: Yes General Exam Limitations: no limitations General appearance: alert, in no apparent distress Head exam: Present: atraumatic Eye exam: Present: normal appearance, PERRL, EOMI. Absent: scleral icterus, conjunctival injection ENT exam: Present: normal exam, mucous membranes moist Neck exam: Present: normal inspection, full ROM. Absent: tenderness Respiratory exam: Present: normal lung sounds bilaterally. Absent: respiratory distress, wheezes Cardiovascular Exam: Present: regular rate, normal rhythm, normal heart sounds Extremities exam: Present: normal capillary refill (Capillary refill less than 2 seconds right upper extremity. Radial pulse 2+.), other (Patient is of a pin placed in the right fifth digit. There is minimal edema however no erythema drainage or streaking redness in the right fifth digit. No swelling of the hand aside from some mild edema of the DIP joint of the right fifth digit.) Course Vital Signs 04/05/21 20:46 Temperature 98.7 F Pulse Rate 74 Respiratory 22 Rate Blood Pressure 127/61 O2 Sat by Pulse 100 Oximetry Procedures - Orthopedic Splinting/Casting Injury #1 Side: right Upper Extremity Injury Location: short arm Upper Extremity Immobilizer: ulnar gutter Additional Comments: Neurovascular status intact after splint applied. Medical Decision Making - Medical Decision Making Vitals are stable. Patient well-appearing. I did remove cast. There is minimal edema to the DIP joint of the right fifth digit with a pen placed. There is no erythema or purulent drainage. No streaking redness. No evidence of infection. X-ray of the right finger shows fixation pin in the DIP joint of the little finger without complicating process seen. Splint was replaced. Patient was given Toradol. At this time recommending he follow-up with his surgeon tomorrow morning. If he has any worsening symptoms or fevers he will return here. Disposition Clinical Impression: Finger pain, right, Post-op pain Disposition: HOME SELF-CARE Condition: Good Instructions (If sedation given, give patient instructions): Arthralgia (ED) Additional Instructions: Please continue to take your pain medication as directed. Follow-up with your surgeon tomorrow morning. If you have any worsening symptoms such as fevers return to the emergency room. Is patient prescribed a controlled substance at d/c from ED?: No Referrals: Eleazar Caceres DO [Doctor of Osteopathic Medicine] - 1-2 days Time of Disposition: 23:23
[2021-04-05 23:34] VITALS: PULSE 67; RESP 18
== END 2021-04-05 23:58 | disposition home or self-care (01) ==
LOC: EC 19:46
DX: M79.644 Pain in right finger(s) (principal); G89.18 Other acute postprocedural pain; K21.9 Gastro-esophageal reflux disease without esophagitis; J45.909 Unspecified asthma, uncomplicated; F41.9 Anxiety disorder, unspecified; F17.200 Nicotine dependence, unspecified, uncomplicated; F12.90 Cannabis use, unspecified, uncomplicated
CPT/HCPCS: 99283; 96372; 29125; 73140; J1885

== ENCOUNTER 2024-01-17 02:00 | Observation (INO) | payer OTHER ==
[2024-01-17] MEDS ORDERED: NICOTINE 21MG/24HR PATCH TRANSDERM ONE (03:44)
[2024-01-17] MEDS ORDERED: LORazepam 2 MG/ML INJ ONE (08:45)
[2024-01-17] MEDS ORDERED: ALBUTEROL NEBULIZED 2.5 MG/3 ML INHALATION ONE (12:11)
[2024-01-17] MEDS ORDERED: BUDESONIDE 1 MG/2 ML NEBU INHALATION ONE (12:11)
[2024-01-17] MEDS ORDERED: ALBUTEROL HFA INHALER INHALATION ONE (12:27)
[2024-01-17] MEDS ORDERED: ENOXAPARIN 40 MG/0.4 ML SYRINGE SQ ONE (12:57)
[2024-01-17] MEDS ORDERED: chlordiazePOXIDE 25 MG CAP ONE (12:58)
[2024-01-17] MEDS ORDERED: PANTOPRAZOLE 40 MG TABLET PO ONE (12:58)
[2024-01-17] MEDS ORDERED: predniSONE 20 MG TAB ONE (12:59)
--- NOTE | 2024-02-12 11:20 | XR ---
EXAMINATION TYPE: Chest X-ray 1 View DATE OF EXAM: 01/17/2024 COMPARISON: NONE HISTORY: Chest pain TECHNIQUE: Frontal view chest FINDINGS: There is no focal air space opacity. No evidence for pneumothorax. No pleural effusion. The cardiac silhouette size is within normal limits. The osseous structures are grossly intact. IMPRESSION: 1. No acute cardiopulmonary process.
--- NOTE | 2024-02-14 15:12 | US ---
Patient: Torsten Moulton Ordering Physician: Unknown, Unknown ID: [id number] Phone, Pager: Phone: N/A Pager: N/A : 2000 Age/Gender: 24Y, M Primary Location: N/A Procedure: US Abdomen Limited Stud y Date: 01/17/2024 12:44:00 PM EXAMINATION TYPE: US abdomen complete DATE OF EXAM: 01/17/2024 COMPARISON: NONE CLINICAL INDICATION: Unknown, old with history of ; TECHNIQUE: Multiple sonographic images of the abdomen are obtained. FINDINGS: LUQ spasms Lt kidney measuring 10.5 x 4.6 x 5.4cm Spleen measuring 8.8cm, multiple calcifications seen No obvious abnormality seen in area of concern near left chest IMPRESSION: Splenic granulomas seen.
== END 2024-01-17 16:50 | disposition left against medical advice (07) ==
LOC: 5NMEDONC 02:00
PROVIDERS: ADMIT Internal Medicine; ATTEND Internal Medicine
DX: J45.901 Unspecified asthma with (acute) exacerbation (principal); D75.1 Secondary polycythemia; F17.210 Nicotine dependence, cigarettes, uncomplicated; F10.20 Alcohol dependence, uncomplicated; Z88.8 Allergy status to other drugs, medicaments and biological substances; Z79.899 Other long term (current) drug therapy; Z53.29 Procedure and treatment not carried out because of patient's decision for other reasons
CPT/HCPCS: 71045; 76705; 94640; 96374; 99285